=== PATIENT | female | born 1965 | race African-American/Black ===

== ENCOUNTER → 2016-08-30 | Emergency (ER) | payer OTHER ==
[~2016-08-30] VITALS: Ht 165.1 cm; Wt 190.5 kg
[~2016-08-30] MED LIST: ASPIRIN81 MG ORAL; BENADRYL25 MG ORAL; COREG3.125 MG ORAL; CYCLOBENZAPRINE10 MG ORAL; DOXYCYCLINE MO100 MG ORAL; FUROSEMIDE40 MG ORAL; IBUPROFEN600 MG ORAL; Ketorolac 60mg Inj IM ONE; METRONIDAZOLE500 MG ORAL; NITROSTAT0.4 M1 SL; NORCO 5-325 TA1 EACH ORAL; NORVASC10 MG ORAL; Norco 5mg/325mg tab ORAL ONE; PERCOCET 5-3251 EACH ORAL; PREDNISONE20 M1 PO; PROZAC40 MG ORAL; ULTRAM50 MG ORAL
[2016-08-30 02:27] VITALS: BP 163/105
--- NOTE | 2016-08-30 02:37 | Emergency Room Report ---
History of Present Illness General Chief Complaint: Pain Source: Patient Present Illness HPI This is a 51-year-old female who is morbidly obese. She is history hypertension and chronic knee pain. She presents with chief complaint of bilateral knee pain. She is out of her Percocet for last 2 days. She is to see her doctor in 2 days for refills. Patient denies any trauma. Complaining of bilateral knee pain is throbbing in nature. 10 out of 10. She is scheduled to see a pain specialist in a month. Denies any other complaint. Allergies: Coded Allergies: TRAMADOL (Verified Allergy, Severe, Anaphylaxis, 02/20/15) CARROT (Verified Allergy, Mild, 02/20/15) PENICILLINS (Verified Allergy, Unknown, 04/26/16) TRIMETHOBENZAMIDE (Verified Allergy, Unknown, 04/26/16) Patient History Past Medical History: see triage record, old chart reviewed, HTN Past Surgical History: other Pertinent Family History: none Social History: Denies: smoking Last Menstrual Period: 4 DAYS AGO Now: No Immunizations: other Reviewed Nursing Documentation: PMH: Agreed, PSxH: Agreed Nursing Documentation-PMH Hx Cardiac Problems: Yes - CHF Hx Hypertension: Yes Hx Pacemaker: No Hx Asthma: Yes Hx COPD: No Hx Diabetes: No Hx Cancer: No Hx Gastrointestinal Problems: No Hx Dialysis: No Hx Cerebrovascular Accident: No Hx Seizures: No Review of Systems Eye: Denies: blurred vision, eye pain ENT: Denies: ear pain, nose congestion, throat swelling Respiratory: Denies: cough, shortness of breath Cardiovascular: Denies: chest pain, palpitations Gastrointestinal: Denies: abdominal pain, diarrhea, nausea, vomiting Musculoskeletal: Reports: joint pain, Denies: back pain Skin: Denies: rash Neurological: Denies: headache, numbness Endocrine: Denies: increased thirst, increased urine Hematologic/Lymphatic: Denies: easy bruising All Other Systems: negative except mentioned in HPI Physical Exam Vital Signs Date Time Temp Pulse Resp B/P Pulse Ox O2 Delivery O2 Flow Rate FiO2 08/30/16 02:18 98.1 91 20 163/105 98 Room Air vitals with hypertension Sp02 EP Interpretation: reviewed, normal General Appearance: well appearing, no apparent distress, alert, obese Head: normocephalic, atraumatic Eyes: bilateral eye EOMI, bilateral eye PERRL ENT: hearing grossly normal, normal pharynx Neck: full range of motion, supple, no meningismus Respiratory: chest non-tender, lungs clear, normal breath sounds Cardiovascular #1: regular rate, rhythm, no murmur Gastrointestinal: normal bowel sounds, non tender, no mass, no organomegaly, no bruit, non-distended Musculoskeletal: back normal, other - Bilateral knee tenderness. No edema. Full range of motion. No redness. Neurologic: alert, oriented x3 Psychiatric: mood/affect normal Skin: warm/dry Medical Decision Making Diagnostic Impression: Primary Impression: Hypertension Qualified Codes: I10 - Essential (primary) hypertension Additional Impressions: Osteoarthritis of knees, bilateral Qualified Codes: M17.0 - Bilateral primary osteoarthritis of knee Morbid obesity with BMI of 60.0-69.9, adult ER Course Patient presents with bilateral knee pain secondary to her obesity. No evidence of septic joint. We'll discharge home. Last Vital Signs Date Time Temp Pulse Resp B/P Pulse Ox O2 Delivery O2 Flow Rate FiO2 08/30/16 02:27 98.1 91 20 163/105 99 Room Air Status: improved Disposition: HOME, SELF-CARE Scripts Oxycodone/Acetaminophen 5-325* (PERCOCET 5-325 MG TABLET*) 1 Each Tablet 1 TAB ORAL BID Y for For Pain, #10 TAB Prov: THEODORE JIN M.D. 08/30/16 Additional Instructions: Followup with your doctor as scheduled for refill your medication. Return if symptom worsen. THEODORE JIN M.D. Aug 30, 2016 02:37
[2016-08-30 03:09] VITALS: BP 163/105
== END | disposition home or self-care (01) ==
LOC: EMR 02:30
DX: M17.0 Bilateral primary osteoarthritis of knee (principal); I10 Essential (primary) hypertension; E66.01 Morbid (severe) obesity due to excess calories; Z68.44 Body mass index [BMI] 60.0-69.9, adult; J45.909 Unspecified asthma, uncomplicated; I50.9 Heart failure, unspecified; Z88.6 Allergy status to analgesic agent; Z88.0 Allergy status to penicillin; Z88.8 Allergy status to other drugs, medicaments and biological substances; Z91.018 Allergy to other foods
CPT/HCPCS: 96372; 99283

== ENCOUNTER 2016-12-05 16:56 | Inpatient (IN) | payer MEDICAID, OTHER ==
[~2016-12-05] VITALS: Ht 165.1 cm; Wt 144.2 kg
[2016-12-05] VITALS: BP 125/78
[~2016-12-05 16:56] MED LIST changes: -Ketorolac 60mg Inj IM ONE; -Norco 5mg/325mg tab ORAL ONE
--- NOTE | 2016-12-05 17:23 | Emergency Room Report ---
History of Present Illness General Chief Complaint: Multiple Trauma/Fall Source: Patient Present Illness HPI This is a 51 or female brought in by self after a reported fall from standing. The patient had fall approximately 2 hours prior to arrival. The patient reported vomiting she reported having had prior history of cardiac disease. Patient noted taking diuretics. Allergies: Coded Allergies: TRAMADOL (Verified Allergy, Severe, Anaphylaxis, 02/20/15) CARROT (Verified Allergy, Mild, 02/20/15) PENICILLINS (Verified Allergy, Unknown, 04/26/16) TRIMETHOBENZAMIDE (Verified Allergy, Unknown, 04/26/16) Patient History Last Menstrual Period: 11/17/16 Now: No : 3 Para: 1 Reviewed Nursing Documentation: PMH: Agreed, PSxH: Agreed Nursing Documentation-PMH Past Medical History: No History, Except For Hx Cardiac Problems: Yes - CHF Hx Hypertension: Yes Hx Pacemaker: No Hx Asthma: Yes Hx COPD: No Hx Diabetes: No Hx Cancer: No Hx Gastrointestinal Problems: No Hx Dialysis: No Hx Cerebrovascular Accident: No Hx Seizures: No Physical Exam Vital Signs Date Time Temp Pulse Resp B/P Pulse Ox O2 Delivery O2 Flow Rate FiO2 12/05/16 17:13 97.9 96 19 151/99 99 Room Air Medical Decision Making Diagnostic Impression: Primary Impression: Asthma exacerbation Additional Impressions: Obesity Shoulder contusion Abnormal drug screen ER Course Patient presented for shortness of breath.Differential included but was not limited to anemia, pneumonia, pneumothorax, myocardial infarction, pericardial effusion, congestive heart failure, acidosis. Because of complexity of patient' s case laboratory testing and imaging studies were ordered.A chest x-ray one view interpreted by me showed normal cardiac size without evident infiltrate. There is no pneumothorax noted . x-ray imaging of the left shoulder 3 view interpreted by me showed degenerative changes without evident fracture. The patient was given IV pain medications as well as breathing treatments and Solu- Medrol. The patient's urine drug screen was noted be positive for multiple substances. Dr. Hauser was contacted for inpatient management due to complexity of medical condition. Labs Test 12/05/16 17:40 12/05/16 18:10 White Blood Count 5.7 K/UL (4.8-10.8) Red Blood Count 3.53 M/UL (4.20-5.40) Hemoglobin 9.7 G/DL (12.0-16.0) Hematocrit 31.5 % (37.0-47.0) Mean Corpuscular Volume 89 FL (80-99) Mean Corpuscular Hemoglobin 27.5 PG (27.0-31.0) Mean Corpuscular Hemoglobin Concent 30.9 G/DL (32.0-36.0) Red Cell Distribution Width 17.0 % (11.6-14.8) Platelet Count 260 K/UL (150-450) Mean Platelet Volume 5.8 FL (6.5-10.1) Neutrophils (%) (Auto) 54.0 % (45.0-75.0) Lymphocytes (%) (Auto) 29.8 % (20.0-45.0) Monocytes (%) (Auto) 10.7 % (1.0-10.0) Eosinophils (%) (Auto) 3.6 % (0.0-3.0) Basophils (%) (Auto) 2.0 % (0.0-2.0) Chest X-Ray Diagnostic Results EP Interpretation: Yes Findings: no consolidation, no effusion, no pneumothorax, no acute cardiopulmonary disease Number of Views: 1 Last Vital Signs Date Time Temp Pulse Resp B/P Pulse Ox O2 Delivery O2 Flow Rate FiO2 12/05/16 17:13 97.9 96 19 151/99 99 Room Air Status: unchanged Disposition: XFER [facility], [facility] Condition: Serious Jatinder Worthington December 05, 2016 17:23
[2016-12-05] MEDS ORDERED: Ketorolac 30mg Inj IV ONE (17:45)
[2016-12-05] MEDS ORDERED: DuoNeb 0.5-3(2.5)mg/3ml neb HHN ONE (17:45)
[2016-12-05 18:26] LABS: EOSINOPHILS % (AUTO) 3.6 % (0.0-3.0); LYMPHOCYTES % (AUTO) 29.8 % (20.0-45.0); MEAN CORPUSCULAR HEMOGLOBIN 27.5 PG (27.0-31.0); MEAN CORPUSCULAR HGB CONC 30.9 G/DL (32.0-36.0); MEAN CORPUSCULAR VOLUME 89 FL (80-99); MEAN PLATELET VOLUME 5.8 FL (6.5-10.1); MONOCYTES % (AUTO) 10.7 % (1.0-10.0); PLATELET COUNT 260 K/UL (150-450); RED BLOOD COUNT 3.53 M/UL (4.20-5.40); WHITE BLOOD COUNT 5.7 K/UL (4.8-10.8)
[2016-12-05 18:30] VITALS: BP 131/82
[2016-12-05] MEDS ORDERED: Solu-MEDROL 125mg Inj IVP ONE (18:30)
[2016-12-05 18:44] LABS: PROTHROMBIN TIME 9.9 SEC (9.30-11.50)
[2016-12-05] MEDS ORDERED: TRIAMCINOLONE A15 GM TP (19:00)
[2016-12-05 19:02] LABS: TROPONIN I < 0.30 ng/mL (<=0.30)
[2016-12-05 19:05] LABS: ALANINE AMINOTRANSFERASE 12 U/L (3-33); ALBUMIN/GLOBULIN RATIO 1.1 (1.0-2.7); ANION GAP 11 (5-15); ASPARTATE AMINO TRANSFERASE 13 U/L (5-40); CALCIUM 8.9 mg/dL (8.6-10.2); CARBON DIOXIDE 28 mEQ/L (20-30); CHLORIDE 99 mEQ/L (98-107); GLOMERULAR FILTRATION RATE > 60 mL/min (>60); HEMOLYSIS 0; POTASSIUM 3.7 mEQ/L (3.4-4.9); SODIUM 138 mEQ/L (135-145); TOTAL PROTEIN 6.8 g/dL (6.6-8.7)
[2016-12-05] MEDS ORDERED: Oxycodone/Acetaminophen 5-325 ORAL PRN (20:30)
[2016-12-05] MEDS ORDERED: Nitroglycerin Subl 0.4mg tab (Bottle Of 25) SL PRN (20:30)
[2016-12-05] MEDS ORDERED: DuoNeb 0.5-3(2.5)mg/3ml neb HHN PRN (20:30)
[2016-12-05] MEDS ORDERED: Promethazine/Codeine 5ml UD ORAL PRN (20:30)
[2016-12-05 21:00] VITALS: BP 143/86
[2016-12-05 21:56] VITALS: BP 116/66
[2016-12-05] MEDS: Theophylline ER 100mg ORAL SCH (22:12)
[2016-12-05] MEDS: Heparin 5000 units/ml inj SUBQ SCH (22:13)
[2016-12-05] MEDS: LORazepam Inj 2mg/ml 1ml IV PRN (22:20)
[2016-12-05] MEDS: Morphine Sulfate 2mg/ml Inj IVP PRN (22:21)
--- NOTE | 2016-12-05 22:43 | History and Physical ---
History of Present Illness General Date patient seen: December 05, 2016 Reason for Hospitalization: Multiple Trauma/Fall Present Illness HPI 51 or female brought in by self after a reported fall from standing. The patient had fall approximately 2 hours prior to arrival. The patient reported vomiting she reported having had prior history of cardiac disease. Patient noted taking diuretics. Allergies: Coded Allergies: CARROT (Verified Allergy, Mild, 02/20/15) PENICILLINS (Verified Allergy, Unknown, 04/26/16) TRAMADOL (Verified Allergy, Unknown, Hives, 12/05/16) TRIMETHOBENZAMIDE (Verified Allergy, Unknown, 04/26/16) Medication History Scheduled Amlodipine Besylate (Norvasc), 20 MG ORAL DAILY, (Reported) Fluoxetine Hcl* (Prozac*), 40 MG ORAL DAILY, (Reported) Furosemide* (Lasix*), 40 MG ORAL DAILY, (Reported) Scheduled PRN Oxycodone/Acetaminophen 5-325* (Percocet 5-325 Mg Tablet*), 1 TAB ORAL BID PRN for For Pain Triamcinolone Acetonide (Triamcinolone Acetonide), 15 GM TP for inflammation, ( Reported) Patient History Healthcare decision maker Resuscitation status Advanced Directive on File Past Medical/Surgical History Past Medical/Surgical History: (1) Morbid obesity with BMI of 50.0-59.9, adult (2) Hypertension Review of Systems All Other Systems: negative except mentioned in HPI Physical Exam General Appearance: WD/WN, no apparent distress Lines, tubes and drains: peripheral HEENT: normocephalic, atraumatic Neck: non-tender, normal alignment Respiratory/Chest: chest wall non-tender, lungs clear Breasts: no masses Cardiovascular/Chest: normal peripheral pulses, normal rate Abdomen: normal bowel sounds, non tender Genitourinary/Rectal: normal genital exam Extremities: normal range of motion Skin Exam: normal pigmentation Last 24 Hour Vital Signs Date Time Temp Pulse Resp B/P Pulse Ox O2 Delivery O2 Flow Rate FiO2 12/05/16 21:56 97.9 88 20 116/66 99 Room Air 12/05/16 18:30 79 20 131/82 100 Room Air 12/05/16 17:13 97.9 96 19 151/99 99 Room Air Laboratory Tests Test 12/05/16 17:40 12/05/16 18:10 Urine Opiates Screen Negative (NEGATIVE) Urine Barbiturates Screen Negative (NEGATIVE) Phencyclidine (PCP) Screen Positive (NEGATIVE) H Urine Amphetamines Screen Positive (NEGATIVE) H Urine Benzodiazepines Screen Negative (NEGATIVE) Urine Cocaine Screen Positive (NEGATIVE) H Urine Marijuana (THC) Screen Negative (NEGATIVE) White Blood Count 5.7 K/UL (4.8-10.8) Red Blood Count 3.53 M/UL (4.20-5.40) L Hemoglobin 9.7 G/DL (12.0-16.0) L Hematocrit 31.5 % (37.0-47.0) L Mean Corpuscular Volume 89 FL (80-99) Mean Corpuscular Hemoglobin 27.5 PG (27.0-31.0) Mean Corpuscular Hemoglobin Concent 30.9 G/DL (32.0-36.0) L Red Cell Distribution Width 17.0 % (11.6-14.8) H Platelet Count 260 K/UL (150-450) Mean Platelet Volume 5.8 FL (6.5-10.1) L Neutrophils (%) (Auto) 54.0 % (45.0-75.0) Lymphocytes (%) (Auto) 29.8 % (20.0-45.0) Monocytes (%) (Auto) 10.7 % (1.0-10.0) H Eosinophils (%) (Auto) 3.6 % (0.0-3.0) H Basophils (%) (Auto) 2.0 % (0.0-2.0) Prothrombin Time 9.9 SEC (9.30-11.50) Prothromb Time International Ratio 1.0 (0.9-1.1) Activated Partial Thromboplast Time 23 SEC (23-33) Sodium Level 138 mEQ/L (135-145) Potassium Level 3.7 mEQ/L (3.4-4.9) Chloride Level 99 mEQ/L (98-107) Carbon Dioxide Level 28 mEQ/L (20-30) Anion Gap 11 (5-15) Blood Urea Nitrogen 16 mg/dL (7-23) Creatinine 1.0 mg/dL (0.5-0.9) H Estimat Glomerular Filtration Rate > 60 mL/min (>60) Glucose Level 114 mg/dL (74-106) H Calcium Level 8.9 mg/dL (8.6-10.2) Total Bilirubin 0.3 mg/dL (0.0-1.2) Aspartate Amino Transf (AST/SGOT) 13 U/L (5-40) Alanine Aminotransferase (ALT/SGPT) 12 U/L (3-33) Alkaline Phosphatase 78 U/L (35-104) Troponin I < 0.30 ng/mL (<=0.30) Pro-B-Type Natriuretic Peptide 109 pg/mL (0-125) Total Protein 6.8 g/dL (6.6-8.7) Albumin 3.7 g/dL (3.5-5.2) Globulin 3.1 g/dL Albumin/Globulin Ratio 1.1 (1.0-2.7) Height (Feet): 5 Height (Inches): 5.00 Weight (Pounds): 350 Medications Current Medications Medications (Trade) Dose Ordered Sig/Dave Route PRN Reason Start Time Stop Time Status Last Admin Dose Admin Albuterol/ Ipratropium (DuoNeb 0.5-3(2.5)mg/3ml) 3 ml Q4H PRN HHN dyspnea 12/05/16 20:30 12/10/16 20:29 Amlodipine Besylate (Norvasc) 20 mg DAILY ORAL 12/06/16 09:00 01/05/17 08:59 UNV Dextrose STAT PRN IV Hypoglycemia 12/05/16 20:30 01/04/17 20:29 Fluoxetine HCl (PROzac) 40 mg DAILY ORAL 12/06/16 09:00 01/05/17 08:59 Furosemide (Lasix) 40 mg DAILY ORAL 12/06/16 09:00 01/05/17 08:59 Heparin Sodium (Porcine) (Heparin 5000 units/ml) 5,000 units EVERY 12 HOURS SUBQ 12/05/16 22:00 01/04/17 21:59 12/05/16 22:13 Ketorolac Tromethamine (Toradol 30mg) 30 mg Q8H PRN IV moderate pain 4-6 12/05/16 20:30 12/10/16 20:29 Levofloxacin (Levaquin) 100 ml @ 100 mls/hr Q24H IVPB 12/05/16 23:00 12/12/16 22:59 Lorazepam (Ativan 2mg/ml 1ml) 0.5 mg Q4H PRN IV For Anxiety 12/05/16 20:30 12/12/16 20:29 12/05/16 22:20 Methylprednisolone Sodium Succinate (Solu-MEDROL) 60 mg EVERY 6 HOURS IV 12/06/16 00:00 01/05/17 00:00 Morphine Sulfate (Morphine Sulfate) 2 mg Q4H PRN IVP severe pain 7-10 12/05/16 20:30 12/12/16 20:29 12/05/16 22:21 Nitroglycerin (Ntg) 0.4 mg Q5M X 3 DOSES PRN SL Prn Chest Pain 12/05/16 20:30 01/04/17 20:29 Ondansetron HCl (Zofran) 4 mg Q6H PRN IVP Nausea & Vomiting 12/05/16 20:30 01/04/17 20:29 Oxycodone/ Acetaminophen (Percocet 5-325) 1 tab BIDPRN PRN ORAL MODERATE PAIN 12/05/16 20:30 12/12/16 20:29 Promethazine HCl/ Codeine (Phenergan with Codeine) 5 ml Q6H PRN ORAL cough 12/05/16 20:30 01/04/17 20:29 Temazepam (Restoril) 15 mg HSPRN PRN ORAL Insomnia 12/05/16 20:30 12/12/16 20:29 Theophylline (Ronaldo-Dur) 100 mg EVERY 12 HOURS ORAL 12/05/16 22:00 01/04/17 21:59 12/05/16 22:12 Assessment/Plan Problem List: (1) Asthma exacerbation ICD Codes: J45.901 - Unspecified asthma with (acute) exacerbation SNOMED: 442062869 (2) Shoulder contusion ICD Codes: S40.019A - Contusion of unspecified shoulder, initial encounter SNOMED: 62599492 (3) Obesity ICD Codes: E66.9 - Obesity, unspecified SNOMED: 790200684 (4) Morbid obesity with BMI of 50.0-59.9, adult ICD Codes: E66.01 - Morbid (severe) obesity due to excess calories; Z68.43 - Body mass index (BMI) 50-59.9 , adult SNOMED: 562512790 (5) Hypertension ICD Codes: I10 - Essential (primary) hypertension SNOMED: 89334385 Assessment/Plan respiratory treatment IV steroidw check sputum diuretics check electrolytes. KIRIT HEWITT December 05, 2016 22:43
[2016-12-06] VITALS (9 sets, daily range): BP systolic 125–164; BP diastolic 70–96
[2016-12-06] MEDS: Solu-MEDROL 125mg Inj IV SCH ×5 (00:24→23:42)
[2016-12-06] MEDS: Ketorolac 30mg Inj IV PRN ×2 (00:26→09:55)
[2016-12-06] MEDS: Morphine Sulfate 2mg/ml Inj IVP PRN ×3 (02:21→10:40)
[2016-12-06] MEDS ORDERED: Furosemide 40mg tab ORAL SCH (09:00)
[2016-12-06] MEDS: Heparin 5000 units/ml inj SUBQ SCH ×2 (09:00→21:27)
[2016-12-06] MEDS: Theophylline ER 100mg ORAL SCH ×2 (09:55→21:26)
[2016-12-06] MEDS ORDERED: Lidocaine 1% Plain 30 ml INJ PRN (10:30)
[2016-12-06] MEDS ORDERED: Heparin 2000 units/Ns 1000ml INJ PRN (10:30)
[2016-12-06] MEDS ORDERED: Sodium Bicarbonate 4% 2.4meq/5ml vial INJ PRN (10:30)
[2016-12-06] MEDS: LORazepam Inj 2mg/ml 1ml IV PRN ×2 (13:23→21:26)
--- NOTE | 2016-12-06 13:32 | Diagnostic Imaging Report ---
Indication: SOB Technique: One view of the chest Comparison: 04/26/2016 Findings: Inspiration is suboptimal. Lungs and pleural spaces are clear. The heart size is borderline enlarged. Aorta is tortuous and ectatic Impression: No acute process This agrees with the preliminary interpretation provided by the emergency room physician
--- NOTE | 2016-12-06 13:32 | Diagnostic Imaging Report ---
Indication: PAIN Technique: 3 views of the left shoulder Comparison: none Findings: There are fairly extensive degenerative changes of the left shoulder, with narrowing of joint space, subchondral sclerosis and subchondral cysts, and fairly extensive proliferative change. No acute fractures. No dislocations. There are mild degenerative changes of the acromioclavicular joint Impression:Degenerative changes. No acute bony trauma
--- NOTE | 2016-12-06 14:56 | Pulmonology Progress Note ---
Assessment/Plan Problems: (1) Asthma exacerbation (2) Shoulder contusion (3) Obesity (4) Morbid obesity with BMI of 50.0-59.9, adult (5) Hypertension Assessment/Plan improving increase dose of lasix echo cardio to see Subjective ROS Limited/Unobtainable: No Interval Events: still c/o shortness of breath Allergies: Coded Allergies: CARROT (Verified Allergy, Mild, 02/20/15) PENICILLINS (Verified Allergy, Unknown, 04/26/16) TRAMADOL (Verified Allergy, Unknown, Hives, 12/05/16) TRIMETHOBENZAMIDE (Verified Allergy, Unknown, 04/26/16) Objective Last 24 Hour Vital Signs Date Time Temp Pulse Resp B/P Pulse Ox O2 Delivery O2 Flow Rate FiO2 12/06/16 12:55 98.2 105 15 164/76 97 Room Air 12/06/16 09:56 85 150/77 12/06/16 08:45 95.0 85 21 150/77 98 Room Air 12/06/16 08:32 97.0 85 20 150/77 98 Room Air 12/06/16 04:00 97.7 99 20 146/70 97 Room Air 12/06/16 00:00 97.9 96 20 125/78 99 Room Air 12/05/16 21:56 97.9 88 20 116/66 99 Room Air 12/05/16 21:25 97.9 98 14 143/86 100 Room Air 79 98 12/05/16 21:00 97.9 98 14 143/86 100 Room Air 98 12/05/16 18:30 79 20 131/82 100 Room Air 12/05/16 17:13 97.9 96 19 151/99 99 Room Air Intake and Output 12/05/16 12/06/16 19:00 07:00 Intake Total 100 ml Output Total 450 ml Balance -350 ml Intake IV Total 100 ml Output Urine Total 450 ml General Appearance: WD/WN, no acute distress HEENT: normocephalic Respiratory/Chest: chest wall non-tender, lungs clear Breasts: no masses Cardiovascular: normal peripheral pulses, normal rate Abdomen: soft, non tender, non distended Extremities: no cyanosis, no clubbing Skin: no rash Laboratory Tests 12/05/16 17:40: Urine Opiates Screen Negative, Urine Barbiturates Screen Negative, Phencyclidine (PCP) Screen PositiveH, Urine Amphetamines Screen PositiveH, Urine Benzodiazepines Screen Negative, Urine Cocaine Screen PositiveH, Urine Marijuana (THC) Screen Negative 12/05/16 18:10: White Blood Count 5.7, Red Blood Count 3.53L, Hemoglobin 9.7L, Hematocrit 31.5L , Mean Corpuscular Volume 89, Mean Corpuscular Hemoglobin 27.5, Mean Corpuscular Hemoglobin Concent 30.9L, Red Cell Distribution Width 17.0H, Platelet Count 260, Mean Platelet Volume 5.8L, Neutrophils (%) (Auto) 54.0, Lymphocytes (%) (Auto) 29.8, Monocytes (%) (Auto) 10.7H, Eosinophils (%) (Auto) 3.6H, Basophils (%) (Auto) 2.0, Prothrombin Time 9.9, Prothromb Time International Ratio 1.0, Activated Partial Thromboplast Time 23, Sodium Level 138, Potassium Level 3.7, Chloride Level 99, Carbon Dioxide Level 28, Anion Gap 11, Blood Urea Nitrogen 16, Creatinine 1.0H, Estimat Glomerular Filtration Rate > 60, Glucose Level 114H, Calcium Level 8.9, Total Bilirubin 0.3, Aspartate Amino Transf (AST/SGOT) 13, Alanine Aminotransferase (ALT/SGPT) 12, Alkaline Phosphatase 78, Troponin I < 0.30, Pro-B-Type Natriuretic Peptide 109, Total Protein 6.8, Albumin 3.7, Globulin 3.1, Albumin/Globulin Ratio 1.1 Current Medications Medications (Trade) Dose Ordered Sig/Dave Route PRN Reason Start Time Stop Time Status Last Admin Dose Admin Albuterol/ Ipratropium (DuoNeb 0.5-3(2.5)mg/3ml) 3 ml Q4H PRN HHN dyspnea 12/05/16 20:30 12/10/16 20:29 Amlodipine Besylate (Norvasc) 10 mg DAILY ORAL 12/06/16 10:00 01/05/17 09:59 12/06/16 09:56 Chlorhexidine Gluconate (Suly-Hex 2%) 1 applic DAILY TOPIC 12/07/16 09:00 01/06/17 08:59 Dextrose STAT PRN IV Hypoglycemia 12/05/16 20:30 01/04/17 20:29 Fluoxetine HCl (PROzac) 40 mg DAILY ORAL 12/06/16 09:00 01/05/17 08:59 12/06/16 09:55 Furosemide (Lasix) 40 mg DAILY IV 12/06/16 12:00 01/05/17 11:59 Heparin Sodium (Porcine) (Heparin 5000 units/ml) 5,000 units EVERY 12 HOURS SUBQ 12/05/16 22:00 01/04/17 21:59 12/05/16 22:13 Heparin Sodium/ Sodium Chloride (Heparin 2000 units/Ns 1000ml premix) 2,000 unit ONCE PRN INJ PICC PLACEMENT 12/06/16 10:30 12/07/16 23:59 Ketorolac Tromethamine (Toradol 30mg) 30 mg Q8H PRN IV moderate pain 4-6 12/05/16 20:30 12/10/16 20:29 12/06/16 00:26 Levofloxacin (Levaquin) 100 ml @ 100 mls/hr Q24H IVPB 12/05/16 23:00 12/12/16 22:59 12/05/16 23:07 Lidocaine HCl (Xylocaine 1% 30ml) 30 ml ONCE PRN INJ PICC PLACEMENT 12/06/16 10:30 12/07/16 23:59 Lorazepam (Ativan 2mg/ml 1ml) 0.5 mg Q4H PRN IV For Anxiety 12/05/16 20:30 12/12/16 20:29 12/06/16 13:23 Methylprednisolone Sodium Succinate (Solu-MEDROL) 60 mg EVERY 6 HOURS IV 12/06/16 00:00 01/05/17 00:00 12/06/16 06:23 Morphine Sulfate (Morphine Sulfate) 3 mg Q4H PRN IVP Severe Pain (Pain Scale 7-10) 12/06/16 15:00 12/13/16 14:59 Nitroglycerin (Ntg) 0.4 mg Q5M X 3 DOSES PRN SL Prn Chest Pain 12/05/16 20:30 01/04/17 20:29 Ondansetron HCl (Zofran) 4 mg Q6H PRN IVP Nausea & Vomiting 12/05/16 20:30 01/04/17 20:29 Oxycodone/ Acetaminophen (Percocet 5-325) 1 tab BIDPRN PRN ORAL MODERATE PAIN 5/22/17 20:30 12/12/16 20:29 Promethazine HCl/ Codeine (Phenergan with Codeine) 5 ml Q6H PRN ORAL cough 12/05/16 20:30 01/04/17 20:29 Sodium Bicarbonate (Sodium Bicarbonate 4%) 1 ml ONCE PRN INJ PICC PLACEMENT 12/06/16 10:30 12/07/16 23:59 Temazepam (Restoril) 15 mg HSPRN PRN ORAL Insomnia 12/05/16 20:30 12/12/16 20:29 Theophylline (Ronaldo-Dur) 100 mg EVERY 12 HOURS ORAL 12/05/16 22:00 01/04/17 21:59 12/06/16 09:55 KIRIT HEWITT December 06, 2016 14:56
--- NOTE | 2016-12-06 15:17 | Diagnostic Imaging Report ---
Indications: Needs long-term IV access Technique: Procedure performed at bedside in the angiography suite; patient unable to be moved on the angiography table due to body habitus. Procedural timeout performed. Ultrasound confirms patent compressible the distal vein. Total sterile technique, including sterile probe cover and sterile gel, sterile gloves, hand hygiene, hat, mask,, sterile gown, large sterile drape, and preparation with 2% chlorhexidine utilized. Local anesthesia with 1% lidocaine. Under real-time ultrasound guidance, puncture right basilic vein using 21-gauge needle, passage 0.018 guidewire, exchange for 5 Australian peel-away sheath. 5 Australian Bard dual-lumen power PICC cut to 44 cm. It was inserted through the peel-away sheath. Peel-away sheath and guidewire removed. Catheter fixed to the skin. Both catheter ports aspirated and flushed. Patient tolerated procedure well, without immediate complication. Followup chest x-ray obtained, documents catheter tip position at the cavoatrial junction Impression: Successful bedside placement of right arm PICC under sonographic guidance, as described above.
[2016-12-06] MEDS: Morphine Sulfate 4mg/ml Inj IVP PRN ×3 (15:22→23:51)
[2016-12-06] MEDS ORDERED: 1/2 NS 1000ml IV ONE (18:00)
[2016-12-06] MEDS ORDERED: NS 275ml ONE (18:00)
[2016-12-06] MEDS ORDERED: Tubing IV Secondary IV ONE (18:00)
[2016-12-07] MEDS: Ketorolac 30mg Inj IV PRN (01:52)
[2016-12-07] MEDS: Morphine Sulfate 4mg/ml Inj IVP PRN ×4 (03:54→16:24)
[2016-12-07 04:00] VITALS: BP 134/94
[2016-12-07] MEDS: Solu-MEDROL 125mg Inj IV SCH ×3 (05:40→17:37)
[2016-12-07 07:07] LABS: MEAN CORPUSCULAR HGB CONC 30.1 G/DL (32.0-36.0); MEAN CORPUSCULAR VOLUME 87 FL (80-99); MEAN PLATELET VOLUME 6.1 FL (6.5-10.1); PLATELET COUNT 291 K/UL (150-450); RED BLOOD COUNT 3.49 M/UL (4.20-5.40); WHITE BLOOD COUNT 12.6 K/UL (4.8-10.8)
[2016-12-07 07:28] LABS: ALANINE AMINOTRANSFERASE 10 U/L (3-33); ALBUMIN/GLOBULIN RATIO 1.2 (1.0-2.7); ANION GAP 11 (5-15); ASPARTATE AMINO TRANSFERASE 10 U/L (5-40); CALCIUM 9.1 mg/dL (8.6-10.2); CARBON DIOXIDE 28 mEQ/L (20-30); CHLORIDE 100 mEQ/L (98-107); CREATININE 0.8 mg/dL (0.5-0.9); GLOMERULAR FILTRATION RATE > 60 mL/min (>60); LACTATE DEHYDROGENASE 174 U/L (135-230); POTASSIUM 3.9 mEQ/L (3.4-4.9); SODIUM 139 mEQ/L (135-145); TOTAL PROTEIN 6.6 g/dL (6.6-8.7)
[2016-12-07 07:49] LABS: HEMOLYSIS 1; IRON 22 ug/dL (37-145); TOTAL IRON BINDING CAPACITY 367 ug/dL (250-400)
[2016-12-07 08:02] VITALS: BP 151/102
[2016-12-07 08:17] LABS: BAND NEUTROPHILS % (MANUAL) 0 % (0-8); BASOPHILS % (MANUAL) 0 % (0-2); EOSINOPHILS % (MANUAL) 0 % (0-3); HYPOCHROMASIA 2+; LYMPHOCYTES % (MANUAL) 4 % (20-45); NEUTROPHILS % (MANUAL) 95 % (45-75); PLATELET ESTIMATE ADEQUATE; TOTAL CELLS COUNTED 100
[2016-12-07 08:18] LABS: ANISOCYTOSIS 1+; PLATELET MORPHOLOGY NORMAL
[2016-12-07 08:30] LABS: ERYTHROCYTE SEDIMENTATION RATE 41 MM/HR (0-20)
[2016-12-07] MEDS ORDERED: Dyna-Hex 2% Top Sol 8oz TOPIC SCH (09:00)
[2016-12-07] MEDS: LORazepam Inj 2mg/ml 1ml IV PRN ×2 (09:24→17:37)
[2016-12-07] MEDS: Theophylline ER 100mg ORAL SCH (09:25)
[2016-12-07] MEDS: Heparin 5000 units/ml inj SUBQ SCH (09:26)
[2016-12-07 09:54] LABS: PATH BLOOD SMEAR/OMC SENT TO PATHOLOGIST
[2016-12-07 09:55] LABS: RETICULOCYTE COUNT 2.2 % (0.0-2.0)
[2016-12-07] MEDS ORDERED: DiphenhydrAMINE 50mg/ml Inj IVP PRN (10:35)
--- NOTE | 2016-12-07 11:38 | Diagnostic Imaging Report ---
Indication: Dyspnea Comparison: 12/05/16 A single view chest radiograph was obtained. Findings: No definite infiltrate or pulmonary vascular congestion identified. PICC line is present in good position. The heart is enlarged. The bones are unremarkable. Impression: No acute disease
[2016-12-07 11:54] VITALS: BP 141/94
--- NOTE | 2016-12-07 15:21 | Pulmonology Progress Note ---
Assessment/Plan Problems: (1) Asthma exacerbation (2) Shoulder contusion (3) Obesity (4) Morbid obesity with BMI of 50.0-59.9, adult (5) Hypertension Assessment/Plan improving increase dose of lasix echo cardio to see ok to dc Subjective ROS Limited/Unobtainable: No Constitutional: Reports: no symptoms HEENT: Repors: no symptoms Allergies: Coded Allergies: CARROT (Verified Allergy, Mild, 02/20/15) PENICILLINS (Verified Allergy, Unknown, 04/26/16) TRAMADOL (Verified Allergy, Unknown, Hives, 12/05/16) TRIMETHOBENZAMIDE (Verified Allergy, Unknown, 04/26/16) Objective Last 24 Hour Vital Signs Date Time Temp Pulse Resp B/P Pulse Ox O2 Delivery O2 Flow Rate FiO2 12/07/16 11:54 97.7 83 18 141/94 95 Room Air 12/07/16 09:25 84 151/102 12/07/16 08:02 97.9 84 18 151/102 96 Room Air 12/07/16 04:00 97.5 91 20 134/94 99 Room Air 12/06/16 23:57 97.3 106 20 140/96 97 Room Air 12/06/16 21:19 104 20 129/83 98 Room Air 12/06/16 19:53 98.1 103 20 131/87 98 Room Air 12/06/16 16:05 98.2 98 15 137/86 100 Room Air Intake and Output 12/06/16 12/07/16 19:00 07:00 Intake Total 1200 ml Output Total 800 ml 1200 ml Balance 400 ml -1200 ml Intake Oral 1200 ml Output Urine Total 800 ml 1200 ml # Bowel Movements 1 General Appearance: WD/WN, no acute distress HEENT: normocephalic, atraumatic Respiratory/Chest: chest wall non-tender, lungs clear Cardiovascular: normal peripheral pulses Abdomen: normal bowel sounds Extremities: no cyanosis Skin: no rash Microbiology Date/Time Source Procedure Growth Status 12/06/16 06:30 Sputum Gram Stain - Final Resulted 12/06/16 06:30 Sputum Sputum Culture Pending Resulted Laboratory Tests 12/07/16 05:00: White Blood Count 12.6#H, Red Blood Count 3.49L, Hemoglobin 9.1L, Hematocrit 30.2L, Mean Corpuscular Volume 87, Mean Corpuscular Hemoglobin 26.0L, Mean Corpuscular Hemoglobin Concent 30.1L, Red Cell Distribution Width 17.0H, Platelet Count 291, Mean Platelet Volume 6.1L, Neutrophils (%) (Auto) , Lymphocytes (%) (Auto) , Monocytes (%) (Auto) , Eosinophils (%) (Auto) , Basophils (%) (Auto) , Differential Total Cells Counted 100, Neutrophils % ( Manual) 95H, Lymphocytes % (Manual) 4L, Monocytes % (Manual) 1, Eosinophils % ( Manual) 0, Basophils % (Manual) 0, Band Neutrophils 0, Platelet Estimate Adequate, Platelet Morphology Normal, Hypochromasia 2+, Anisocytosis 1+, Erythrocyte Sedimentation Rate 41H, Reticulocyte Count 2.2H, Prothrombin Time 10.0, Prothromb Time International Ratio 1.0, Activated Partial Thromboplast Time 19L, Sodium Level 139, Potassium Level 3.9, Chloride Level 100, Carbon Dioxide Level 28, Anion Gap 11, Blood Urea Nitrogen 15, Creatinine 0.8, Estimat Glomerular Filtration Rate > 60, Glucose Level 162H, Calcium Level 9.1, Iron Level 22L, Total Iron Binding Capacity 367, Percent Iron Saturation 6L, Unsaturated Iron Binding 345, Total Bilirubin 0.2, Aspartate Amino Transf (AST/ SGOT) 10, Alanine Aminotransferase (ALT/SGPT) 10, Alkaline Phosphatase 76, Lactate Dehydrogenase 174, Pro-B-Type Natriuretic Peptide 159H, Total Protein 6.6, Albumin 3.6, Globulin 3.0, Albumin/Globulin Ratio 1.2, Carcinoembryonic Antigen 0.9, Vitamin B12 Level 557, Folate [Pending] Current Medications Medications (Trade) Dose Ordered Sig/Dave Route PRN Reason Start Time Stop Time Status Last Admin Dose Admin Albuterol/ Ipratropium (DuoNeb 0.5-3(2.5)mg/3ml) 3 ml Q4H PRN HHN dyspnea 12/05/16 20:30 12/10/16 20:29 Amlodipine Besylate (Norvasc) 10 mg DAILY ORAL 12/06/16 10:00 01/05/17 09:59 12/07/16 09:25 Chlorhexidine Gluconate (Suly-Hex 2%) 1 applic DAILY TOPIC 12/07/16 09:00 01/06/17 08:59 12/07/16 09:25 Clonidine HCl (Catapres) 0.1 mg Q4H PRN ORAL For High Blood Pressure 12/06/16 15:00 01/05/17 14:59 Dextrose STAT PRN IV Hypoglycemia 12/05/16 20:30 01/04/17 20:29 Diphenhydramine HCl (Benadryl) 25 mg Q6H PRN IVP Itching 12/07/16 10:35 01/06/17 10:34 12/07/16 10:47 Fluoxetine HCl (PROzac) 60 mg DAILY ORAL 12/08/16 09:00 01/07/17 08:59 Furosemide (Lasix) 40 mg EVERY 12 HOURS IV 12/06/16 21:00 01/05/17 20:59 12/07/16 09:25 Heparin Sodium (Porcine) (Heparin 5000 units/ml) 5,000 units EVERY 12 HOURS SUBQ 12/05/16 22:00 01/04/17 21:59 12/07/16 09:26 Heparin Sodium/ Sodium Chloride (Heparin 2000 units/Ns 1000ml premix) 2,000 unit ONCE PRN INJ PICC PLACEMENT 12/06/16 10:30 12/07/16 23:59 Ketorolac Tromethamine (Toradol 30mg) 30 mg Q8H PRN IV moderate pain 4-6 12/05/16 20:30 12/10/16 20:29 12/07/16 01:52 Levofloxacin (Levaquin) 100 ml @ 100 mls/hr Q24H IVPB 12/05/16 23:00 12/12/16 22:59 12/06/16 23:30 Lidocaine HCl (Xylocaine 1% 30ml) 30 ml ONCE PRN INJ PICC PLACEMENT 12/06/16 10:30 12/07/16 23:59 Lorazepam (Ativan 2mg/ml 1ml) 0.5 mg Q4H PRN IV For Anxiety 12/05/16 20:30 12/12/16 20:29 12/07/16 09:24 Methylprednisolone Sodium Succinate (Solu-MEDROL) 60 mg EVERY 6 HOURS IV 12/06/16 00:00 01/05/17 00:00 12/07/16 12:02 Morphine Sulfate (Morphine Sulfate) 3 mg Q4H PRN IVP Severe Pain (Pain Scale 7-10) 12/06/16 15:00 12/13/16 14:59 12/07/16 12:02 Nitroglycerin (Ntg) 0.4 mg Q5M X 3 DOSES PRN SL Prn Chest Pain 12/05/16 20:30 01/04/17 20:29 Ondansetron HCl (Zofran) 4 mg Q6H PRN IVP Nausea & Vomiting 12/05/16 20:30 01/04/17 20:29 Oxycodone/ Acetaminophen (Percocet 5-325) 1 tab BIDPRN PRN ORAL MODERATE PAIN 12/05/16 20:30 12/12/16 20:29 Promethazine HCl/ Codeine (Phenergan with Codeine) 5 ml Q6H PRN ORAL cough 12/05/16 20:30 01/04/17 20:29 Sodium Bicarbonate (Sodium Bicarbonate 4%) 1 ml ONCE PRN INJ PICC PLACEMENT 12/06/16 10:30 12/07/16 23:59 Temazepam (Restoril) 15 mg HSPRN PRN ORAL Insomnia 12/05/16 20:30 12/12/16 20:29 Theophylline (Ronaldo-Dur) 100 mg EVERY 12 HOURS ORAL 12/05/16 22:00 01/04/17 21:59 12/07/16 09:25 KIRIT HEWITT December 07, 2016 15:21
[2016-12-07 15:56] VITALS: BP 164/88
[2016-12-07 16:24] VITALS: BP 164/88
--- NOTE | 2016-12-07 18:01 | Consultation ---
DATE OF CONSULTATION: 12/07/2016 CONSULTING PHYSICIAN: Erica Cox M.D. HISTORY OF PRESENT ILLNESS: The patient is a 51-year-old female with a history of PTSD and severe anxiety who has been admitted to the hospital for multiple trauma and falls. Psychiatry was consulted as the patient expressed severe anxiety and wanting more Ativan. During the evaluation, the patient endorsed target symptoms of insomnia, mild nightmares, depressed mood, anxiety, and is somewhat vigilant throughout the evaluation. She asked the Ativan to be increased. The patient was explained in regards to Ativan and PTSD. I educated her about the benzodiazepines are contraindicated in PTSD; however, the patient disagreed and still would like to be continued on Ativan. She did not endorse any rosy or psychosis. No suicidal or homicidal ideations. PAST PSYCHIATRIC HISTORY: Diagnosed with PTSD, has been treated with risperidone as well as fluoxetine. No suicide attempts in the past. PAST MEDICAL HISTORY: Significant for obesity, acute coronary syndrome, asthma, osteoarthritis, and bilateral lower extremity edema. ALLERGIES: Carrots, penicillin, tramadol, and trimethobenzamide. SUBSTANCE ABUSE HISTORY: No history of illicit drug use or alcohol. However, the patient appears to have medication seeking behaviors for pain medication as well as Ativan. MENTAL STATUS EXAMINATION: Alert and oriented x4. Cooperative. Mood is anxious. Affect is constricted, congruent with mood. Thought process is circumstantial. Thought content, no suicidal or homicidal ideations. No delusions. No AVH. Insight and judgment fair. ASSESSMENT: AXIS I: Post traumatic stress disorder. AXIS II: Deferred. AXIS III: 1. Hypertension. 2. Obesity. 3. Asthma. 4. Fall and multiple traumas including shoulder contusion. PLAN: 1. We will increase the fluoxetine to 60 mg p.o. daily. 2. We will continue the Ativan, however, I recommend to change IV to p.o. 3. Neurontin would also help for anxiety and agitation. Erica Cox M.D. DR: SHANEL JOB#: [id number] CC:
== END 2016-12-07 19:15 | disposition home or self-care (01) | DRG 141 ==
LOC: EMR 18:04 → 4E 19:50 → EDBEDREQ 20:45
PROC: 02HV33Z Insertion of Infusion Device into Superior Vena Cava, Percutaneous Approach (ICD-10-PCS; principal; 2016-12-06)
PROC: B548ZZA Ultrasonography of Superior Vena Cava, Guidance (ICD-10-PCS; 2016-12-06)
DX: J45.901 Unspecified asthma with (acute) exacerbation (principal); Z68.43 Body mass index [BMI] 50.0-59.9, adult; I10 Essential (primary) hypertension; E66.9 Obesity, unspecified; E66.01 Morbid (severe) obesity due to excess calories; S40.012A Contusion of left shoulder, initial encounter; F43.10 Post-traumatic stress disorder, unspecified; F41.9 Anxiety disorder, unspecified; Z76.5 Malingerer [conscious simulation]; W01.0XXA Fall on same level from slipping, tripping and stumbling without subsequent striking against object, initial encounter; Z91.81 History of falling; Y92.019 Unspecified place in single-family (private) house as the place of occurrence of the external cause; Y99.8 Other external cause status
CPT/HCPCS: 36415; 36569; 71010; 76937; 80053; 80300; 82378; 82607; 82746; 83540; 83550; 83615; 83880; 84484; 85007; 85025; 85044; 85060; 85610; 85651; 85730; 87070; 87205; 93306

== ENCOUNTER 2016-12-26 16:11 | Emergency (ER) | payer MEDICAID ==
[~2016-12-26] VITALS: Ht 162.6 cm; Wt 158.8 kg
[~2016-12-26 16:11] MED LIST changes: +TRIAMCINOLONE A15 GM TP
[2016-12-26 16:17] VITALS: BP 149/85
[2016-12-26 16:39] VITALS: BP 149/85
== END 2016-12-26 16:40 | disposition left against medical advice (07) ==
LOC: EMR 16:35
DX: R22.33 Localized swelling, mass and lump, upper limb, bilateral (principal); Z53.21 Procedure and treatment not carried out due to patient leaving prior to being seen by health care provider
CPT/HCPCS: 99281

== ENCOUNTER 2017-01-24 01:20 | Emergency (ER) | payer MEDICAID ==
[~2017-01-24] VITALS: Ht 165.1 cm; Wt 149.7 kg
[2017-01-24] MEDS ORDERED: METRONIDAZOLE500 MG ORAL (02:05)
[2017-01-24] MEDS ORDERED: Lidocaine 1% MPF 10mg/ml 5ml ONE (02:13)
[2017-01-24] MEDS ORDERED: Azithromycin 250mg tab ORAL ONE (02:15)
--- NOTE | 2017-01-24 02:15 | Emergency Room Report ---
History of Present Illness General Chief Complaint: General Complaint Source: Patient Present Illness HPI [id number] [employer] patient with 3 days foul-smelling whitish/green discharge from vagina. Was told her partner is cheating on her. He told her he tested positive for gonorrhea and trichomoas She has not been tested herself She denies previous STD infection, HIV. Denies abd pain, nausea/vomiting, dysuria, polyuria, flank pain, fever/chills. Allergies: Coded Allergies: CARROT (Verified Allergy, Mild, 02/20/15) PENICILLINS (Verified Allergy, Unknown, 04/26/16) TRAMADOL (Verified Allergy, Unknown, Hives, 12/05/16) TRIMETHOBENZAMIDE (Verified Allergy, Unknown, 04/26/16) Patient History Past Surgical History: none Pertinent Family History: none Social History: Denies: alcohol use, drug use, smoking Last Menstrual Period: december 26, 2016 Now: No Immunizations: UTD Reviewed Nursing Documentation: PMH: Agreed, PSxH: Agreed Nursing Documentation-PMH Past Medical History: No History, Except For Hx Cardiac Problems: No Hx Hypertension: Yes Hx Pacemaker: No Hx Asthma: Yes Hx COPD: No Hx Diabetes: No Hx Cancer: No Hx Gastrointestinal Problems: No Hx Dialysis: No Hx Cerebrovascular Accident: No Hx Seizures: No Review of Systems All Other Systems: negative except mentioned in HPI Physical Exam Vital Signs Date Time Temp Pulse Resp B/P Pulse Ox O2 Delivery O2 Flow Rate FiO2 01/24/17 01:53 97.7 82 20 150/102 98 Room Air Sp02 EP Interpretation: reviewed, normal General Appearance: normal inspection, well appearing, no apparent distress, alert, GCS 15, non-toxic Head: normocephalic, atraumatic Eyes: bilateral eye EOMI, bilateral eye PERRL ENT: normal ENT inspection, hearing grossly normal, normal voice Neck: normal inspection, full range of motion, supple, no bony tend Respiratory: normal inspection, lungs clear, normal breath sounds, no respiratory distress, no retraction, no wheezing Cardiovascular #1: regular rate, rhythm, no edema Gastrointestinal: normal inspection, normal bowel sounds, non tender, soft, no guarding, no hernia Genitourinary: no CVA tenderness Musculoskeletal: normal inspection, back normal, normal range of motion, Bradford' s Sign negative Neurologic: normal inspection, alert, oriented x3, responsive, manager process III-XII nml as tested, motor strength/tone normal, speech normal Psychiatric: normal inspection, judgement/insight normal, mood/affect normal Skin: normal inspection, normal color, no rash Medical Decision Making Diagnostic Impression: Primary Impression: STD exposure ER Course Treated empirically in ED for G&C Rx for Flagyl given to cover Trich Advised to go to STD clinic for testing DC home Last Vital Signs Date Time Temp Pulse Resp B/P Pulse Ox O2 Delivery O2 Flow Rate FiO2 01/24/17 01:53 97.7 82 20 150/102 98 Room Air Status: improved Disposition: HOME, SELF-CARE Condition: Improved Scripts Metronidazole* (FLAGYL*) 500 Mg Tablet 500 MG ORAL THREE TIMES A DAY for 7 Days, #21 TAB Prov: REAL VALVERDE M.D. 01/24/17 Patient Instructions: Vaginitis, [id number] Additional Instructions: - DO NOT drink alcohol while taking this medication REAL VALVERDE M.D. Jan 24, 2017 02:15
[2017-01-24 02:32] VITALS: BP 144/98
== END 2017-01-24 02:30 | disposition home or self-care (01) ==
LOC: EMR 02:00
DX: A64 Unspecified sexually transmitted disease (principal); I10 Essential (primary) hypertension; J45.909 Unspecified asthma, uncomplicated; Z91.018 Allergy to other foods; Z88.0 Allergy status to penicillin; Z88.6 Allergy status to analgesic agent; Z88.8 Allergy status to other drugs, medicaments and biological substances
CPT/HCPCS: 96372; 99283; J0696; Q0144

== ENCOUNTER 2017-02-03 20:10 | Emergency (ER) | payer MEDICAID ==
[~2017-02-03] VITALS: Ht 165.1 cm; Wt 154.2 kg
--- NOTE | 2017-02-03 20:51 | Emergency Room Report ---
History of Present Illness General Chief Complaint: Chest Pain Source: Patient Present Illness HPI This 51-year-old female presented after increased reported the leg swelling as well as a right leg pain. She presenting some low back pain as well as for a fall. As reports falling down some stairs. Patient states that she had recently hospitalized for rheumatoid arthritis and congestive heart failure. Patient states that she is currently taking Lasix 40 mg twice a day, she states is also taking medications for pain which include Percocet. She has multiple allergies to medications. She states that she's had increased difficulty with her medical problems. Allergies: Coded Allergies: CARROT (Verified Allergy, Mild, 02/20/15) IBUPROFEN (Verified Allergy, Unknown, 02/03/17) PENICILLINS (Verified Allergy, Unknown, 04/26/16) TRAMADOL (Verified Allergy, Unknown, Hives, 12/05/16) TRIMETHOBENZAMIDE (Verified Allergy, Unknown, 04/26/16) Patient History Past Medical History: see triage record Last Menstrual Period: ukn Now: No Reviewed Nursing Documentation: PMH: Agreed, PSxH: Agreed Nursing Documentation-PMH Past Medical History: No History, Except For Hx Cardiac Problems: No Hx Hypertension: Yes Hx Pacemaker: No Hx Asthma: Yes Hx COPD: No Hx Diabetes: No Hx Cancer: No Hx Gastrointestinal Problems: No Hx Dialysis: No Hx Cerebrovascular Accident: No Hx Seizures: No Review of Systems All Other Systems: negative except mentioned in HPI Physical Exam Vital Signs Date Time Temp Pulse Resp B/P Pulse Ox O2 Delivery O2 Flow Rate FiO2 02/03/17 20:36 98.2 90 16 149/95 100 Room Air Sp02 EP Interpretation: reviewed, normal General Appearance: normal inspection, well appearing, no apparent distress, alert, GCS 15, obese, Chronically Ill Head: atraumatic ENT: normal ENT inspection, hearing grossly normal, normal voice Neck: normal inspection, full range of motion, supple, no bony tend Respiratory: normal inspection, lungs clear, normal breath sounds, no respiratory distress, no retraction, no wheezing Cardiovascular #1: regular rate, rhythm, edema Gastrointestinal: non tender, soft, no guarding, no hernia Genitourinary: no CVA tenderness Musculoskeletal: normal inspection, back normal, normal range of motion Neurologic: normal inspection, alert, oriented x3, responsive, rumper III-XII nml as tested, speech normal Psychiatric: normal inspection, judgement/insight normal, mood/affect normal Skin: normal inspection, normal color, no rash Medical Decision Making Diagnostic Impression: Primary Impression: Morbid obesity with BMI of 50.0-59.9, adult Additional Impression: Bilateral leg edema ER Course Patient presented for extremity pain after fall. Differential diagnosis included wasn't limited to fracture, dislocation, arthritis among others.Because of complexity of patient's case laboratory testing and imaging studies were ordered. The patient was noted to have history chronic pain. She is given oral pain medications.The patient was given IM Toradol. CT the lumbar spine read by radiologist showed degenerative changes without evident fracture. X-ray of the right knee 3 views interpreted by me showed degenerative changes without fracture. The patient was noted to have prior history of substance abuse. The patient was noted to have adequate doses of her pain medications on CURES. Patient is advised followup with [facility] for further medication Patient is advised to return if any worsening condition or if any changes in status that are concerning. Labs Test 02/03/17 20:39 02/03/17 22:06 Urine Color Yellow Urine Appearance Turbid Urine pH 6 (4.5-8.0) Urine Specific [place] 1.025 (1.005-1.035) Urine Protein 4+ (NEGATIVE) Urine Glucose (UA) Negative (NEGATIVE) Urine Ketones Negative (NEGATIVE) Urine Occult Blood Negative (NEGATIVE) Urine Nitrite Negative (NEGATIVE) Urine Bilirubin Negative (NEGATIVE) Urine Urobilinogen Normal MG/DL (0.0-1.0) Urine Leukocyte Esterase Negative (NEGATIVE) Urine RBC 0-2 /HPF (0 - 2) Urine WBC 0-2 /HPF (0 - 2) Urine Squamous Epithelial Cells Occasional /LPF Urine Amorphous Sediment Many /LPF (NONE) Urine Bacteria Many /HPF (NONE) White Blood Count 7.0 K/UL (4.8-10.8) Red Blood Count 3.71 M/UL (4.20-5.40) Hemoglobin 11.3 G/DL (12.0-16.0) Hematocrit 35.0 % (37.0-47.0) Mean Corpuscular Volume 94 FL (80-99) Mean Corpuscular Hemoglobin 30.4 PG (27.0-31.0) Mean Corpuscular Hemoglobin Concent 32.3 G/DL (32.0-36.0) Red Cell Distribution Width 17.9 % (11.6-14.8) Platelet Count 266 K/UL (150-450) Mean Platelet Volume 6.4 FL (6.5-10.1) Neutrophils (%) (Auto) 58.8 % (45.0-75.0) Lymphocytes (%) (Auto) 26.9 % (20.0-45.0) Monocytes (%) (Auto) 11.4 % (1.0-10.0) Eosinophils (%) (Auto) 1.2 % (0.0-3.0) Basophils (%) (Auto) 1.6 % (0.0-2.0) Sodium Level 139 mEQ/L (135-145) Potassium Level 4.6 mEQ/L (3.4-4.9) Chloride Level 103 mEQ/L (98-107) Carbon Dioxide Level 27 mEQ/L (20-30) Anion Gap 9 (5-15) Blood Urea Nitrogen 17 mg/dL (7-23) Creatinine 1.1 mg/dL (0.5-0.9) Estimat Glomerular Filtration Rate > 60 mL/min (>60) Glucose Level 105 mg/dL (74-106) Calcium Level 9.0 mg/dL (8.6-10.2) Troponin I < 0.30 ng/mL (<=0.30) Last Vital Signs Date Time Temp Pulse Resp B/P Pulse Ox O2 Delivery O2 Flow Rate FiO2 02/03/17 20:36 98.2 90 16 149/95 100 Room Air Status: improved Disposition: HOME, SELF-CARE Condition: Stable Scripts Cephalexin* (KEFLEX*) 500 Mg Capsule 500 MG ORAL Q6H, #28 CAP 0 Refills Prov: Jatinder Worthington 02/03/17 Jatinder Worthington Feb 03, 2017 20:51
[2017-02-03] MEDS ORDERED: Norco 10mg/325mg tab ORAL ONE (21:00)
[2017-02-03] MEDS ORDERED: Furosemide 40mg tab ORAL ONE (21:00)
[2017-02-03] MEDS ORDERED: Ascorbic Acid 500mg tab ORAL ONE (21:00)
[2017-02-03] MEDS ORDERED: Ketorolac 60mg Inj IM ONE (21:30)
[2017-02-03 22:28] LABS: APPEARANCE,URINE TURBID; KETONES,URINE NEGATIVE (NEGATIVE); LEUKOCYTE ESTERASE ,URINE NEGATIVE (NEGATIVE); NITRITE,URINE NEGATIVE (NEGATIVE); PH,URINE 6 (4.5-8.0); PROTEIN,URINE 4+ (NEGATIVE); UROBILINOGEN,URINE NORMAL MG/DL (0.0-1.0)
[2017-02-03 22:32] LABS: TROPONIN I < 0.30 ng/mL (<=0.30)
[2017-02-03 22:33] LABS: BASOPHILS % (AUTO) 1.6 % (0.0-2.0); EOSINOPHILS % (AUTO) 1.2 % (0.0-3.0); LYMPHOCYTES % (AUTO) 26.9 % (20.0-45.0); MEAN CORPUSCULAR HEMOGLOBIN 30.4 PG (27.0-31.0); MEAN CORPUSCULAR HGB CONC 32.3 G/DL (32.0-36.0); MEAN CORPUSCULAR VOLUME 94 FL (80-99); MEAN PLATELET VOLUME 6.4 FL (6.5-10.1); MONOCYTES % (AUTO) 11.4 % (1.0-10.0); NEUTROPHILS % (AUTO) 58.8 % (45.0-75.0); PLATELET COUNT 266 K/UL (150-450); RED BLOOD COUNT 3.71 M/UL (4.20-5.40); RED CELL DISTRIBUTION WIDTH 17.9 % (11.6-14.8)
[2017-02-03 22:34] LABS: ANION GAP 9 (5-15); CARBON DIOXIDE 27 mEQ/L (20-30); CHLORIDE 103 mEQ/L (98-107); CREATININE 1.1 mg/dL (0.5-0.9); GLOMERULAR FILTRATION RATE > 60 mL/min (>60); HEMOLYSIS 179; POTASSIUM 4.6 mEQ/L (3.4-4.9); SODIUM 139 mEQ/L (135-145)
[2017-02-03 22:44] LABS: RBC,URINE 0-2 /HPF (0 - 2)
[2017-02-03 22:45] LABS: AMORPHOUS SEDIMENT,UR MANY /LPF; BACTERIA,URINE MANY /HPF; SQUAMOUS EPITHELIAL CELL,UR OCCASIONAL /LPF (NONE/OCC); WBC,URINE 0-2 /HPF (0 - 2)
[2017-02-03] MEDS ORDERED: KEFLEX500 MG ORAL (22:48)
[2017-02-03 23:29] VITALS: BP 124/78
[2017-02-03 23:30] VITALS: BP 149/95
--- NOTE | 2017-02-04 09:12 | Diagnostic Imaging Report ---
Indication: PAIN Technique: XRAY KNEE THREE VIEWS RIGHT Comparison: None. Findings: Examination demonstrates marked narrowing of the knee joint. There is extensive spur formation. Subchondral cyst formation is present in the femur medially. There is a large calcified density in the region of the suprapatellar pouch. No acute fracture. No bone destruction. Impression: Severe osteoarthrosis. Calcified density in the region of the suprapatellar pouch. This likely represents a loose body or synovial osteochondroma.
--- NOTE | 2017-02-06 09:15 | Diagnostic Imaging Report ---
Indication: PAIN Technique: CT scan of the lumbar spine performed without intravenous contrast material. Axial, coronal comment sagittal images were generated. Dose: Total Dose Length Product - DLP [address] Dose Index - CTDIvol(s) 54.53 mGy. Findings: The study is degraded by patient body habitus. L5-S1: There is narrowing of the disc with vacuum phenomenon. Minimal anterolisthesis is noted. Moderate to severe degenerative changes noted in the posterior facets. There is bilateral foraminal narrowing with loss of perineural fat around the L5 roots. Spinal canal is normal in width. L4-L5: There is narrowing of the disc with vacuum phenomenon. Mild annular bulge is present. There is moderate to severe facet degenerative change bilaterally with calcification in the right ligamentum flavum. The spinal canal is normal in width overall. There is mild narrowing of the foramina but no definite loss of perineural fat. L3-L4: The disc is normal. The neural foramina are unremarkable. There is mild facet degenerative change.. The spinal canal is normal in width. The nerve roots are symmetric. L2-L3: The disc is normal. The neural foramina are unremarkable. The facets are normal. The spinal canal is normal in width. The nerve roots are symmetric. L1-L2: The disc is normal. The neural foramina are unremarkable. There is some degenerative facet disease on the left.. The spinal canal is normal in width. The nerve roots are symmetric. Impression: Osteoarthrosis with degenerative changes in the facets as well as degenerative disc disease. Minimal anterolisthesis L5 on S1. Mild annular bulge at L4-5. Foraminal stenosis at L5-S1 with loss of perineural fat around the L5 roots. MRI may be obtained for more sensitive evaluation if clinically warranted. The above report is concordant with preliminary reading by [employer] . The CT scanner at [facility] is accredited by the [employer] and the scans are performed using protocols designed to limit radiation exposure to as low as reasonably achievable to attain images of sufficient resolution adequate for diagnostic evaluation.
== END 2017-02-03 23:31 | disposition home or self-care (01) ==
LOC: EMR 21:13
DX: R60.0 Localized edema (principal); J45.909 Unspecified asthma, uncomplicated; Z68.43 Body mass index [BMI] 50.0-59.9, adult; E66.01 Morbid (severe) obesity due to excess calories; I10 Essential (primary) hypertension; M17.11 Unilateral primary osteoarthritis, right knee
CPT/HCPCS: 36415; 72131; 80048; 81003; 84484; 85025; 87086; 93005; 96372; 99283

== ENCOUNTER 2017-05-17 22:16 | Emergency (ER) | payer MEDICAID ==
[~2017-05-17] VITALS: Ht 165.1 cm; Wt 190.5 kg
[~2017-05-17 22:16] MED LIST changes: +KEFLEX500 MG ORAL
[2017-05-17] MEDS ORDERED: Norco 5mg/325mg tab ORAL ONE (22:45)
[2017-05-17] MEDS ORDERED: Aspirin Baby 81mg ORAL ONE (22:45)
--- NOTE | 2017-05-17 22:58 | Emergency Room Report ---
History of Present Illness General Chief Complaint: Multiple Trauma/Fall Source: Patient Present Illness HPI Is a 51-year-old female with a history of chronic pain and drug abuse. She said that she was in sober living for 5 months is now in transitional care. She presents with chief complaint of right knee pain and shoulder pain. She said she thinks her knee is broken. She fell earlier today. Denies any syncope. This is the same type of symptoms she presents in the past. Said that she is out of her [place]. Pain is 10 out of 10. She has degenerative joint disease her knee and require knee replacement but loose weight first. She also complaining of chest pain his been ongoing since this morning. Pain is constant. No radiation. No exertional component. Pain is again 10 out of 10. She said that she has a history of CHF. Allergies: Coded Allergies: CARROT (Verified Allergy, Mild, 05/17/17) IBUPROFEN (Verified Allergy, Unknown, 05/17/17) PENICILLINS (Verified Allergy, Unknown, 05/17/17) TRAMADOL (Verified Allergy, Unknown, Hives, 05/17/17) TRIMETHOBENZAMIDE (Verified Allergy, Unknown, 05/17/17) Patient History Past Medical History: see triage record, old chart reviewed Past Surgical History: other Pertinent Family History: none Social History: Reports: drug use - History of Last Menstrual Period: unk Now: No Immunizations: other Reviewed Nursing Documentation: PMH: Agreed, PSxH: Agreed Nursing Documentation-PMH Past Medical History: No History, Except For Hx Cardiac Problems: No Hx Hypertension: Yes Hx Pacemaker: No Hx Asthma: Yes Hx COPD: No Hx Diabetes: No Hx Cancer: No Hx Gastrointestinal Problems: No Hx Dialysis: No Hx Cerebrovascular Accident: No Hx Seizures: No Review of Systems Eye: Denies: eye pain, blurred vision ENT: Denies: ear pain, nose congestion, throat swelling Respiratory: Denies: cough, shortness of breath Cardiovascular: Reports: chest pain, Denies: palpitations Gastrointestinal: Denies: abdominal pain, diarrhea, nausea, vomiting Musculoskeletal: Reports: joint pain, Denies: back pain Skin: Denies: rash Neurological: Denies: headache, numbness Endocrine: Denies: increased thirst, increased urine Hematologic/Lymphatic: Denies: easy bruising All Other Systems: negative except mentioned in HPI Physical Exam Vital Signs Date Time Temp Pulse Resp B/P (MAP) Pulse Ox O2 Delivery O2 Flow Rate FiO2 05/17/17 22:32 97.2 92 16 133/85 99 Room Air vitals normal Sp02 EP Interpretation: reviewed, normal General Appearance: well appearing, no apparent distress, alert, obese Head: normocephalic, atraumatic Eyes: bilateral eye PERRL, bilateral eye EOMI ENT: hearing grossly normal, normal pharynx Neck: full range of motion, supple, no meningismus Respiratory: chest non-tender, lungs clear, normal breath sounds Cardiovascular #1: regular rate, rhythm, no murmur Gastrointestinal: normal bowel sounds, non tender, no mass, no organomegaly, no bruit, non-distended Musculoskeletal: back normal, normal range of motion, other - Left shoulder pain and right knee pain. No deformity. Psychiatric: mood/affect normal Skin: warm/dry Medical Decision Making Diagnostic Impression: Primary Impression: Chest pain Qualified Codes: R07.9 - Chest pain, unspecified Additional Impressions: Osteoarthritis of knees, bilateral Qualified Codes: M17.0 - Bilateral primary osteoarthritis of knee Morbid obesity with BMI of 60.0-69.9, adult Chronic pain in left shoulder Opioid dependence Qualified Codes: F11.20 - Opioid dependence, uncomplicated UTI (urinary tract infection) Qualified Codes: N30.00 - Acute cystitis without hematuria ER Course Presents with exacerbation of chronic pain. No evidence of ACS, PE, dissection to name a few. EKG is unremarkable. Troponin negative after more than 12 hours the pain. She is sleeping comfortably. We'll discharge home. She is seeing a pain management already. I am uncomfortable prescribing her more narcotics because of this. She is anxious for overdosing. Lab Results Impression labs are normal EKG Diagnostic Results Rate: normal Rhythm: NSR ST Segments: no acute changes ASA given to the pt in ED: Yes Rhythm Strip Diag. Results Rhythm Strip Time: 22:58 EP Interpretation: yes Rate: 80 Rhythm: NSR, no PVC's, no ectopy Last Vital Signs Date Time Temp Pulse Resp B/P (MAP) Pulse Ox O2 Delivery O2 Flow Rate FiO2 05/17/17 22:32 97.2 92 16 133/85 99 Room Air Status: improved Disposition: HOME, SELF-CARE Condition: Stable Scripts Nitrofurantoin Monohyd/M-Cryst (Nitrofurantoin Cass-Mcr 100 mg) 100 Mg Capsule 100 MG ORAL Q12H, #14 CAP Prov: THEODORE JIN M.D. 05/17/17 Referrals: [facility] (PCP) Additional Instructions: Followup your Dr. in 7 days. See your pain this was for refill your pain medication. Return if symptom worsen. THEODORE JIN M.D. May 17, 2017 22:58
[2017-05-17 23:08] LABS: BASOPHILS % (AUTO) 0.8 % (0.0-2.0); EOSINOPHILS % (AUTO) 4.3 % (0.0-3.0); MEAN CORPUSCULAR HGB CONC 31.6 G/DL (32.0-36.0); MEAN CORPUSCULAR VOLUME 95 FL (80-99); MEAN PLATELET VOLUME 6.3 FL (6.5-10.1); MONOCYTES % (AUTO) 7.6 % (1.0-10.0); NEUTROPHILS % (AUTO) 73.4 % (45.0-75.0); PLATELET COUNT 272 K/UL (150-450); RED BLOOD COUNT 4.03 M/UL (4.20-5.40); RED CELL DISTRIBUTION WIDTH 14.4 % (11.6-14.8); WHITE BLOOD COUNT 7.7 K/UL (4.8-10.8)
[2017-05-17 23:23] LABS: APPEARANCE,URINE SLIGHTLY CLOUDY; KETONES,URINE 1+ (NEGATIVE); LEUKOCYTE ESTERASE ,URINE 2+ (NEGATIVE); NITRITE,URINE NEGATIVE (NEGATIVE); PH,URINE 5 (4.5-8.0); PROTEIN,URINE 1+ (NEGATIVE); UROBILINOGEN,URINE 1 MG/DL (0.0-1.0)
[2017-05-17 23:26] LABS: ALANINE AMINOTRANSFERASE 32 U/L (12-78); ALBUMIN/GLOBULIN RATIO 0.8 (1.0-2.7); ANION GAP 9 mmol/L (5-15); ASPARTATE AMINO TRANSFERASE 30 U/L (15-37); CALCIUM 9.2 MG/DL (8.5-10.1); CARBON DIOXIDE 26 MMOL/L (21-32); CHLORIDE 106 MMOL/L (98-107); CKMB < 0.5 NG/ML (0.0-3.6); CREATININE 0.9 MG/DL (0.55-1.30); GLOMERULAR FILTRATION RATE > 60 mL/min (>60); POTASSIUM 3.9 MMOL/L (3.5-5.1); SODIUM 141 MMOL/L (136-145); TOTAL PROTEIN 7.7 G/DL (6.4-8.2)
[2017-05-17 23:31] LABS: BACTERIA,URINE FEW /HPF; ICTOTEST NEGATIVE; MUCUS,URINE FEW /LPF (NONE/OCC); SQUAMOUS EPITHELIAL CELL,UR OCCASIONAL /LPF (NONE/OCC)
[2017-05-17] MEDS ORDERED: MACROBID100 MG ORAL (23:42)
--- NOTE | 2017-05-17 23:47 | Emergency Room Report ---
Physical Exam Vital Signs Date Time Temp Pulse Resp B/P (MAP) Pulse Ox O2 Delivery O2 Flow Rate FiO2 05/17/17 22:32 97.2 92 16 133/85 99 Room Air Medical Decision Making Diagnostic Impression: Primary Impression: Chest pain Qualified Codes: R07.9 - Chest pain, unspecified Additional Impressions: Opioid dependence Qualified Codes: F11.20 - Opioid dependence, uncomplicated Morbid obesity with BMI of 60.0-69.9, adult Osteoarthritis of knees, bilateral Qualified Codes: M17.0 - Bilateral primary osteoarthritis of knee Chronic pain in left shoulder UTI (urinary tract infection) Qualified Codes: N30.00 - Acute cystitis without hematuria Rhythm Strip Diag. Results Rhythm Strip Time: 23:45 EP Interpretation: yes Rate: 80 Rhythm: NSR, no PVC's, no ectopy Chest X-Ray Diagnostic Results Chest X-Ray Diagnostic Results : Chest X-Ray Ordered: Yes # of Views/Limited/Complete: 1 View Indication: Chest Pain EP Interpretation: Yes Interpretation: no consolidation, no effusion, no pneumothorax, no acute cardiopulmonary disease Impression: No acute disease Electronically Signed by: Electronically signed by Gary Dorado MD Other X-Ray Diagnostic Results Other X-Ray Diagnostic Results #1: X-Ray ordered: Left shoulder xrays # of Views/Limited Vs Complete: 3 View Indication: Pain EP Interpretation: Yes Interpretation: no dislocation, no soft tissue swelling, no fractures, other - chronic degenerative changes. Impression: No acute disease Electronically Signed by: Electronically signed by Gary Dorado MD Other X-Ray Diagnostic Results #2: X-Ray ordered: right knee xrays # of Views/Limited Vs Complete: 4 View Indication: Pain EP Interpretation: Yes Interpretation: no dislocation, no soft tissue swelling, no fractures, other - degenerative changes Impression: No acute disease Electronically Signed by: Electronically signed by Gary Dorado MD Last Vital Signs Date Time Temp Pulse Resp B/P (MAP) Pulse Ox O2 Delivery O2 Flow Rate FiO2 05/17/17 22:32 97.2 92 16 133/85 99 Room Air Disposition: HOME, SELF-CARE Condition: Stable Scripts Nitrofurantoin Monohyd/M-Cryst (Nitrofurantoin Tre[place]len-Mcr 100 mg) 100 Mg Capsule 100 MG ORAL Q12H, #14 CAP Prov: GARY DORADO M.D. 05/17/17 Referrals: [facility] (PCP) Patient Instructions: Chronic Pain Additional Instructions: Followup your Dr. in 7 days. See your pain this was for refill your pain medication. Return if symptom worsen. GARY DORADO M.D. May 17, 2017 23:47
[2017-05-18 00:10] VITALS: BP 133/85
--- NOTE | 2017-05-18 11:55 | Diagnostic Imaging Report ---
Indication: TRAUMA, pain Technique: One view of the chest Comparison: 12/07/2016 Findings: Lungs and pleural spaces are clear. Heart size is normal. Bones are intact. No significant change Impression: No acute process
--- NOTE | 2017-05-18 11:56 | Diagnostic Imaging Report ---
Indication: TRAUMA, pain Technique: 2 views of the left shoulder Comparison: 12/05/2016 Findings: There is considerable degenerative change of the left shoulder are again noted, with subchondral cyst formation, narrowing of the joint space, and osteophyte formation. No acute fractures. No dislocations. Impression:Degenerative changes, as described No acute bony trauma
--- NOTE | 2017-05-18 11:58 | Diagnostic Imaging Report ---
Indication: TRAUMA Technique: 3 views of the right knee Comparison: None Findings:There is severe narrowing of the medial joint compartment, with near complete obliteration of the joint space. There are large medial osteophytes. Ill-defined calcific density is seen in the suprapatellar region. There is also severe degenerative change of the patellofemoral joint compartment. No acute fractures. No dislocations. Impression:Degenerative changes, as described No acute bony trauma
--- NOTE | 2017-05-19 13:29 | Cardiology Report ---
APPROVED REPORT EKG Measurement Heart [id number] [place] [id number] Sinus rhythm with 1st degree AV block Possible Left atrial enlargement Borderline ECG
== END 2017-05-18 00:11 | disposition home or self-care (01) ==
LOC: EMR 22:35
DX: R07.9 Chest pain, unspecified (principal); M17.0 Bilateral primary osteoarthritis of knee; G89.29 Other chronic pain; M25.512 Pain in left shoulder; E66.01 Morbid (severe) obesity due to excess calories; Z68.44 Body mass index [BMI] 60.0-69.9, adult; F11.20 Opioid dependence, uncomplicated; N39.0 Urinary tract infection, site not specified; J45.909 Unspecified asthma, uncomplicated; I10 Essential (primary) hypertension
CPT/HCPCS: 36415; 71010; 80053; 80307; 81003; 81025; 82550; 82553; 83880; 84484; 85025; 93005; 99284

== ENCOUNTER 2017-07-17 12:39 | Emergency (ER) | payer MEDICAID ==
[~2017-07-17] VITALS: Ht 170.2 cm; Wt 113.4 kg
[~2017-07-17 12:39] MED LIST changes: +MACROBID100 MG ORAL
[2017-07-17] MEDS ORDERED: Morphine Sulfate 4mg/ml Inj IVP ONE (13:15)
[2017-07-17 13:21] LABS: APPEARANCE,URINE CLEAR; BILIRUBIN, URINE NEGATIVE (NEGATIVE); COLOR,URINE PALE YELLOW; GLUCOSE, URINE (UA) NEGATIVE (NEGATIVE); KETONES,URINE NEGATIVE (NEGATIVE); LEUKOCYTE ESTERASE ,URINE NEGATIVE (NEGATIVE); NITRITE,URINE NEGATIVE (NEGATIVE); PH,URINE 7 (4.5-8.0); PROTEIN,URINE NEGATIVE (NEGATIVE); UROBILINOGEN,URINE NORMAL MG/DL (0.0-1.0)
--- NOTE | 2017-07-17 13:53 | Emergency Room Report ---
History of Present Illness General Chief Complaint: Upper Respiratory Illness Source: Patient (Linda Messina M.D.) Present Illness HPI 52-year-old female, history of morbid obesity, CHF on Lasix, presenting with shortness of breath and bilateral leg swelling for 3 days. Patient states that she takes 40 mg of Lasix usually however the last couple days she has been taking ED without any relief. Complains of shortness of breath at rest and on exertion. Worse with lying flat. No chest pain fever chills cough. No abdominal pain. Also states that she has inhalers at home but has never been diagnosed with any type of COPD in the past (Linda Messina M.D.) Allergies: Coded Allergies: CARROT (Verified Allergy, Mild, 05/17/17) IBUPROFEN (Verified Allergy, Unknown, 05/17/17) PENICILLINS (Verified Allergy, Unknown, 05/17/17) TRAMADOL (Verified Allergy, Unknown, Hives, 05/17/17) TRIMETHOBENZAMIDE (Verified Allergy, Unknown, 05/17/17) Patient History Past Medical History: see triage record Past Surgical History: none Pertinent Family History: none Reviewed Nursing Documentation: PMH: Agreed, PSxH: Agreed (Linda Messina M.D. ) Nursing Documentation-PMH Hx Cardiac Problems: No Hx Hypertension: Yes Hx Pacemaker: No Hx Asthma: Yes Hx COPD: No Hx Diabetes: No Hx Cancer: No Hx Gastrointestinal Problems: No Hx Dialysis: No Hx Cerebrovascular Accident: No Hx Seizures: No (Linda Messina M.D.) Review of Systems All Other Systems: negative except mentioned in HPI (Linda Messina M.D.) Physical Exam Vital Signs Date Time Temp Pulse Resp B/P (MAP) Pulse Ox O2 Delivery O2 Flow Rate FiO2 07/17/17 12:48 98.1 121 26 139/81 98 Room Air Sp02 EP Interpretation: reviewed, normal General Appearance: alert, GCS 15, non-toxic, moderate distress Head: normocephalic, atraumatic Eyes: bilateral eye normal inspection, bilateral eye PERRL, bilateral eye EOMI ENT: normal ENT inspection, normal pharynx, normal voice, moist mucus membranes Neck: normal inspection, full range of motion, supple Respiratory: other - wheezing b/l Cardiovascular #1: normal inspection, regular rate, rhythm, normal capillary refill, edema Cardiovascular #2: 2+ radial (R), 2+ radial (L) Gastrointestinal: normal inspection, non tender, soft, non-distended, no guarding Musculoskeletal: other - 2+ pitting edema b/l Neurologic: normal inspection, alert, oriented x3, responsive, motor strength/ tone normal, sensory intact, normal gait, speech normal Psychiatric: normal inspection, judgement/insight normal, memory normal Skin: normal inspection, normal color, no rash, warm/dry, well hydrated, normal turgor (Linda Messina M.D.) Procedures Critical Care Time Critical Care Time 40 minutes of CC time 52-year-old female, shortness of breath, history of CHF VS: Tachycardic, tachypneic Airway patent. Not hypoxic. PLAN: IV access, labs, lactate, troponin, diuresis, nebulizer treatment Anticipate admission to Tele vs. [facility] CC time also includes review of labs, review of EMR, discussion with family and paperwork from SNF, d/w hospitalist CC could include dosing of pressors, additional Abx CC time does not include procedures (Linda Messina M.D.) Medical Decision Making Diagnostic Impression: Primary Impression: CHF exacerbation Additional Impression: Wheezing ER Course 52-year-old female with pmhx of HTN CHF, also as possible COPD p/w SOB for 3 days. DDX: CHF exacerbation, ACS, pneumonia, asthma/copd Plan: IV access, speech teacher, O2 nasal cannula obtain basic labs including blood gas, troponin, BNP Nitro, lasix, Will consider BIPAP for persistent or worsening respiratory status Anticipate admission ER course: Lasix was given. Patient also wheezing, nebs given Patient has remained on the monitor. Patient's condition remains serious. Signed out to Dr Valverde -52 yo F with chf exacerbation -pending labs -pending signout to Dr Pompa for transfer to outside hospital EKG Diagnostic Results EP Interpretation: Yes Rate: normal Rhythm: NSR ST Segments: No acute changes ASA given to patient: no Rhythm Strip EP Interpretation: Yes Rate: 100 Rhythm: NSR, no PVCs, no ectopy Chest X-ray CXR: Ordered: Yes 1 view Indication: SOB EP interpretation: Yes Interpretation: Cardiomegaly, pulmonary vascular congestion, cannot fully evaluate left lower lung base Impression: Cardiomegaly pulmonary vascular congestion Electronically signed by Linda Messina MD (Linda Messina M.D.) ER Course Received signout from Dr Messina Labs reviewed: no metabolic abnormalities. BNP WNL. Trop 0. ECG is non-ischemic CXR: No pulm congestion or PNA Endorsed to Dr Pompa for transfer at 347pm (REAL VALVERDE M.D.) EKG Diagnostic Results Rate: normal Rhythm: NSR ST Segments: no acute changes ASA given to the pt in ED: No (REAL VALVERDE M.D.) Rhythm Strip Diag. Results EP Interpretation: yes Rate: 67 Rhythm: NSR, no PVC's, no ectopy (REAL VALVERDE M.D.) Last Vital Signs Date Time Temp Pulse Resp B/P (MAP) Pulse Ox O2 Delivery O2 Flow Rate FiO2 07/17/17 12:48 98.1 121 26 139/81 98 Room Air (Linda Messina M.D.) Status: improved (REAL VALVERDE M.D.) Disposition: XFER SHT-TRM HOSP Condition: Serious Referrals: [facility] (PCP) Linda Messina M.D. Jul 17, 2017 13:53 REAL VALVERDE M.D. Jul 17, 2017 15:47
[2017-07-17 15:06] LABS: EOSINOPHILS % (AUTO) 4.3 % (0.0-3.0); HEMATOCRIT 33.7 % (37.0-47.0); HEMOGLOBIN 10.2 G/DL (12.0-16.0); LYMPHOCYTES % (AUTO) 28.4 % (20.0-45.0); MEAN CORPUSCULAR VOLUME 94 FL (80-99); MONOCYTES % (AUTO) 10.8 % (1.0-10.0); NEUTROPHILS % (AUTO) 55.4 % (45.0-75.0); PLATELET COUNT 225 K/UL (150-450); RED CELL DISTRIBUTION WIDTH 15.2 % (11.6-14.8); WHITE BLOOD COUNT 4.9 K/UL (4.8-10.8)
[2017-07-17 15:23] LABS: ANION GAP 5 mmol/L (5-15); BLOOD UREA NITROGEN 9 mg/dL (7-18); CALCIUM 7.7 MG/DL (8.5-10.1); CARBON DIOXIDE 30 MMOL/L (21-32); CHLORIDE 106 MMOL/L (98-107); CREATININE 0.7 MG/DL (0.55-1.30); POTASSIUM 4.1 MMOL/L (3.5-5.1); SODIUM 141 MMOL/L (136-145)
[2017-07-17 15:35] VITALS: BP 147/100
[2017-07-17 15:39] LABS: ALANINE AMINOTRANSFERASE 20 U/L (12-78); ALBUMIN 3.1 G/DL (3.4-5.0); ALBUMIN/GLOBULIN RATIO 0.8 (1.0-2.7); ALKALINE PHOSPHATASE 94 U/L (46-116); ASPARTATE AMINO TRANSFERASE 21 U/L (15-37); BILIRUBIN,TOTAL 0.2 MG/DL (0.2-1.0); CKMB < 0.5 NG/ML (0.0-3.6); CREATINE KINASE 127 U/L (26-308)
[2017-07-17 16:50] VITALS: BP 156/101
[2017-07-17 16:56] VITALS: BP 156/101
--- NOTE | 2017-07-18 08:40 | Diagnostic Imaging Report ---
Indication: Dyspnea Technique: XRAY Chest 1v Comparison: 05/17/2017 Findings: Heart is enlarged. Heart size and mediastinal contours are stable compared to the prior exam. There is pulmonary vascular congestion. There is no definite focal airspace consolidation. No large pleural effusion. No definite pneumothorax. No acute osseous abnormality seen. Impression: Cardiomegaly and pulmonary vascular congestion. No focal consolidation. This corresponds with the preliminary interpretation by the treating ER physician, as documented in the electronic medical record.
--- NOTE | 2017-07-18 17:07 | Cardiology Report ---
APPROVED REPORT EKG Measurement Heart [id number] Sinus tachycardia Possible Left atrial enlargement Borderline ECG
== END 2017-07-17 17:29 | disposition short-term general hospital (02) ==
LOC: EMR 13:41
DX: I11.0 Hypertensive heart disease with heart failure (principal); I50.9 Heart failure, unspecified; J45.909 Unspecified asthma, uncomplicated; R00.0 Tachycardia, unspecified
CPT/HCPCS: 36415; 71045; 80053; 81003; 82550; 82553; 83880; 84484; 85025; 93005; 96374; 96375; 99291; J1940; J2270

== ENCOUNTER 2017-07-30 17:40 | Emergency (ER) | payer MEDICAID ==
[~2017-07-30] VITALS: Ht 165.1 cm; Wt 167.8 kg
[2017-07-30 18:38] VITALS: BP 145/92
--- NOTE | 2017-07-30 18:54 | Emergency Room Report ---
History of Present Illness General Chief Complaint: General Complaint Source: Patient, Medical Record Present Illness HPI 52-year-old female, history of rheumatoid arthritis, CHF, chronic pain seen pain management, asthma, presenting with bilateral leg swelling for the last week. Patient states that she takes 40 mg Lasix daily, today she took 80 however her legs are so swollen. Also states that she has been vomiting for the last 3 days, about 3-4 times. Also with a few episodes of diarrhea today. Complains of epigastric pain. Complains of slight shortness of breath however speaking complete sentences Allergies: Coded Allergies: CARROT (Verified Allergy, Mild, 05/17/17) IBUPROFEN (Verified Allergy, Unknown, 05/17/17) PENICILLINS (Verified Allergy, Unknown, 05/17/17) TRAMADOL (Verified Allergy, Unknown, Hives, 05/17/17) TRIMETHOBENZAMIDE (Verified Allergy, Unknown, 05/17/17) Patient History Past Medical History: see triage record Past Surgical History: none Pertinent Family History: none Last Menstrual Period: 06/25/18 Reviewed Nursing Documentation: PMH: Agreed, PSxH: Agreed Nursing Documentation-PMH Past Medical History: No History, Except For Hx Cardiac Problems: Yes - CHF Hx Hypertension: Yes Hx Pacemaker: No Hx Asthma: Yes Hx COPD: No Hx Diabetes: No Hx Cancer: No Hx Gastrointestinal Problems: No Hx Dialysis: No History Of Psychiatric Problem: Yes - Prozac Hx Cerebrovascular Accident: No Hx Seizures: No Review of Systems All Other Systems: negative except mentioned in HPI Physical Exam Vital Signs Date Time Temp Pulse Resp B/P (MAP) Pulse Ox O2 Delivery O2 Flow Rate FiO2 07/30/17 17:49 98.8 98 18 164/115 100 Room Air Sp02 EP Interpretation: reviewed, normal General Appearance: alert, GCS 15, non-toxic, mild distress, other - obese female, apepars to be in pain, however speakng in complete sentences. Head: normocephalic, atraumatic Eyes: bilateral eye normal inspection, bilateral eye PERRL, bilateral eye EOMI ENT: normal ENT inspection, normal pharynx, normal voice, moist mucus membranes Neck: normal inspection, full range of motion, supple Respiratory: no retraction, speaking full sentences, wheezing, chest symmetrical Cardiovascular #1: normal inspection, regular rate, rhythm, normal capillary refill, edema Cardiovascular #2: 2+ radial (R), 2+ radial (L) Gastrointestinal: normal inspection, non tender, soft, non-distended, no guarding Musculoskeletal: back normal, normal range of motion, non-tender, tender - 2+ pitting edema Neurologic: alert, oriented x3, responsive, motor strength/tone normal, sensory intact, normal gait, speech normal Psychiatric: normal inspection, judgement/insight normal, memory normal Skin: normal inspection, normal color, no rash, warm/dry, well hydrated, normal turgor Medical Decision Making Diagnostic Impression: Primary Impression: Nausea and vomiting Additional Impressions: Asthma Chronic pain Edema ER Course 52-year-old female, presenting with nausea vomiting, lower extremity edema DDX: Lower ext edema bilateral, secondary to CHF Shortness of breath likely secondary to CHF versus asthma versus pneumonia versus URI Nausea and vomiting possible gastroenteritis. At this time abdomen soft nontender [place] and except for the epigastric region. We'll not perform CT at this time Plan: Obtain labs, ua, ucx, CXR, EKG Zofran, Lasix ER course: Patient has remained stable during ED stay. given nebs for mild wheezing 1 dose of prednisone also toradol/morphine no further vomiting labs normal Patient also received Lasix for lower extremity edema. Chest x-ray is negative for severe pulmonary vascular congestion. She has remained on monitor, not hypoxic not tachypneic, speaking complete sentences. Stating that she wants more pain medication, upon cures report, patient has ample medication and not comfortable giving her more. She is not in acute distress. Disposition: DC home with prednisone, zofran FU with PMD in 1week Strict return precautions discussed with patient such as fever, chills, worsening/severe pain, chest pain, SOB, nausea, vomiting, which may indicate severe illness. Patient verbalizes understanding and agrees with plan. Please note that this Emergency Department Report was dictated using [email or web address] technology software, occasionally this can lead to erroneous entry secondary to interpretation by the dictation equipment EKG Diagnostic Results EP Interpretation: Yes Rate: normal Rhythm: NSR ST Segments: No acute changes ASA given to patient: No Rhythm Strip EP Interpretation: Yes Rate: 90 Rhythm: NSR, no PVCs, no ectopy Chest X-ray CXR: Ordered: Yes 1 view Indication: Chest pain EP interpretation: Yes Interpretation: Cardiomegaly, mild pulmonary vascular congestion Impression: No acute disease Electronically signed by Linda Messina MD Laboratory Tests Test 07/30/17 18:40 07/30/17 18:50 Urine Color Yellow Urine Appearance Clear Urine pH 6 (4.5-8.0) Urine Specific Rufe 1.015 (1.005-1.035) Urine Protein Negative (NEGATIVE) Urine Glucose (UA) Negative (NEGATIVE) Urine Ketones Negative (NEGATIVE) Urine Occult Blood Negative (NEGATIVE) Urine Nitrite Negative (NEGATIVE) Urine Bilirubin Negative (NEGATIVE) Urine Urobilinogen 1 MG/DL (0.0-1.0) H Urine Leukocyte Esterase 1+ (NEGATIVE) H Urine RBC 0-2 /HPF (0 - 2) Urine WBC 2-4 /HPF (0 - 2) Urine Squamous Epithelial Cells Few /LPF (NONE/OCC) Urine Bacteria Few /HPF (NONE) White Blood Count 4.2 K/UL (4.8-10.8) L Red Blood Count 3.76 M/UL (4.20-5.40) L Hemoglobin 10.3 G/DL (12.0-16.0) L Hematocrit 35.0 % (37.0-47.0) L Mean Corpuscular Volume 93 FL (80-99) Mean Corpuscular Hemoglobin 27.5 PG (27.0-31.0) Mean Corpuscular Hemoglobin Concent 29.5 G/DL (32.0-36.0) L Red Cell Distribution Width 14.7 % (11.6-14.8) Platelet Count 283 K/UL (150-450) Mean Platelet Volume 5.6 FL (6.5-10.1) L Neutrophils (%) (Auto) 67.0 % (45.0-75.0) Lymphocytes (%) (Auto) 19.5 % (20.0-45.0) L Monocytes (%) (Auto) 9.9 % (1.0-10.0) Eosinophils (%) (Auto) 2.1 % (0.0-3.0) Basophils (%) (Auto) 1.5 % (0.0-2.0) Sodium Level 142 MMOL/L (136-145) Potassium Level 3.4 MMOL/L (3.5-5.1) L Chloride Level 106 MMOL/L (98-107) Carbon Dioxide Level 27 MMOL/L (21-32) Anion Gap 9 mmol/L (5-15) Blood Urea Nitrogen 10 mg/dL (7-18) Creatinine 0.8 MG/DL (0.55-1.30) Estimate Glomerular Filtration Rate > 60 mL/min (>60) Glucose Level 89 MG/DL (74-106) Calcium Level 9.1 MG/DL (8.5-10.1) Total Bilirubin 0.3 MG/DL (0.2-1.0) Aspartate Amino Transferase (AST) 23 U/L (15-37) Alanine Aminotransferase (ALT) 29 U/L (12-78) Alkaline Phosphatase 98 U/L (46-116) Troponin I 0.000 ng/mL (0.000-0.056) Pro-B-Type Natriuretic Peptide 188 pg/mL (0-125) H Total Protein 7.5 G/DL (6.4-8.2) Albumin 3.5 G/DL (3.4-5.0) Globulin 4.0 g/dL Albumin/Globulin Ratio 0.9 (1.0-2.7) L Last Vital Signs Date Time Temp Pulse Resp B/P (MAP) Pulse Ox O2 Delivery O2 Flow Rate FiO2 07/30/17 18:38 110 20 145/92 99 Room Air 07/30/17 17:49 98.8 Disposition: HOME, SELF-CARE Condition: Improved Scripts Prednisone* (PREDNISONE*) 20 Mg Tablet 40 MG ORAL DAILY for 5 Days, #10 TAB 0 Refills Prov: Linda Messina M.D. 07/30/17 Ondansetron Odt* (ZOFRAN ODT*) 4 Mg Tab.rapdis 4 MG ORAL Q6H Y for Nausea & Vomiting, #15 TAB 0 Refills Prov: Linda Messina M.D. 07/30/17 Linda Messina M.D. Jul 30, 2017 18:54
[2017-07-30 19:00] LABS: APPEARANCE,URINE CLEAR; BILIRUBIN, URINE NEGATIVE (NEGATIVE); GLUCOSE, URINE (UA) NEGATIVE (NEGATIVE); KETONES,URINE NEGATIVE (NEGATIVE); LEUKOCYTE ESTERASE ,URINE 1+ (NEGATIVE); NITRITE,URINE NEGATIVE (NEGATIVE); PH,URINE 6 (4.5-8.0); PROTEIN,URINE NEGATIVE (NEGATIVE); UROBILINOGEN,URINE 1 MG/DL (0.0-1.0)
[2017-07-30 19:04] LABS: COLOR,URINE YELLOW
[2017-07-30 19:07] LABS: BASOPHILS % (AUTO) 1.5 % (0.0-2.0); EOSINOPHILS % (AUTO) 2.1 % (0.0-3.0); HEMOGLOBIN 10.3 G/DL (12.0-16.0); LYMPHOCYTES % (AUTO) 19.5 % (20.0-45.0); MEAN CORPUSCULAR VOLUME 93 FL (80-99); MONOCYTES % (AUTO) 9.9 % (1.0-10.0); PLATELET COUNT 283 K/UL (150-450); RED BLOOD COUNT 3.76 M/UL (4.20-5.40); RED CELL DISTRIBUTION WIDTH 14.7 % (11.6-14.8); WHITE BLOOD COUNT 4.2 K/UL (4.8-10.8)
[2017-07-30 19:25] LABS: ANION GAP 9 mmol/L (5-15); BLOOD UREA NITROGEN 10 mg/dL (7-18); CALCIUM 9.1 MG/DL (8.5-10.1); CARBON DIOXIDE 27 MMOL/L (21-32); CHLORIDE 106 MMOL/L (98-107); CREATININE 0.8 MG/DL (0.55-1.30); POTASSIUM 3.4 MMOL/L (3.5-5.1); SODIUM 142 MMOL/L (136-145)
[2017-07-30] MEDS ORDERED: Morphine Sulfate 4mg/ml Inj IVP ONE (19:30)
[2017-07-30 19:35] LABS: ALANINE AMINOTRANSFERASE 29 U/L (12-78); ALBUMIN 3.5 G/DL (3.4-5.0); ALBUMIN/GLOBULIN RATIO 0.9 (1.0-2.7); ALKALINE PHOSPHATASE 98 U/L (46-116); ASPARTATE AMINO TRANSFERASE 23 U/L (15-37); BILIRUBIN,TOTAL 0.3 MG/DL (0.2-1.0)
[2017-07-30] MEDS ORDERED: Ketorolac 30mg Inj IV ONE ×2 (20:00→20:45)
[2017-07-30] MEDS ORDERED: ZOFRAN ODT4 MG ORAL (20:07)
[2017-07-30] MEDS ORDERED: Albuterol ud Inhalation HHN ONE (20:15)
[2017-07-30] MEDS ORDERED: PREDNISONE20 MG ORAL (20:18)
[2017-07-30 21:05] VITALS: BP 145/92
--- NOTE | 2017-07-31 08:32 | Diagnostic Imaging Report ---
Indication: Shortness of breath Technique: XRAY Chest 1v Comparison: 07/17/2017 Findings: Stable cardiomegaly. There is mild central pulmonary vascular congestion. There is no definite focal airspace consolidation. No large pleural effusion. No definite pneumothorax. No evidence of alveolar edema. No acute osseous abnormality seen. Impression: Cardiomegaly and mild central pulmonary vascular congestion. No focal consolidation. This corresponds with the preliminary interpretation by the treating ER physician, as documented in the electronic medical record.
--- NOTE | 2017-07-31 18:14 | Cardiology Report ---
APPROVED REPORT EKG Measurement Heart [id number] [place] [id number] [id number] Normal sinus rhythm Normal ECG
== END 2017-07-30 21:05 | disposition home or self-care (01) ==
LOC: EMR 19:31
DX: R11.2 Nausea with vomiting, unspecified (principal); J45.909 Unspecified asthma, uncomplicated; G89.29 Other chronic pain; I11.0 Hypertensive heart disease with heart failure; I50.9 Heart failure, unspecified; M06.9 Rheumatoid arthritis, unspecified; Z88.0 Allergy status to penicillin; Z88.6 Allergy status to analgesic agent; Z91.018 Allergy to other foods; Z88.8 Allergy status to other drugs, medicaments and biological substances
CPT/HCPCS: 36415; 71045; 80053; 81003; 83880; 84484; 85025; 93005; 94640; 94664; 96374; 96375; 96376; 99284; J1885; J1940; J2270; J2405; S0028

== ENCOUNTER 2018-04-11 20:11 | Emergency (ER) | payer MEDICAID, OTHER ==
[~2018-04-11] VITALS: Ht 165.1 cm; Wt 154.2 kg
[~2018-04-11 20:11] MED LIST changes: +PREDNISONE20 MG ORAL; +ZOFRAN ODT4 MG ORAL
[2018-04-11] MEDS ORDERED: LISINOPRIL20 MG ORAL (20:21)
[2018-04-11] MEDS ORDERED: FUROSEMIDE40 MG ORAL (20:21)
--- NOTE | 2018-04-11 20:25 | Emergency Room Report ---
History of Present Illness General Chief Complaint: Chest Pain Source: Patient Present Illness HPI 52-year-old female comes to the ER with complaints of 2 days of intermittent midsternal moderate intensity nonradiating, chest tightness, pressure-like sensation, shortness of breath, and feeling that both her legs are swelling despite taking Lasix 40 mg twice a day. Her chest pressure got better with aspirin and nitroglycerin given by EMS just prior to arrival. She denies cough, hemoptysis, syncope, wheezing, fevers, diaphoresis, but does report nausea vomiting and diarrhea. She denies abdominal pain, urinary complaints or any other complaints. Allergies: Coded Allergies: CARROT (Verified Allergy, Mild, 05/17/17) IBUPROFEN (Verified Allergy, Unknown, 05/17/17) PENICILLINS (Verified Allergy, Unknown, 05/17/17) TRAMADOL (Verified Allergy, Unknown, Hives, 05/17/17) TRIMETHOBENZAMIDE (Verified Allergy, Unknown, 05/17/17) Patient History Past Medical History: see triage record Now: No Reviewed Nursing Documentation: PMH: Agreed; PSxH: Agreed Nursing Documentation-PMH Hx Cardiac Problems: Yes - CHF Hx Hypertension: Yes Hx Pacemaker: No Hx Asthma: Yes Hx COPD: No Hx Diabetes: No Hx Cancer: No Hx Gastrointestinal Problems: No Hx Dialysis: No Hx Cerebrovascular Accident: No Hx Seizures: No Review of Systems All Other Systems: negative except mentioned in HPI Physical Exam Vital Signs Date Time Temp Pulse Resp B/P (MAP) Pulse Ox O2 Delivery O2 Flow Rate FiO2 04/11/18 20:10 97.8 90 20 156/98 98 Room Air 97.9 Sp02 EP Interpretation: reviewed, normal General Appearance: no apparent distress, alert, non-toxic Head: normocephalic Eyes: bilateral eye normal inspection, bilateral eye PERRL, bilateral eye EOMI ENT: normal ENT inspection, hearing grossly normal, normal pharynx, no angioedema, normal voice, moist mucus membranes Neck: normal inspection, full range of motion, supple, supple/symm/no masses Respiratory: chest non-tender, lungs clear, normal breath sounds, chest symmetrical, palpation of chest normal Cardiovascular #1: normal peripheral pulses, regular rate, rhythm, edema - 1+ bilateral lower extremity Cardiovascular #2: 2+ radial (R), 2+ radial (L), 2+ dorsalis pedis (R), 2+ dorsalis pedis (L) Gastrointestinal: normal inspection, non tender, soft, no mass, no guarding, no rebound Rectal: deferred Genitourinary: normal inspection, no CVA tenderness Musculoskeletal: back normal, gait/station normal, normal range of motion, non- tender, no calf tenderness, Bradford's Sign negative Neurologic: alert, responsive, cytotechnologist III-XII nml as tested, motor strength/tone normal, sensory intact, speech normal Psychiatric: judgement/insight normal, memory normal, mood/affect normal Skin: normal color, no rash, warm/dry, normal turgor Lymphatic: no adenopathy Medical Decision Making Diagnostic Impression: Primary Impression: Chest pain ER Course Patient received aspirin prior to arrival, chest pressure got better with nitroglycerin sublingual, therefore was given nitroglycerin ointment to chest wall, as well as IV Lasix 80 mg, which is her total daily oral dose. She does not appear to be in obvious distress. Will admit for chest pain, rule out [place], do not suspect PE or dissection or other life-threatening pathology. Her x-rays normal, EKG also unremarkable, clinically, she is not having active chest pain any longer, will likely be admitted, but was a difficult IV stick for the nurses so is still pending labs, will sign out to oncoming physician for final disposition. EKG Diagnostic Results EKG Time: 20:13 EP Interpretation: no st-t segment changes, no TWI's Rate: normal Rhythm: NSR ST Segments: no acute changes ASA given to the pt in ED: Yes Rhythm Strip Diag. Results Rhythm Strip Time: 20:25 EP Interpretation: yes Rate: 81 Rhythm: NSR, no PVC's, no ectopy Chest X-Ray Diagnostic Results Chest X-Ray Diagnostic Results : Chest X-Ray Ordered: Yes # of Views/Limited/Complete: 1 View Indication: Chest Pain EP Interpretation: Yes Interpretation: no consolidation, no effusion, no pneumothorax, no acute cardiopulmonary disease Impression: No acute disease Electronically Signed by: Kim Wells MD Last Vital Signs Date Time Temp Pulse Resp B/P (MAP) Pulse Ox O2 Delivery O2 Flow Rate FiO2 04/11/18 20:10 97.8 90 20 156/98 98 Room Air 97.9 Disposition: ADMITTED INPATIENT Condition: Stable KIM WELLS M.D Apr 11, 2018 20:25
[2018-04-11] MEDS ORDERED: Nitroglycerin 2% oint pkt TOPIC ONE (20:30)
[2018-04-11 22:06] LABS: BASOPHILS % (AUTO) 1.4 % (0.0-2.0); EOSINOPHILS % (AUTO) 2.7 % (0.0-3.0); HEMATOCRIT 37.9 % (37.0-47.0); HEMOGLOBIN 12.8 G/DL (12.0-16.0); LYMPHOCYTES % (AUTO) 36.1 % (20.0-45.0); MEAN CORPUSCULAR VOLUME 99 FL (80-99); MONOCYTES % (AUTO) 11.4 % (1.0-10.0); NEUTROPHILS % (AUTO) 48.5 % (45.0-75.0); PLATELET COUNT 232 K/UL (150-450); RED BLOOD COUNT 3.83 M/UL (4.20-5.40); RED CELL DISTRIBUTION WIDTH 11.5 % (11.6-14.8); WHITE BLOOD COUNT 6.2 K/UL (4.8-10.8)
[2018-04-11 22:10] VITALS: BP 127/72
[2018-04-11 22:15] LABS: ANION GAP 5 mmol/L (5-15); BLOOD UREA NITROGEN 14 mg/dL (7-18); CALCIUM 9.1 MG/DL (8.5-10.1); CARBON DIOXIDE 29 MMOL/L (21-32); CHLORIDE 104 MMOL/L (98-107); POTASSIUM 3.7 MMOL/L (3.5-5.1); SODIUM 138 MMOL/L (136-145)
[2018-04-11 22:26] LABS: ALANINE AMINOTRANSFERASE 21 U/L (12-78); ALBUMIN 3.4 G/DL (3.4-5.0); ALBUMIN/GLOBULIN RATIO 0.8 (1.0-2.7); ALKALINE PHOSPHATASE 95 U/L (46-116); ASPARTATE AMINO TRANSFERASE 17 U/L (15-37); BILIRUBIN,TOTAL 0.2 MG/DL (0.2-1.0)
[2018-04-11] MEDS ORDERED: Morphine Sulfate 2mg/ml Inj IVP ONE (22:30)
[2018-04-11] MEDS ORDERED: DiphenhydrAMINE 50mg/ml Inj IVP ONE (22:45)
--- NOTE | 2018-04-11 23:26 | Emergency Room Report ---
History of Present Illness General Chief Complaint: Chest Pain Source: Patient Present Illness Allergies: Coded Allergies: CARROT (Verified Allergy, Mild, 05/17/17) IBUPROFEN (Verified Allergy, Unknown, 05/17/17) PENICILLINS (Verified Allergy, Unknown, 05/17/17) TRAMADOL (Verified Allergy, Unknown, Hives, 05/17/17) TRIMETHOBENZAMIDE (Verified Allergy, Unknown, 05/17/17) Patient History Now: No Nursing Documentation-PMH Hx Cardiac Problems: Yes - CHF Hx Hypertension: Yes Hx Pacemaker: No Hx Asthma: Yes Hx COPD: No Hx Diabetes: No Hx Cancer: No Hx Gastrointestinal Problems: No Hx Dialysis: No Hx Cerebrovascular Accident: No Hx Seizures: No Physical Exam Vital Signs Date Time Temp Pulse Resp B/P (MAP) Pulse Ox O2 Delivery O2 Flow Rate FiO2 04/11/18 20:10 97.8 90 20 156/98 98 Room Air 97.9 Medical Decision Making Diagnostic Impression: Primary Impression: ACS (acute coronary syndrome) ER Course Please refer to the initial note for the history exam and presentation Given the patient's history and complaints concern is made regarding ACS and other cardiac pathology Patient's EKG does not show any ST elevation blood work is reviewed And troponin was negative Patient is stable for transfer secondary to insurance purposes And is transferred for inpatient care Labs Test 04/11/18 21:50 White Blood Count 6.2 K/UL (4.8-10.8) Red Blood Count 3.83 M/UL (4.20-5.40) Hemoglobin 12.8 G/DL (12.0-16.0) Hematocrit 37.9 % (37.0-47.0) Mean Corpuscular Volume 99 FL (80-99) Mean Corpuscular Hemoglobin 33.4 PG (27.0-31.0) Mean Corpuscular Hemoglobin Concent 33.8 G/DL (32.0-36.0) Red Cell Distribution Width 11.5 % (11.6-14.8) Platelet Count 232 K/UL (150-450) Mean Platelet Volume 6.7 FL (6.5-10.1) Neutrophils (%) (Auto) 48.5 % (45.0-75.0) Lymphocytes (%) (Auto) 36.1 % (20.0-45.0) Monocytes (%) (Auto) 11.4 % (1.0-10.0) Eosinophils (%) (Auto) 2.7 % (0.0-3.0) Basophils (%) (Auto) 1.4 % (0.0-2.0) Sodium Level 138 MMOL/L (136-145) Potassium Level 3.7 MMOL/L (3.5-5.1) Chloride Level 104 MMOL/L (98-107) Carbon Dioxide Level 29 MMOL/L (21-32) Anion Gap 5 mmol/L (5-15) Blood Urea Nitrogen 14 mg/dL (7-18) Creatinine 1.0 MG/DL (0.55-1.30) Estimat Glomerular Filtration Rate > 60 mL/min (>60) Glucose Level 107 MG/DL (74-106) Calcium Level 9.1 MG/DL (8.5-10.1) Total Bilirubin 0.2 MG/DL (0.2-1.0) Aspartate Amino Transf (AST/SGOT) 17 U/L (15-37) Alanine Aminotransferase (ALT/SGPT) 21 U/L (12-78) Alkaline Phosphatase 95 U/L (46-116) Troponin I 0.000 ng/mL (0.000-0.056) Pro-B-Type Natriuretic Peptide 65 pg/mL (0-125) Total Protein 7.7 G/DL (6.4-8.2) Albumin 3.4 G/DL (3.4-5.0) Globulin 4.3 g/dL Albumin/Globulin Ratio 0.8 (1.0-2.7) Rhythm Strip Diag. Results EP Interpretation: yes Rate: 77 Rhythm: NSR, no PVC's, no ectopy Chest X-Ray Diagnostic Results Chest X-Ray Diagnostic Results : Chest X-Ray Ordered: Yes # of Views/Limited/Complete: 1 View Indication: Chest Pain EP Interpretation: Yes Interpretation: no consolidation, no effusion, no pneumothorax Impression: No acute disease Electronically Signed by: Rafael Collins DO Last Vital Signs Date Time Temp Pulse Resp B/P (MAP) Pulse Ox O2 Delivery O2 Flow Rate FiO2 04/11/18 22:13 75 20 Room Air 04/11/18 22:10 98.1 127/72 100 98.1 Status: improved Disposition: [facility] Condition: Improved Referrals: [facility],REFERR[facility] (PCP) Rafael Collins DO Apr 11, 2018 23:26
[2018-04-12 00:11] VITALS: BP 130/84
[2018-04-12] MEDS ORDERED: Morphine Sulfate 4mg/ml Inj (IV USE ONLY) IVP ONE (00:30)
[2018-04-12 01:57] VITALS: BP 130/84
--- NOTE | 2018-04-12 10:40 | Diagnostic Imaging Report ---
Indication: Chest pain Comparison: 07/30/2017 A single view chest radiograph was obtained. Findings: Cardiomediastinal appearance is within normal limits for age. The lungs are clear. Pulmonary vascularity is appropriate. The diaphragmatic contour is smooth and costophrenic angles are sharp. No pleural effusions are identified. The bones are unremarkable. Impression: No acute findings
== END 2018-04-12 01:59 | disposition short-term general hospital (02) ==
LOC: EDBD 20:11 → EMR 20:35
DX: I24.9 Acute ischemic heart disease, unspecified (principal); I11.0 Hypertensive heart disease with heart failure; I50.9 Heart failure, unspecified; J45.909 Unspecified asthma, uncomplicated; Z88.6 Allergy status to analgesic agent; Z88.0 Allergy status to penicillin; Z91.09 Other allergy status, other than to drugs and biological substances
CPT/HCPCS: 36415; 71045; 80053; 83880; 84484; 85025; 93005; 96374; 96375; 96376; 99285; J1200; J1940; J2270; J2405

== ENCOUNTER 2018-06-04 17:32 | Emergency (ER) | payer OTHER ==
[~2018-06-04] VITALS: Ht 165.1 cm; Wt 154.2 kg
[~2018-06-04 17:32] MED LIST changes: +LISINOPRIL20 MG ORAL
[2018-06-04] MEDS ORDERED: LORAZEPAM0.5 MG ORAL (17:43)
[2018-06-04] MEDS ORDERED: PRILOSEC OTC20 MG ORAL (17:43)
[2018-06-04 17:50] VITALS: BP 147/89
[2018-06-04] MEDS ORDERED: DiphenhydrAMINE 50mg/ml Inj IVP ONE (18:15)
[2018-06-04 19:30] LABS: ANION GAP 6 mmol/L (5-15); BLOOD UREA NITROGEN 13 mg/dL (7-18); CALCIUM 9.3 MG/DL (8.5-10.1); CARBON DIOXIDE 31 MMOL/L (21-32); CHLORIDE 103 MMOL/L (98-107); POTASSIUM 3.8 MMOL/L (3.5-5.1); SODIUM 140 MMOL/L (136-145)
[2018-06-04 19:43] LABS: ALANINE AMINOTRANSFERASE 24 U/L (12-78); ALBUMIN 3.2 G/DL (3.4-5.0); ALBUMIN/GLOBULIN RATIO 0.6 (1.0-2.7); ALKALINE PHOSPHATASE 114 U/L (46-116); ASPARTATE AMINO TRANSFERASE 28 U/L (15-37); BILIRUBIN,TOTAL 0.3 MG/DL (0.2-1.0); CKMB < 0.5 NG/ML (0.0-3.6); CREATINE KINASE 143 U/L (26-308)
[2018-06-04 19:56] LABS: BASOPHILS % (AUTO) 1.2 % (0.0-2.0); EOSINOPHILS % (AUTO) 2.2 % (0.0-3.0); HEMATOCRIT 35.8 % (37.0-47.0); LYMPHOCYTES % (AUTO) 26.4 % (20.0-45.0); MEAN CORPUSCULAR VOLUME 95 FL (80-99); MONOCYTES % (AUTO) 13.3 % (1.0-10.0); NEUTROPHILS % (AUTO) 56.8 % (45.0-75.0); PLATELET COUNT 325 K/UL (150-450); RED BLOOD COUNT 3.77 M/UL (4.20-5.40); RED CELL DISTRIBUTION WIDTH 11.6 % (11.6-14.8); WHITE BLOOD COUNT 6.3 K/UL (4.8-10.8)
[2018-06-04] MEDS ORDERED: LORazepam Inj 2mg/ml 1ml IV ONE (20:00)
--- NOTE | 2018-06-04 21:22 | Emergency Room Report ---
History of Present Illness General Chief Complaint: General Complaint Source: Patient, Medical Record Present Illness HPI 52-year-old female presents ED for evaluation. Coming from boarding care facility. Complaining of weakness and shortness of breath and leg swelling. History of CHF. States that her legs are very swollen at this time. States her Lasix is not helping. Denies chest pain. Denies fevers or chills. States it is difficult to ambulate. No other aggravating relieving factors. Denies any other associated symptoms Allergies: Coded Allergies: CARROT (Verified Allergy, Mild, 05/17/17) IBUPROFEN (Verified Allergy, Unknown, 05/17/17) PENICILLINS (Verified Allergy, Unknown, 05/17/17) TRAMADOL (Verified Allergy, Unknown, Hives, 05/17/17) TRIMETHOBENZAMIDE (Verified Allergy, Unknown, 05/17/17) Patient History Past Medical History: DM, HTN, CHF, asthma Past Surgical History: none Pertinent Family History: none Social History: Denies: smoking, alcohol use, drug use Last Menstrual Period: 05/27/18 Now: No Immunizations: UTD Reviewed Nursing Documentation: PMH: Agreed; PSxH: Agreed Nursing Documentation-PMH Past Medical History: No History, Except For Hx Cardiac Problems: Yes - CHF Hx Hypertension: Yes Hx Pacemaker: No Hx Asthma: Yes Hx COPD: No Hx Diabetes: Yes Hx Cancer: No Hx Gastrointestinal Problems: No Hx Dialysis: No Hx Cerebrovascular Accident: No Hx Seizures: No Review of Systems All Other Systems: negative except mentioned in HPI Physical Exam Vital Signs Date Time Temp Pulse Resp B/P (MAP) Pulse Ox O2 Delivery O2 Flow Rate FiO2 06/04/18 17:31 97.9 78 16 147/89 97 Room Air Sp02 EP Interpretation: reviewed, normal General Appearance: no apparent distress, alert, GCS 15, non-toxic, obese Head: normocephalic, atraumatic Eyes: bilateral eye normal inspection, bilateral eye PERRL ENT: hearing grossly normal, normal pharynx, no angioedema, normal voice Neck: full range of motion, supple/symm/no masses Respiratory: chest non-tender, lungs clear, normal breath sounds, speaking full sentences Cardiovascular #1: regular rate, rhythm, no edema Cardiovascular #2: 2+ carotid (R), 2+ carotid (L), 2+ radial (R), 2+ radial (L) , 2+ dorsalis pedis (R), 2+ dorsalis pedis (L) Gastrointestinal: normal bowel sounds, non tender, soft, non-distended, no guarding, no rebound Rectal: deferred Genitourinary: normal inspection, no CVA tenderness Musculoskeletal: back normal, gait/station normal, normal range of motion, swelling - 2+ pitting edema b/l LEs Neurologic: alert, oriented x3, responsive, motor strength/tone normal, sensory intact, speech normal Psychiatric: judgement/insight normal, memory normal, mood/affect normal, no suicidal/homicidal ideation Reflexes: 3+ bicep (R), 3+ bicep (L), 3+ tricep (R), 3+ tricep (L), 3+ knee (R) , 3+ knee (L) Skin: normal color, no rash, warm/dry, well hydrated Lymphatic: no adenopathy Medical Decision Making Diagnostic Impression: Primary Impression: CHF exacerbation Qualified Codes: I50.9 - Heart failure, unspecified ER Course Hospital Course 52-year-old female presents ED complaining of shortness of breath, leg swelling Differential diagnoses include: ID/unstable angina, contusion, muscle strain, PTX, rib fracture Clinical course Patient placed on 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 After initial history and physical I ordered labs, EKG, chest x-ray labs reviewed- no leukocytosis, hemoglobin/hematocrit stable, electrolytes ok, trop negative, BNP elevated EKG -NSR, no acute ischemic changes interpreted by me Chest x-ray- cardiomegaly, pulmonary congestion Lasix given. because of insurance patient will be transferred I. I feel this is a highly complex case requiring extensive working including EKG/Rhythm strip, Xray/CT/US, Blood/urine lab work, repeat exams while in ED, and administration of strong opiates/narcotics for pain control, admission to hospital or close patient follow up. Diagnosis - CHF exacerbation transferred in serious condition Labs Test 06/04/18 19:00 White Blood Count 6.3 K/UL (4.8-10.8) Red Blood Count 3.77 M/UL (4.20-5.40) Hemoglobin 12.0 G/DL (12.0-16.0) Hematocrit 35.8 % (37.0-47.0) Mean Corpuscular Volume 95 FL (80-99) Mean Corpuscular Hemoglobin 31.8 PG (27.0-31.0) Mean Corpuscular Hemoglobin Concent 33.5 G/DL (32.0-36.0) Red Cell Distribution Width 11.6 % (11.6-14.8) Platelet Count 325 K/UL (150-450) Mean Platelet Volume 6.1 FL (6.5-10.1) Neutrophils (%) (Auto) 56.8 % (45.0-75.0) Lymphocytes (%) (Auto) 26.4 % (20.0-45.0) Monocytes (%) (Auto) 13.3 % (1.0-10.0) Eosinophils (%) (Auto) 2.2 % (0.0-3.0) Basophils (%) (Auto) 1.2 % (0.0-2.0) Sodium Level 140 MMOL/L (136-145) Potassium Level 3.8 MMOL/L (3.5-5.1) Chloride Level 103 MMOL/L (98-107) Carbon Dioxide Level 31 MMOL/L (21-32) Anion Gap 6 mmol/L (5-15) Blood Urea Nitrogen 13 mg/dL (7-18) Creatinine 1.0 MG/DL (0.55-1.30) Estimat Glomerular Filtration Rate > 60 mL/min (>60) Glucose Level 102 MG/DL (74-106) Calcium Level 9.3 MG/DL (8.5-10.1) Total Bilirubin 0.3 MG/DL (0.2-1.0) Aspartate Amino Transf (AST/SGOT) 28 U/L (15-37) Alanine Aminotransferase (ALT/SGPT) 24 U/L (12-78) Alkaline Phosphatase 114 U/L (46-116) Total Creatine Kinase 143 U/L (26-308) Creatine Kinase MB < 0.5 NG/ML (0.0-3.6) Creatine Kinase MB Relative Index 0.3 Troponin I 0.000 ng/mL (0.000-0.056) Pro-B-Type Natriuretic Peptide 14 pg/mL (0-125) Total Protein 8.2 G/DL (6.4-8.2) Albumin 3.2 G/DL (3.4-5.0) Globulin 5.0 g/dL Albumin/Globulin Ratio 0.6 (1.0-2.7) EKG Diagnostic Results Rate: normal Rhythm: NSR ST Segments: no acute changes ASA given to the pt in ED: No Rhythm Strip Diag. Results EP Interpretation: yes Rhythm: NSR, no PVC's, no ectopy Chest X-Ray Diagnostic Results Chest X-Ray Diagnostic Results : Chest X-Ray Ordered: Yes # of Views/Limited/Complete: 1 View Indication: Shortness of Breath EP Interpretation: Yes Interpretation: no consolidation, no effusion, no pneumothorax, other - cardiomegaly. pulmoanry congestion Impression: Other - chf Electronically Signed by: Electronically signed by Matthew Mishra MD Last Vital Signs Date Time Temp Pulse Resp B/P (MAP) Pulse Ox O2 Delivery O2 Flow Rate FiO2 06/04/18 17:51 106 16 Room Air 06/04/18 17:50 97.9 147/89 97 Status: improved Disposition: [facility] Condition: Serious Referrals: [facility],REFERRING (PCP) Matthew Mishra MD Jun 04, 2018 21:22
[2018-06-04 22:53] VITALS: BP 128/60
[2018-06-04 23:45] VITALS: BP 110/60
--- NOTE | 2018-06-05 11:08 | Diagnostic Imaging Report ---
Indication: Shortness of breath Technique: XRAY Chest 1v Comparison: 04/11/2018 Findings: Stable cardiomegaly. Mediastinal contours are sharp. Minimal central pulmonary vascular congestion without evidence of alveolar edema. No focal airspace consolidation. No silhouetting the heart border or diaphragms. Costophrenic sulci are sharp. No evidence of pneumothorax. No acute osseous abnormality. Degenerative changes noted in the bilateral shoulders. Impression: Cardiomegaly and very mild central pulmonary vascular congestion. No evidence of alveolar edema or focal airspace consolidation.
--- NOTE | 2018-06-05 17:12 | Cardiology Report ---
APPROVED REPORT EKG Measurement Heart [id number] Normal sinus rhythm Normal ECG
== END 2018-06-04 23:45 | disposition short-term general hospital (02) ==
LOC: EDBD 17:32 → EMR 18:15 → EDBEDREQ 20:01 → EMR 23:45
DX: I50.9 Heart failure, unspecified (principal); R06.02 Shortness of breath; I11.0 Hypertensive heart disease with heart failure; E11.9 Type 2 diabetes mellitus without complications; Z88.0 Allergy status to penicillin; Z88.6 Allergy status to analgesic agent; Z88.8 Allergy status to other drugs, medicaments and biological substances; Z91.018 Allergy to other foods; E66.9 Obesity, unspecified; Z68.43 Body mass index [BMI] 50.0-59.9, adult; I51.7 Cardiomegaly
CPT/HCPCS: 36415; 71045; 80053; 82550; 82553; 83880; 84484; 85025; 93005; 96374; 96375; 99283; J1200; J1940

== ENCOUNTER 2018-06-26 21:41 | Emergency (ER) | payer OTHER ==
[~2018-06-26] VITALS: Ht 165.1 cm; Wt 154.2 kg
[~2018-06-26 21:41] MED LIST changes: +LORAZEPAM0.5 MG ORAL; +PRILOSEC OTC20 MG ORAL
[2018-06-26] MEDS ORDERED: Morphine Sulfate 4mg/ml Inj (IV/IM USE ONLY) IVP ONE (21:45)
[2018-06-26 21:50] VITALS: BP 145/95
--- NOTE | 2018-06-26 21:52 | Emergency Room Report ---
History of Present Illness General Chief Complaint: Vomiting Source: Patient, EMS Present Illness HPI Patient is a 53-year-old female brought in by EMS after increased vomiting and abdominal pain. Patient reports having prior history of rheumatoid arthritis. She reports having increased generalized pain. The patient had similar symptoms in the past. Patient had prior history of morbid obesity. Patient reports having multiple medication allergies. Patient denies taking any disease modifying agents. Allergies: Coded Allergies: CARROT (Verified Allergy, Mild, 05/17/17) IBUPROFEN (Verified Allergy, Unknown, 05/17/17) PENICILLINS (Verified Allergy, Unknown, 05/17/17) TRAMADOL (Verified Allergy, Unknown, Hives, 05/17/17) TRIMETHOBENZAMIDE (Verified Allergy, Unknown, 05/17/17) Patient History Past Medical History: see triage record Reviewed Nursing Documentation: PMH: Agreed; PSxH: Agreed Nursing Documentation-PMH Hx Cardiac Problems: Yes - CHF Hx Hypertension: Yes - Arthritis Hx Pacemaker: No Hx Asthma: Yes Hx COPD: No Hx Diabetes: Yes Hx Cancer: No Hx Gastrointestinal Problems: No Hx Dialysis: No Hx Cerebrovascular Accident: No Hx Seizures: No Review of Systems All Other Systems: negative except mentioned in HPI Physical Exam Vital Signs Date Time Temp Pulse Resp B/P (MAP) Pulse Ox O2 Delivery O2 Flow Rate FiO2 06/26/18 21:34 98.4 90 18 146/98 95 Room Air Sp02 EP Interpretation: reviewed, normal General Appearance: normal inspection, well appearing, no apparent distress, alert, GCS 15, obese Head: atraumatic ENT: normal ENT inspection, hearing grossly normal, normal voice Neck: normal inspection, full range of motion, supple, no bony tend Respiratory: normal inspection, lungs clear, normal breath sounds, no respiratory distress, no retraction, no wheezing Cardiovascular #1: regular rate, rhythm, no edema Gastrointestinal: soft, no guarding, no hernia, no rebound, tenderness - midl diffuse, overweight Genitourinary: no CVA tenderness Musculoskeletal: normal inspection, back normal, normal range of motion Neurologic: normal inspection, alert, oriented x3, responsive, 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 Differential diagnoses included ischemic bowel, appendicitis, perforated viscus, abdominal aortic aneurysm, inferior myocardial infarction, viral gastroenteritis Because of complexity of patient's case laboratory testing and imaging studies were ordered. Laboratory testing was notable for elevated lipase consistent with pancreatitis. The patient was given IV fluids as well as IV pain medications. The patient was noted to have improvement and vomiting after IV Zofran.The patient was discussed with Dr. Rony Ramos for transfer to [facility]. Patient's stable for transfer. Labs Test 06/26/18 22:10 06/26/18 22:30 Urine Color Yellow Urine Appearance Clear Urine pH 6.5 (4.5-8.0) Urine Specific [place] 1.015 (1.005-1.035) Urine Protein 1+ (NEGATIVE) Urine Glucose (UA) Negative (NEGATIVE) Urine Ketones Negative (NEGATIVE) Urine Blood Negative (NEGATIVE) Urine Nitrite Negative (NEGATIVE) Urine Bilirubin Negative (NEGATIVE) Urine Urobilinogen 1 MG/DL (0.0-1.0) Urine Leukocyte Esterase 1+ (NEGATIVE) Urine RBC 0-2 /HPF (0 - 2) Urine WBC 2-4 /HPF (0 - 2) Urine Squamous Epithelial Cells Few /LPF (NONE/OCC) Urine Bacteria Few /HPF (NONE) White Blood Count 6.4 K/UL (4.8-10.8) Red Blood Count 3.84 M/UL (4.20-5.40) Hemoglobin 11.5 G/DL (12.0-16.0) Hematocrit 35.6 % (37.0-47.0) Mean Corpuscular Volume 93 FL (80-99) Mean Corpuscular Hemoglobin 30.0 PG (27.0-31.0) Mean Corpuscular Hemoglobin Concent 32.5 G/DL (32.0-36.0) Red Cell Distribution Width 12.9 % (11.6-14.8) Platelet Count 263 K/UL (150-450) Mean Platelet Volume 6.4 FL (6.5-10.1) Neutrophils (%) (Auto) 54.1 % (45.0-75.0) Lymphocytes (%) (Auto) 31.0 % (20.0-45.0) Monocytes (%) (Auto) 11.4 % (1.0-10.0) Eosinophils (%) (Auto) 2.2 % (0.0-3.0) Basophils (%) (Auto) 1.3 % (0.0-2.0) Sodium Level 143 MMOL/L (136-145) Potassium Level 3.7 MMOL/L (3.5-5.1) Chloride Level 107 MMOL/L (98-107) Carbon Dioxide Level 30 MMOL/L (21-32) Anion Gap 6 mmol/L (5-15) Blood Urea Nitrogen 12 mg/dL (7-18) Creatinine 1.0 MG/DL (0.55-1.30) Estimat Glomerular Filtration Rate > 60 mL/min (>60) Glucose Level 111 MG/DL (74-106) Calcium Level 8.9 MG/DL (8.5-10.1) Total Bilirubin 0.1 MG/DL (0.2-1.0) Aspartate Amino Transf (AST/SGOT) 20 U/L (15-37) Alanine Aminotransferase (ALT/SGPT) 24 U/L (12-78) Alkaline Phosphatase 102 U/L (46-116) Troponin I 0.000 ng/mL (0.000-0.056) Total Protein 8.3 G/DL (6.4-8.2) Albumin 3.3 G/DL (3.4-5.0) Globulin 5.0 g/dL Albumin/Globulin Ratio 0.7 (1.0-2.7) Lipase 675 U/L (73-393) Last Vital Signs Date Time Temp Pulse Resp B/P (MAP) Pulse Ox O2 Delivery O2 Flow Rate FiO2 06/26/18 21:34 98.4 90 18 146/98 95 Room Air Status: improved Disposition: [facility]FER [facility] Condition: Stable Jatinder Worthington MD Jun 26, 2018 21:52
[2018-06-26] MEDS ORDERED: Sodium Chloride 500ML 500 ML IV ONE ×2 (22:00→23:30)
[2018-06-26 22:22] LABS: APPEARANCE,URINE CLEAR; BILIRUBIN, URINE NEGATIVE (NEGATIVE); GLUCOSE, URINE (UA) NEGATIVE (NEGATIVE); KETONES,URINE NEGATIVE (NEGATIVE); LEUKOCYTE ESTERASE ,URINE 1+ (NEGATIVE); NITRITE,URINE NEGATIVE (NEGATIVE); PH,URINE 6.5 (4.5-8.0); PROTEIN,URINE 1+ (NEGATIVE); UROBILINOGEN,URINE 1 MG/DL (0.0-1.0)
[2018-06-26 22:27] LABS: COLOR,URINE YELLOW
[2018-06-26 22:52] LABS: BASOPHILS % (AUTO) 1.3 % (0.0-2.0); EOSINOPHILS % (AUTO) 2.2 % (0.0-3.0); HEMATOCRIT 35.6 % (37.0-47.0); HEMOGLOBIN 11.5 G/DL (12.0-16.0); MEAN CORPUSCULAR VOLUME 93 FL (80-99); MONOCYTES % (AUTO) 11.4 % (1.0-10.0); NEUTROPHILS % (AUTO) 54.1 % (45.0-75.0); PLATELET COUNT 263 K/UL (150-450); RED BLOOD COUNT 3.84 M/UL (4.20-5.40); RED CELL DISTRIBUTION WIDTH 12.9 % (11.6-14.8); WHITE BLOOD COUNT 6.4 K/UL (4.8-10.8)
[2018-06-26 23:09] LABS: ANION GAP 6 mmol/L (5-15); BLOOD UREA NITROGEN 12 mg/dL (7-18); CALCIUM 8.9 MG/DL (8.5-10.1); CARBON DIOXIDE 30 MMOL/L (21-32); CHLORIDE 107 MMOL/L (98-107); POTASSIUM 3.7 MMOL/L (3.5-5.1); SODIUM 143 MMOL/L (136-145)
[2018-06-26 23:13] LABS: ALANINE AMINOTRANSFERASE 24 U/L (12-78); ALBUMIN 3.3 G/DL (3.4-5.0); ALBUMIN/GLOBULIN RATIO 0.7 (1.0-2.7); ALKALINE PHOSPHATASE 102 U/L (46-116); ASPARTATE AMINO TRANSFERASE 20 U/L (15-37); BILIRUBIN,TOTAL 0.1 MG/DL (0.2-1.0)
[2018-06-26] MEDS ORDERED: BENADRYL25 MG ORAL (23:57)
[2018-06-26] MEDS ORDERED: FLUCONAZOLE100 MG ORAL (23:57)
[2018-06-27] MEDS ORDERED: Morphine Sulfate 4mg/ml Inj (IV/IM USE ONLY) IVP ONE (00:30)
[2018-06-27 02:30] VITALS: BP 137/87
--- NOTE | 2018-06-27 12:55 | Diagnostic Imaging Report ---
Indication: Chest pain Technique: One view of the chest Comparison: 06/04/2018 Findings: Lungs and pleural spaces are clear. Heart size is borderline enlarged. No significant interim change Impression: No acute process In borderline cardiomegaly
== END 2018-06-27 02:45 | disposition short-term general hospital (02) ==
LOC: EDBD 21:41 → EMR 21:54
DX: K85.90 Acute pancreatitis without necrosis or infection, unspecified (principal); E66.01 Morbid (severe) obesity due to excess calories; Z68.43 Body mass index [BMI] 50.0-59.9, adult; G89.29 Other chronic pain; I11.0 Hypertensive heart disease with heart failure; I50.9 Heart failure, unspecified; J45.909 Unspecified asthma, uncomplicated; E11.9 Type 2 diabetes mellitus without complications; Z88.0 Allergy status to penicillin; Z88.6 Allergy status to analgesic agent; Z88.8 Allergy status to other drugs, medicaments and biological substances
CPT/HCPCS: 36415; 71045; 80053; 81003; 83690; 84484; 85025; 86850; 86900; 86901; 96374; 96375; 96376; 99284; J2270; J2405; J7040

== ENCOUNTER 2018-08-14 13:26 | Emergency (ER) | payer OTHER ==
[~2018-08-14] VITALS: Ht 165.1 cm; Wt 163.3 kg
[~2018-08-14 13:26] MED LIST changes: +FLUCONAZOLE100 MG ORAL
--- NOTE | 2018-08-14 13:26 | NUR ---
ED Nurse Note: pt brought in by [facility] c/o pain in neck, nose, ear and RUQ and vomiting started today, pt states she is scheduled for biopsy on aug 30, noted white skin lesions on tongue. Pt states family hx liver CA, Oral CA. Pt AA&ox4, gcs=15, skin warm and dry, resp even and unlabored, -n/v/d, pt states she ambulates w/ walker at home.
[2018-08-14] MEDS ORDERED: D5 1/2NS w/KCl 20mEq 1,000 ML IV SCH (13:45)
[2018-08-14] MEDS ORDERED: Morphine Sulfate 4mg/ml Inj (IV/IM USE ONLY) IVP ONE ×2 (13:45→15:45)
--- NOTE | 2018-08-14 13:48 | Emergency Room Report ---
History of Present Illness General Chief Complaint: Pain Source: Patient Present Illness HPI Patient is a 53-year-old female who presented after increased headache cough and increased throat pain. Patient had prior history of lesion to her tongue which she reports having prior history of possible tongue cancer. Patient states that she had previous nasopharyngeal scope. She reports having worsening headache as well as cough and congestion. She had prior history of asthma. She reports being compliant with her medications.Patient was noted to have prior history of pancreatitis. She had prior gastric surgery. Allergies: Coded Allergies: CARROT (Verified Allergy, Mild, 05/17/17) IBUPROFEN (Verified Allergy, Unknown, 05/17/17) PENICILLINS (Verified Allergy, Unknown, 05/17/17) TRAMADOL (Verified Allergy, Unknown, Hives, 05/17/17) TRIMETHOBENZAMIDE (Verified Allergy, Unknown, 05/17/17) Patient History Past Medical History: see triage record Reviewed Nursing Documentation: PMH: Agreed; PSxH: Agreed Nursing Documentation-PMH Past Medical History: No History, Except For Hx Cardiac Problems: Yes - CHF Hx Hypertension: Yes Hx Pacemaker: No Hx Asthma: Yes Hx COPD: No Hx Diabetes: Yes Hx Cancer: No Hx Gastrointestinal Problems: No Hx Dialysis: No Hx Cerebrovascular Accident: No Hx Seizures: No Review of Systems All Other Systems: negative except mentioned in HPI Physical Exam Vital Signs Date Time Temp Pulse Resp B/P (MAP) Pulse Ox O2 Delivery O2 Flow Rate FiO2 08/14/18 13:22 98.4 100 18 166/110 98 Room Air Sp02 EP Interpretation: reviewed, normal General Appearance: normal inspection, well appearing, no apparent distress, alert, GCS 15, obese Head: atraumatic ENT: normal ENT inspection, hearing grossly normal, normal voice Neck: normal inspection, full range of motion, supple, no bony tend Respiratory: normal inspection, no respiratory distress, no retraction, wheezing Cardiovascular #1: regular rate, rhythm, no edema Gastrointestinal: normal inspection, normal bowel sounds, non tender, soft, no guarding, no hernia Genitourinary: no CVA tenderness Musculoskeletal: normal inspection, back normal, normal range of motion Neurologic: normal inspection, alert, oriented x3, responsive, finger grip machine operator III-XII nml as tested, speech normal Psychiatric: normal inspection, judgement/insight normal, mood/affect normal Skin: normal inspection, normal color, no rash Medical Decision Making Diagnostic Impression: Primary Impression: Pancreatitis Additional Impression: Flu-like symptoms ER Course Patient presented for abdominal pain. Differential diagnoses included ischemic bowel, appendicitis, perforated viscus, abdominal aortic aneurysm, inferior myocardial infarction, viral gastroenteritis. Because of complexity of patient' s case laboratory testing and imaging studies were ordered. Amatory studies are notable for a normal white blood count. Patient was noted to have a nonproductive cough. Patient was given breathing treatment. She is given medications for pain as well as IV fluids. Patient is noted to have similar symptoms in the past. Patient had diagnosis of pancreatitis approximately 1 month ago. Patient appears to be stable for transfer.She was given morphine for pain. Patient's white blood count appears to be normal. She is also patient shows no evidence of toxicity at this time. She was given breathing treatment Patient was discussed with Dr. Curt Khanna who agreed to accept the patient as a transfer. Labs Test 08/14/18 14:06 08/14/18 14:30 Urine Color Yellow Urine Appearance Clear Urine pH 6.5 (4.5-8.0) Urine Specific [place] 1.010 (1.005-1.035) Urine Protein Negative (NEGATIVE) Urine Glucose (UA) Negative (NEGATIVE) Urine Ketones Negative (NEGATIVE) Urine Blood Negative (NEGATIVE) Urine Nitrite Negative (NEGATIVE) Urine Bilirubin Negative (NEGATIVE) Urine Urobilinogen 1 MG/DL (0.0-1.0) Urine Leukocyte Esterase 1+ (NEGATIVE) Urine RBC 0-2 /HPF (0 - 2) Urine WBC 2-4 /HPF (0 - 2) Urine Squamous Epithelial Cells Moderate /LPF (NONE/OCC) Urine Bacteria Few /HPF (NONE) Urine Opiates Screen Negative (NEGATIVE) Urine Barbiturates Screen Negative (NEGATIVE) Phencyclidine (PCP) Screen Negative (NEGATIVE) Urine Amphetamines Screen Negative (NEGATIVE) Urine Benzodiazepines Screen Negative (NEGATIVE) Urine Cocaine Screen Negative (NEGATIVE) Urine Marijuana (THC) Screen Negative (NEGATIVE) White Blood Count 6.7 K/UL (4.8-10.8) Red Blood Count 3.91 M/UL (4.20-5.40) Hemoglobin 11.6 G/DL (12.0-16.0) Hematocrit 36.3 % (37.0-47.0) Mean Corpuscular Volume 93 FL (80-99) Mean Corpuscular Hemoglobin 29.7 PG (27.0-31.0) Mean Corpuscular Hemoglobin Concent 32.1 G/DL (32.0-36.0) Red Cell Distribution Width 14.1 % (11.6-14.8) Platelet Count 276 K/UL (150-450) Mean Platelet Volume 6.3 FL (6.5-10.1) Neutrophils (%) (Auto) 59.9 % (45.0-75.0) Lymphocytes (%) (Auto) 26.4 % (20.0-45.0) Monocytes (%) (Auto) 11.2 % (1.0-10.0) Eosinophils (%) (Auto) 1.7 % (0.0-3.0) Basophils (%) (Auto) 0.9 % (0.0-2.0) Sodium Level 140 MMOL/L (136-145) Potassium Level 4.0 MMOL/L (3.5-5.1) Chloride Level 106 MMOL/L (98-107) Carbon Dioxide Level 27 MMOL/L (21-32) Anion Gap 7 mmol/L (5-15) Blood Urea Nitrogen 15 mg/dL (7-18) Creatinine 0.8 MG/DL (0.55-1.30) Estimat Glomerular Filtration Rate > 60 mL/min (>60) Glucose Level 108 MG/DL (74-106) Calcium Level 9.1 MG/DL (8.5-10.1) Total Bilirubin 0.3 MG/DL (0.2-1.0) Aspartate Amino Transf (AST/SGOT) 12 U/L (15-37) Alanine Aminotransferase (ALT/SGPT) 14 U/L (12-78) Alkaline Phosphatase 98 U/L (46-116) Troponin I 0.009 ng/mL (0.000-0.056) Total Protein 7.4 G/DL (6.4-8.2) Albumin 3.3 G/DL (3.4-5.0) Globulin 4.1 g/dL Albumin/Globulin Ratio 0.8 (1.0-2.7) Lipase 634 U/L (73-393) EKG Diagnostic Results Rate: normal Rhythm: NSR ST Segments: no acute changes Last Vital Signs Date Time Temp Pulse Resp B/P (MAP) Pulse Ox O2 Delivery O2 Flow Rate FiO2 08/14/18 13:22 98.4 100 18 166/110 98 Room Air Status: improved Disposition: XFER SHT-TRM HOSP Condition: Stable Jatinder Worthington MD Aug 14, 2018 13:48
[2018-08-14] MEDS ORDERED: Albuterol/Ipratropium 3ml neb HHN ONE (14:00)
[2018-08-14 14:01] VITALS: BP 160/106
--- NOTE | 2018-08-14 14:09 | NUR ---
ED Nurse Note: Called lab to notify that pt is a hardstick and blood needs to be drawn. Awaiting for arrival.
--- NOTE | 2018-08-14 14:10 | NUR ---
ED Nurse Note: Called RT to notify order. Awaiting arrival.
[2018-08-14 14:30] LABS: APPEARANCE,URINE CLEAR; BILIRUBIN, URINE NEGATIVE (NEGATIVE); GLUCOSE, URINE (UA) NEGATIVE (NEGATIVE); KETONES,URINE NEGATIVE (NEGATIVE); LEUKOCYTE ESTERASE ,URINE 1+ (NEGATIVE); NITRITE,URINE NEGATIVE (NEGATIVE); PH,URINE 6.5 (4.5-8.0); PROTEIN,URINE NEGATIVE (NEGATIVE); UROBILINOGEN,URINE 1 MG/DL (0.0-1.0)
[2018-08-14] MEDS ORDERED: DiphenhydrAMINE 50mg/ml Inj IVP ONE (14:30)
[2018-08-14 14:33] LABS: COLOR,URINE YELLOW
[2018-08-14 14:48] LABS: BASOPHILS % (AUTO) 0.9 % (0.0-2.0); EOSINOPHILS % (AUTO) 1.7 % (0.0-3.0); HEMATOCRIT 36.3 % (37.0-47.0); HEMOGLOBIN 11.6 G/DL (12.0-16.0); LYMPHOCYTES % (AUTO) 26.4 % (20.0-45.0); MEAN CORPUSCULAR VOLUME 93 FL (80-99); MONOCYTES % (AUTO) 11.2 % (1.0-10.0); NEUTROPHILS % (AUTO) 59.9 % (45.0-75.0); PLATELET COUNT 276 K/UL (150-450); RED BLOOD COUNT 3.91 M/UL (4.20-5.40); RED CELL DISTRIBUTION WIDTH 14.1 % (11.6-14.8); WHITE BLOOD COUNT 6.7 K/UL (4.8-10.8)
[2018-08-14 15:00] LABS: ANION GAP 7 mmol/L (5-15); BLOOD UREA NITROGEN 15 mg/dL (7-18); CALCIUM 9.1 MG/DL (8.5-10.1); CARBON DIOXIDE 27 MMOL/L (21-32); CHLORIDE 106 MMOL/L (98-107); CREATININE 0.8 MG/DL (0.55-1.30); SODIUM 140 MMOL/L (136-145)
[2018-08-14 15:04] LABS: ALANINE AMINOTRANSFERASE 14 U/L (12-78); ALBUMIN 3.3 G/DL (3.4-5.0); ALBUMIN/GLOBULIN RATIO 0.8 (1.0-2.7); ALKALINE PHOSPHATASE 98 U/L (46-116); ASPARTATE AMINO TRANSFERASE 12 U/L (15-37); BILIRUBIN,TOTAL 0.3 MG/DL (0.2-1.0)
--- NOTE | 2018-08-14 17:17 | NUR ---
ED Nurse Note: Gave telephone report to Jihan Weiss from [facility].
--- NOTE | 2018-08-14 17:20 | NUR ---
ED Nurse Note: Gave report to EMS. ERMD said okay to transfer her without fluids.
[2018-08-14 18:23] VITALS: BP 139/96
--- NOTE | 2018-08-14 18:24 | NUR ---
ED Nurse Note: Pt trasnferred to [facility] with no acute distress noted. Left ER w/ all belongings.
--- NOTE | 2018-08-15 17:35 | Cardiology Report ---
APPROVED REPORT EKG Measurement Heart [id number] Normal sinus rhythm Normal ECG
== END 2018-08-14 17:43 | disposition short-term general hospital (02) ==
LOC: EDBD 13:26 → EMR 13:46
DX: K85.90 Acute pancreatitis without necrosis or infection, unspecified (principal); J11.1 Influenza due to unidentified influenza virus with other respiratory manifestations; I11.0 Hypertensive heart disease with heart failure; I50.9 Heart failure, unspecified; E11.9 Type 2 diabetes mellitus without complications; J45.909 Unspecified asthma, uncomplicated
CPT/HCPCS: 36415; 80053; 80307; 81003; 83690; 84484; 85025; 86710; 93005; 94640; 94664; 96365; 96366; 96375; 96376; 99285; J1200; J2270; J2405; S0028; J7620

== ENCOUNTER 2018-09-25 00:36 | Emergency (ER) | payer OTHER ==
[~2018-09-25] VITALS: Ht 165.1 cm; Wt 163.3 kg
[2018-09-25 01:00] VITALS: BP 122/81
--- NOTE | 2018-09-25 01:00 | NUR ---
ED Nurse Note: pt wheeled in c/o mid and left upper abdominal pain and vomiting x 2 days. AO4. NAD. VSS. morbid obesity noted.
--- NOTE | 2018-09-25 01:11 | Emergency Room Report ---
History of Present Illness General Chief Complaint: Abdominal Pain Source: Patient Present Illness HPI Patient present with complaints of diffuse abdominal discomfort vomiting Reports that she needs to be in the hospital Patient has had repeat diagnoses of pancreatitis Also has history of asthma Denies any chest pain denies any diarrhea Patient also reports that she has a lead case manager through her insurance also reports that she seen pain management Allergies: Coded Allergies: CARROT (Verified Allergy, Mild, 05/17/17) IBUPROFEN (Verified Allergy, Unknown, 05/17/17) PENICILLINS (Verified Allergy, Unknown, 05/17/17) TRAMADOL (Verified Allergy, Unknown, Hives, 05/17/17) TRIMETHOBENZAMIDE (Verified Allergy, Unknown, 05/17/17) Patient History Past Medical History: see triage record Pertinent Family History: none Last Menstrual Period: aug Now: No Reviewed Nursing Documentation: PMH: Agreed; PSxH: Agreed Nursing Documentation-PMH Hx Cardiac Problems: Yes - CHF Hx Hypertension: Yes Hx Pacemaker: No Hx Asthma: Yes Hx COPD: No Hx Diabetes: Yes Hx Cancer: No Hx Gastrointestinal Problems: Yes - pancreatitis Hx Dialysis: No Hx Cerebrovascular Accident: No Hx Seizures: No Review of Systems All Other Systems: negative except mentioned in HPI Physical Exam Vital Signs Date Time Temp Pulse Resp B/P (MAP) Pulse Ox O2 Delivery O2 Flow Rate FiO2 09/25/18 00:54 98.1 96 16 122/81 96 Room Air Sp02 EP Interpretation: reviewed, normal General Appearance: mild distress - Actively nauseated Head: normocephalic, atraumatic Eyes: bilateral eye PERRL, bilateral eye EOMI ENT: normal pharynx Neck: supple, thyroid normal Respiratory: lungs clear, no respiratory distress, no retraction Cardiovascular #1: regular rate, rhythm Gastrointestinal: non tender - On palpation however, subjectively points diffusely to the abdominal region for discomfort, soft Genitourinary: no CVA tenderness Musculoskeletal: other - Patient has significant dependent edema bilaterally, moves all extremities equally otherwise Neurologic: alert, oriented x3 Psychiatric: mood/affect normal Skin: no rash Lymphatic: no adenopathy Medical Decision Making Diagnostic Impression: Primary Impression: Abdominal pain ER Course With the history exam and presentation, multiple differentials considered, including but not limited to appendicitis, gastritis, cholecystitis, diverticulitis Patient's examinations otherwise soft and benign Blood work is at appropriate levels Patient's lipase level is significantly improved from previous times Patient however still complains of increased nausea Reports that she needs to be in the hospital Patient has had multiple hospitalizations At this time patient also requesting Toradol It was noted that she does have an allergy to ibuprofen and tramadol listed patient provided with further Tylenol and concern about the patient's requirement for strong pain medication Also has pain management following closely Given the patient's request for inpatient care Request for admission was made Secondary to insurance purposes patient is transferred for continuity of care Labs Test 09/25/18 01:45 White Blood Count 6.7 K/UL (4.8-10.8) Red Blood Count 4.21 M/UL (4.20-5.40) Hemoglobin 12.7 G/DL (12.0-16.0) Hematocrit 39.6 % (37.0-47.0) Mean Corpuscular Volume 94 FL (80-99) Mean Corpuscular Hemoglobin 30.1 PG (27.0-31.0) Mean Corpuscular Hemoglobin Concent 32.0 G/DL (32.0-36.0) Red Cell Distribution Width 14.3 % (11.6-14.8) Platelet Count 296 K/UL (150-450) Mean Platelet Volume 6.4 FL (6.5-10.1) Neutrophils (%) (Auto) 54.7 % (45.0-75.0) Lymphocytes (%) (Auto) 31.3 % (20.0-45.0) Monocytes (%) (Auto) 9.5 % (1.0-10.0) Eosinophils (%) (Auto) 3.1 % (0.0-3.0) Basophils (%) (Auto) 1.4 % (0.0-2.0) Sodium Level 142 MMOL/L (136-145) Potassium Level 3.9 MMOL/L (3.5-5.1) Chloride Level 105 MMOL/L (98-107) Carbon Dioxide Level 28 MMOL/L (21-32) Anion Gap 9 mmol/L (5-15) Blood Urea Nitrogen 18 mg/dL (7-18) Creatinine 1.0 MG/DL (0.55-1.30) Estimat Glomerular Filtration Rate > 60 mL/min (>60) Glucose Level 112 MG/DL (74-106) Calcium Level 9.4 MG/DL (8.5-10.1) Total Bilirubin 0.2 MG/DL (0.2-1.0) Aspartate Amino Transf (AST/SGOT) 22 U/L (15-37) Alanine Aminotransferase (ALT/SGPT) 20 U/L (12-78) Alkaline Phosphatase 114 U/L (46-116) Total Protein 8.2 G/DL (6.4-8.2) Albumin 3.7 G/DL (3.4-5.0) Globulin 4.5 g/dL Albumin/Globulin Ratio 0.8 (1.0-2.7) Lipase 289 U/L (73-393) Chest X-Ray Diagnostic Results Chest X-Ray Diagnostic Results : Chest X-Ray Ordered: Yes # of Views/Limited/Complete: 1 View Indication: Chest Pain EP Interpretation: Yes Interpretation: no consolidation, no effusion, no pneumothorax Impression: No acute disease Electronically Signed by: Rafael Collins DO Last Vital Signs Date Time Temp Pulse Resp B/P (MAP) Pulse Ox O2 Delivery O2 Flow Rate FiO2 09/25/18 00:54 98.1 96 16 122/81 96 Room Air Status: improved Disposition: XFER SHT-TRM HOSP Condition: Stable Rafael Collins DO Sep 25, 2018 01:11
[2018-09-25] MEDS ORDERED: Albuterol ud Inhalation HHN ONE (01:15)
[2018-09-25] MEDS ORDERED: Ipratropium 0.02% Inh Soln 2.5ml UD HHN ONE (01:15)
[2018-09-25 02:03] LABS: BASOPHILS % (AUTO) 1.4 % (0.0-2.0); EOSINOPHILS % (AUTO) 3.1 % (0.0-3.0); HEMATOCRIT 39.6 % (37.0-47.0); HEMOGLOBIN 12.7 G/DL (12.0-16.0); LYMPHOCYTES % (AUTO) 31.3 % (20.0-45.0); MEAN CORPUSCULAR VOLUME 94 FL (80-99); MONOCYTES % (AUTO) 9.5 % (1.0-10.0); NEUTROPHILS % (AUTO) 54.7 % (45.0-75.0); PLATELET COUNT 296 K/UL (150-450); RED BLOOD COUNT 4.21 M/UL (4.20-5.40); RED CELL DISTRIBUTION WIDTH 14.3 % (11.6-14.8); WHITE BLOOD COUNT 6.7 K/UL (4.8-10.8)
[2018-09-25 02:16] LABS: ANION GAP 9 mmol/L (5-15); BLOOD UREA NITROGEN 18 mg/dL (7-18); CALCIUM 9.4 MG/DL (8.5-10.1); CARBON DIOXIDE 28 MMOL/L (21-32); CHLORIDE 105 MMOL/L (98-107); POTASSIUM 3.9 MMOL/L (3.5-5.1); SODIUM 142 MMOL/L (136-145)
[2018-09-25 02:20] LABS: ALANINE AMINOTRANSFERASE 20 U/L (12-78); ALBUMIN 3.7 G/DL (3.4-5.0); ALBUMIN/GLOBULIN RATIO 0.8 (1.0-2.7); ALKALINE PHOSPHATASE 114 U/L (46-116); ASPARTATE AMINO TRANSFERASE 22 U/L (15-37); BILIRUBIN,TOTAL 0.2 MG/DL (0.2-1.0)
[2018-09-25 03:40] VITALS: BP 125/81
[2018-09-25 04:00] VITALS: BP 125/78
--- NOTE | 2018-09-25 04:00 | NUR ---
ED Nurse Note: pt is tranfered to [facility] via [facility] ambulance via gurney. report given to mahendra mary chaidez. pt left with stable vitals signs and with all her belongings.
--- NOTE | 2018-09-25 10:41 | Diagnostic Imaging Report ---
Indication: Shortness of breath Technique: One view of the chest Comparison: 06/26/2018 Findings: The heart is borderline enlarged. The lungs and pleural spaces are clear. There are degenerative changes of both shoulders. Findings are unchanged Impression: Borderline cardiomegaly. No acute process
== END 2018-09-25 04:00 | disposition short-term general hospital (02) ==
LOC: EMR 00:54 → EDBEDREQ 01:12 → EMR 04:00
DX: R10.9 Unspecified abdominal pain (principal); I11.0 Hypertensive heart disease with heart failure; I50.9 Heart failure, unspecified; J45.909 Unspecified asthma, uncomplicated; Z88.0 Allergy status to penicillin; Z88.6 Allergy status to analgesic agent; Z88.5 Allergy status to narcotic agent
CPT/HCPCS: 36415; 71045; 80053; 83690; 85025; 94640; 94664; 96361; 96374; 99284; J2405

== ENCOUNTER 2019-01-04 13:47 | Emergency (ER) | payer OTHER ==
[~2019-01-04] VITALS: Ht 165.1 cm; Wt 172.4 kg
--- NOTE | 2019-01-04 14:20 | NUR ---
ED Nurse Note: Patient came to ED c/o chronic back and neck pain. patient reports she has pain management doctor and has been taking Percocet around the clock as ordered. patient reports she got here by taxi cab, patient is going back home on taxi cab.
[2019-01-04] MEDS ORDERED: Morphine Sulfate 2mg/ml Inj(IV/IM USE ONLY) IM ONE (15:15)
[2019-01-04 15:34] VITALS: BP 154/72
--- NOTE | 2019-01-04 15:34 | Emergency Room Report ---
History of Present Illness General Chief Complaint: Back Pain-No Injury Source: Medical Record Present Illness Allergies: Coded Allergies: CARROT (Verified Allergy, Mild, 05/17/17) IBUPROFEN (Verified Allergy, Unknown, 05/17/17) PENICILLINS (Verified Allergy, Unknown, 05/17/17) TRAMADOL (Verified Allergy, Unknown, Hives, 05/17/17) TRIMETHOBENZAMIDE (Verified Allergy, Unknown, 05/17/17) Patient History Past Medical History: see triage record Past Surgical History: none Pertinent Family History: none Reviewed Nursing Documentation: PMH: Agreed; PSxH: Agreed Nursing Documentation-PMH Hx Cardiac Problems: Yes - CHF Hx Hypertension: Yes Hx Pacemaker: No Hx Asthma: Yes Hx COPD: No Hx Diabetes: Yes Hx Cancer: No Hx Gastrointestinal Problems: Yes - pancreatitis Hx Dialysis: No Hx Cerebrovascular Accident: No Hx Seizures: No Review of Systems All Other Systems: negative except mentioned in HPI Physical Exam Vital Signs Date Time Temp Pulse Resp B/P (MAP) Pulse Ox O2 Delivery O2 Flow Rate FiO2 01/04/19 14:15 98.1 102 18 161/82 (108) 96 Room Air Medical Decision Making PA Attestation Dr. Worthington is my supervising Physician whom patient management has been discussed with. Diagnostic Impression: Primary Impression: Exacerbation of chronic back pain Last Vital Signs Date Time Temp Pulse Resp B/P (MAP) Pulse Ox O2 Delivery O2 Flow Rate FiO2 01/04/19 14:15 98.1 102 18 161/82 (108) 96 Room Air Disposition: HOME, SELF-CARE Condition: Stable Patient Instructions: Chronic Pain Additional Instructions: Take any previously prescribed medications as directed. Follow up with your Primary Care Provider or CHRONIC PAIN MANAGEMENT Return sooner to ED if you have a change in your symptoms - Please note that this Emergency Department Report was dictated using [employer] container straightener technology software, occasionally this can lead to erroneous entry secondary to interpretation by the dictation equipment. Rula Sifuentes Jan 04, 2019 15:34
--- NOTE | 2019-01-04 15:35 | NUR ---
ED Nurse Note: morphine 4mg/2ml IM was given on the left upper arm, morphine 2mg/1ml IM was given on the right upper arm
[2019-01-04 15:51] VITALS: BP 154/72
--- NOTE | 2019-01-04 15:51 | NUR ---
ER DISCHARGE NOTE: Patient is cleared to be discharged per ERMD Dr. Worthington and FREDERIC LOUISE, pt is aox4, on room air, with stable vital signs. pt was given dc and prescription instructions, pt was able to verbalize understanding, pt id band removed without complications. pt left ED with wheelchair assistance due to pain. pt took all belongings.
== END 2019-01-04 15:50 | disposition home or self-care (01) ==
LOC: EMR 15:15
DX: G89.29 Other chronic pain (principal); M54.9 Dorsalgia, unspecified; E11.9 Type 2 diabetes mellitus without complications; J45.909 Unspecified asthma, uncomplicated; I10 Essential (primary) hypertension; I50.9 Heart failure, unspecified; Z88.6 Allergy status to analgesic agent; Z88.0 Allergy status to penicillin; Z88.5 Allergy status to narcotic agent; Z88.8 Allergy status to other drugs, medicaments and biological substances; Z91.018 Allergy to other foods
CPT/HCPCS: 96372; 99283; J2270

== ENCOUNTER 2019-01-23 20:42 | Emergency (ER) | payer OTHER ==
[~2019-01-23] VITALS: Ht 165.1 cm; Wt 167.8 kg
[2019-01-23] MEDS ORDERED: Ipratropium 0.02% Inh Soln 2.5ml UD HHN ONE (21:00)
--- NOTE | 2019-01-23 21:05 | NUR ---
ED Nurse Note: pt came into ED via wheelchair, c/c asthma attack and n/v/d since this morning, pt states she used inhaler for asthma but didn't work, denies eating anything unusual. noted pt wheezing on LS, productive occasional cough, pt AA&ox4, gcs=15, skin warm and dry, resp even and unlabored on RA, +n/v, will cont monitor. VSS. NSR on vehicle monitor technician.
[2019-01-23] MEDS: Albuterol ud Inhalation HHN SCH ×3 (21:07→21:27)
--- NOTE | 2019-01-23 21:12 | Emergency Room Report ---
History of Present Illness General Chief Complaint: Asthma Source: Patient Present Illness HPI Patient presents with initially complaint of asthma exacerbation Reports that she was released from [facility] hospital to early she is having increased nausea vomiting she also has had diarrhea she feels that she still has swelling in her legs Her asthma has exacerbated over the past 1 to 2 days Denies any cough denies any phlegm production she does feel short of breath Allergies: Coded Allergies: CARROT (Verified Allergy, Mild, 05/17/17) IBUPROFEN (Verified Allergy, Unknown, 05/17/17) PENICILLINS (Verified Allergy, Unknown, 05/17/17) TRAMADOL (Verified Allergy, Unknown, Hives, 05/17/17) TRIMETHOBENZAMIDE (Verified Allergy, Unknown, 05/17/17) Patient History Past Medical History: see triage record Last Menstrual Period: na Reviewed Nursing Documentation: PMH: Agreed; PSxH: Agreed Nursing Documentation-PMH Hx Cardiac Problems: Yes - CHF Hx Hypertension: Yes Hx Pacemaker: No Hx Asthma: Yes Hx COPD: No Hx Diabetes: Yes Hx Cancer: No Hx Gastrointestinal Problems: Yes - pancreatitis Hx Dialysis: No Hx Cerebrovascular Accident: No Hx Seizures: No Review of Systems All Other Systems: negative except mentioned in HPI Physical Exam Vital Signs Date Time Temp Pulse Resp B/P (MAP) Pulse Ox O2 Delivery O2 Flow Rate FiO2 01/23/19 21:07 89 18 98 Room Air 21 Sp02 EP Interpretation: reviewed, normal General Appearance: other - Actively nauseated Head: normocephalic, atraumatic Eyes: bilateral eye PERRL, bilateral eye EOMI ENT: hearing grossly normal, normal pharynx, TMs + canals normal, uvula midline Neck: full range of motion, supple, no meningismus, no bony tend Respiratory: no respiratory distress, no retraction, no accessory muscle use, wheezing - Bilaterally Cardiovascular #1: normal peripheral pulses, regular rate, rhythm, no gallop, no JVD, no murmur Gastrointestinal: normal bowel sounds, non tender, soft, no mass, no organomegaly, non-distended, no guarding, no hernia, no pulsatile mass, no rebound Genitourinary: no CVA tenderness Musculoskeletal: normal inspection - Equal chemical dependency nurse bilaterally, dependent edema lower extremities equally Neurologic: oriented x3, responsive, fine hairer III-XII nml as tested, motor strength/ tone normal, sensory intact Psychiatric: mood/affect normal Skin: no rash Lymphatic: normal inspection, no adenopathy Medical Decision Making Diagnostic Impression: Primary Impression: Asthma attack Additional Impression: Nausea and vomiting ER Course Patient is a fairly complex patient with multiple differential to consideration including but not limited to cardiac cardiopulmonary and vascular emergencies Patient feels significantly improved with breathing treatments receiving antiemetics however still remains uncomfortable and nauseated patient requesting to be hospitalized and does not feel well Secondary to insurance purposes patient was transferred for further care Labs Test 01/23/19 23:10 White Blood Count 8.8 K/UL (4.8-10.8) Red Blood Count 3.96 M/UL (4.20-5.40) Hemoglobin 11.3 G/DL (12.0-16.0) Hematocrit 36.8 % (37.0-47.0) Mean Corpuscular Volume 93 FL (80-99) Mean Corpuscular Hemoglobin 28.6 PG (27.0-31.0) Mean Corpuscular Hemoglobin Concent 30.8 G/DL (32.0-36.0) Red Cell Distribution Width 15.4 % (11.6-14.8) Platelet Count 291 K/UL (150-450) Mean Platelet Volume 5.9 FL (6.5-10.1) Neutrophils (%) (Auto) 62.9 % (45.0-75.0) Lymphocytes (%) (Auto) 28.5 % (20.0-45.0) Monocytes (%) (Auto) 6.1 % (1.0-10.0) Eosinophils (%) (Auto) 0.9 % (0.0-3.0) Basophils (%) (Auto) 1.7 % (0.0-2.0) Sodium Level 142 MMOL/L (136-145) Potassium Level 4.1 MMOL/L (3.5-5.1) Chloride Level 105 MMOL/L (98-107) Carbon Dioxide Level 29 MMOL/L (21-32) Anion Gap 8 mmol/L (5-15) Blood Urea Nitrogen 21 mg/dL (7-18) Creatinine 1.2 MG/DL (0.55-1.30) Estimat Glomerular Filtration Rate 57.3 mL/min (>60) Glucose Level 108 MG/DL (74-106) Calcium Level 8.8 MG/DL (8.5-10.1) Total Bilirubin 0.1 MG/DL (0.2-1.0) Aspartate Amino Transf (AST/SGOT) 22 U/L (15-37) Alanine Aminotransferase (ALT/SGPT) 19 U/L (12-78) Alkaline Phosphatase 100 U/L (46-116) Total Creatine Kinase 107 U/L (26-308) Creatine Kinase MB < 0.5 NG/ML (0.0-3.6) Creatine Kinase MB Relative Index 0.4 Troponin I 0.000 ng/mL (0.000-0.056) Pro-B-Type Natriuretic Peptide 272 pg/mL (0-125) Total Protein 7.2 G/DL (6.4-8.2) Albumin 3.5 G/DL (3.4-5.0) Globulin 3.7 g/dL Albumin/Globulin Ratio 0.9 (1.0-2.7) Lipase 235 U/L (73-393) Rhythm Strip Diag. Results EP Interpretation: yes Rate: 77 Rhythm: NSR, no PVC's, no ectopy Chest X-Ray Diagnostic Results Chest X-Ray Diagnostic Results : Chest X-Ray Ordered: Yes # of Views/Limited/Complete: 1 View Indication: Chest Pain EP Interpretation: Yes Interpretation: no consolidation, no effusion, no pneumothorax Impression: No acute disease Electronically Signed by: Rafael Collins DO Last Vital Signs Date Time Temp Pulse Resp B/P (MAP) Pulse Ox O2 Delivery O2 Flow Rate FiO2 01/23/19 21:07 90 19 96 Room Air 21 Status: improved Disposition: XFER SHT-TRM HOSP Condition: Improved Rafael Collins DO Jan 23, 2019 21:12
--- NOTE | 2019-01-23 22:19 | NUR ---
ED Nurse Note: unable to draw lab or establish iv access, pt refused to be drawn using venipuncture, pt states she is hard stick ERMD notified, call lab for blood draw.
[2019-01-23 22:22] VITALS: BP 156/86
[2019-01-23] MEDS ORDERED: PERCOCET 10-321 EACH ORAL (22:44)
--- NOTE | 2019-01-23 23:20 | NUR ---
ED Nurse Note: lab specimen obtained and sent to lab, BAILEYD notified regarding pt's pain.
[2019-01-23 23:22] VITALS: BP 145/61
[2019-01-23 23:24] LABS: BASOPHILS % (AUTO) 1.7 % (0.0-2.0); EOSINOPHILS % (AUTO) 0.9 % (0.0-3.0); HEMATOCRIT 36.8 % (37.0-47.0); HEMOGLOBIN 11.3 G/DL (12.0-16.0); LYMPHOCYTES % (AUTO) 28.5 % (20.0-45.0); MEAN CORPUSCULAR VOLUME 93 FL (80-99); MONOCYTES % (AUTO) 6.1 % (1.0-10.0); NEUTROPHILS % (AUTO) 62.9 % (45.0-75.0); PLATELET COUNT 291 K/UL (150-450); RED BLOOD COUNT 3.96 M/UL (4.20-5.40); RED CELL DISTRIBUTION WIDTH 15.4 % (11.6-14.8); WHITE BLOOD COUNT 8.8 K/UL (4.8-10.8)
[2019-01-23] MEDS ORDERED: Morphine Sulfate 2mg/ml Inj(IV/IM USE ONLY) IM ONE (23:30)
[2019-01-23 23:36] LABS: ANION GAP 8 mmol/L (5-15); BLOOD UREA NITROGEN 21 mg/dL (7-18); CALCIUM 8.8 MG/DL (8.5-10.1); CARBON DIOXIDE 29 MMOL/L (21-32); CHLORIDE 105 MMOL/L (98-107); CREATININE 1.2 MG/DL (0.55-1.30); POTASSIUM 4.1 MMOL/L (3.5-5.1); SODIUM 142 MMOL/L (136-145)
[2019-01-23 23:48] LABS: ALANINE AMINOTRANSFERASE 19 U/L (12-78); ALBUMIN 3.5 G/DL (3.4-5.0); ALBUMIN/GLOBULIN RATIO 0.9 (1.0-2.7); ALKALINE PHOSPHATASE 100 U/L (46-116); ASPARTATE AMINO TRANSFERASE 22 U/L (15-37); BILIRUBIN,TOTAL 0.1 MG/DL (0.2-1.0); CKMB < 0.5 NG/ML (0.0-3.6); CREATINE KINASE 107 U/L (26-308)
--- NOTE | 2019-01-24 01:10 | NUR ---
ED Nurse Note: pt reports pain on abd area, ERMD notified.
[2019-01-24] MEDS ORDERED: Morphine Sulfate 2mg/ml Inj(IV/IM USE ONLY) IVP ONE (01:15)
--- NOTE | 2019-01-24 01:18 | NUR ---
ED Nurse Note: spoke with Sung but receiving RN unable to take report, RN states he will call back for report. pending xfr.
[2019-01-24 01:31] VITALS: BP 135/81
--- NOTE | 2019-01-24 01:46 | NUR ---
ED Nurse Note: AMBULANCE AT THE BEDSIDE FOR TRANSPORT, PT VSS, RESP EVEN AND UNLABORED ON RA, NOTED DECREASE IN WHEEZING, PT REPORTS FEELING BETTER, NSR ON PONY TRIMMER, IV INTACT AND PATENT, REPORT GIVEN TO ALS AMBULANCE STAFF AND ENDORSED CARE. PT BELONGINGS ENDORSED TO AMBULANCE PERSONNEL.
[2019-01-24 02:01] VITALS: BP 132/80
--- NOTE | 2019-01-24 02:01 | NUR ---
ED Nurse Note: REPORT GIVEN TO ALTA ORDONEZ FROM [facility].
--- NOTE | 2019-01-24 02:01 | NUR ---
ED Nurse Note: SUMMARY OF CARE PROVIDED, ALL BELONGINGS SENT W/ PT.
--- NOTE | 2019-01-24 13:27 | Diagnostic Imaging Report ---
Indication: Chest pain Comparison: 09/25/2018 A single view chest radiograph was obtained. Findings: Cardiomegaly is present. Mild pulmonary vascular congestion may be present. Correlate clinically. This is questionable. IMPRESSION: Questionable mild pulmonary vascular congestion. Correlate clinically
--- NOTE | 2019-01-25 16:02 | Cardiology Report ---
APPROVED REPORT EKG Measurement Heart [id number] ND [id number] [id number] Normal sinus rhythm Possible Left atrial enlargement Borderline ECG
== END 2019-01-24 02:01 | disposition short-term general hospital (02) ==
LOC: EMR 21:40
DX: J45.901 Unspecified asthma with (acute) exacerbation (principal); R11.2 Nausea with vomiting, unspecified; I11.0 Hypertensive heart disease with heart failure; I50.9 Heart failure, unspecified; E11.9 Type 2 diabetes mellitus without complications; Z88.0 Allergy status to penicillin; Z88.6 Allergy status to analgesic agent; Z88.5 Allergy status to narcotic agent
CPT/HCPCS: 36415; 71045; 80053; 82550; 82553; 83690; 83880; 84484; 85025; 93005; 94640; 94664; 96372; 96374; 96375; 99285; J1940; J2270

== ENCOUNTER 2019-05-14 17:04 | Emergency (ER) | payer OTHER ==
[~2019-05-14] VITALS: Ht 165.1 cm; Wt 176.4 kg
[~2019-05-14 17:04] MED LIST changes: +PERCOCET 10-321 EACH ORAL
--- NOTE | 2019-05-14 17:40 | Emergency Room Report ---
History of Present Illness General Chief Complaint: Dyspnea/Respdistress Source: Patient, Medical Record Present Illness HPI With 2 problems. She is been having chronic pain in her neck and her lower back. She is in the process of getting ready for weight reduction surgery. She also has knee pain with [id number] disease. She takes Percocet at home. She is been vomiting today. Is undergoing pain management. Problem is she was driving around and started having shortness of breath. She was sneezing and wheezing. She has intermittent chest pain when she is coughing also. She denies any fevers or chills. No color to the phlegm at this time. Urine is dark and she has some possible dysuria. Allergies: Coded Allergies: CARROT (Verified Allergy, Mild, 05/17/17) IBUPROFEN (Verified Allergy, Unknown, 05/17/17) PENICILLINS (Verified Allergy, Unknown, 05/17/17) TRAMADOL (Verified Allergy, Unknown, Hives, 05/17/17) TRIMETHOBENZAMIDE (Verified Allergy, Unknown, 05/17/17) Patient History Past Medical History: see triage record Social History Narrative at home Last Menstrual Period: 04/21/2019 Reviewed Nursing Documentation: PMH: Agreed; PSxH: Agreed Nursing Documentation-PMH Past Medical History: No History, Except For Hx Cardiac Problems: Yes - CHF Hx Hypertension: Yes Hx Pacemaker: No Hx Asthma: Yes Hx COPD: No Hx Diabetes: Yes Hx Cancer: No Hx Gastrointestinal Problems: Yes - pancreatitis Hx Dialysis: No Hx Cerebrovascular Accident: No Hx Seizures: No Physical Exam Vital Signs Date Time Temp Pulse Resp B/P (MAP) Pulse Ox O2 Delivery O2 Flow Rate FiO2 05/14/19 17:05 97.0 110 18 133/97 (109) 99 Room Air Medical Decision Making Diagnostic Impression: Primary Impression: Bronchospasm Additional Impression: Chronic pain ER Course Patient presents with wheezing coughing and vomiting with some increased back pain and neck pain. Differential includes acute myocardial infarction, exacerbation of asthma, pulmonary embolus, viral syndrome, bronchitis amongst others. Patient will be evaluated with EKG, chest x-ray and labs. The patient will be treated with Solu-Medrol and breathing treatments. In addition a dose of Percocet will be given at the moment. She is also treated with Zofran. Laboratory Tests Test 05/14/19 18:10 05/14/19 18:30 White Blood Count 5.4 K/UL (4.8-10.8) Red Blood Count 4.21 M/UL (4.20-5.40) Hemoglobin 12.1 G/DL (12.0-16.0) Hematocrit 37.5 % (37.0-47.0) Mean Corpuscular Volume 89 FL (80-99) Mean Corpuscular Hemoglobin 28.8 PG (27.0-31.0) Mean Corpuscular Hemoglobin Concent 32.3 G/DL (32.0-36.0) Red Cell Distribution Width 13.7 % (11.6-14.8) Platelet Count 289 K/UL (150-450) Mean Platelet Volume 6.1 FL (6.5-10.1) L Neutrophils (%) (Auto) 57.5 % (45.0-75.0) Lymphocytes (%) (Auto) 28.6 % (20.0-45.0) Monocytes (%) (Auto) 10.9 % (1.0-10.0) H Eosinophils (%) (Auto) 1.5 % (0.0-3.0) Basophils (%) (Auto) 1.4 % (0.0-2.0) Prothrombin Time 9.7 SEC (9.30-11.50) Prothrombin Time INR 0.9 (0.9-1.1) PTT 24 SEC (23-33) Sodium Level 143 MMOL/L (136-145) Potassium Level 3.8 MMOL/L (3.5-5.1) Chloride Level 106 MMOL/L (98-107) Carbon Dioxide Level 28 MMOL/L (21-32) Anion Gap 9 mmol/L (5-15) Blood Urea Nitrogen 16 mg/dL (7-18) Creatinine 0.9 MG/DL (0.55-1.30) Estimate Glomerular Filtration Rate > 60 mL/min (>60) Glucose Level 100 MG/DL (74-106) Calcium Level 9.2 MG/DL (8.5-10.1) Total Bilirubin 0.2 MG/DL (0.2-1.0) Aspartate Amino Transferase (AST) 20 U/L (15-37) Alanine Aminotransferase (ALT) 25 U/L (12-78) Alkaline Phosphatase 105 U/L (46-116) Total Creatine Kinase 111 U/L (26-308) Troponin I 0.000 ng/mL (0.000-0.056) Pro-B-Type Natriuretic Peptide 106 pg/mL (0-125) Total Protein 7.5 G/DL (6.4-8.2) Albumin 3.5 G/DL (3.4-5.0) Globulin 4.0 g/dL Albumin/Globulin Ratio 0.9 (1.0-2.7) L Lipase 235 U/L (73-393) Urine Color Karis Urine Appearance Clear Urine pH 6 (4.5-8.0) Urine Specific [place] 1.015 (1.005-1.035) Urine Protein 1+ (NEGATIVE) H Urine Glucose (UA) Negative (NEGATIVE) Urine Ketones 1+ (NEGATIVE) H Urine Blood Negative (NEGATIVE) Urine Nitrite Negative (NEGATIVE) Urine Bilirubin Negative (NEGATIVE) Urine Ictotest Negative (NEGATIVE) Urine Urobilinogen 1 MG/DL (0.0-1.0) H Urine Leukocyte Esterase Negative (NEGATIVE) Urine RBC 0 /HPF (0 - 2) Urine WBC 0 /HPF (0 - 2) Urine Squamous Epithelial Cells Occasional /LPF Urine Bacteria None /HPF (NONE) Urine Opiates Screen Negative (NEGATIVE) Urine Barbiturates Screen Negative (NEGATIVE) Phencyclidine (PCP) Screen Negative (NEGATIVE) Urine Amphetamines Screen Negative (NEGATIVE) Urine Benzodiazepines Screen Negative (NEGATIVE) Urine Cocaine Screen Negative (NEGATIVE) Urine Marijuana (THC) Screen Negative (NEGATIVE) EKG Diagnostic Results Rate: normal Rhythm: NSR ST Segments: no acute changes Rhythm Strip Diag. Results EP Interpretation: yes Rhythm: NSR, no PVC's, no ectopy Chest X-Ray Diagnostic Results Chest X-Ray Diagnostic Results : Chest X-Ray Ordered: Yes # of Views/Limited/Complete: 1 View Indication: Shortness of Breath EP Interpretation: Yes Interpretation: no consolidation, no effusion, no pneumothorax Impression: No acute disease Electronically Signed by: Electronically signed by Tree Casillas MD Status: improved Disposition: HOME, SELF-CARE Condition: Improved Scripts Prednisone* (PREDNISONE*) 20 Mg Tablet 40 MG ORAL DAILY, #10 TAB Prov: Tree Casillas MD 05/14/19 Albuterol Sulfate* (ALBUTEROL SULFATE MDI*) 8.5 Gm Hfa.aer.ad 2 PUFF INH Q6H, #1 EA 0 Refills Prov: Tree Casillas MD 05/14/19 Tree Casillas MD May 14, 2019 17:40
[2019-05-14] MEDS ORDERED: Solu-MEDROL 125mg Inj IVP ONE (17:45)
[2019-05-14] MEDS ORDERED: Ipratropium 0.02% Inh Soln 2.5ml UD HHN ONE (17:45)
[2019-05-14] MEDS ORDERED: Albuterol ud Inhalation HHN ONE (17:45)
--- NOTE | 2019-05-14 18:08 | NUR ---
ED Nurse Note: pt care assummed. pt with hhn given by resp therapist. a/ox4. pt with coarse wheezes throughout. occ. nonproductive cough noted iv started by rn gael rooney pt tolerates well.
[2019-05-14 18:26] VITALS: BP 118/80
[2019-05-14 18:32] LABS: INR 0.9 (0.9-1.1)
[2019-05-14 18:33] LABS: BASOPHILS % (AUTO) 1.4 % (0.0-2.0); EOSINOPHILS % (AUTO) 1.5 % (0.0-3.0); HEMATOCRIT 37.5 % (37.0-47.0); HEMOGLOBIN 12.1 G/DL (12.0-16.0); LYMPHOCYTES % (AUTO) 28.6 % (20.0-45.0); MEAN CORPUSCULAR VOLUME 89 FL (80-99); MONOCYTES % (AUTO) 10.9 % (1.0-10.0); NEUTROPHILS % (AUTO) 57.5 % (45.0-75.0); PLATELET COUNT 289 K/UL (150-450); RED BLOOD COUNT 4.21 M/UL (4.20-5.40); RED CELL DISTRIBUTION WIDTH 13.7 % (11.6-14.8); WHITE BLOOD COUNT 5.4 K/UL (4.8-10.8)
[2019-05-14 18:34] LABS: ANION GAP 9 mmol/L (5-15); BLOOD UREA NITROGEN 16 mg/dL (7-18); CALCIUM 9.2 MG/DL (8.5-10.1); CARBON DIOXIDE 28 MMOL/L (21-32); CHLORIDE 106 MMOL/L (98-107); CREATININE 0.9 MG/DL (0.55-1.30); POTASSIUM 3.8 MMOL/L (3.5-5.1); SODIUM 143 MMOL/L (136-145)
[2019-05-14 18:44] LABS: ALANINE AMINOTRANSFERASE 25 U/L (12-78); ALBUMIN 3.5 G/DL (3.4-5.0); ALBUMIN/GLOBULIN RATIO 0.9 (1.0-2.7); ALKALINE PHOSPHATASE 105 U/L (46-116); ASPARTATE AMINO TRANSFERASE 20 U/L (15-37); BILIRUBIN,TOTAL 0.2 MG/DL (0.2-1.0); CREATINE KINASE 111 U/L (26-308)
[2019-05-14 18:54] LABS: APPEARANCE,URINE CLEAR; BILIRUBIN, URINE NEGATIVE (NEGATIVE); COLOR,URINE AMBER; GLUCOSE, URINE (UA) NEGATIVE (NEGATIVE); KETONES,URINE 1+ (NEGATIVE); LEUKOCYTE ESTERASE ,URINE NEGATIVE (NEGATIVE); NITRITE,URINE NEGATIVE (NEGATIVE); PH,URINE 6 (4.5-8.0); PROTEIN,URINE 1+ (NEGATIVE); UROBILINOGEN,URINE 1 MG/DL (0.0-1.0)
--- NOTE | 2019-05-14 19:03 | NUR ---
ED Nurse Note: pt requests 50mg po benadryl for leg itching that she frequently has at home. md mosley
[2019-05-14] MEDS ORDERED: ALBUTEROL SULF8.5 GM INH (20:20)
[2019-05-14] MEDS ORDERED: PREDNISONE20 MG ORAL (20:20)
[2019-05-14 20:35] VITALS: BP 118/80
--- NOTE | 2019-05-14 20:35 | NUR ---
ER DISCHARGE NOTE: Patient is cleared to be discharged per ERMD, pt is aox4, on room air, with stable vital signs. pt was given dc and prescription instructions, pt was able to verbalize understanding, pt id band and iv site removed without complications. pt is able to ambulate with steady gait. pt took all belongings.
--- NOTE | 2019-05-15 13:14 | Diagnostic Imaging Report ---
Indication: Dyspnea Comparison: 01/23/2019 A single view chest radiograph was obtained. Findings: Cardiomediastinal appearance is within normal limits for age. The lungs are clear. Pulmonary vascularity is appropriate. The diaphragmatic contour is smooth and costophrenic angles are sharp. No pleural effusions are identified. The bones are unremarkable. Impression: No acute findings
== END 2019-05-14 20:35 | disposition home or self-care (01) ==
LOC: EMR 17:35
DX: J98.01 Acute bronchospasm (principal); G89.29 Other chronic pain; M54.2 Cervicalgia; I11.0 Hypertensive heart disease with heart failure; I50.9 Heart failure, unspecified; Z91.018 Allergy to other foods; Z88.6 Allergy status to analgesic agent; Z88.0 Allergy status to penicillin; Z88.8 Allergy status to other drugs, medicaments and biological substances; E11.9 Type 2 diabetes mellitus without complications
CPT/HCPCS: 36415; 71045; 80053; 80307; 81003; 82550; 83690; 83880; 84484; 85025; 85610; 85730; 93005; 94640; 94664; 96374; 96375; J2405; J2930; Z7502; 99284

== ENCOUNTER 2019-07-06 16:47 | Emergency (ER) | payer OTHER ==
[~2019-07-06] VITALS: Ht 165.1 cm; Wt 172.4 kg
[~2019-07-06 16:47] MED LIST changes: +ALBUTEROL SULF8.5 GM INH
[2019-07-06 17:00] VITALS: BP 130/90
[2019-07-06] MEDS ORDERED: Albuterol/Ipratropium 3ml neb HHN ONE (17:00)
--- NOTE | 2019-07-06 17:00 | NUR ---
ED Nurse Note: Patient came into the ER via ambulance RA 61 with a c/o chest pain and difficulty breathing. Pt is aaox4, and on room air. Patient placed on cardiac monitors and placed in a gown. EKG is bedside.
--- NOTE | 2019-07-06 17:03 | Emergency Room Report ---
History of Present Illness General Chief Complaint: Dyspnea/Respdistress Source: EMS Present Illness HPI Patient is a 54-year-old female presents after increased cough and congestion. Patient reports having hospitalization for the past few days. Cough. She had recently been hospitalized at [facility]. She had been discharged yesterday. She states a had been giving her diuretics to remove fluid off of her legs. She reports having continued difficulty with breathing. Prior history of asthma. She is currently taking oral steroids. Allergies: Coded Allergies: CARROT (Verified Allergy, Mild, 05/17/17) IBUPROFEN (Verified Allergy, Unknown, 05/17/17) PENICILLINS (Verified Allergy, Unknown, 05/17/17) TRAMADOL (Verified Allergy, Unknown, Hives, 05/17/17) TRIMETHOBENZAMIDE (Verified Allergy, Unknown, 05/17/17) Patient History Past Medical History: see triage record Reviewed Nursing Documentation: PMH: Agreed; PSxH: Agreed Nursing Documentation-PMH Hx Cardiac Problems: Yes - CHF Hx Hypertension: Yes Hx Pacemaker: No Hx Asthma: Yes Hx COPD: No Hx Diabetes: Yes Hx Cancer: No Hx Gastrointestinal Problems: Yes - pancreatitis Hx Dialysis: No Hx Cerebrovascular Accident: No Hx Seizures: No Review of Systems All Other Systems: negative except mentioned in HPI Physical Exam Vital Signs Date Time Temp Pulse Resp B/P (MAP) Pulse Ox O2 Delivery O2 Flow Rate FiO2 07/06/19 16:48 98.2 100 24 130/90 (103) 97 Room Air Sp02 EP Interpretation: reviewed, normal General Appearance: normal inspection, alert, obese, Chronically Ill Head: atraumatic ENT: normal ENT inspection, hearing grossly normal, normal voice Neck: normal inspection, full range of motion, supple, no bony tend Respiratory: normal inspection, no respiratory distress, no retraction, wheezing Cardiovascular #1: normal peripheral pulses, regular rate, rhythm, no edema Gastrointestinal: normal inspection, normal bowel sounds, non tender, soft, no guarding, no hernia Genitourinary: no CVA tenderness Musculoskeletal: normal inspection, back normal, normal range of motion Neurologic: alert, motor strength/tone normal, form builder III-XII nml as tested, oriented x3, responsive, speech normal, normal inspection Psychiatric: normal inspection, judgement/insight normal, mood/affect normal Skin: no rash Medical Decision Making Diagnostic Impression: Primary Impression: Bronchospasm Additional Impression: Morbid obesity with BMI of 60.0-69.9, adult ER Course Patient present for shortness of breath. Differential diagnosis includes not limited to pneumonia, bronchitis, COPD exacerbation, among others. Because of complexity of patient's case laboratory tests were ordered. Patient was noted to have prior history of asthma. She had recently been on oral steroids. She was noted to have continued difficulty breathing throughout ER course. Patient was given breathing treatments. Patient was endorsed to Dr. Mishra and likely will be transferred to [facility] facility. Labs Test 07/06/19 21:10 White Blood Count 9.7 K/UL (4.8-10.8) Red Blood Count 3.87 M/UL (4.20-5.40) Hemoglobin 11.1 G/DL (12.0-16.0) Hematocrit 34.2 % (37.0-47.0) Mean Corpuscular Volume 88 FL (80-99) Mean Corpuscular Hemoglobin 28.8 PG (27.0-31.0) Mean Corpuscular Hemoglobin Concent 32.6 G/DL (32.0-36.0) Red Cell Distribution Width 14.9 % (11.6-14.8) Platelet Count 277 K/UL (150-450) Mean Platelet Volume 5.4 FL (6.5-10.1) Neutrophils (%) (Auto) 64.5 % (45.0-75.0) Lymphocytes (%) (Auto) 26.7 % (20.0-45.0) Monocytes (%) (Auto) 8.0 % (1.0-10.0) Eosinophils (%) (Auto) 0.1 % (0.0-3.0) Basophils (%) (Auto) 0.8 % (0.0-2.0) Sodium Level 143 MMOL/L (136-145) Potassium Level 4.0 MMOL/L (3.5-5.1) Chloride Level 105 MMOL/L (98-107) Carbon Dioxide Level 29 MMOL/L (21-32) Anion Gap 9 mmol/L (5-15) Blood Urea Nitrogen 20 mg/dL (7-18) Creatinine 0.9 MG/DL (0.55-1.30) Estimat Glomerular Filtration Rate > 60 mL/min (>60) Glucose Level 95 MG/DL (74-106) Calcium Level 9.0 MG/DL (8.5-10.1) Total Bilirubin 0.3 MG/DL (0.2-1.0) Aspartate Amino Transf (AST/SGOT) 65 U/L (15-37) Alanine Aminotransferase (ALT/SGPT) 64 U/L (12-78) Alkaline Phosphatase 84 U/L (46-116) Total Protein 7.5 G/DL (6.4-8.2) Albumin 3.3 G/DL (3.4-5.0) Globulin 4.2 g/dL Albumin/Globulin Ratio 0.8 (1.0-2.7) Last Vital Signs Date Time Temp Pulse Resp B/P (MAP) Pulse Ox O2 Delivery O2 Flow Rate FiO2 07/06/19 16:48 98.2 100 24 130/90 (103) 97 Room Air Status: improved Jatinder Worthington MD Jul 06, 2019 17:03
[2019-07-06 18:08] VITALS: BP 122/70
[2019-07-06] MEDS ORDERED: Nitroglycerin Subl 0.4mg tab SL PRN (18:15)
--- NOTE | 2019-07-06 19:18 | NUR ---
HAND-OFF: Report given to ALTA Feliz.
--- NOTE | 2019-07-06 19:21 | NUR ---
ED Nurse Note: Received report from ALTA Morrow.
[2019-07-06 19:31] VITALS: BP 125/76
--- NOTE | 2019-07-06 20:01 | NUR ---
ED Nurse Note: ERMD at bedside.
[2019-07-06] MEDS ORDERED: Ascorbic Acid 500mg tab ORAL ONE (20:15)
[2019-07-06 21:41] LABS: BASOPHILS % (AUTO) 0.8 % (0.0-2.0); EOSINOPHILS % (AUTO) 0.1 % (0.0-3.0); HEMATOCRIT 34.2 % (37.0-47.0); HEMOGLOBIN 11.1 G/DL (12.0-16.0); LYMPHOCYTES % (AUTO) 26.7 % (20.0-45.0); MEAN CORPUSCULAR VOLUME 88 FL (80-99); NEUTROPHILS % (AUTO) 64.5 % (45.0-75.0); PLATELET COUNT 277 K/UL (150-450); RED BLOOD COUNT 3.87 M/UL (4.20-5.40); RED CELL DISTRIBUTION WIDTH 14.9 % (11.6-14.8); WHITE BLOOD COUNT 9.7 K/UL (4.8-10.8)
[2019-07-06 22:20] LABS: ALANINE AMINOTRANSFERASE 64 U/L (12-78); ALBUMIN 3.3 G/DL (3.4-5.0); ALBUMIN/GLOBULIN RATIO 0.8 (1.0-2.7); ALKALINE PHOSPHATASE 84 U/L (46-116); ANION GAP 9 mmol/L (5-15); ASPARTATE AMINO TRANSFERASE 65 U/L (15-37); BILIRUBIN,TOTAL 0.3 MG/DL (0.2-1.0); BLOOD UREA NITROGEN 20 mg/dL (7-18); CARBON DIOXIDE 29 MMOL/L (21-32); CHLORIDE 105 MMOL/L (98-107); CREATININE 0.9 MG/DL (0.55-1.30); SODIUM 143 MMOL/L (136-145)
[2019-07-06] MEDS ORDERED: Acetaminophen 500mg (ES) tab ORAL ONE (22:30)
--- NOTE | 2019-07-06 22:36 | NUR ---
ED Nurse Note: Provided patient with warm blanket, saltine crackers, and apple juice. Educated on use of lidocaine patch and to remove after 12 hours, patient verbalized understanding.
--- NOTE | 2019-07-07 00:13 | NUR ---
ED Nurse Note: Patient ambulating with cane to bathroom, no acute distress noted.
--- NOTE | 2019-07-07 00:18 | NUR ---
ED Nurse Note: Patient ambulating with cane back to bed and was placed back on bus driver/monitor, no acute distress noted.
[2019-07-07] MEDS ORDERED: Morphine Sulfate 4mg/ml Inj (IV USE ONLY) IVP ONE (00:30)
--- NOTE | 2019-07-07 01:30 | NUR ---
ED Nurse Note: Called ALTA Bacon at [facility] for report and was told they will call back in 5 mins.
--- NOTE | 2019-07-07 01:37 | NUR ---
ED Nurse Note: Attempted x 1 to call back [facility] to give report, no answer.
[2019-07-07 01:40] VITALS: BP 135/88
--- NOTE | 2019-07-07 01:40 | NUR ---
ER DISCHARGE NOTE: Patient cleared for transfer per ERMD. Patient aao x 4 and ambulatory with cane upon transfer. Report given to ambulance personnel and ALTA Bacon at [facility]. Patient stable upon transfer.
== END 2019-07-07 01:40 | disposition short-term general hospital (02) ==
LOC: EDBD 16:47 → EMR 20:15
DX: J98.01 Acute bronchospasm (principal); E66.01 Morbid (severe) obesity due to excess calories; Z68.44 Body mass index [BMI] 60.0-69.9, adult; R05 Cough; Z88.6 Allergy status to analgesic agent; Z88.0 Allergy status to penicillin; I11.0 Hypertensive heart disease with heart failure; I50.9 Heart failure, unspecified; E11.9 Type 2 diabetes mellitus without complications
CPT/HCPCS: 36415; 80053; 85025; 86710; 94640; 94664; 96374; J2270; J7512; Z7502; 99284; J7620

== ENCOUNTER 2019-09-10 04:25 | Emergency (ER) | payer OTHER ==
[~2019-09-10] VITALS: Ht 165.1 cm; Wt 176.9 kg
[2019-09-10 05:00] VITALS: BP 136/89
--- NOTE | 2019-09-10 05:01 | NUR ---
ER Nurse Note: Pt arrived c/o gneralized body pain for the past 2 days after she ran out of her pain meds. Per pt, pt changed her pain management MD and ran out of her percocet 10mg and dilaudid 4mg. Pt states 10/10 pain. ERMD at pt side, will continue to montior.
[2019-09-10] MEDS ORDERED: PERCOCET 5-3251 EACH ORAL (05:12)
[2019-09-10] MEDS ORDERED: Morphine Sulfate 2mg/ml Inj(IV/IM USE ONLY) IM ONE ×2 (05:15)
[2019-09-10 05:40] VITALS: BP 132/84
--- NOTE | 2019-09-10 05:40 | NUR ---
ED Nurse Note: All orders completed per ER MD orders. Pt cleared by health care Provider for discharge. DC instructions/prescription was given and explained to pt and verbalized understanding of teachings. Instructed pt to follow up with primary care physcian within one week. All medical deviecs such as ID band removed. Pt is AAO x4, ambulatory and left with all personal belongings.
--- NOTE | 2019-09-10 21:37 | Emergency Room Report ---
History of Present Illness General Chief Complaint: Pain Source: Patient Present Illness HPI 54-year-old female presents after increased generalized body pain. Patient reports having run out of her narcotic pain medications. She had prior history of chronic low back pain as well as disc disease. She states that she had recently had her primary care physician switched. She states she is out of her Dilaudid. She is currently in pain management. Reports having unchanged locations of pain from baseline. Had previous history of lumbar disc disease as well as morbid obesity. She states that she had previously been advised to have surgery for weight loss as well as for back. She she denies any current fever. She denies any shortness of breath. Prior history of asthma. Allergies: Coded Allergies: CARROT (Verified Allergy, Mild, 05/17/17) IBUPROFEN (Verified Allergy, Unknown, 05/17/17) PENICILLINS (Verified Allergy, Unknown, 05/17/17) TRAMADOL (Verified Allergy, Unknown, Hives, 05/17/17) TRIMETHOBENZAMIDE (Verified Allergy, Unknown, 05/17/17) Patient History Past Medical History: see triage record Last Menstrual Period: 09/05/19 Now: No Reviewed Nursing Documentation: PMH: Agreed; PSxH: Agreed Nursing Documentation-PMH Past Medical History: No History, Except For Hx Cardiac Problems: Yes - CHF Hx Hypertension: Yes Hx Pacemaker: No Hx Asthma: Yes Hx COPD: No Hx Diabetes: Yes Hx Cancer: No Hx Gastrointestinal Problems: Yes - pancreatitis Hx Dialysis: No Hx Cerebrovascular Accident: No Hx Seizures: No Review of Systems All Other Systems: negative except mentioned in HPI Physical Exam Vital Signs Date Time Temp Pulse Resp B/P (MAP) Pulse Ox O2 Delivery O2 Flow Rate FiO2 09/10/19 04:36 98.8 90 20 136/89 (105) 95 Room Air Sp02 EP Interpretation: reviewed, normal General Appearance: normal inspection, alert, GCS 15, non-toxic, obese Head: atraumatic ENT: normal ENT inspection, hearing grossly normal, normal voice Neck: normal inspection, full range of motion, supple, no bony tend Respiratory: normal inspection, lungs clear, normal breath sounds, no respiratory distress, no retraction, no wheezing Cardiovascular #1: regular rate, rhythm, no edema Gastrointestinal: normal inspection, normal bowel sounds, non tender, soft, no guarding, no hernia Genitourinary: no CVA tenderness Musculoskeletal: normal inspection, back normal, normal range of motion Neurologic: alert, bunk house worker III-XII nml as tested, oriented x3, sensory intact, responsive, speech normal, normal inspection Psychiatric: normal inspection, judgement/insight normal, mood/affect normal Medical Decision Making Diagnostic Impression: Primary Impression: Chronic pain ER Course Patient presented for chronic pain. Differential diagnosis include was not limited to medication withdrawal, arthritis, chronic pain exacerbation among others. Patient has a benign exam and does not appear to require any imaging or laboratory testing at this time. Patient was given pain medications emergency department. She was given short-term prescription for pain medications. She advised to follow-up with her primary care physician or pain management doctor in the next 1 to 2 days. She is advised not to return to the emergency department for narcotic pain medications. Last Vital Signs Date Time Temp Pulse Resp B/P (MAP) Pulse Ox O2 Delivery O2 Flow Rate FiO2 09/10/19 05:00 98.8 78 20 136/89 95 Room Air Status: improved Disposition: HOME, SELF-CARE Condition: Stable Scripts Oxycodone/Acetaminophen 5-325* (PERCOCET 5-325 MG TABLET*) 1 Each Tablet 1 TAB ORAL Q4H PRN for For Pain, #10 TAB 0 Refills Prov: Jatinder Worthington MD 09/10/19 Patient Instructions: Chronic Pain Additional Instructions: Follow up with your doctor for pain medications. See your back specialist. Jatinder Worthington MD Sep 10, 2019 21:37
== END 2019-09-10 05:40 | disposition home or self-care (01) ==
LOC: EMR 04:54
DX: G89.29 Other chronic pain (principal); E11.9 Type 2 diabetes mellitus without complications; I11.0 Hypertensive heart disease with heart failure; I10 Essential (primary) hypertension; J45.909 Unspecified asthma, uncomplicated; Z88.6 Allergy status to analgesic agent; Z88.0 Allergy status to penicillin; Z88.5 Allergy status to narcotic agent; Z88.8 Allergy status to other drugs, medicaments and biological substances; Z91.018 Allergy to other foods; Z86.73 Personal history of transient ischemic attack (TIA), and cerebral infarction without residual deficits
CPT/HCPCS: 96372; J2270; Z7502; 99283

== ENCOUNTER 2019-09-23 08:55 | Emergency (ER) | payer OTHER ==
[~2019-09-23] VITALS: Ht 165.1 cm; Wt 172.4 kg
[2019-09-23 09:07] VITALS: BP 144/89
--- NOTE | 2019-09-23 09:08 | NUR ---
ED Nurse Note: pt ambulated to ed with walker c/o right eye pain after scratching her eye yesterday because there was yellow crust Addendum: 09/23/19 at 0911 by PDELEON ED Nurse Note: pt ambulated to ed with walker c/o LEFT eye pain after scratching her eye yesterday because there was yellow crust
[2019-09-23] MEDS ORDERED: Fluorescein Strips ONE (09:10)
[2019-09-23] MEDS ORDERED: Tetracaine 0.5% Opth 4ml Soln ONE (09:10)
[2019-09-23] MEDS ORDERED: Tetracaine 0.5% Opth 4ml Soln LEFT EYE ONE (09:15)
[2019-09-23] MEDS ORDERED: Fluorescein Strips LEFT EYE ONE (09:15)
[2019-09-23] MEDS ORDERED: Erythromycin Opth Ointment 1gm ONE (09:26)
--- NOTE | 2019-09-23 09:29 | Emergency Room Report ---
History of Present Illness General Chief Complaint: Eye Problems Source: Patient Present Illness HPI 54-year-old female presented for left eye pain. She apparently was using artificial eyelashes and developed some inflammation in the left eye with some discharge she remove the lashes and she was rubbing her eye last night when she scratched it with her fingernail. She complains of pain in the left eye 8 out of 10 worse with palpation. No blurry vision. No fevers. No other complaints at this time. Allergies: Coded Allergies: CARROT (Verified Allergy, Mild, 05/17/17) IBUPROFEN (Verified Allergy, Unknown, 05/17/17) PENICILLINS (Verified Allergy, Unknown, 05/17/17) TRAMADOL (Verified Allergy, Unknown, Hives, 05/17/17) TRIMETHOBENZAMIDE (Verified Allergy, Unknown, 05/17/17) Patient History Past Medical History: see triage record Reviewed Nursing Documentation: PMH: Agreed; PSxH: Agreed Nursing Documentation-PMH Hx Cardiac Problems: Yes - CHF Hx Hypertension: Yes Hx Pacemaker: No Hx Asthma: Yes Hx COPD: No Hx Diabetes: Yes Hx Cancer: No Hx Gastrointestinal Problems: Yes - pancreatitis Hx Dialysis: No Hx Cerebrovascular Accident: No Hx Seizures: No Physical Exam Vital Signs Date Time Temp Pulse Resp B/P (MAP) Pulse Ox O2 Delivery O2 Flow Rate FiO2 09/23/19 08:59 98.1 93 19 144/89 (107) 100 Room Air Sp02 EP Interpretation: reviewed, normal General Appearance: well appearing, no apparent distress Head: normocephalic, atraumatic Eyes: left eye fluoroscene uptake - Small amount of uptake noted around 6:00, not in the visual field, left eye Scleral Injection; bilateral eye PERRL, bilateral eye EOMI ENT: hearing grossly normal, moist mucus membranes Neck: full range of motion, supple Respiratory: lungs clear, normal breath sounds, no rhonchi, no respiratory distress, no retraction, no wheezing Cardiovascular #1: normal peripheral pulses, regular rate, rhythm, no murmur Gastrointestinal: non tender, soft, non-distended, no guarding Neurologic: alert, oriented x3, no focal defects Skin: normal color, warm/dry Medical Decision Making Diagnostic Impression: Primary Impression: Corneal abrasion, left ER Course Differential diagnosis included not limited to conjunctivitis, corneal abrasion , doubt corneal ulcer or acute angle-closure glaucoma. On my exam she had a small corneal abrasion noted over the eye. Antibiotic ointment given. Will discharge with antibiotic ointment and instructions to avoid rubbing eyes. Follow-up PMD. Return precautions given. Patient stable for discharge Last Vital Signs Date Time Temp Pulse Resp B/P (MAP) Pulse Ox O2 Delivery O2 Flow Rate FiO2 09/23/19 09:07 98.1 79 19 144/89 100 Room Air Status: improved Disposition: HOME, SELF-CARE Condition: Stable Referrals: [facility],REFERRING (PCP) Patient Instructions: Corneal Abrasion, [id number] Additional Instructions: Patient is instructed to follow-up with her primary care doctor, primary care clinic or [facility] in 1 to 2 days. Patient instructed to return for any worsening symptoms or concerns. Please note that the documentation in this note was used with [employer] dictation technology. Pleae be advised that this may lead to erroneous text due to misinterpretation by the dictation software Last Caldwell M.D. Sep 23, 2019 09:29
[2019-09-23] MEDS ORDERED: Ketorolac 30mg Inj ONE (09:34)
[2019-09-23 09:44] VITALS: BP 135/77
[2019-09-23] MEDS ORDERED: Ketorolac 30mg Inj IM ONE (09:45)
--- NOTE | 2019-09-23 09:46 | NUR ---
ER DISCHARGE NOTE: Patient is cleared to be discharged per ERMD, pt is aox4, on room air, with stable vital signs. pt was given dc and prescription instructions, pt was able to verbalize understanding, pt id band removed. pt is able to ambulate with steady gait. pt took all belongings.
[2019-09-23] MEDS ORDERED: Erythromycin Opth Ointment 1gm LEFT EYE SCH (21:00)
== END 2019-09-23 09:44 | disposition home or self-care (01) ==
LOC: EMR 09:19
DX: S05.02XA Injury of conjunctiva and corneal abrasion without foreign body, left eye, initial encounter (principal); X58.XXXA Exposure to other specified factors, initial encounter; Y92.9 Unspecified place or not applicable; Z88.6 Allergy status to analgesic agent; Z88.0 Allergy status to penicillin; I11.0 Hypertensive heart disease with heart failure; I50.9 Heart failure, unspecified; E11.9 Type 2 diabetes mellitus without complications
CPT/HCPCS: J1885; Z7502; 99283

== ENCOUNTER 2019-09-25 20:39 | Inpatient (IN) | payer OTHER ==
[~2019-09-25] VITALS: Ht 165.1 cm; Wt 127.0 kg
[2019-09-25 20:50] VITALS: BP 133/89
--- NOTE | 2019-09-25 20:59 | Emergency Room Report ---
History of Present Illness General Chief Complaint: Dyspnea/Respdistress Source: Patient, EMS Present Illness HPI Disclaimer: Please note that this report is being documented using DRAGON technology. This can lead to erroneous entry secondary to incorrect interpretation by the dictating instrument. HPI: 54-year-old female with history of asthma, CHF, obesity presents for evaluation of cough, chest pain and vomiting. States she was diagnosed with bronchitis proxy 1 week ago taking amoxicillin. She reports a persistent cough that is nonproductive. Denies fevers, chills. This afternoon she had developed some burning in the middle of her chest consistent with prior episodes of heartburn. She said she tried to drink some warm water but it got worse. She then had several episodes of nonbloody nonbilious emesis. Denies any recent diarrhea. Denies dysuria hematuria. Denies recent travel. No known sick contacts. EMS noted some wheezing and was given a breathing treatment prior to arrival. Wheezing was reportedly resolved. EKG showed sinus tachycardia from EMS. Patient is very anxious and concerned that she is having a heart attack. States she had 2 family members of heart attacks recently. States she had a stress test not too long ago which was unremarkable. Never had angiogram. Continues to complain of burning in the chest. PMH: Obesity, CHF, asthma PSH: Cholecystectomy Allergies: Multiple food allergies, penicillin, tramadol Social Hx: Denies drug or alcohol abuse Allergies: Coded Allergies: CARROT (Verified Allergy, Mild, 09/25/19) IBUPROFEN (Verified Allergy, Unknown, 05/17/17) PENICILLINS (Verified Allergy, Unknown, 05/17/17) TRAMADOL (Verified Allergy, Unknown, Hives, 05/17/17) TRIMETHOBENZAMIDE (Verified Allergy, Unknown, 05/17/17) Patient History Now: No Nursing Documentation-PMH Hx Cardiac Problems: Yes - CHF Hx Hypertension: Yes Hx Pacemaker: No Hx Asthma: Yes Hx COPD: No Hx Diabetes: Yes Hx Cancer: No Hx Gastrointestinal Problems: Yes - pancreatitis Hx Dialysis: No Hx Cerebrovascular Accident: No Hx Seizures: No Review of Systems All Other Systems: negative except mentioned in HPI Physical Exam Vital Signs Date Time Temp Pulse Resp B/P (MAP) Pulse Ox O2 Delivery O2 Flow Rate FiO2 09/25/19 20:42 98.4 95 23 152/99 (116) 99 General: Awake and alert, no acute distress HEENT: NC/AT. EOMI. Neck: Supple, trachea midline Chest Wall: No tenderness, no deformity Cardiovascular: RRR. S1 and S2 normal. No murmur appreciated Resp: Normal work of breathing. No cough, wheezing or crackles appreciated Abdomen: Abdomen is soft, nondistended. Morbidly obese. Nontender Skin: Intact. No abrasions, laceration or rash over the exposed skin MSK: Normal tone and bulk. Moving all extremities. No obvious deformity. Neuro: Awake and alert. Mentating appropriately. Very anxious appearing. Tearful. Medical Decision Making Diagnostic Impression: Primary Impression: Chest pain Additional Impression: Nausea and vomiting ER Course There is a 54-year-old female presenting for evaluation of chest pain, shortness of breath, persistent cough of one-week duration and vomiting. Differential includes was not limited to viral syndrome, influenza, ACS, angina , bronchitis, GERD, asthma, CHF exacerbation, COPD, gastritis, gastroenteritis. We will start a broad metabolic infectious work-up. Abdomen is benign at this point does not require emergent imaging of the abdomen. Wheezing is resolved. Will monitor closely. Laboratory Tests Test 09/25/19 21:25 White Blood Count 6.0 K/UL (4.8-10.8) Red Blood Count 4.05 M/UL (4.20-5.40) L Hemoglobin 11.0 G/DL (12.0-16.0) L Hematocrit 36.4 % (37.0-47.0) L Mean Corpuscular Volume 90 FL (80-99) Mean Corpuscular Hemoglobin 27.2 PG (27.0-31.0) Mean Corpuscular Hemoglobin Concent 30.3 G/DL (32.0-36.0) L Red Cell Distribution Width 17.2 % (11.6-14.8) H Platelet Count 303 K/UL (150-450) Mean Platelet Volume 6.9 FL (6.5-10.1) Neutrophils (%) (Auto) 45.0 % (45.0-75.0) Lymphocytes (%) (Auto) 38.6 % (20.0-45.0) Monocytes (%) (Auto) 12.8 % (1.0-10.0) H Eosinophils (%) (Auto) 1.7 % (0.0-3.0) Basophils (%) (Auto) 1.8 % (0.0-2.0) Prothrombin Time 10.0 SEC (9.30-11.50) Prothrombin Time INR 0.9 (0.9-1.1) Activated Partial Thromboplast Time 25 SEC (23-33) D-Dimer 0.65 mg/L FEU (0.00-0.49) H Sodium Level 143 MMOL/L (136-145) Potassium Level 3.5 MMOL/L (3.5-5.1) Chloride Level 105 MMOL/L (98-107) Carbon Dioxide Level 27 MMOL/L (21-32) Anion Gap 11 mmol/L (5-15) Blood Urea Nitrogen 17 mg/dL (7-18) Creatinine 1.1 MG/DL (0.55-1.30) Estimate Glomerular Filtration Rate > 60 mL/min (>60) Glucose Level 104 MG/DL (74-106) Calcium Level 9.5 MG/DL (8.5-10.1) Total Bilirubin 0.2 MG/DL (0.2-1.0) Aspartate Amino Transferase (AST) 21 U/L (15-37) Alanine Aminotransferase (ALT) 25 U/L (12-78) Alkaline Phosphatase 113 U/L (46-116) Troponin I 0.015 ng/mL (0.000-0.056) Pro-B-Type Natriuretic Peptide Pending Total Protein 7.6 G/DL (6.4-8.2) Albumin 3.6 G/DL (3.4-5.0) Globulin 4.0 g/dL Albumin/Globulin Ratio 0.9 (1.0-2.7) L Lipase 233 U/L (73-393) Microbiology Date/Time Source Procedure Growth Status 09/25/19 21:25 Nasal Nares - Final Complete 3 21:25 Nasal Nares - Final Complete EKG Diagnostic Results EKG Time: 20:58 Rate: normal Rhythm: NSR ST Segments: no acute changes Other Impression Sinus rhythm, normal axis, normal intervals, inferior Q waves in lead III. ASA given to the pt in ED: Yes Rhythm Strip Diag. Results Rhythm Strip Time: 20:58 EP Interpretation: yes Rate: 80s Rhythm: no PVC's, no ectopy Chest X-Ray Diagnostic Results Chest X-Ray Diagnostic Results : Chest X-Ray Ordered: Yes # of Views/Limited/Complete: 1 View Indication: Chest Pain Interpretation: no consolidation, no effusion, no pneumothorax Impression: No acute disease Electronically Signed by: Electronically signed by Dr. Kota Aldridge CT/MRI/US Diagnostic Results CT/MRI/US Diagnostic Results : Impression Preliminary Findings Only See Final Report For Complete Findings CTA CHEST With Contrast: Small hiatal hernia. Status post cholecystectomy. Surgical clips seen near the proximal descending colon. Left greater than right coronary calcifications. Negative for pulmonary embolism or right ventricular strain. Moderate bilateral shoulder degenerative change. Radiologist: Wood Johnson MD Study ready at 22:43 and initial results transmitted at 23:15 Reevaluation Time: 23:17 Last Vital Signs Date Time Temp Pulse Resp B/P (MAP) Pulse Ox O2 Delivery O2 Flow Rate FiO2 09/25/19 20:42 98.4 95 23 152/99 (116) 99 Reevaluation Impression Labs have largely returned within normal limits. Troponin within normal limits. EKG is nonischemic. Patient complaining of intermittent chest pain. She is emotional and I believe that anxiety is a large component of this however , she has significant risk factors for CAD. Patient be admitted for further evaluation of chest pain. Disposition: PLACE IN OBSERVATION Condition: Serious Kota Aldridge MD Sep 25, 2019 20:59
[2019-09-25] MEDS ORDERED: Aspirin Baby 81mg ORAL ONE (21:00)
[2019-09-25 21:49] LABS: BASOPHILS % (AUTO) 1.8 % (0.0-2.0); EOSINOPHILS % (AUTO) 1.7 % (0.0-3.0); HEMATOCRIT 36.4 % (37.0-47.0); LYMPHOCYTES % (AUTO) 38.6 % (20.0-45.0); MEAN CORPUSCULAR VOLUME 90 FL (80-99); MONOCYTES % (AUTO) 12.8 % (1.0-10.0); PLATELET COUNT 303 K/UL (150-450); RED BLOOD COUNT 4.05 M/UL (4.20-5.40); RED CELL DISTRIBUTION WIDTH 17.2 % (11.6-14.8)
[2019-09-25 21:57] LABS: INR 0.9 (0.9-1.1)
[2019-09-25] MEDS ORDERED: LORazepam Inj 2mg/ml 1ml IV ONE ×2 (22:00→23:45)
[2019-09-25 22:05] LABS: ALANINE AMINOTRANSFERASE 25 U/L (12-78); ALBUMIN 3.6 G/DL (3.4-5.0); ALBUMIN/GLOBULIN RATIO 0.9 (1.0-2.7); ALKALINE PHOSPHATASE 113 U/L (46-116); ANION GAP 11 mmol/L (5-15); ASPARTATE AMINO TRANSFERASE 21 U/L (15-37); BILIRUBIN,TOTAL 0.2 MG/DL (0.2-1.0); BLOOD UREA NITROGEN 17 mg/dL (7-18); CALCIUM 9.5 MG/DL (8.5-10.1); CARBON DIOXIDE 27 MMOL/L (21-32); CHLORIDE 105 MMOL/L (98-107); CREATININE 1.1 MG/DL (0.55-1.30); POTASSIUM 3.5 MMOL/L (3.5-5.1); SODIUM 143 MMOL/L (136-145)
[2019-09-25] MEDS ORDERED: Omnipaque 350 100ml vial INJ PRN (22:30)
--- NOTE | 2019-09-25 22:40 | Diagnostic Imaging Report ---
Indication: Chest pain Technique: One view of the chest Comparison: 05/14/2019 Findings: Body habitus limits evaluation. The heart is enlarged. The aorta is ectatic. The lungs and pleural spaces are clear. There is no significant interim change Impression: Cardiomegaly No acute process
[2019-09-25] MEDS ORDERED: Morphine Sulfate 4mg/ml Inj (IV USE ONLY) IVP ONE (23:00)
[2019-09-25 23:05] VITALS: BP 141/84
[2019-09-25] MEDS ORDERED: DiphenhydrAMINE 25mg Tab ORAL ONE (23:15)
--- NOTE | 2019-09-25 23:16 | Diagnostic Imaging Report ---
ndication: Cough, chest pain, and vomiting Technique: IV administration nonionic contrast. Spiral acquisitions obtained from the lung bases to the lung apices. Multiplanar and 3-D reconstructions were generated. Total dose length product 612 mGycm. CTDIvol(s) one, 52, 16 mGy. Dose reduction achieved using automated exposure control Comparison: none Findings: No intraluminal filling defects or other findings to suggest acute pulmonary embolus are evident. Normal caliber pulmonary arteries. No evidence of right ventricular dilatation. No evidence of thoracic aortic aneurysm or dissection. There is a calcified granuloma in the left lower lobe. No acute infiltrates, effusions, congestion, masses, or nodules. No mediastinal or hilar mass or adenopathy. There are coronary artery calcifications. No axillary or chest wall mass or adenopathy. There is a small sliding-type hiatal hernia. The upper abdominal anatomy is remarkable for the presence of cholecystectomy clips. Surgical clips are also seen adjacent to the descending colon Impression: Negative for acute pulmonary embolus or other acute thoracic pathology. Small hiatal hernia Coronary calcifications Surgically absent gallbladder and left pericolonic surgical clip This agrees with the preliminary interpretation provided overnight by [facility] teleradiology service. The CT scanner at [facility] is accredited by the [employer] and the scans are performed using protocols designed to limit radiation exposure to as low as reasonably achievable to attain images of sufficient resolution adequate for diagnostic evaluation.
[2019-09-26] MEDS ORDERED: Morphine Sulfate 2mg/ml Inj(IV/IM USE ONLY) IVP PRN
[2019-09-26] MEDS ORDERED: BENADRYL25 MG ORAL (00:05)
[2019-09-26] MEDS ORDERED: ATIVAN1 MG ORAL (00:05)
[2019-09-26 00:30] VITALS: BP 137/92
[2019-09-26] MEDS: LORazepam 1mg tab ORAL PRN ×2 (02:40→12:23)
[2019-09-26] MEDS: DiphenhydrAMINE 25mg Tab ORAL PRN ×2 (02:40→12:23)
[2019-09-26 04:00] VITALS: BP 145/84
[2019-09-26] MEDS: Morphine Sulfate 2mg/ml Inj(IV/IM USE ONLY) IVP PRN ×4 (07:56→22:13)
[2019-09-26 08:00] VITALS: BP 118/85
[2019-09-26] MEDS ORDERED: HYDROmorphone 2mg tab ORAL PRN (10:00)
[2019-09-26] MEDS ORDERED: Nitroglycerin Subl 0.4mg tab SL PRN (10:00)
[2019-09-26] MEDS: Enoxaparin 40mg Inj SUBQ SCH (11:56)
[2019-09-26 12:00] VITALS: BP 127/76
[2019-09-26] MEDS: LORazepam Inj 2mg/ml 1ml IV PRN ×2 (15:06→22:46)
[2019-09-26 16:00] VITALS: BP 142/79
--- NOTE | 2019-09-26 16:45 | Consultation ---
DATE OF CONSULTATION: 09/26/2019 PULMONARY CONSULTATION CONSULTING PHYSICIAN: Georges Marcos M.D. HISTORY OF PRESENT ILLNESS: This is a 54-year-old female with history of asthma, CHF, and obesity. She came to the hospital for cough and chest congestion. The patient reports a productive cough. She denies any fevers and chills. At this point, she states she is feeling better. PAST MEDICAL HISTORY: Obesity, CHF, and asthma. ALLERGIES: Carrots, ibuprofen, penicillin, and tramadol. REVIEW OF SYSTEMS: Denies any headaches, hematemesis, melena, or hematochezia. PHYSICAL EXAMINATION: GENERAL: Revealed an obese female. HEENT: Unremarkable. LUNGS: Clear breath sounds bilaterally with normal heart sounds. ABDOMEN: Soft. EXTREMITIES: There is no edema. LABORATORY AND DIAGNOSTIC DATA: I have reviewed her lab results and noted that her white count is normal and hemoglobin 11. Labs are otherwise unremarkable. Her microbiology is negative for influenza. Imaging studies show no evidence of pulmonary embolism and lung parenchyma is normal. IMPRESSION: 1. Acute coronary syndrome. 2. Acute bronchitis. 3. Congestive heart failure. DISCUSSION: Admit to the hospital. We will continue home medications. Hold off on antibiotics or steroids. We will follow as rim buster. Georges Marcos M.D. DR: BRYNN JOB#: [id number] CC:
[2019-09-26] MEDS: Benazepril 10mg tab ORAL SCH (17:19)
--- NOTE | 2019-09-26 19:30 | History and Physical Report ---
DATE OF ADMISSION: 09/26/2019 DATE AND TIME SEEN: On 09/26/2019 at 1 p.m. CONSULTANTS: 1. Georges Ling M.D. 2. Doni Coleman M.D. 3. Erica Cox M.D. CHIEF COMPLAINT: Chest pain, shortness of breath, and anxiety. BRIEF HISTORY: This is a 54-year-old female, who lives at home and presents with two-day increased slight shortness of breath and nausea. No vomiting. No loss of consciousness. Some chest pain, substernal, intermittent, pressure like, radiating to the left arm, and slight shortness of breath. The patient came to the [place], diagnosed with the above, and admitted to telemetry for further care. Currently, calm in bed, slight general pain. PAST MEDICAL HISTORY: Morbidly obese, hypertension, anxiety, asthma, esophageal varices, and arthritis. PAST SURGICAL HISTORY: Gallbladder, appendectomy, breast surgery, and ovarian surgery. ALLERGIES: Ibuprofen, penicillin, tramadol. MEDICATIONS: Include aspirin, carvedilol, benazepril, furosemide, nitroglycerin, hydromorphone, morphine sulfate, and Zofran. SOCIAL HISTORY: No smoking. No alcohol. No intravenous drug abuse. FAMILY HISTORY: Noncontributory. PHYSICAL EXAMINATION: GENERAL: Slightly anxious in bed, oriented x3, in no acute distress. VITAL SIGNS: Temperature is 97 degrees, pulse 75, respirations 19, and blood pressure 127/76. CARDIOVASCULAR: No murmur. LUNGS: Poor air exchange. ABDOMEN: Bowel sounds distant. EXTREMITIES: No cyanosis, clubbing, or edema. NEUROLOGIC: The patient moves all extremities, slightly weak. LABORATORY DATA: Labs at this time show hemoglobin 11 and hematocrit 36, otherwise CBC is normal. BMP is normal. Troponin 0.015. INR is 0.9. ASSESSMENT: Chest pain, shortness of breath, anemia, nausea, vomiting, morbidly obese, hypertension, anxiety, asthma, esophageal varices, and arthritis. PLAN: PT and dietary evaluation. CBC and BMP in the morning. Resume home medications. Pain control. Troponin q.8 h. x3. EKG in the morning. I will continue to follow the patient. Hesham Ramsay D.O. DR: Juany JOB#: [id number] CC:
[2019-09-26 20:00] VITALS: BP 127/78
[2019-09-26] MEDS ORDERED: Carvedilol 12.5mg tab ORAL SCH (21:00)
[2019-09-27] VITALS: BP 137/84
[2019-09-27] MEDS: Morphine Sulfate 2mg/ml Inj(IV/IM USE ONLY) IVP PRN ×3 (02:14→11:11)
[2019-09-27 04:00] VITALS: BP 116/74
--- NOTE | 2019-09-27 05:00 | Consultation ---
DATE OF CONSULTATION: 09/26/2019 CONSULTING PHYSICIAN: Erica Cox M.D. HISTORY OF PRESENT ILLNESS: The patient is a 54-year-old female with a history of multiple medical issues including hypertension, morbid obesity, anxiety, asthma, and arthritis, who has been admitted to the hospital due to shortness of breath. The patient is having anxiety, has med-seeking behavior, asking for Ativan IV, Dilaudid, and Benadryl. PAST PSYCHIATRIC HISTORY: Depression and anxiety. PAST MEDICAL HISTORY: Hypertension and asthma. ALLERGIES: Penicillin, ibuprofen, and tramadol. 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 MENTAL STATUS EXAMINATION: The patient is alert and oriented times self, place, and situation. Mood is anxious. Affect is flat. Thought process is concrete. Thought content, no suicidal or homicidal ideation. Cognition is impaired. Insight and judgment are impaired. ASSESSMENT: Stable. PLAN: 1. We will continue current meds. 2. Provide the patient with reality orientation and supportive therapy. Erica Cox M.D. DR: TAZ JOB#: [id number] CC:
[2019-09-27] MEDS: LORazepam Inj 2mg/ml 1ml IV PRN ×2 (05:42→16:27)
[2019-09-27 07:31] LABS: BASOPHILS % (AUTO) 1.8 % (0.0-2.0); EOSINOPHILS % (AUTO) 2.4 % (0.0-3.0); HEMATOCRIT 32.6 % (37.0-47.0); HEMOGLOBIN 10.2 G/DL (12.0-16.0); LYMPHOCYTES % (AUTO) 39.3 % (20.0-45.0); MEAN CORPUSCULAR VOLUME 89 FL (80-99); MONOCYTES % (AUTO) 16.4 % (1.0-10.0); NEUTROPHILS % (AUTO) 40.1 % (45.0-75.0); PLATELET COUNT 245 K/UL (150-450); RED BLOOD COUNT 3.68 M/UL (4.20-5.40); RED CELL DISTRIBUTION WIDTH 15.3 % (11.6-14.8); WHITE BLOOD COUNT 4.7 K/UL (4.8-10.8)
[2019-09-27 08:00] VITALS: BP 113/71
[2019-09-27 08:12] LABS: ANION GAP 8 mmol/L (5-15); BLOOD UREA NITROGEN 18 mg/dL (7-18); CALCIUM 8.7 MG/DL (8.5-10.1); CARBON DIOXIDE 28 MMOL/L (21-32); CHLORIDE 107 MMOL/L (98-107); POTASSIUM 4.3 MMOL/L (3.5-5.1); SODIUM 143 MMOL/L (136-145)
--- NOTE | 2019-09-27 08:47 | General Progress Note ---
Assessment/Plan Problem List: (1) ACS (acute coronary syndrome) ICD Codes: I20.0 - Unstable angina SNOMED: 253250886 (2) Chest pain ICD Codes: R07.9 - Chest pain, unspecified SNOMED: 51116552 (3) Chronic pain ICD Codes: G89.29 - Other chronic pain SNOMED: 85965406 (4) Morbid obesity with BMI of 60.0-69.9, adult ICD Codes: E66.01 - Morbid (severe) obesity due to excess calories; Z68.44 - Body mass index (BMI) 60.0-69.9, adult SNOMED: 255545912, 105895180 (5) Hypertension ICD Codes: I10 - Essential (primary) hypertension SNOMED: 80983967 Status: stable, progressing Assessment/Plan: pt eit pain control cbc bmp am dc if cardio clear Subjective Constitutional: Reports: weakness Allergies: Coded Allergies: CARROT (Verified Allergy, Mild, 09/25/19) IBUPROFEN (Verified Allergy, Unknown, 05/17/17) PENICILLINS (Verified Allergy, Unknown, 05/17/17) TRAMADOL (Verified Allergy, Unknown, Hives, 05/17/17) TRIMETHOBENZAMIDE (Verified Allergy, Unknown, 05/17/17) All Systems: reviewed and negative except above Subjective sleepy calm Objective Last 24 Hour Vital Signs Date Time Temp Pulse Resp B/P (MAP) Pulse Ox O2 Delivery O2 Flow Rate FiO2 09/27/19 08:00 98.1 87 19 113/71 (85) 98 09/27/19 04:00 91 09/27/19 04:00 98.6 82 19 116/74 (88) 97 09/27/19 00:00 94 09/27/19 00:00 97.8 86 20 137/84 (101) 96 09/26/19 21:00 Room Air 09/26/19 20:00 92 09/26/19 20:00 98.1 88 20 127/78 (94) 96 09/26/19 17:19 142/79 09/26/19 16:00 97.6 89 19 142/79 (100) 96 09/26/19 15:45 87 09/26/19 12:00 97.8 75 19 127/76 (93) 98 09/26/19 11:55 84 3/12/20 09:00 Room Air Intake and Output 09/26/19 09/27/19 19:00 07:00 Intake Total 140 ml 300 ml Output Total 1400 ml Balance -1260 ml 300 ml Intake Oral 140 ml 300 ml Output Urine Total 1400 ml # Voids 3 2 # Bowel Movements 1 Laboratory Tests 09/26/19 10:50: Troponin I 0.000 09/27/19 06:08: Troponin I 0.000, White Blood Count 4.7L, Red Blood Count 3.68L, Hemoglobin 10.2L, Hematocrit 32.6L, Mean Corpuscular Volume 89, Mean Corpuscular Hemoglobin 27.6, Mean Corpuscular Hemoglobin Concent 31.1L, Red Cell Distribution Width 15.3H, Platelet Count 245, Mean Platelet Volume 6.5, Neutrophils (%) (Auto) 40.1L, Lymphocytes (%) (Auto) 39.3, Monocytes (%) (Auto) 16.4H, Eosinophils (%) (Auto) 2.4, Basophils (%) (Auto) 1.8, Sodium Level 143, Potassium Level 4.3, Chloride Level 107, Carbon Dioxide Level 28, Anion Gap 8, Blood Urea Nitrogen 18, Creatinine 1.0, Estimat Glomerular Filtration Rate > 60 , Glucose Level 98, Calcium Level 8.7 Height (Feet): 5 Height (Inches): 5.00 Weight (Pounds): 280 General Appearance: lethargic EENT: normal ENT inspection Neck: normal alignment Cardiovascular: normal peripheral pulses, normal rate, regular rhythm Respiratory/Chest: chest wall non-tender, lungs clear, normal breath sounds Abdomen: normal bowel sounds, non tender, soft Extremities: normal inspection Edema: no edema noted Arm (L), no edema noted Arm (R), no edema noted Leg (L), no edema noted Leg (R), no edema noted Pedal (L), no edema noted Pedal (R), no edema noted Generalized Neurologic: motor weakness Skin: normal pigmentation, warm/dry Hesham Ramsay DO Sep 27, 2019 08:47
[2019-09-27] MEDS ORDERED: Aspirin Baby 81mg ORAL SCH (09:00)
[2019-09-27] MEDS: Benazepril 10mg tab ORAL SCH ×2 (09:15→18:27)
--- NOTE | 2019-09-27 09:26 | Pulmonology Progress Note ---
Assessment/Plan Assessment/Plan IMPRESSION: 1. Acute coronary syndrome. 2. Acute bronchitis. 3. Congestive heart failure. DISCUSSION: Continue home medications. Hold off on antibiotics or steroids. I will follow as new car sales manager. DC planning Georges Marcos M.D. Subjective Interval Events: Feeling better Constitutional: Reports: no symptoms HEENT: Repors: no symptoms Respiratory: Reports: no symptoms Cardiovascular: Reports: no symptoms Gastrointestinal/Abdominal: Reports: no symptoms Allergies: Coded Allergies: CARROT (Verified Allergy, Mild, 09/25/19) IBUPROFEN (Verified Allergy, Unknown, 05/17/17) PENICILLINS (Verified Allergy, Unknown, 05/17/17) TRAMADOL (Verified Allergy, Unknown, Hives, 05/17/17) TRIMETHOBENZAMIDE (Verified Allergy, Unknown, 05/17/17) Objective Last 24 Hour Vital Signs Date Time Temp Pulse Resp B/P (MAP) Pulse Ox O2 Delivery O2 Flow Rate FiO2 09/27/19 09:15 113/71 09/27/19 08:00 98.1 87 19 113/71 (85) 98 09/27/19 04:00 91 09/27/19 04:00 98.6 82 19 116/74 (88) 97 09/27/19 00:00 94 09/27/19 00:00 97.8 86 20 137/84 (101) 96 09/26/19 21:00 Room Air 09/26/19 20:00 92 09/26/19 20:00 98.1 88 20 127/78 (94) 96 09/26/19 17:19 142/79 09/26/19 16:00 97.6 89 19 142/79 (100) 96 09/26/19 15:45 87 09/26/19 12:00 97.8 75 19 127/76 (93) 98 09/26/19 11:55 84 Intake and Output 09/26/19 09/27/19 19:00 07:00 Intake Total 140 ml 300 ml Output Total 1400 ml Balance -1260 ml 300 ml Intake Oral 140 ml 300 ml Output Urine Total 1400 ml # Voids 3 2 # Bowel Movements 1 General Appearance: no acute distress HEENT: normocephalic Respiratory/Chest: chest wall non-tender Cardiovascular: normal peripheral pulses Abdomen: normal bowel sounds Microbiology Date/Time Source Procedure Growth Status 09/25/19 21:25 Nasal Nares - Final Complete 09/25/19 21:25 Nasal Nares - Final Complete Laboratory Tests 09/26/19 10:50: Troponin I 0.000 09/27/19 06:08: Troponin I 0.000, White Blood Count 4.7L, Red Blood Count 3.68L, Hemoglobin 10.2L, Hematocrit 32.6L, Mean Corpuscular Volume 89, Mean Corpuscular Hemoglobin 27.6, Mean Corpuscular Hemoglobin Concent 31.1L, Red Cell Distribution Width 15.3H, Platelet Count 245, Mean Platelet Volume 6.5, Neutrophils (%) (Auto) 40.1L, Lymphocytes (%) (Auto) 39.3, Monocytes (%) (Auto) 16.4H, Eosinophils (%) (Auto) 2.4, Basophils (%) (Auto) 1.8, Sodium Level 143, Potassium Level 4.3, Chloride Level 107, Carbon Dioxide Level 28, Anion Gap 8, Blood Urea Nitrogen 18, Creatinine 1.0, Estimat Glomerular Filtration Rate > 60 , Glucose Level 98, Calcium Level 8.7 Current Medications Medications (Trade) Dose Ordered Sig/Dave Route PRN Reason Start Time Stop Time Status Last Admin Dose Admin Aspirin (ASA) 81 mg DAILY ORAL 09/27/19 09:00 11/11/19 08:59 09/27/19 09:08 Benazepril HCl (Lotensin) 20 mg BID ORAL 09/26/19 18:00 10/26/19 17:59 09/27/19 09:15 Dextrose (Dextrose 50%) 25 ml Q30M PRN IV Hypoglycemia 09/26/19 10:00 10/26/19 09:59 Dextrose (Dextrose 50%) 50 ml Q30M PRN IV Hypoglycemia 09/26/19 10:00 10/26/19 09:59 Diphenhydramine HCl (Benadryl) 50 mg Q6H PRN ORAL Itching 09/26/19 14:09 10/26/19 14:08 Enoxaparin Sodium (Lovenox) 40 mg Q24H SUBQ 09/26/19 11:00 10/26/19 10:59 09/26/19 11:56 Iohexol (Omnipaque 350 100ml) 100 ml NOW PRN INJ Radiology Procedure 09/25/19 22:30 09/27/19 22:18 Lorazepam (Ativan 2mg/ml 1ml) 1 mg Q6H PRN IV For Anxiety 09/26/19 14:15 10/03/19 14:14 09/27/19 05:42 Morphine Sulfate (Morphine Sulfate) 2 mg Q4HR PRN IVP For Pain 09/26/19 02:30 10/03/19 02:29 09/27/19 06:14 Nitroglycerin (Ntg) 0.4 mg Q5M PRN SL Prn Chest Pain 09/26/19 10:00 10/26/19 09:59 Ondansetron HCl (Zofran ODT) 4 mg Q6H PRN ORAL Nausea & Vomiting 09/26/19 10:00 10/26/19 09:59 Georges Marcos MD Sep 27, 2019 09:26
[2019-09-27] MEDS ORDERED: ASPIR 8181 MG ORAL (10:54)
[2019-09-27] MEDS ORDERED: BENAZEPRIL HCL20 MG ORAL (10:55)
[2019-09-27] MEDS ORDERED: ZOFRAN4 M3 ORAL (10:57)
[2019-09-27] MEDS ORDERED: NITRO0.4 SL (10:57)
[2019-09-27] MEDS: Enoxaparin 40mg Inj SUBQ SCH (11:00)
[2019-09-27 11:43] VITALS: BP 104/80
--- NOTE | 2019-09-27 13:17 | Consultation ---
History of Present Illness General Date patient seen: Sep 27, 2019 Chief Complaint: Present Illness Allergies: Coded Allergies: CARROT (Verified Allergy, Mild, 09/25/19) IBUPROFEN (Verified Allergy, Unknown, 05/17/17) PENICILLINS (Verified Allergy, Unknown, 05/17/17) TRAMADOL (Verified Allergy, Unknown, Hives, 05/17/17) TRIMETHOBENZAMIDE (Verified Allergy, Unknown, 05/17/17) Medication History Scheduled Albuterol Sulfate* (Albuterol Sulfate Mdi*), 2 PUFF INH Q6H Aspirin* (Aspir 81*), 81 MG ORAL DAILY, (Reported) Benazepril Hcl* (Benazepril Hcl*), 20 MG ORAL EVERY 12 HOURS, (Reported) Fluoxetine Hcl* (Prozac*), 40 MG ORAL DAILY, (Reported) Lisinopril (Lisinopril*), 20 MG ORAL DAILY, (Reported) Lorazepam* (Ativan*), 1.5 MG ORAL BEDTIME, (Reported) Scheduled PRN Diphenhydramine Hcl* (Benadryl*), 75 MG ORAL Q6H PRN for Itching, (Reported) Nitroglycerin 0.4MG table* (Nitroglycerin*), 0.4 MG SL .Q5MIN X 3 DOSES PRN for CHEST PAIN, (Reported) Ondansetron* (Zofran*), 4 MG ORAL Q6H PRN for Nausea & Vomiting, (Reported) Discontinued Medications Amlodipine Besylate (Norvasc), 10 MG ORAL DAILY, (Reported) Discontinued Reason: MD discontinued med Cephalexin* (Keflex*), 500 MG ORAL Q6H Discontinued Reason: MD discontinued med Diphenhydramine Hcl* (Benadryl*), 25 MG ORAL Q6H PRN for Itching, (Reported) Discontinued Reason: Medication dose changed Fluconazole (Fluconazole), 200 MG ORAL DAILY, (Reported) Discontinued Reason: MD discontinued med Furosemide* (Lasix*), 40 MG ORAL DAILY, (Reported) Discontinued Reason: MD discontinued med Furosemide* (Lasix*), 40 MG ORAL TWICE A DAY, (Reported) Discontinued Reason: MD discontinued med Lorazepam* (Lorazepam*), 0.5 MG ORAL THREE TIMES A DAY, (Reported) Discontinued Reason: Medication dose changed Nitrofurantoin Monohyd/M-Cryst (Nitrofurantoin Rusk-Mcr 100 mg), 100 MG ORAL Q12H Discontinued Reason: MD discontinued med Omeprazole Magnesium (Prilosec Otc), 40 MG ORAL DAILY, (Reported) Discontinued Reason: MD discontinued med Ondansetron Odt* (Zofran Odt*), 4 MG ORAL Q6H PRN for Nausea & Vomiting Discontinued Reason: MD discontinued med Oxycodone Hcl/Acetaminophen 10-325 Mg Tablet (Percocet 10-325 Mg Tablet*), 1 TAB ORAL Q4H PRN for For Pain, (Reported) Discontinued Reason: MD discontinued med Oxycodone/Acetaminophen 5-325* (Percocet 5-325 Mg Tablet*), 1 TAB ORAL Q4H PRN for For Pain Discontinued Reason: MD discontinued med Prednisone* (Prednisone*), 40 MG ORAL DAILY Discontinued Reason: MD discontinued med Prednisone* (Prednisone*), 40 MG ORAL DAILY Discontinued Reason: MD discontinued med Triamcinolone Acetonide (Triamcinolone Acetonide 0.1% Cream), 15 GM TP for inflammation, (Reported) Discontinued Reason: MD discontinued med Patient History Healthcare decision maker Resuscitation status Full Code Advanced Directive on File Physical Exam Last 24 Hour Vital Signs Date Time Temp Pulse Resp B/P (MAP) Pulse Ox O2 Delivery O2 Flow Rate FiO2 09/27/19 11:43 98.6 80 19 104/80 (88) 96 09/27/19 11:32 70 09/27/19 09:15 113/71 09/27/19 09:00 Room Air 09/27/19 08:43 97 09/27/19 08:00 98.1 87 19 113/71 (85) 98 09/27/19 04:00 91 09/27/19 04:00 98.6 82 19 116/74 (88) 97 09/27/19 00:00 94 09/27/19 00:00 97.8 86 20 137/84 (101) 96 09/26/19 21:00 Room Air 09/26/19 20:00 92 09/26/19 20:00 98.1 88 20 127/78 (94) 96 09/26/19 17:19 142/79 09/26/19 16:00 97.6 89 19 142/79 (100) 96 09/26/19 15:45 87 Intake and Output 09/26/19 09/27/19 19:00 07:00 Intake Total 140 ml 300 ml Output Total 1400 ml Balance -1260 ml 300 ml Intake Oral 140 ml 300 ml Output Urine Total 1400 ml # Voids 3 2 # Bowel Movements 1 Laboratory Tests Test 09/27/19 06:08 White Blood Count 4.7 K/UL (4.8-10.8) L Red Blood Count 3.68 M/UL (4.20-5.40) L Hemoglobin 10.2 G/DL (12.0-16.0) L Hematocrit 32.6 % (37.0-47.0) L Mean Corpuscular Volume 89 FL (80-99) Mean Corpuscular Hemoglobin 27.6 PG (27.0-31.0) Mean Corpuscular Hemoglobin Concent 31.1 G/DL (32.0-36.0) L Red Cell Distribution Width 15.3 % (11.6-14.8) H Platelet Count 245 K/UL (150-450) Mean Platelet Volume 6.5 FL (6.5-10.1) Neutrophils (%) (Auto) 40.1 % (45.0-75.0) L Lymphocytes (%) (Auto) 39.3 % (20.0-45.0) Monocytes (%) (Auto) 16.4 % (1.0-10.0) H Eosinophils (%) (Auto) 2.4 % (0.0-3.0) Basophils (%) (Auto) 1.8 % (0.0-2.0) Sodium Level 143 MMOL/L (136-145) Potassium Level 4.3 MMOL/L (3.5-5.1) Chloride Level 107 MMOL/L (98-107) Carbon Dioxide Level 28 MMOL/L (21-32) Anion Gap 8 mmol/L (5-15) Blood Urea Nitrogen 18 mg/dL (7-18) Creatinine 1.0 MG/DL (0.55-1.30) Estimat Glomerular Filtration Rate > 60 mL/min (>60) Glucose Level 98 MG/DL (74-106) Calcium Level 8.7 MG/DL (8.5-10.1) Troponin I 0.000 ng/mL (0.000-0.056) Height (Feet): 5 Height (Inches): 5.00 Weight (Pounds): 280 Medications Current Medications Medications (Trade) Dose Ordered Sig/Dave Route PRN Reason Start Time Stop Time Status Last Admin Dose Admin Aspirin (ASA) 81 mg DAILY ORAL 09/27/19 09:00 11/11/19 08:59 09/27/19 09:08 Benazepril HCl (Lotensin) 20 mg BID ORAL 09/26/19 18:00 10/26/19 17:59 09/27/19 09:15 Dextrose (Dextrose 50%) 25 ml Q30M PRN IV Hypoglycemia 09/26/19 10:00 10/26/19 09:59 Dextrose (Dextrose 50%) 50 ml Q30M PRN IV Hypoglycemia 09/26/19 10:00 10/26/19 09:59 Diphenhydramine HCl (Benadryl) 50 mg Q6H PRN ORAL Itching 09/26/19 14:09 10/26/19 14:08 Enoxaparin Sodium (Lovenox) 40 mg Q24H SUBQ 09/26/19 11:00 10/26/19 10:59 09/26/19 11:56 Iohexol (Omnipaque 350 100ml) 100 ml NOW PRN INJ Radiology Procedure 09/25/19 22:30 09/27/19 22:18 Lorazepam (Ativan 2mg/ml 1ml) 1 mg Q6H PRN IV For Anxiety 09/26/19 14:15 10/03/19 14:14 09/27/19 05:42 Morphine Sulfate (Morphine Sulfate) 2 mg Q4HR PRN IVP For Pain 09/26/19 02:30 10/03/19 02:29 09/27/19 11:11 Nitroglycerin (Ntg) 0.4 mg Q5M PRN SL Prn Chest Pain 09/26/19 10:00 10/26/19 09:59 Ondansetron HCl (Zofran ODT) 4 mg Q6H PRN ORAL Nausea & Vomiting 09/26/19 10:00 10/26/19 09:59 Assessment/Plan Assessment/Plan: (1) Lumbar DDD (2) Lumbar Spondylosis (3) Lumbar Radiculopathy (4) B/L Knee pain and OA seen dictated Sarwat Gibbs Sep 27, 2019 13:17
[2019-09-27] MEDS: HYDROmorphone 1mg/ml Carpuject IVP PRN ×2 (14:28→18:28)
[2019-09-27 16:00] VITALS: BP 115/60
--- NOTE | 2019-09-27 17:00 | Consultation ---
DATE OF CONSULTATION: 09/27/2019 PAIN MANAGEMENT CONSULTATION CONSULTING PHYSICIAN: Kayli Brumfield M.D. REFERRING PHYSICIAN: Hesham Ramsay D.O. PHYSICIAN FOUNDRY MELT SUPERVISOR: Chi Barry CHIEF COMPLAINT: Back pain and knee pain. HISTORY OF PRESENT ILLNESS: This is a 54-year-old female, who is being seen on the telemetry floor of [facility] for comprehensive pain management consultation. The patient is a known patient from previous hospital admissions, now residing in a nursing facility under the care of Dr. Ramsay with continued pain of lower back pain and bilateral knee pain. She was started on morphine 2 mg IV every 4 hours with minimal pain relief. Due to this, we were consulted, so the patient would have adequate pain control while here in the hospital. REVIEW OF SYSTEMS: Denies rash, fever, chills, sweating, dizziness, drowsiness, blurred vision, sore throat, or change in her weight. No nausea, vomiting, diarrhea, or blood in stool or urine. She is complaining of low back pain and bilateral knee pain. PHYSICAL EXAMINATION: GENERAL: Alert, awake, and oriented. VITAL SIGNS: Blood pressure 104/80, heart rate is 80, oxygen saturation 96%, respiratory rate 19, temperature temperature 98.6 degrees Fahrenheit. LUNGS: Decreased breath sounds bilaterally. HEART: S1 and S2 regular. ABDOMEN: Obese. EXTREMITIES: No cyanosis. No clubbing. NEUROLOGICAL: Weakness noted in bilateral lower extremities. ASSESSMENT AND PLAN: This is a 54-year-old female with lumbar degenerative disease, lumbar spondylosis, lumbar radiculopathy, bilateral knee pain, and bilateral knee osteoarthritis. The patient discontinued off the morphine, started on Dilaudid 1 mg IV every 4 hours as needed for severe pain, Percocet 10/325 one every 6 hours as needed for moderate pain. A prescription for Percocet 10/325 every 6 to 8 hours until this was written for the patient in anticipation for discharge. The patient was discussed with Dr. Brumfield and Dr. Brumfield concurred. We will follow up with the patient. Thank you very much for the courtesy of this consultation. Kayli Brumfield M.D. FREDERIC Barry DR: AYAZ JOB#: [id number] CC:
--- NOTE | 2019-09-27 18:01 | Cardiac Electrophysiology PN ---
Subjective Subjective [id number] Objective Last 24 Hour Vital Signs Date Time Temp Pulse Resp B/P (MAP) Pulse Ox O2 Delivery O2 Flow Rate FiO2 09/27/19 17:36 94 09/27/19 16:00 98.4 93 20 115/60 (78) 100 09/27/19 11:43 98.6 80 19 104/80 (88) 96 09/27/19 11:32 70 09/27/19 09:15 113/71 09/27/19 09:00 Room Air 09/27/19 08:43 97 09/27/19 08:00 98.1 87 19 113/71 (85) 98 09/27/19 04:00 91 09/27/19 04:00 98.6 82 19 116/74 (88) 97 09/27/19 00:00 94 09/27/19 00:00 97.8 86 20 137/84 (101) 96 09/26/19 21:00 Room Air 09/26/19 20:00 92 09/26/19 20:00 98.1 88 20 127/78 (94) 96 Intake and Output 09/26/19 09/27/19 19:00 07:00 Intake Total 140 ml 300 ml Output Total 1400 ml Balance -1260 ml 300 ml Intake Oral 140 ml 300 ml Output Urine Total 1400 ml # Voids 3 2 # Bowel Movements 1 Laboratory Tests Test 09/27/19 06:08 White Blood Count 4.7 K/UL (4.8-10.8) L Red Blood Count 3.68 M/UL (4.20-5.40) L Hemoglobin 10.2 G/DL (12.0-16.0) L Hematocrit 32.6 % (37.0-47.0) L Mean Corpuscular Volume 89 FL (80-99) Mean Corpuscular Hemoglobin 27.6 PG (27.0-31.0) Mean Corpuscular Hemoglobin Concent 31.1 G/DL (32.0-36.0) L Red Cell Distribution Width 15.3 % (11.6-14.8) H Platelet Count 245 K/UL (150-450) Mean Platelet Volume 6.5 FL (6.5-10.1) Neutrophils (%) (Auto) 40.1 % (45.0-75.0) L Lymphocytes (%) (Auto) 39.3 % (20.0-45.0) Monocytes (%) (Auto) 16.4 % (1.0-10.0) H Eosinophils (%) (Auto) 2.4 % (0.0-3.0) Basophils (%) (Auto) 1.8 % (0.0-2.0) Sodium Level 143 MMOL/L (136-145) Potassium Level 4.3 MMOL/L (3.5-5.1) Chloride Level 107 MMOL/L (98-107) Carbon Dioxide Level 28 MMOL/L (21-32) Anion Gap 8 mmol/L (5-15) Blood Urea Nitrogen 18 mg/dL (7-18) Creatinine 1.0 MG/DL (0.55-1.30) Estimat Glomerular Filtration Rate > 60 mL/min (>60) Glucose Level 98 MG/DL (74-106) Calcium Level 8.7 MG/DL (8.5-10.1) Troponin I 0.000 ng/mL (0.000-0.056) Microbiology Date/Time Source Procedure Growth Status 09/25/19 21:25 Nasal Nares - Final Complete 09/25/19 21:25 Nasal Nares - Final Complete Doni Coleman MD Sep 27, 2019 18:01
[2019-09-27 18:27] VITALS: BP 115/60
--- NOTE | 2019-09-27 18:45 | Consultation ---
DATE OF CONSULTATION: 09/27/2019 CARDIOLOGY CONSULTATION CONSULTING PHYSICIAN: Doni Coleman M.D. REFERRING PHYSICIAN: Hesham Ramsay D.O. REASON FOR CONSULTATION: Chest pain. HISTORY OF PRESENT ILLNESS: The patient is a 54-year-old lady with history of morbid obesity and asthma and CHF who presented to the emergency room complaining of cough and vomiting and chest pain. The patient was diagnosed with bronchitis about a week ago and was treated with amoxicillin. The patient has had persistent cough that is nonproductive, but denies any fever or chills. The patient presented to the emergency room with chest pressure concerned with prior episodes of . The patient states that she has had several episodes of nonbilious and nonbloody emesis as well. Her EKG shows sinus rhythm with no acute ST-T wave abnormality and she will be ruled out for myocardial infarction. The patient stated that she had a stress test at [facility] not too longer that was negative. The patient never needed cardiac catheterization. Denies prior myocardial infarction or coronary stent placement. REVIEW OF SYSTEMS: Negative other than what is mentioned in history of present illness. PAST MEDICAL HISTORY: As mentioned above. FAMILY HISTORY: Noncontributory. PAST SURGICAL HISTORY: Cholecystectomy. ALLERGIES: She is allergic to penicillin and tramadol. PHYSICAL EXAMINATION: VITAL SIGNS: Show blood pressure of 115/60, pulse 93, respirations 18, temperature 98.4. HEAD AND NECK: Showed no JVD. LUNGS: Clear. CARDIOVASCULAR: Regular S1 and S2 with no gallop or murmur. ABDOMEN: Soft. EXTREMITIES: No pitting edema. LABORATORY AND DIAGNOSTIC DATA: Her EKG shows sinus rhythm with no acute ST-T wave abnormality. White count 4.2, hemoglobin 10.2, hematocrit 33, and platelet count 245. Sodium 143, potassium 4.2, BUN of 18, creatinine of 1, and glucose of 98. Her troponin negative x3 and BNP is only 12. ASSESSMENT AND PLAN: 1. Chest pain, unlikely to be cardiac. The patient already ruled out for myocardial infarction. The EKG is nonischemic. Her stress in the past has been negative. The patient can have another stress test as an outpatient if she gets chest pains again. 2. Questionable congestive heart failure. Her BNP is only 12 making congestive heart failure highly likely. We will get an echocardiogram. 3. Hypertension, on Lotensin 20 mg b.i.d. 4. Abdominal pain and nausea and vomiting. 5. Morbid obesity. 6. Depression and anxiety. Followed by Dr. Cox. Thank you very much for allowing me to participate in the care of this patient. Please do not hesitate to contact me for any questions regarding my evaluation. Doni Coleman M.D. DR: JUAN JOB#: [id number] CC:
--- NOTE | 2019-09-28 01:43 | Psych Consult Progress Note ---
Psychiatry Progress Note Psychiatry Progress Note Neurological/Psychiatric: Reports: anxiety, depressed, emotional problems Allergies: Coded Allergies: CARROT (Verified Allergy, Mild, 09/25/19) IBUPROFEN (Verified Allergy, Unknown, 05/17/17) PENICILLINS (Verified Allergy, Unknown, 05/17/17) TRAMADOL (Verified Allergy, Unknown, Hives, 05/17/17) TRIMETHOBENZAMIDE (Verified Allergy, Unknown, 05/17/17) Objective Data Height (Feet): 5 Height (Inches): 5.00 Weight (Pounds): 280 General Appearance: no apparent distress, alert Appearance: well groomed Behavior Mannerisms: good eye contact Additional Comments: alert and oriented times self, place, and situation. Mood is anxious. Affect is flat. Thought process is concrete. Thought content, no suicidal or homicidal ideation. Cognition is impaired. Insight and judgment are impaired. ASSESSMENT: Stable. PLAN: 1. We will continue current meds. 2. Provide the patient with reality orientation and supportive therapy. Assessment/Plan Status: stable, progressing Erica Cox MD Sep 28, 2019 01:43
--- NOTE | 2019-09-29 11:22 | Discharge Summary ---
Discharge Summary Discharge Summary _ DATE OF ADMISSION: 09/26/2019 DATE OF DISCHARGE: 09/27/2019 CONSULTANTS: Dr. Erica Marcos BRIEF HOSPITAL COURSE: Patient is a 55-year-old female, who lives at home presented with today increased slight shortness of breath and nausea. There was no vomiting. No loss of consciousness. She had chest pain, substernal, intermittent, pressure- like, radiating to the left arm and slight shortness of breath. She has medical history of hypertension, anxiety, asthma, morbid obesity, esophageal varices and arthritis. EMS noted wheezing and patient was given a breathing treatment prior to arrival. EMS report showed EKG sinus tachycardia. Patient was anxious and concerned about having a heart attack. She had a stress test not too long ago which was unremarkable. She never had an angiogram. Upon evaluation at the ED, blood pressure was 152/99, heart rate 95, RR 23. She was afebrile. Blood work did not show any leukocytosis. Hemoglobin and hematocrit were stable. Electrolytes were normal. D-dimer was elevated to 0.65. Troponin was negative. EKG was in sinus rhythm, normal axis, normal intervals, inferior Q waves in lead III. She was given aspirin. Chest x-ray did not show any evidence of acute disease. CT of the chest was negative for PE or right ventricular strain. Surgical clips near the proximal descending colon, status post cholecystectomy, small hiatal hernia. Reevaluation showed patient complaining of intermittent chest pain. Anxiety is large component, however has significant risk factors for CAD. Patient was then admitted. She was admitted to telemetry. She was given Lovenox for DVT prophylaxis. She was given antiplatelet therapy. She was placed on HUSSAIN inhibitor and beta- simran. She was given p.o. Lasix twice daily. Per medical billing manager recommendation, hold off on antibiotics and Solu-Medrol. Influenza screening was negative. Psychiatric evaluation was done. Patient has anxiety and med seeking behavior asking for IV Ativan, Dilaudid and Benadryl. 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 Pain management consultation was done. Patient was started on morphine 2 mg IV every 4 hours with minimal pain relief. Patient has lumbar degenerative disease , lumbar spondylosis, lumbar radiculopathy, bilateral knee pain and bilateral knee osteoarthritis. Morphine was discontinued and patient was given Dilaudid as needed severe pain, Percocet for moderate pain. Cardiac evaluation was done. Patient stated she had a stress test at [facility] [place] not too long ago that was negative. Cardiac enzymes were monitored. Troponin was negative x3. Chest pain, unlikely to be cardiac. Patient was ruled out for GA. EKG was nonischemic. Recommended another stress test that can be done as outpatient. Chest pain occurs. She has questionable CHF. Her BNP is only 12 making CHF unlikely. Full treatment was not carried out as patient left against medical advise. FINAL DIAGNOSES: Anxiety Acute bronchitis Questionable congestive heart failure Hypertension Morbid obesity Abdominal pain with nausea and vomiting Lumbar degenerative disease Lumbar spondylosis Lumbar radiculopathy Bilateral knee pain, bilateral knee osteoarthritis DISPOSITION: Patient left against medical advise. I have been assigned to complete a discharge summary on this account, I was not involved with the patient's management.--MELVA Velez Jacqueline Robles NP Sep 29, 2019 11:22
== END 2019-09-27 20:03 | disposition left against medical advice (07) | DRG 145 ==
LOC: EDBD 20:39 → EDUNIT# 20:39 → EMR 20:59 → 2E 23:41 → EDBEDREQ 23:53 → 2E 09-26 00:22 → OBSVTOIN 09-26 09:52
DX: J20.9 Acute bronchitis, unspecified (principal); I24.9 Acute ischemic heart disease, unspecified; E66.01 Morbid (severe) obesity due to excess calories; Z68.42 Body mass index [BMI] 45.0-49.9, adult; Z88.6 Allergy status to analgesic agent; Z88.0 Allergy status to penicillin; F41.9 Anxiety disorder, unspecified; I11.0 Hypertensive heart disease with heart failure; Z76.5 Malingerer [conscious simulation]; F32.9 Major depressive disorder, single episode, unspecified; M17.0 Bilateral primary osteoarthritis of knee; F19.11 Other psychoactive substance abuse, in remission; M51.06 Intervertebral disc disorders with myelopathy, lumbar region; M51.16 Intervertebral disc disorders with radiculopathy, lumbar region; M47.896 Other spondylosis, lumbar region; R10.9 Unspecified abdominal pain; R11.2 Nausea with vomiting, unspecified
CPT/HCPCS: 36415; 71045; 71275; 80048; 80053; 83690; 83880; 84484; 85025; 85379; 85610; 85730; 86710; 93005; 96374; 96375; 96376; 99285

== ENCOUNTER 2019-09-28 16:07 | Emergency (ER) | payer OTHER ==
[~2019-09-28] VITALS: Ht 165.1 cm; Wt 172.4 kg
[~2019-09-28 16:07] MED LIST changes: +ASPIR 8181 MG ORAL; +ATIVAN1 MG ORAL; +BENAZEPRIL HCL20 MG ORAL; +NITRO0.4 SL; +ZOFRAN4 M3 ORAL
[2019-09-28] MEDS ORDERED: Nitroglycerin 2% oint pkt TOPIC ONE (16:30)
[2019-09-28] MEDS ORDERED: Albuterol ud Inhalation HHN ONE (16:30)
[2019-09-28] MEDS ORDERED: Morphine Sulfate 2mg/ml Inj(IV/IM USE ONLY) IVP ONE (16:30)
[2019-09-28] MEDS ORDERED: Ipratropium 0.02% Inh Soln 2.5ml UD HHN ONE (16:30)
--- NOTE | 2019-09-28 16:30 | Emergency Room Report ---
History of Present Illness General Chief Complaint: Chest Pain Source: Patient, Medical Record Present Illness HPI Patient returns to the hospital. She signed out AGAINST MEDICAL ADVICE yesterday. They were talking about possibly doing a catheterization. Since she is left she has had intractable vomiting and also diarrhea. The diarrhea is been yellow color soft watery at times without blood or mucus. She is feeling weak. She rates the chest pain 10/10 at this time. She also says that she is having edema in her lower extremities. The patient also is a smoker. She does use an albuterol inhaler. At this time also she is complaining about wheezing and having dyspnea on exertion. This is the last cardiology note from yesterday: 1. Chest pain, unlikely to be cardiac. The patient already ruled out for myocardial infarction. The EKG is nonischemic. Her stress in the past has been negative. The patient can have another stress test as an outpatient if she gets chest pains again. 2. Questionable congestive heart failure. Her BNP is only 12 making congestive heart failure highly likely. We will get an echocardiogram. 3. Hypertension, on Lotensin 20 mg b.i.d. 4. Abdominal pain and nausea and vomiting. 5. Morbid obesity. 6. Depression and anxiety. Followed by Dr. Cox. COVID-19 risk:Travel to affect: No Allergies: Coded Allergies: CARROT (Verified Allergy, Mild, 09/25/19) IBUPROFEN (Verified Allergy, Unknown, 05/17/17) PENICILLINS (Verified Allergy, Unknown, 05/17/17) TRAMADOL (Verified Allergy, Unknown, Hives, 05/17/17) TRIMETHOBENZAMIDE (Verified Allergy, Unknown, 05/17/17) Patient History Past Medical History: see triage record Social History: Reports: smoking Social History Narrative at home Now: No Reviewed Nursing Documentation: PMH: Agreed; PSxH: Agreed Nursing Documentation-PMH Past Medical History: No History, Except For Hx Cardiac Problems: Yes - CHF Hx Hypertension: Yes Hx Pacemaker: No Hx Asthma: Yes Hx COPD: No Hx Diabetes: Yes Hx Cancer: No Hx Gastrointestinal Problems: Yes - pancreatitis Hx Dialysis: No Hx Cerebrovascular Accident: No Hx Seizures: No Review of Systems All Other Systems: negative except mentioned in HPI Physical Exam Vital Signs Date Time Temp Pulse Resp B/P (MAP) Pulse Ox O2 Delivery O2 Flow Rate FiO2 09/28/19 16:19 98.4 101 30 129/72 (91) 98 Room Air Sp02 EP Interpretation: reviewed, normal General Appearance: well appearing, GCS 15, mild distress - Due to pain Head: normocephalic Eyes: bilateral eye normal inspection, bilateral eye PERRL, bilateral eye EOMI ENT: moist mucus membranes Neck: full range of motion, supple Respiratory: chest non-tender, no respiratory distress, wheezing, expiration Cardiovascular #1: regular rate, rhythm Cardiovascular #2: 2+ radial (R) Gastrointestinal: normal inspection, non tender, no mass, non-distended, decreased bowel sounds Genitourinary: no CVA tenderness Musculoskeletal: back normal, normal range of motion, gait/station normal Neurologic: alert, oriented x3, grossly normal Psychiatric: anxious Skin: no rash, warm/dry Medical Decision Making Diagnostic Impression: Primary Impression: Intractable vomiting with nausea Additional Impressions: COPD exacerbation Atypical chest pain Morbid obesity with BMI of 60.0-69.9, adult ER Course Patient presents with intractable vomiting, chest pain and diarrhea. Differential includes gastritis, gastroenteritis, C. difficile colitis amongst others. As she is recently had a rule out we need to recheck her heart at this time. Patient evaluated with EKG, chest x-ray and labs patient treated with aspirin, morphine and nitro paste. Zofran will be administered. Patient also has wheezing and dyspnea on exertion. This appears to be COPD exacerbation and the patient will receive Solu-Medrol and breathing treatments. EKG without injury. CXR no infiltrate. Normal WBC. CMP normal. Troponin negative. Still retching. Reglan, pepcid and benadryl ordered. 175 Breathing somewhat better. Still occasional retching and complaints of pain. Discussed with Dr. Pompa who accepts the patient. 175 Of note: patient's son experienced rapid respiratory failure and was intubated. COVID-[address] Pompa notified. Laboratory Tests Test 09/28/19 16:40 09/28/19 18:20 White Blood Count 5.7 K/UL (4.8-10.8) Red Blood Count 4.27 M/UL (4.20-5.40) Hemoglobin 11.6 G/DL (12.0-16.0) L Hematocrit 38.2 % (37.0-47.0) Mean Corpuscular Volume 89 FL (80-99) Mean Corpuscular Hemoglobin 27.3 PG (27.0-31.0) Mean Corpuscular Hemoglobin Concent 30.5 G/DL (32.0-36.0) L Red Cell Distribution Width 17.2 % (11.6-14.8) H Platelet Count 274 K/UL (150-450) Mean Platelet Volume 7.3 FL (6.5-10.1) Neutrophils (%) (Auto) 59.6 % (45.0-75.0) Lymphocytes (%) (Auto) 27.6 % (20.0-45.0) Monocytes (%) (Auto) 9.3 % (1.0-10.0) Eosinophils (%) (Auto) 1.8 % (0.0-3.0) Basophils (%) (Auto) 1.7 % (0.0-2.0) Prothrombin Time 9.7 SEC (9.30-11.50) Prothrombin Time INR 0.9 (0.9-1.1) Activated Partial Thromboplast Time 25 SEC (23-33) Sodium Level 133 MMOL/L (136-145) L Potassium Level 4.6 MMOL/L (3.5-5.1) Chloride Level 103 MMOL/L (98-107) Carbon Dioxide Level 24 MMOL/L (21-32) Anion Gap 6 mmol/L (5-15) Blood Urea Nitrogen 16 mg/dL (7-18) Creatinine 0.9 MG/DL (0.55-1.30) Estimate Glomerular Filtration Rate > 60 mL/min (>60) Glucose Level 105 MG/DL (74-106) Calcium Level 9.2 MG/DL (8.5-10.1) Total Bilirubin 0.3 MG/DL (0.2-1.0) Aspartate Amino Transferase (AST) 35 U/L (15-37) Alanine Aminotransferase (ALT) 26 U/L (12-78) Alkaline Phosphatase 114 U/L (46-116) Total Creatine Kinase 155 U/L (26-308) Troponin I 0.000 ng/mL (0.000-0.056) Pro-B-Type Natriuretic Peptide 29 pg/mL (0-125) Total Protein 8.0 G/DL (6.4-8.2) Albumin 3.7 G/DL (3.4-5.0) Globulin 4.3 g/dL Albumin/Globulin Ratio 0.9 (1.0-2.7) L Urine Color Yellow Urine Appearance Clear Urine pH 7 (4.5-8.0) Urine Specific Caruthers 1.010 (1.005-1.035) Urine Protein Negative (NEGATIVE) Urine Glucose (UA) Negative (NEGATIVE) Urine Ketones 1+ (NEGATIVE) H Urine Blood Negative (NEGATIVE) Urine Nitrite Negative (NEGATIVE) Urine Bilirubin Negative (NEGATIVE) Urine Urobilinogen 1 MG/DL (0.0-1.0) H Urine Leukocyte Esterase 1+ (NEGATIVE) H Urine RBC 0-2 /HPF (0 - 2) Urine WBC 0-2 /HPF (0 - 2) Urine Squamous Epithelial Cells Few /LPF (NONE/OCC) Urine Bacteria None /HPF (NONE) Urine Opiates Screen Positive (NEGATIVE) H Urine Barbiturates Screen Negative (NEGATIVE) Phencyclidine (PCP) Screen Negative (NEGATIVE) Urine Amphetamines Screen Negative (NEGATIVE) Urine Benzodiazepines Screen Negative (NEGATIVE) Urine Cocaine Screen Negative (NEGATIVE) Urine Marijuana (THC) Screen Negative (NEGATIVE) EKG Diagnostic Results Rate: normal Rhythm: NSR ST Segments: no acute changes Rhythm Strip Diag. Results EP Interpretation: yes Rhythm: NSR, no PVC's, no ectopy Chest X-Ray Diagnostic Results Chest X-Ray Diagnostic Results : Chest X-Ray Ordered: Yes # of Views/Limited/Complete: 1 View Indication: Chest Pain EP Interpretation: Yes Interpretation: no consolidation, no effusion, no pneumothorax Impression: No acute disease Electronically Signed by: Electronically signed by Tree Casillas MD Last Vital Signs Date Time Temp Pulse Resp B/P (MAP) Pulse Ox O2 Delivery O2 Flow Rate FiO2 09/28/19 20:33 98.2 83 17 131/83 98 Room Air 21 Status: improved Disposition: XFER SHT-TRM HOSP Condition: Serious Tree Casillas MD Sep 28, 2019 16:30
[2019-09-28 16:40] VITALS: BP 129/72
[2019-09-28 17:09] LABS: BASOPHILS % (AUTO) 1.7 % (0.0-2.0); EOSINOPHILS % (AUTO) 1.8 % (0.0-3.0); HEMATOCRIT 38.2 % (37.0-47.0); HEMOGLOBIN 11.6 G/DL (12.0-16.0); LYMPHOCYTES % (AUTO) 27.6 % (20.0-45.0); MEAN CORPUSCULAR VOLUME 89 FL (80-99); MONOCYTES % (AUTO) 9.3 % (1.0-10.0); NEUTROPHILS % (AUTO) 59.6 % (45.0-75.0); PLATELET COUNT 274 K/UL (150-450); RED BLOOD COUNT 4.27 M/UL (4.20-5.40); RED CELL DISTRIBUTION WIDTH 17.2 % (11.6-14.8); WHITE BLOOD COUNT 5.7 K/UL (4.8-10.8)
[2019-09-28 17:18] LABS: INR 0.9 (0.9-1.1)
[2019-09-28 17:22] LABS: ANION GAP 6 mmol/L (5-15); BLOOD UREA NITROGEN 16 mg/dL (7-18); CALCIUM 9.2 MG/DL (8.5-10.1); CARBON DIOXIDE 24 MMOL/L (21-32); CHLORIDE 103 MMOL/L (98-107); CREATININE 0.9 MG/DL (0.55-1.30); POTASSIUM 4.6 MMOL/L (3.5-5.1); SODIUM 133 MMOL/L (136-145)
[2019-09-28 17:27] LABS: ALANINE AMINOTRANSFERASE 26 U/L (12-78); ALBUMIN 3.7 G/DL (3.4-5.0); ALBUMIN/GLOBULIN RATIO 0.9 (1.0-2.7); ALKALINE PHOSPHATASE 114 U/L (46-116); ASPARTATE AMINO TRANSFERASE 35 U/L (15-37); BILIRUBIN,TOTAL 0.3 MG/DL (0.2-1.0); CREATINE KINASE 155 U/L (26-308)
--- NOTE | 2019-09-28 17:36 | Diagnostic Imaging Report ---
EXAM: XR Chest, 1 View CLINICAL HISTORY: CP TECHNIQUE: Frontal view of the chest. COMPARISON: None FINDINGS: Lungs: There is mild pulmonary vascular congestion. Pleural space: No pleural effusion. No pneumothorax. Heart: The heart is mildly enlarged. Mediastinum: The mediastinum is mildly widened. Bones/joints: No acute bony abnormality. IMPRESSION: Cardiomegaly and mild pulmonary vascular congestion.
[2019-09-28] MEDS ORDERED: Metoclopramide 10mg/2ml Inj IVP ONE (18:00)
[2019-09-28] MEDS ORDERED: DiphenhydrAMINE 50mg/ml Inj IVP ONE (18:00)
[2019-09-28 18:21] VITALS: BP 126/76
[2019-09-28 18:43] LABS: APPEARANCE,URINE CLEAR; BILIRUBIN, URINE NEGATIVE (NEGATIVE); GLUCOSE, URINE (UA) NEGATIVE (NEGATIVE); KETONES,URINE 1+ (NEGATIVE); LEUKOCYTE ESTERASE ,URINE 1+ (NEGATIVE); NITRITE,URINE NEGATIVE (NEGATIVE); PH,URINE 7 (4.5-8.0); PROTEIN,URINE NEGATIVE (NEGATIVE); UROBILINOGEN,URINE 1 MG/DL (0.0-1.0)
[2019-09-28 18:46] LABS: COLOR,URINE YELLOW
[2019-09-28] MEDS ORDERED: Morphine Sulfate 4mg/ml Inj (IV USE ONLY) IVP ONE (19:30)
[2019-09-28 20:31] VITALS: BP 131/83
[2019-09-28 20:33] VITALS: BP 131/83
== END 2019-09-28 20:33 | disposition short-term general hospital (02) ==
LOC: EMR 16:42 → EDBEDREQ 17:13 → EMR 20:33
DX: R11.2 Nausea with vomiting, unspecified (principal); J44.1 Chronic obstructive pulmonary disease with (acute) exacerbation; R07.9 Chest pain, unspecified; E66.01 Morbid (severe) obesity due to excess calories; Z68.44 Body mass index [BMI] 60.0-69.9, adult; I11.0 Hypertensive heart disease with heart failure; I50.9 Heart failure, unspecified; E11.9 Type 2 diabetes mellitus without complications; Z88.6 Allergy status to analgesic agent; Z88.0 Allergy status to penicillin; F17.200 Nicotine dependence, unspecified, uncomplicated; F32.9 Major depressive disorder, single episode, unspecified; F41.9 Anxiety disorder, unspecified
CPT/HCPCS: 36415; 71045; 80053; 80307; 81003; 82550; 83880; 84484; 85025; 85610; 85730; 93005; 96374; 96375; 96376; Z7502; 99285

== ENCOUNTER 2019-12-18 18:56 | Inpatient (IN) | payer OTHER ==
[~2019-12-18] VITALS: Ht 167.6 cm; Wt 172.4 kg
[2019-12-18 19:30] VITALS: BP 114/76
[2019-12-18] MEDS ORDERED: Morphine Sulfate 4mg/ml Inj (IV USE ONLY) IVP ONE (19:30)
--- NOTE | 2019-12-18 19:30 | NUR ---
ED Nurse Note: Recieved pt from home, here with c/o chest pain with generalized rheumatoid arthritis x 3 days, pt has chronic back pain and waiting for surgery, states percocet not working, rates pain at 10/10, pt is very irritable and anxious, pt assisted to gowning and cardiac monitoring, IV line placed and labs drawn, will resume care as ordered and closely monitor.
[2019-12-18 19:57] LABS: APPEARANCE,URINE CLEAR; BILIRUBIN, URINE NEGATIVE (NEGATIVE); COLOR,URINE PALE YELLOW; GLUCOSE, URINE (UA) NEGATIVE (NEGATIVE); KETONES,URINE NEGATIVE (NEGATIVE); LEUKOCYTE ESTERASE ,URINE NEGATIVE (NEGATIVE); NITRITE,URINE NEGATIVE (NEGATIVE); PH,URINE 6 (4.5-8.0); PROTEIN,URINE NEGATIVE (NEGATIVE); UROBILINOGEN,URINE NORMAL MG/DL (0.0-1.0)
[2019-12-18] MEDS ORDERED: HYDROmorphone 1mg/ml Carpuject IVP ONE (20:00)
[2019-12-18] MEDS ORDERED: DiphenhydrAMINE 50mg/ml Inj IVP ONE (20:00)
[2019-12-18 20:02] LABS: EOSINOPHILS % (AUTO) 2.8 % (0.0-3.0); HEMATOCRIT 38.5 % (37.0-47.0); MEAN CORPUSCULAR VOLUME 94 FL (80-99); MONOCYTES % (AUTO) 9.4 % (1.0-10.0); NEUTROPHILS % (AUTO) 52.9 % (45.0-75.0); PLATELET COUNT 285 K/UL (150-450); RED BLOOD COUNT 4.08 M/UL (4.20-5.40); RED CELL DISTRIBUTION WIDTH 16.8 % (11.6-14.8); WHITE BLOOD COUNT 6.7 K/UL (4.8-10.8)
[2019-12-18 20:05] LABS: ANION GAP 10 mmol/L (5-15); BLOOD UREA NITROGEN 10 mg/dL (7-18); CALCIUM 8.7 MG/DL (8.5-10.1); CARBON DIOXIDE 25 MMOL/L (21-32); CHLORIDE 105 MMOL/L (98-107); CREATININE 1.2 MG/DL (0.55-1.30); POTASSIUM 3.9 MMOL/L (3.5-5.1); SODIUM 140 MMOL/L (136-145)
--- NOTE | 2019-12-18 20:15 | NUR ---
ED Nurse Note: Pt medicated for pain, in bed on phone conversing and playing games, pt eyes are red and low, appears sedated but constantly asking for more pain meds stating they do not wark at all, IV site patent, v/s stable, pt is very irritable and anxious, demanding to staff and speaking in angry tone wanting 2mg of dilaudid med at one time, is lucius, will continue to montior and prepare for admit for pain control.
[2019-12-18 20:17] LABS: ALANINE AMINOTRANSFERASE 24 U/L (12-78); ALBUMIN 3.5 G/DL (3.4-5.0); ALBUMIN/GLOBULIN RATIO 0.9 (1.0-2.7); ALKALINE PHOSPHATASE 102 U/L (46-116); ASPARTATE AMINO TRANSFERASE 21 U/L (15-37); BILIRUBIN,TOTAL 0.2 MG/DL (0.2-1.0)
[2019-12-18] MEDS ORDERED: Pantoprazole Inj IVP ONE (21:00)
[2019-12-18] MEDS ORDERED: LORazepam Inj 2mg/ml 1ml IV ONE (21:00)
--- NOTE | 2019-12-18 21:15 | NUR ---
ED Nurse Note: Pt had episode of emesis, large amount of food contents, rice and meat, pt moaning and groaning in bed, asking for more dilaudid and demanding to speak with MD, MD informed and meds ordered, pt wants to speak with MD because dilaudid was not ordered, MD at bedside, pt agreed to take ativan, pt appears very anxious, pt refused fluids stating "im too fat i dont need water", attempted to explain reason and due to vomiting, pt continues to refuse, md aware, medicted with ativan, will monitor for effectiveness and prepare for admission.
[2019-12-18 21:30] VITALS: BP 128/78
[2019-12-18] MEDS ORDERED: Aspirin Baby 81mg ORAL ONE (22:00)
--- NOTE | 2019-12-18 22:01 | Emergency Room Report ---
History of Present Illness General Chief Complaint: Dyspnea/Respdistress Source: Patient Present Illness HPI 54-year-old female presents complaining of chest pain, nausea and vomiting, back pain x1 day. Pain is dull, 9 out of 10, nonradiating. Denies shortness of breath. States she has history of hypertension and CHF. History of rheumatoid arthritis. Chronic back pain and is scheduled to have back surgery. States that her home medications are not helping. No other aggravating relieving factors. Denies any other associated symptoms Allergies: Coded Allergies: CARROT (Verified Allergy, Mild, 09/25/19) IBUPROFEN (Verified Allergy, Unknown, 05/17/17) PENICILLINS (Verified Allergy, Unknown, 05/17/17) TRAMADOL (Verified Allergy, Unknown, Hives, 05/17/17) TRIMETHOBENZAMIDE (Verified Allergy, Unknown, 05/17/17) COVID-19 Screening Contact w/high risk pt: No Recent Travel to affected area: No Experienced COVID-19 symptoms?: No COVID-19 Testing performed NAPHTHALENE OPERATOR HELPER: No Patient History Pertinent Family History: none Social History: Denies: smoking, alcohol use, drug use Now: No Immunizations: UTD Reviewed Nursing Documentation: PMH: Agreed; PSxH: Agreed Nursing Documentation-PMH Hx Cardiac Problems: Yes - CHF Hx Hypertension: Yes Hx Pacemaker: No Hx Asthma: Yes Hx COPD: No Hx Diabetes: Yes Hx Cancer: No Hx Gastrointestinal Problems: Yes - pancreatitis Hx Dialysis: No Hx Cerebrovascular Accident: No Hx Seizures: No Review of Systems All Other Systems: negative except mentioned in HPI Physical Exam Vital Signs Date Time Temp Pulse Resp B/P (MAP) Pulse Ox O2 Delivery O2 Flow Rate FiO2 12/18/19 19:06 98.4 91 22 113/72 (86) 98 Room Air Sp02 EP Interpretation: reviewed, normal General Appearance: no apparent distress, alert, GCS 15, non-toxic, obese Head: normocephalic, atraumatic Eyes: bilateral eye normal inspection, bilateral eye PERRL ENT: hearing grossly normal, normal pharynx, no angioedema, normal voice Neck: full range of motion, supple/symm/no masses Respiratory: chest non-tender, lungs clear, normal breath sounds, speaking full sentences Cardiovascular #1: regular rate, rhythm, no edema Cardiovascular #2: 2+ carotid (R), 2+ carotid (L), 2+ radial (R), 2+ radial (L) , 2+ dorsalis pedis (R), 2+ dorsalis pedis (L) Gastrointestinal: normal bowel sounds, non tender, soft, non-distended, no guarding, no rebound Rectal: deferred Genitourinary: normal inspection, no CVA tenderness Musculoskeletal: back normal, normal range of motion, gait/station normal, non- tender Neurologic: alert, motor strength/tone normal, oriented x3, sensory intact, responsive, speech normal Psychiatric: judgement/insight normal, memory normal, mood/affect normal, no suicidal/homicidal ideation Reflexes: 3+ bicep (R), 3+ bicep (L), 3+ tricep (R), 3+ tricep (L), 3+ knee (R) , 3+ knee (L) Skin: other - see nursing skin notes Lymphatic: no adenopathy Medical Decision Making Diagnostic Impression: Primary Impression: ACS (acute coronary syndrome) Additional Impressions: Morbid obesity with BMI of 50.0-59.9, adult Chronic pain Qualified Codes: G89.29 - Other chronic pain Osteoarthritis of knees, bilateral Qualified Codes: M17.0 - Bilateral primary osteoarthritis of knee Nausea and vomiting Qualified Codes: R11.2 - Nausea with vomiting, unspecified ER Course Hospital Course 54-year-old female presents with chest pain, back pain. History of rheumatoid arthritis Differential diagnoses include: CT/unstable angina, contusion, muscle strain, PTX, rib fracture Clinical course Patient placed on stretcher. on patient monitor. After initial history and physical I ordered labs, EKG, chest x-ray, morphine labs reviewed- no leukocytosis, hb/hct stable, electrolytes ok, trop negative EKG - NSR, no acute ischeic changes interpreted by me Chest x-ray- no acute process Required multiple rounds of pain medication without significant relief. Given patient's comorbidities of morbid obesity and risk factors patient would benefit from admission. given aspirin Case discussed with Dr. Ramsay and he agreed to accept the patient to his service for further care and support I. I feel this is a highly complex case requiring extensive working including EKG/Rhythm strip, Xray/CT/US, Blood/urine lab work, repeat exams while in ED, and administration of strong opiates/narcotics for pain control, admission to hospital or close patient follow up. Diagnosis - ACS, morbid obesity, chronic pain, osteoarthritis of knees, nausea and vomiting admitted to telemetry in serious condition Labs Test 12/18/19 19:15 12/18/19 19:30 White Blood Count 6.7 K/UL (4.8-10.8) Red Blood Count 4.08 M/UL (4.20-5.40) Hemoglobin 11.0 G/DL (12.0-16.0) Hematocrit 38.5 % (37.0-47.0) Mean Corpuscular Volume 94 FL (80-99) Mean Corpuscular Hemoglobin 27.0 PG (27.0-31.0) Mean Corpuscular Hemoglobin Concent 28.6 G/DL (32.0-36.0) Red Cell Distribution Width 16.8 % (11.6-14.8) Platelet Count 285 K/UL (150-450) Mean Platelet Volume 6.8 FL (6.5-10.1) Neutrophils (%) (Auto) 52.9 % (45.0-75.0) Lymphocytes (%) (Auto) 33.0 % (20.0-45.0) Monocytes (%) (Auto) 9.4 % (1.0-10.0) Eosinophils (%) (Auto) 2.8 % (0.0-3.0) Basophils (%) (Auto) 2.0 % (0.0-2.0) Sodium Level 140 MMOL/L (136-145) Potassium Level 3.9 MMOL/L (3.5-5.1) Chloride Level 105 MMOL/L (98-107) Carbon Dioxide Level 25 MMOL/L (21-32) Anion Gap 10 mmol/L (5-15) Blood Urea Nitrogen 10 mg/dL (7-18) Creatinine 1.2 MG/DL (0.55-1.30) Estimat Glomerular Filtration Rate 57.2 mL/min (>60) Glucose Level 102 MG/DL (74-106) Calcium Level 8.7 MG/DL (8.5-10.1) Total Bilirubin 0.2 MG/DL (0.2-1.0) Aspartate Amino Transf (AST/SGOT) 21 U/L (15-37) Alanine Aminotransferase (ALT/SGPT) 24 U/L (12-78) Alkaline Phosphatase 102 U/L (46-116) Troponin I 0.000 ng/mL (0.000-0.056) Pro-B-Type Natriuretic Peptide 42 pg/mL (0-125) Total Protein 7.4 G/DL (6.4-8.2) Albumin 3.5 G/DL (3.4-5.0) Globulin 3.9 g/dL Albumin/Globulin Ratio 0.9 (1.0-2.7) Urine Color Pale yellow Urine Appearance Clear Urine pH 6 (4.5-8.0) Urine Specific [place] 1.015 (1.005-1.035) Urine Protein Negative (NEGATIVE) Urine Glucose (UA) Negative (NEGATIVE) Urine Ketones Negative (NEGATIVE) Urine Blood Negative (NEGATIVE) Urine Nitrite Negative (NEGATIVE) Urine Bilirubin Negative (NEGATIVE) Urine Urobilinogen Normal MG/DL (0.0-1.0) Urine Leukocyte Esterase Negative (NEGATIVE) Urine Opiates Screen Negative (NEGATIVE) Urine Barbiturates Screen Negative (NEGATIVE) Phencyclidine (PCP) Screen Negative (NEGATIVE) Urine Amphetamines Screen Negative (NEGATIVE) Urine Benzodiazepines Screen Negative (NEGATIVE) Urine Cocaine Screen Negative (NEGATIVE) Urine Marijuana (THC) Screen Negative (NEGATIVE) EKG Diagnostic Results Rate: normal Rhythm: NSR ST Segments: no acute changes ASA given to the pt in ED: Yes Rhythm Strip Diag. Results EP Interpretation: yes Rhythm: NSR, no PVC's, no ectopy Chest X-Ray Diagnostic Results Chest X-Ray Diagnostic Results : Chest X-Ray Ordered: Yes # of Views/Limited/Complete: 1 View Indication: Chest Pain EP Interpretation: Yes Interpretation: no consolidation, no effusion, no pneumothorax, no acute cardiopulmonary disease Impression: No acute disease Electronically Signed by: Electronically signed by Matthew Mishra MD Last Vital Signs Date Time Temp Pulse Resp B/P (MAP) Pulse Ox O2 Delivery O2 Flow Rate FiO2 12/18/19 21:30 98.4 91 22 128/78 100 Room Air Status: improved Disposition: ADMITTED INPATIENT Condition: Serious Referrals: NON PHYSICIAN (PCP) Matthew Mishra MD Dec 18, 2019 22:01
[2019-12-18] MEDS ORDERED: Hydromorphone 0.5mg/0.5ml inj IVP PRN (22:15)
[2019-12-18] MEDS ORDERED: Hydromorphone 0.5mg/0.5ml inj IVP ONE (22:15)
[2019-12-18] MEDS ORDERED: PERCOCET 10-321 EACH ORAL (22:42)
--- NOTE | 2019-12-18 22:50 | NUR ---
ED Nurse Note: Placed call to floor for admission, report given to ALTA Villagomez, rooms till not clean, will send when bed is available, pt in bed resting quietly, appears to be sleeping, on cardiac monitoring, no sob or labored breathing, pt continues to constantly ask for dilaudid medication for pain.
[2019-12-18 23:25] VITALS: BP 136/81
--- NOTE | 2019-12-19 00:31 | NUR ---
NURSE NOTES: Received patient report from ALTA Torres from ED. Patient transported to room without incident. Patient shows no signs of distress at the time. She states that she has back pain, Dilaudid given at ER 2 hrs ago. Vitals taken. IV checked, patent and flushed. There are no signs of erythema, infiltration, or bleeding. Bed is in the lowest position, call light within reach, and bed alarm on. Will continue to monitor.
--- NOTE | 2019-12-19 00:56 | NUR ---
NURSE NOTES: Called Dr. Hare and left a message. Awaiting for orders.
[2019-12-19 04:00] VITALS: BP 116/62
[2019-12-19] MEDS ORDERED: D5 1/2NS 1,000 ML IV SCH (05:30)
[2019-12-19] MEDS ORDERED: Albuterol 90mcg Inhaler 8gm INH SCH (05:30)
--- NOTE | 2019-12-19 05:43 | NUR ---
NURSE NOTES: Dr. Ramsay ordered to continue home medications, D5 1/2 NS at 60 MLs/Hr, Morphine 2 mg IVPush Q4 hrs PRN, Benadryl 50 mg PO Q6 hr PRN, Zofran 4Mg IV q4 prn, EKG in AM, CBC, BMP, and troponin x3. Orders put in the system and carried out as ordered.
[2019-12-19] MEDS: Morphine Sulfate 2mg/ml Inj(IV/IM USE ONLY) IVP PRN ×3 (06:08→14:13)
[2019-12-19 06:35] LABS: BASOPHILS % (AUTO) 1.5 % (0.0-2.0); EOSINOPHILS % (AUTO) 3.4 % (0.0-3.0); HEMATOCRIT 31.9 % (37.0-47.0); HEMOGLOBIN 10.3 G/DL (12.0-16.0); LYMPHOCYTES % (AUTO) 33.8 % (20.0-45.0); MEAN CORPUSCULAR VOLUME 86 FL (80-99); NEUTROPHILS % (AUTO) 46.3 % (45.0-75.0); PLATELET COUNT 253 K/UL (150-450); RED CELL DISTRIBUTION WIDTH 15.3 % (11.6-14.8); WHITE BLOOD COUNT 5.9 K/UL (4.8-10.8)
[2019-12-19] MEDS ORDERED: Albuterol ud Inhalation HHN SCH ×2 (07:00)
[2019-12-19] MEDS: Albuterol ud Inhalation HHN SCH ×3 (07:00→19:00)
[2019-12-19 07:18] LABS: ANION GAP 8 mmol/L (5-15); BLOOD UREA NITROGEN 13 mg/dL (7-18); CALCIUM 8.6 MG/DL (8.5-10.1); CARBON DIOXIDE 28 MMOL/L (21-32); CHLORIDE 106 MMOL/L (98-107); CREATININE 1.2 MG/DL (0.55-1.30); POTASSIUM 4.2 MMOL/L (3.5-5.1); SODIUM 142 MMOL/L (136-145)
--- NOTE | 2019-12-19 07:43 | NUR ---
HAND-OFF: Report given to ALTA Kapoor. Patient shows no signs of distress or pain at the time. Endorsed that patient refused IV fluids stating that it will make her swell.
--- NOTE | 2019-12-19 07:47 | NUR ---
NURSE NOTES: Dr. Ramsay said to add Dr. Coleman.
[2019-12-19 08:00] VITALS: BP 99/51
--- NOTE | 2019-12-19 08:02 | NUR ---
NURSE NOTES: Received report from ALTA Villagomez. Observed pt sleeping, no s/sx of acute distress, breathing even and unlabored in RA. IV site on L AC patent and asymptomatic. Bed on lowest position, call light within reach. Will continue plan of care.
[2019-12-19] MEDS: Lisinopril 20mg tab ORAL SCH (09:00)
[2019-12-19] MEDS: Aspirin EC 81mg tab ORAL SCH (09:27)
--- NOTE | 2019-12-19 09:35 | NUR ---
*-* NO INSURANCE INFORMATION IN THE BAR TO WHOM TO SEND CLINICALS AND DAILY REVIEWS *-*
--- NOTE | 2019-12-19 09:40 | NUR ---
*-* INSURANCE *-* ALL AVAILABLE CLINICALS HAVE BEEN FAXED TO: [facility] P: [phone] ext [phone] F: [phone] & [facility] P: [phone] F: [phone]
--- NOTE | 2019-12-19 10:03 | Diagnostic Imaging Report ---
Indication: Chest pain Technique: One view of the chest Comparison: 09/28/2019 Findings: Lungs and pleural spaces are clear. Heart size is normal. No significant interim change Impression: No acute process
--- NOTE | 2019-12-19 11:39 | NUR ---
NURSE NOTES: Called pharmacy to clarify the order for albuterol. Order shows nebulizer, but per RT, they do not do nebulized treatment if pt is not tested for Covid-19 to make sure pt is negative. 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 Dose at 0700 was skipped.
--- NOTE | 2019-12-19 11:51 | NUR ---
NURSE NOTES: Per night RN, Dr Ramsay ordered regular diet for the pt. Changed diet from cardiac to regular.
[2019-12-19 12:00] VITALS: BP 103/75
--- NOTE | 2019-12-19 12:45 | NUR ---
CASE MANAGEMENT:REVIEW 54 YR OLD FEMALE PRESENTED TO ER CC: SOB AND CHEST PAIN SI: ACS. INTRACTABLE BACK PAIN RHEUMATOID FLARE 98.4 91 22 113/72 98% ON RA HGB-11.0 TROPONIN(-) IS: IV MORPHINE IV BENADRYL IV DILAUDID IV PROTONIX IV ZOFRAN IV ATIVAN LIDOCAINE PATCH ASA PO CHEST XRAY : TO TELEMETRY PLAN: CARDIAC MONITORING PAIN MGMT
--- NOTE | 2019-12-19 13:39 | NUR ---
NURSE NOTES: Called pharmacy to follow up regarding albuterol. Spoke with Catalino and she stated that they are still waiting for their director to communicate with RT. 2nd dose skipped at 1300.
--- NOTE | 2019-12-19 15:17 | Cardiac Electrophysiology PN ---
Subjective Subjective [id number] Objective Last 24 Hour Vital Signs Date Time Temp Pulse Resp B/P (MAP) Pulse Ox O2 Delivery O2 Flow Rate FiO2 12/19/19 12:00 98.1 73 20 103/75 (84) 98 12/19/19 09:00 99/51 12/19/19 09:00 Room Air 12/19/19 08:00 97.5 85 20 99/51 (67) 96 12/19/19 06:38 97.9 12/19/19 04:00 90 12/19/19 04:00 97.9 78 20 116/62 (80) 97 12/19/19 02:11 87 12/19/19 02:11 Room Air 12/19/19 02:03 98.4 12/18/19 23:50 98.4 87 18 136/81 99 Room Air 12/18/19 23:25 98.4 87 18 136/81 99 Room Air 12/18/19 22:56 98.4 12/18/19 21:30 98.4 91 22 128/78 100 Room Air 12/18/19 20:35 98.4 12/18/19 19:59 98.4 12/18/19 19:30 98.4 89 22 114/76 100 Room Air 12/18/19 19:25 91 22 Room Air 12/18/19 19:06 98.4 91 22 113/72 (86) 98 Room Air Intake and Output 12/18/19 12/19/19 19:00 07:00 Intake Total 450 ml Balance 450 ml Intake Oral 450 ml # Voids 2 Laboratory Tests Test 12/18/19 19:15 12/18/19 19:30 12/19/19 06:10 12/19/19 14:05 White Blood Count 6.7 K/UL (4.8-10.8) 5.9 K/UL (4.8-10.8) Red Blood Count 4.08 M/UL (4.20-5.40) L 3.70 M/UL (4.20-5.40) L Hemoglobin 11.0 G/DL (12.0-16.0) L 10.3 G/DL (12.0-16.0) L Hematocrit 38.5 % (37.0-47.0) 31.9 % (37.0-47.0) L Mean Corpuscular Volume 94 FL (80-99) 86 FL (80-99) # Mean Corpuscular Hemoglobin 27.0 PG (27.0-31.0) 27.9 PG (27.0-31.0) Mean Corpuscular Hemoglobin Concent 28.6 G/DL (32.0-36.0) L 32.4 G/DL (32.0-36.0) Red Cell Distribution Width 16.8 % (11.6-14.8) H 15.3 % (11.6-14.8) H Platelet Count 285 K/UL (150-450) 253 K/UL (150-450) Mean Platelet Volume 6.8 FL (6.5-10.1) 5.7 FL (6.5-10.1) L Neutrophils (%) (Auto) 52.9 % (45.0-75.0) 46.3 % (45.0-75.0) Lymphocytes (%) (Auto) 33.0 % (20.0-45.0) 33.8 % (20.0-45.0) Monocytes (%) (Auto) 9.4 % (1.0-10.0) 15.0 % (1.0-10.0) H Eosinophils (%) (Auto) 2.8 % (0.0-3.0) 3.4 % (0.0-3.0) H Basophils (%) (Auto) 2.0 % (0.0-2.0) 1.5 % (0.0-2.0) Sodium Level 140 MMOL/L (136-145) 142 MMOL/L (136-145) Potassium Level 3.9 MMOL/L (3.5-5.1) 4.2 MMOL/L (3.5-5.1) Chloride Level 105 MMOL/L (98-107) 106 MMOL/L (98-107) Carbon Dioxide Level 25 MMOL/L (21-32) 28 MMOL/L (21-32) Anion Gap 10 mmol/L (5-15) 8 mmol/L (5-15) Blood Urea Nitrogen 10 mg/dL (7-18) 13 mg/dL (7-18) Creatinine 1.2 MG/DL (0.55-1.30) 1.2 MG/DL (0.55-1.30) Estimat Glomerular Filtration Rate 57.2 mL/min (>60) 57.2 mL/min (>60) Glucose Level 102 MG/DL (74-106) 96 MG/DL (74-106) Calcium Level 8.7 MG/DL (8.5-10.1) 8.6 MG/DL (8.5-10.1) Total Bilirubin 0.2 MG/DL (0.2-1.0) Aspartate Amino Transf (AST/SGOT) 21 U/L (15-37) Alanine Aminotransferase (ALT/SGPT) 24 U/L (12-78) Alkaline Phosphatase 102 U/L (46-116) Troponin I 0.000 ng/mL (0.000-0.056) 0.004 ng/mL (0.000-0.056) 0.000 ng/mL (0.000-0.056) Pro-B-Type Natriuretic Peptide 42 pg/mL (0-125) Total Protein 7.4 G/DL (6.4-8.2) Albumin 3.5 G/DL (3.4-5.0) Globulin 3.9 g/dL Albumin/Globulin Ratio 0.9 (1.0-2.7) L Urine Color Pale yellow Urine Appearance Clear Urine pH 6 (4.5-8.0) Urine Specific [place] 1.015 (1.005-1.035) Urine Protein Negative (NEGATIVE) Urine Glucose (UA) Negative (NEGATIVE) Urine Ketones Negative (NEGATIVE) Urine Blood Negative (NEGATIVE) Urine Nitrite Negative (NEGATIVE) Urine Bilirubin Negative (NEGATIVE) Urine Urobilinogen Normal MG/DL (0.0-1.0) Urine Leukocyte Esterase Negative (NEGATIVE) Urine Opiates Screen Negative (NEGATIVE) Urine Barbiturates Screen Negative (NEGATIVE) Phencyclidine (PCP) Screen Negative (NEGATIVE) Urine Amphetamines Screen Negative (NEGATIVE) Urine Benzodiazepines Screen Negative (NEGATIVE) Urine Cocaine Screen Negative (NEGATIVE) Urine Marijuana (THC) Screen Negative (NEGATIVE) Doni Coleman MD Dec 19, 2019 15:17
[2019-12-19 16:00] VITALS: BP 121/78
--- NOTE | 2019-12-19 16:04 | Consultation ---
History of Present Illness General Date patient seen: Dec 19, 2019 Present Illness Allergies: Coded Allergies: CARROT (Verified Allergy, Mild, 09/25/19) IBUPROFEN (Verified Allergy, Unknown, 05/17/17) PENICILLINS (Verified Allergy, Unknown, 05/17/17) TRAMADOL (Verified Allergy, Unknown, Hives, 05/17/17) TRIMETHOBENZAMIDE (Verified Allergy, Unknown, 05/17/17) Medication History Scheduled Albuterol Sulfate* (Albuterol Sulfate Mdi*), 2 PUFF INH Q6H Aspirin* (Aspir 81*), 81 MG ORAL DAILY, (Reported) Benazepril Hcl* (Benazepril Hcl*), 20 MG ORAL EVERY 12 HOURS, (Reported) Fluoxetine Hcl* (Prozac*), 40 MG ORAL DAILY, (Reported) Lisinopril (Lisinopril*), 20 MG ORAL DAILY, (Reported) Lorazepam* (Ativan*), 1.5 MG ORAL BEDTIME, (Reported) Scheduled PRN Diphenhydramine Hcl* (Benadryl*), 75 MG ORAL Q6H PRN for Itching, (Reported) Nitroglycerin 0.4MG table* (Nitroglycerin*), 0.4 MG SL .Q5MIN X 3 DOSES PRN for CHEST PAIN, (Reported) Ondansetron* (Zofran*), 4 MG ORAL Q6H PRN for Nausea & Vomiting, (Reported) Oxycodone Hcl/Acetaminophen 10-325 Mg Tablet (Percocet 10-325 Mg Tablet*), 1 TAB ORAL Q4H PRN for For Pain, (Reported) Patient History Healthcare decision maker Resuscitation status Advanced Directive on File Physical Exam Last 24 Hour Vital Signs Date Time Temp Pulse Resp B/P (MAP) Pulse Ox O2 Delivery O2 Flow Rate FiO2 12/19/19 12:00 98.1 73 20 103/75 (84) 98 12/19/19 09:00 99/51 12/19/19 09:00 Room Air 12/19/19 08:00 97.5 85 20 99/51 (67) 96 12/19/19 06:38 97.9 12/19/19 04:00 90 12/19/19 04:00 97.9 78 20 116/62 (80) 97 12/19/19 02:11 87 12/19/19 02:11 Room Air 12/19/19 02:03 98.4 12/18/19 23:50 98.4 87 18 136/81 99 Room Air 12/18/19 23:25 98.4 87 18 136/81 99 Room Air 12/18/19 22:56 98.4 12/18/19 21:30 98.4 91 22 128/78 100 Room Air 12/18/19 20:35 98.4 12/18/19 19:59 98.4 12/18/19 19:30 98.4 89 22 114/76 100 Room Air 12/18/19 19:25 91 22 Room Air 12/18/19 19:06 98.4 91 22 113/72 (86) 98 Room Air Intake and Output 12/18/19 12/19/19 19:00 07:00 Intake Total 450 ml Balance 450 ml Intake Oral 450 ml # Voids 2 Laboratory Tests Test 12/18/19 19:15 12/18/19 19:30 12/19/19 06:10 12/19/19 14:05 White Blood Count 6.7 K/UL (4.8-10.8) 5.9 K/UL (4.8-10.8) Red Blood Count 4.08 M/UL (4.20-5.40) L 3.70 M/UL (4.20-5.40) L Hemoglobin 11.0 G/DL (12.0-16.0) L 10.3 G/DL (12.0-16.0) L Hematocrit 38.5 % (37.0-47.0) 31.9 % (37.0-47.0) L Mean Corpuscular Volume 94 FL (80-99) 86 FL (80-99) # Mean Corpuscular Hemoglobin 27.0 PG (27.0-31.0) 27.9 PG (27.0-31.0) Mean Corpuscular Hemoglobin Concent 28.6 G/DL (32.0-36.0) L 32.4 G/DL (32.0-36.0) Red Cell Distribution Width 16.8 % (11.6-14.8) H 15.3 % (11.6-14.8) H Platelet Count 285 K/UL (150-450) 253 K/UL (150-450) Mean Platelet Volume 6.8 FL (6.5-10.1) 5.7 FL (6.5-10.1) L Neutrophils (%) (Auto) 52.9 % (45.0-75.0) 46.3 % (45.0-75.0) Lymphocytes (%) (Auto) 33.0 % (20.0-45.0) 33.8 % (20.0-45.0) Monocytes (%) (Auto) 9.4 % (1.0-10.0) 15.0 % (1.0-10.0) H Eosinophils (%) (Auto) 2.8 % (0.0-3.0) 3.4 % (0.0-3.0) H Basophils (%) (Auto) 2.0 % (0.0-2.0) 1.5 % (0.0-2.0) Sodium Level 140 MMOL/L (136-145) 142 MMOL/L (136-145) Potassium Level 3.9 MMOL/L (3.5-5.1) 4.2 MMOL/L (3.5-5.1) Chloride Level 105 MMOL/L (98-107) 106 MMOL/L (98-107) Carbon Dioxide Level 25 MMOL/L (21-32) 28 MMOL/L (21-32) Anion Gap 10 mmol/L (5-15) 8 mmol/L (5-15) Blood Urea Nitrogen 10 mg/dL (7-18) 13 mg/dL (7-18) Creatinine 1.2 MG/DL (0.55-1.30) 1.2 MG/DL (0.55-1.30) Estimat Glomerular Filtration Rate 57.2 mL/min (>60) 57.2 mL/min (>60) Glucose Level 102 MG/DL (74-106) 96 MG/DL (74-106) Calcium Level 8.7 MG/DL (8.5-10.1) 8.6 MG/DL (8.5-10.1) Total Bilirubin 0.2 MG/DL (0.2-1.0) Aspartate Amino Transf (AST/SGOT) 21 U/L (15-37) Alanine Aminotransferase (ALT/SGPT) 24 U/L (12-78) Alkaline Phosphatase 102 U/L (46-116) Troponin I 0.000 ng/mL (0.000-0.056) 0.004 ng/mL (0.000-0.056) 0.000 ng/mL (0.000-0.056) Pro-B-Type Natriuretic Peptide 42 pg/mL (0-125) Total Protein 7.4 G/DL (6.4-8.2) Albumin 3.5 G/DL (3.4-5.0) Globulin 3.9 g/dL Albumin/Globulin Ratio 0.9 (1.0-2.7) L Urine Color Pale yellow Urine Appearance Clear Urine pH 6 (4.5-8.0) Urine Specific [place] 1.015 (1.005-1.035) Urine Protein Negative (NEGATIVE) Urine Glucose (UA) Negative (NEGATIVE) Urine Ketones Negative (NEGATIVE) Urine Blood Negative (NEGATIVE) Urine Nitrite Negative (NEGATIVE) Urine Bilirubin Negative (NEGATIVE) Urine Urobilinogen Normal MG/DL (0.0-1.0) Urine Leukocyte Esterase Negative (NEGATIVE) Urine Opiates Screen Negative (NEGATIVE) Urine Barbiturates Screen Negative (NEGATIVE) Phencyclidine (PCP) Screen Negative (NEGATIVE) Urine Amphetamines Screen Negative (NEGATIVE) Urine Benzodiazepines Screen Negative (NEGATIVE) Urine Cocaine Screen Negative (NEGATIVE) Urine Marijuana (THC) Screen Negative (NEGATIVE) Height (Feet): 5 Height (Inches): 6.00 Weight (Pounds): 380 Medications Current Medications Medications (Trade) Dose Ordered Sig/Dave Route PRN Reason Start Time Stop Time Status Last Admin Dose Admin Albuterol Sulfate (Proventil) 2.5 mg Q6HRT HHN 12/19/19 07:00 12/24/19 06:59 Aspirin (Ecotrin) 81 mg DAILY ORAL 12/19/19 09:00 02/02/20 08:59 12/19/19 09:27 Diphenhydramine HCl (Benadryl) 50 mg Q6H PRN ORAL Itching 12/19/19 05:30 01/18/20 05:29 12/19/19 06:07 Fluoxetine HCl (PROzac) 40 mg DAILY ORAL 12/19/19 09:00 01/18/20 08:59 12/19/19 09:27 Furosemide (Lasix) 40 mg BID IV 12/19/19 18:00 01/18/20 17:59 Lisinopril (PriniviL) 20 mg DAILY ORAL 12/19/19 09:00 01/18/20 08:59 Lorazepam (Ativan) 1.5 mg BEDTIME ORAL 12/19/19 21:00 12/26/19 20:59 Morphine Sulfate (Morphine Sulfate) 2 mg Q4H PRN IVP For Pain 12/19/19 05:30 12/26/19 05:29 12/19/19 14:13 Ondansetron HCl (Zofran) 4 mg Q4H PRN IVP Nausea & Vomiting 12/19/19 05:30 01/18/20 05:29 Assessment/Plan Assessment/Plan: (1) Lumbar DDD (2) Lumbar Spondylosis (3) B/L Knee pain and OA (4) Morbid obesity Seen dictated Sarwat Gibbs Dec 19, 2019 16:04
[2019-12-19] MEDS ORDERED: Naloxone 0.4mg/ml Inj IVP PRN (16:15)
[2019-12-19] MEDS: HYDROmorphone 1mg/ml Carpuject IVP PRN ×2 (17:15→21:28)
[2019-12-19 20:00] VITALS: BP 124/85
--- NOTE | 2019-12-19 20:09 | NUR ---
HAND-OFF: Report given to ALTA Gallo. Pt in stable condition, endorsed plan of care.
--- NOTE | 2019-12-19 20:10 | NUR ---
NURSE NOTES: Received report from ALTA Kapoor. Observed pt sitting up in bed talking on the phone. She complained of pain and was requesting PO med as a breakthrough medication. I informed her that is not how the order is written. She complained that the 1 mg of dilaudid is not working and that she has chronic pain. I informed her of the time she can next receive dilaudid. Pt verbalized understanding but was upset as she wants more pain medication than is being given. Pt appears comfortable and is sitting up in bed. Pt uses urinal, urinal at bedside within reach. Pt does not display s/sx of acute distress, breathing is even and unlabored on RA. IV site on L AC patent and asymptomatic. Bed in lowest position, locked, call light within reach. Will continue plan of care.
--- NOTE | 2019-12-19 20:45 | History and Physical Report ---
DATE OF ADMISSION: 12/18/2019 APPROXIMATE TIME: 12 noon. CONSULTANTS: 1. Doni Coleman MD. 2. Kayli Brumfield MD. CHIEF COMPLAINT: Chest pain. BRIEF HISTORY: This is a 54-year-old female, who lives in a apparently has some substernal chest pain yesterday that was intermittent, sharp, radiating to neck and arm, no loss of consciousness. No shortness of breath. The patient came to [facility], diagnosed as above, admitted to telemetry for further care. Currently, feeling better now, eating, no complaint, slight chest pain. No shortness of breath. No nausea, vomiting, or diarrhea. PAST MEDICAL HISTORY: Includes CHF, back pain, obesity, arthritis. PAST SURGICAL HISTORY: Appendectomy, gallbladder, left ankle fracture. MEDICATIONS: Include lorazepam, aspirin, Prozac, Prinivil, albuterol, morphine, Zofran, hydromorphone, Tylenol, diphenhydramine, pantoprazole, lorazepam. ALLERGIES: Ibuprofen, penicillin, tramadol, trimethobenzamide. SOCIAL HISTORY: No smoking. Occasional alcohol. No intravenous drug abuse. FAMILY HISTORY: Noncontributory. PHYSICAL EXAMINATION: GENERAL: Calm in bed, oriented x3, no acute distress. VITAL SIGNS: Temperature 97 degrees, pulse 85, respirations 20, blood pressure 99/51. CARDIOVASCULAR: No murmur. LUNGS: Distant and clear. ABDOMEN: Bowel sound positive. Nontender. Nondistended. EXTREMITIES: No cyanosis or edema. NEUROLOGIC: The patient moves all extremities, slightly weak. LABORATORY AND DIAGNOSTIC DATA: Labs at this time show hemoglobin and hematocrit 10/31, otherwise CBC is normal. BMP shows they are normal. Troponin 0.004 and 0.000. Urinalysis is negative. Urine tox is negative. ASSESSMENT: 1. Chest pain. 2. Back pain. 3. Anemia. 4. CHF. 5. Arthritis. 6. Bilateral knee pain. PLAN: 1. PT, pain control, dietary followup. 2. CBC and BMP in the morning. 3. Cardiology followup. 4. Discharge planning if cleared. Hesham Ramsay D.O. DR: Ciarra JOB#: [id number] CC:
[2019-12-19] MEDS ORDERED: LORazepam 0.5mg tab ORAL SCH (21:00)
--- NOTE | 2019-12-19 22:17 | NUR ---
NURSE NOTES: Pt refused troponin lab draw after observer electrical prospecting did not get 1st attempt. will repeat troponin in the am with am labs.
[2019-12-20] VITALS: BP 100/68
[2019-12-20] MEDS: Albuterol ud Inhalation HHN SCH ×2 (01:00→07:00)
--- NOTE | 2019-12-20 01:00 | Consultation ---
DATE OF CONSULTATION: 12/19/2019 CARDIOLOGY CONSULTATION CONSULTING PHYSICIAN: Doni Coleman MD. REFERRING PHYSICIAN: Hesham Ramsay DO. REASON FOR CONSULTATION: Management of hypertension and congestive heart failure. HISTORY OF PRESENT ILLNESS: The patient is a 54-year-old lady with history of hypertension, morbid obesity, and congestive heart failure presented to the emergency room complaining of chest pain, nausea, vomiting, and back pain for one day. The pain was 9/10, was nonradiating. The patient also has rheumatoid arthritis and schedule to have back surgeon and asking for pain medication. The patient also noticed severe swelling in her lower extremity even though her underlying weight is around 350 pounds. REVIEW OF SYSTEMS: Review of systems was negative other than what was mentioned in the history of present illness. PAST MEDICAL HISTORY: As mentioned above. FAMILY HISTORY: Noncontributory. MEDICATIONS: Per reconciliation. ALLERGIES: Ibuprofen, penicillin, tramadol. PHYSICAL EXAMINATION: VITAL SIGNS: Blood pressure of 102/75, pulse 73, respirations 18, and temperature 98.1. HEAD AND NECK: No JVD. LUNGS: Clear. CARDIOVASCULAR: Regular S1 and S2 with no gallop. ABDOMEN: Soft. EXTREMITIES: Have 2+ pitting edema and she is morbidly obese. LABORATORY AND DIAGNOSTIC DATA: Her labs show white count of 5.9, hemoglobin 10.2, hematocrit 32, and platelet count is 253. Sodium 142, potassium is 4.2, BUN of 13, creatinine 1.2. Troponin negative x3. Urine toxicology screen is negative. ASSESSMENT/PLAN: 1. Severe lower extremity edema, likely congestive heart failure. Start the patient on Lasix 40 mg IV b.i.d. We will check brain natriuretic peptide and get an echocardiogram for further evaluation. 2. Hypertension. Continue Lasix 40 mg IV b.i.d. and lisinopril 20 mg daily. 3. Morbid obesity. 4. History of degenerative joint disease and spine pain. She stated that she is scheduled to have spine surgery, but has not done yet. 5. Depression on Prozac. Thank you very much for allowing me to participate in the care of this patient. Please do not hesitate to contact me for any questions regarding my evaluation. Sincerely, Doni Coleman M.D. DR: Charleen JOB#: [id number] CC:
[2019-12-20] MEDS: HYDROmorphone 1mg/ml Carpuject IVP PRN ×3 (01:17→10:59)
--- NOTE | 2019-12-20 02:30 | Consultation ---
DATE OF CONSULTATION: 12/19/2019 PAIN MANAGEMENT CONSULTATION CONSULTING PHYSICIAN: Kayli Brumfield MD. REFERRING PHYSICIAN: Hesham Ramsay DO. PHYSICIAN WELT SOLE LAYER: FREDERIC Barry. CHIEF COMPLAINT: Low back pain and bilateral knee pain. HISTORY OF PRESENT ILLNESS: This is a 54-year-old female who is being seen on the telemetry floor of [facility] for comprehensive pain management consultation. Patient is a known patient from previous hospital admissions with chronic back pain and bilateral knee pain. The pain is 10/10, describing the pain as sharp shooting pain, worse with movement and stabbing in her knees. Reports that she recently seen a spinal surgeon and was advised to have a lumbar surgery, which she has continued to think about and is waiting to be scheduled. At this time, she is on morphine 2 mg IV every 4 hours as needed with no pain relief. Due to this, we were consulted so patient would have adequate pain control while here in the hospital. REVIEW OF SYSTEMS: Denies rash, fever, chills, sweating, dizziness, drowsiness, blurred vision, sore throat, change in her weight. No shortness of breath or chest pain. No nausea, vomiting, diarrhea, or blood in the stool or urine. No dysuria. PHYSICAL EXAMINATION: GENERAL: Alert, awake, and oriented. VITAL SIGNS: Blood pressure 123/79, heart rate 75, oxygen saturation 98%, temperature is 98.1 degrees Fahrenheit. LUNGS: Decreased breath sounds bilaterally. CARDIAC: S1 and S2 regular. ABDOMEN: Obese. BACK: Range of motion is decreased in flexion and extension. EXTREMITIES: Upper and lower extremity range of is decreased due to the patient's condition. No cyanosis. No clubbing. Sensory is reduced. Reflexes are not obtainable. No adenopathy. ASSESSMENT AND PLAN: This is a 54-year-old female with lumbar degenerative disease, lumbar spondylosis, morbid obesity, bilateral knee pain, bilateral knee osteoarthritis. Patient discontinued off the morphine. Started on Dilaudid 1 mg IV every 4 hours as needed for severe pain and Percocet 10/325 every 4 hours as needed for moderate pain. Patient was discussed with Dr. Brumfield and Dr. Brumfield concurred. We will follow the patient. Thank you very much for the courtesy of this consultation. Kayli Brumfield M.D. FREDERIC Barry DR: MORENA JOB#: [id number] CC: TARA
[2019-12-20 06:54] LABS: ANION GAP 9 mmol/L (5-15); BLOOD UREA NITROGEN 17 mg/dL (7-18); CARBON DIOXIDE 27 MMOL/L (21-32); CHLORIDE 105 MMOL/L (98-107); CREATININE 1.2 MG/DL (0.55-1.30); POTASSIUM 3.6 MMOL/L (3.5-5.1); SODIUM 141 MMOL/L (136-145)
[2019-12-20 07:10] LABS: HEMATOCRIT 32.5 % (37.0-47.0); HEMOGLOBIN 10.4 G/DL (12.0-16.0); MEAN CORPUSCULAR VOLUME 86 FL (80-99); PLATELET COUNT 255 K/UL (150-450); RED BLOOD COUNT 3.77 M/UL (4.20-5.40); RED CELL DISTRIBUTION WIDTH 15.3 % (11.6-14.8); WHITE BLOOD COUNT 5.1 K/UL (4.8-10.8)
--- NOTE | 2019-12-20 07:17 | NUR ---
HAND-OFF: Report given to Jeane HOLM.
--- NOTE | 2019-12-20 07:57 | General Progress Note ---
Assessment/Plan Problem List: (1) Chest pain ICD Codes: R07.9 - Chest pain, unspecified SNOMED: 40980864 (2) Chronic pain ICD Codes: G89.29 - Other chronic pain SNOMED: 98739319 Qualifiers: Qualified Codes: G89.29 - Other chronic pain (3) CHF exacerbation ICD Codes: I50.9 - Heart failure, unspecified SNOMED: 08184621 (4) Osteoarthritis of knees, bilateral ICD Codes: M17.0 - Bilateral primary osteoarthritis of knee SNOMED: 884972239, [id number] Qualifiers: Qualified Codes: M17.0 - Bilateral primary osteoarthritis of knee Status: stable, progressing Assessment/Plan: cardio f/u bp pain control dc if clear Subjective Constitutional: Reports: weakness Allergies: Coded Allergies: CARROT (Verified Allergy, Mild, 09/25/19) IBUPROFEN (Verified Allergy, Unknown, 05/17/17) PENICILLINS (Verified Allergy, Unknown, 05/17/17) TRAMADOL (Verified Allergy, Unknown, Hives, 05/17/17) TRIMETHOBENZAMIDE (Verified Allergy, Unknown, 05/17/17) All Systems: reviewed and negative except above Subjective sleepy calm Objective Last 24 Hour Vital Signs Date Time Temp Pulse Resp B/P (MAP) Pulse Ox O2 Delivery O2 Flow Rate FiO2 12/20/19 04:00 90 12/20/19 01:47 98.6 12/20/19 00:00 98.2 75 20 100/68 (79) 97 12/20/19 00:00 88 12/19/19 21:00 Room Air 12/19/19 20:00 98.8 78 20 124/85 (98) 96 12/19/19 20:00 80 12/19/19 16:00 98.6 82 20 121/78 (92) 96 12/19/19 15:43 87 12/19/19 12:00 98.1 73 20 103/75 (84) 98 12/19/19 11:32 73 12/19/19 09:00 99/51 12/19/19 09:00 Room Air 12/19/19 08:00 97.5 85 20 99/51 (67) 96 Intake and Output 12/19/19 12/20/19 19:00 07:00 Intake Total 960 ml Balance 960 ml Intake Oral 960 ml # Voids 4 Laboratory Tests 12/19/19 14:05: Troponin I 0.000 12/20/19 05:30: White Blood Count 5.1, Red Blood Count 3.77L, Hemoglobin 10.4L, Hematocrit 32.5L , Mean Corpuscular Volume 86, Mean Corpuscular Hemoglobin 27.6, Mean Corpuscular Hemoglobin Concent 32.0, Red Cell Distribution Width 15.3H, Platelet Count 255, Mean Platelet Volume 5.7L, Neutrophils (%) (Auto) , Lymphocytes (%) (Auto) , Monocytes (%) (Auto) , Eosinophils (%) (Auto) , Basophils (%) (Auto) , Neutrophils % (Manual) [Pending], Lymphocytes % (Manual) [Pending], Platelet Estimate [Pending], Platelet Morphology [Pending], Sodium Level 141, Potassium Level 3.6, Chloride Level 105, Carbon Dioxide Level 27, Anion Gap 9, Blood Urea Nitrogen 17, Creatinine 1.2, Estimat Glomerular Filtration Rate 57.2, Glucose Level 123H, Calcium Level 9.0 Height (Feet): 5 Height (Inches): 6.00 Weight (Pounds): 380 General Appearance: lethargic EENT: normal ENT inspection Neck: normal alignment Cardiovascular: normal peripheral pulses, normal rate, regular rhythm Respiratory/Chest: chest wall non-tender, lungs clear, normal breath sounds Abdomen: normal bowel sounds, non tender, soft Extremities: normal inspection Edema: no edema noted Arm (L), no edema noted Arm (R), no edema noted Leg (L), no edema noted Leg (R), no edema noted Pedal (L), no edema noted Pedal (R), no edema noted Generalized Neurologic: motor weakness Skin: normal pigmentation, warm/dry Hesham Ramsay DO Dec 20, 2019 07:57
[2019-12-20 08:00] VITALS: BP 128/78
[2019-12-20] MEDS: Lisinopril 20mg tab ORAL SCH (08:33)
[2019-12-20] MEDS: Aspirin EC 81mg tab ORAL SCH (08:34)
--- NOTE | 2019-12-20 09:02 | General Progress Note ---
Assessment/Plan Assessment/Plan: (1) Lumbar DDD (2) Lumbar Spondylosis (3) B/L Knee pain and OA (4) Morbid obesity Patient will be continued on Percocet and Dilaudid D/w Dr. Brumfield and he concurred. Subjective Date patient seen: Dec 20, 2019 Time patient seen: 08:30 - am Constitutional: Reports: weakness HEENT: Reports: no symptoms Cardiovascular: Reports: no symptoms Respiratory: Reports: no symptoms Gastrointestinal/Abdominal: Reports: no symptoms Genitourinary: Reports: no symptoms Neurologic/Psychiatric: Reports: weakness Endocrine: Reports: no symptoms Hematologic/Lymphatic: Reports: no symptoms Allergies: Coded Allergies: CARROT (Verified Allergy, Mild, 09/25/19) IBUPROFEN (Verified Allergy, Unknown, 05/17/17) PENICILLINS (Verified Allergy, Unknown, 05/17/17) TRAMADOL (Verified Allergy, Unknown, Hives, 05/17/17) TRIMETHOBENZAMIDE (Verified Allergy, Unknown, 05/17/17) Subjective Patient continues to be in pain which is severe and reduced to a moderate level on the Percocet and Dilaudid. She has no new complaints at this time. Objective Last 24 Hour Vital Signs Date Time Temp Pulse Resp B/P (MAP) Pulse Ox O2 Delivery O2 Flow Rate FiO2 12/20/19 08:33 128/78 12/20/19 08:00 98.1 95 20 128/78 (95) 95 12/20/19 07:26 98.6 12/20/19 04:00 90 12/20/19 00:00 98.2 75 20 100/68 (79) 97 12/20/19 00:00 88 12/19/19 21:00 Room Air 12/19/19 20:00 98.8 78 20 124/85 (98) 96 12/19/19 20:00 80 12/19/19 16:00 98.6 82 20 121/78 (92) 96 12/19/19 15:43 87 12/19/19 12:00 98.1 73 20 103/75 (84) 98 12/19/19 11:32 73 Intake and Output 12/19/19 12/20/19 19:00 07:00 Intake Total 960 ml Balance 960 ml Intake Oral 960 ml # Voids 4 Laboratory Tests 12/19/19 14:05: Troponin I 0.000 12/20/19 05:30: White Blood Count 5.1, Red Blood Count 3.77L, Hemoglobin 10.4L, Hematocrit 32.5L , Mean Corpuscular Volume 86, Mean Corpuscular Hemoglobin 27.6, Mean Corpuscular Hemoglobin Concent 32.0, Red Cell Distribution Width 15.3H, Platelet Count 255, Mean Platelet Volume 5.7L, Neutrophils (%) (Auto) , Lymphocytes (%) (Auto) , Monocytes (%) (Auto) , Eosinophils (%) (Auto) , Basophils (%) (Auto) , Neutrophils % (Manual) [Pending], Lymphocytes % (Manual) [Pending], Platelet Estimate [Pending], Platelet Morphology [Pending], Sodium Level 141, Potassium Level 3.6, Chloride Level 105, Carbon Dioxide Level 27, Anion Gap 9, Blood Urea Nitrogen 17, Creatinine 1.2, Estimat Glomerular Filtration Rate 57.2, Glucose Level 123H, Calcium Level 9.0 Height (Feet): 5 Height (Inches): 6.00 Weight (Pounds): 380 General Appearance: no apparent distress, alert EENT: PERRL/EOMI Neck: non-tender, normal alignment Cardiovascular: normal rate, regular rhythm Respiratory/Chest: decreased breath sounds Abdomen: other - obese Extremities: inflammation Edema: mild edema Neurologic: alert, oriented x 3 Skin: warm/dry Sarwat Gibbs Dec 20, 2019 09:02
--- NOTE | 2019-12-20 10:52 | Cardiac Electrophysiology PN ---
Assessment/Plan Assessment/Plan 1. Severe lower extremity edema. On Lasix 40 mg IV b.i.d. BNP only 42 and echocardiogram showed EF 60%. 2. Hypertension. On Lasix 40 mg IV b.i.d. and lisinopril 20 mg daily. 3. Morbid obesity. 4. History of degenerative joint disease and spine pain. She stated that she is scheduled to have spine surgery, but has not done yet. 5. Depression on Prozac. ALMA ROSA RN Subjective Subjective Diuresing well on Lasix. No CP or SOB. Objective Last 24 Hour Vital Signs Date Time Temp Pulse Resp B/P (MAP) Pulse Ox O2 Delivery O2 Flow Rate FiO2 12/20/19 08:33 128/78 12/20/19 08:00 98.1 95 20 128/78 (95) 95 12/20/19 08:00 85 12/20/19 07:26 98.6 12/20/19 04:00 90 12/20/19 00:00 98.2 75 20 100/68 (79) 97 12/20/19 00:00 88 12/19/19 21:00 Room Air 12/19/19 20:00 98.8 78 20 124/85 (98) 96 12/19/19 20:00 80 12/19/19 16:00 98.6 82 20 121/78 (92) 96 12/19/19 15:43 87 12/19/19 12:00 98.1 73 20 103/75 (84) 98 12/19/19 11:32 73 Intake and Output 12/19/19 12/20/19 18:59 06:59 Intake Total 960 ml Balance 960 ml Intake Oral 960 ml # Voids 4 Laboratory Tests Test 12/19/19 14:05 12/20/19 05:30 Troponin I 0.000 ng/mL (0.000-0.056) White Blood Count 5.1 K/UL (4.8-10.8) Red Blood Count 3.77 M/UL (4.20-5.40) L Hemoglobin 10.4 G/DL (12.0-16.0) L Hematocrit 32.5 % (37.0-47.0) L Mean Corpuscular Volume 86 FL (80-99) Mean Corpuscular Hemoglobin 27.6 PG (27.0-31.0) Mean Corpuscular Hemoglobin Concent 32.0 G/DL (32.0-36.0) Red Cell Distribution Width 15.3 % (11.6-14.8) H Platelet Count 255 K/UL (150-450) Mean Platelet Volume 5.7 FL (6.5-10.1) L Neutrophils (%) (Auto) % (45.0-75.0) Lymphocytes (%) (Auto) % (20.0-45.0) Monocytes (%) (Auto) % (1.0-10.0) Eosinophils (%) (Auto) % (0.0-3.0) Basophils (%) (Auto) % (0.0-2.0) Differential Total Cells Counted 100 Neutrophils % (Manual) 48 % (45-75) Lymphocytes % (Manual) 34 % (20-45) Monocytes % (Manual) 13 % (1-10) H Eosinophils % (Manual) 5 % (0-3) H Basophils % (Manual) 0 % (0-2) Band Neutrophils 0 % (0-8) Platelet Estimate Adequate Platelet Morphology Normal Hypochromasia 1+ Anisocytosis 1+ Sodium Level 141 MMOL/L (136-145) Potassium Level 3.6 MMOL/L (3.5-5.1) Chloride Level 105 MMOL/L (98-107) Carbon Dioxide Level 27 MMOL/L (21-32) Anion Gap 9 mmol/L (5-15) Blood Urea Nitrogen 17 mg/dL (7-18) Creatinine 1.2 MG/DL (0.55-1.30) Estimat Glomerular Filtration Rate 57.2 mL/min (>60) Glucose Level 123 MG/DL (74-106) H Calcium Level 9.0 MG/DL (8.5-10.1) Objective HEAD AND NECK: No JVD. LUNGS: Clear. CARDIOVASCULAR: Regular S1 and S2 with no gallop. ABDOMEN: Soft. EXTREMITIES: 2+ pitting edema and she is morbidly obese. Doni Coleman MD Dec 20, 2019 10:52
--- NOTE | 2019-12-20 11:11 | NUR ---
CASE MANAGEMENT:REVIEW 12/20/19 SI: CHEST PAIN. CHRONIC PAIN. CHF. BILATERAL KNEE OSTEOARTHRITIS 98.1 95 20 128/78 95% ON RA IS: IV LASIX BID IV DILAUDID Q4HRS PRN ASA PO QD PROZAC PO QD LISINOPRIL PO QD DUONEB HHN Q6HRS RTC : TELEMETRY STATUS DCP: FROM HOME PLAN: DISCHARGE HOME TODAY IF CLEARED BY HUMAN RESOURCES RECEPTIONIST
[2019-12-20] MEDS ORDERED: ALBUTEROL2.5 MG/3 M INH (11:45)
[2019-12-20] MEDS ORDERED: ATIVAN1 MG ORAL (11:49)
[2019-12-20 12:00] VITALS: BP 100/68
--- NOTE | 2019-12-20 15:00 | NUR ---
*-* INSURANCE *-* ALL CLINICALS AND REVIEWS HAVE BEEN FAXED TO: ABEL CHANDLER- [facility]#[id number] FAX ALL CLINICALS TO ABEL CHANDLER P:[phone] F:[phone]
--- NOTE | 2019-12-22 14:42 | Discharge Summary ---
Discharge Summary Discharge Summary _ DATE OF ADMISSION: 12/19/2019 DATE OF DISCHARGE: 12/20/2019 DISCHARGED BY: Dr. Hesham Ramsay CONSULTANTS: Dr. Doni Brumfield BRIEF HOSPITAL COURSE: Patient is a 54-year-old female, with history of CHF, back pain, obesity, hypertension and rheumatoid arthritis. He presented to ED complaining of chest pain, nausea and vomiting, back pain x1 day. Pain was described to be dull, 9 out of 10, nonradiating. She denied any shortness of breath. She has history of chronic back pain and is scheduled to have spine surgery. Her home medications were not helping. Upon evaluation at ED, vital signs were stable. Blood work did not show any leukocytosis. Hemoglobin and hematocrit were stable. Electrolytes were normal. Initial troponin was negative. EKG showed normal sinus rhythm with no acute ischemic changes. Chest x-ray did not show any acute process. She was given aspirin. She required multiple rounds of pain medication without significant relief. Given patient's comorbidities and risk factors, patient was then admitted. She was admitted to monitored floor. She was noted to have severe lower extremity edema, likely congestive heart failure. She was started on Lasix by drupal programmer. She was given lisinopril 20 mg for high blood pressure. She was continued on Prozac. She was also seen by painting trades worker for evaluation of low back pain and bilateral knee pain. She was initially given morphine 2 mg IV every 4 hours as needed with no pain relief. She was given Dilaudid as needed severe pain and Percocet prn moderate pain. Patient BNP was only 42. Echocardiogram showed EF of 60%. She had improved pain control. She was eventually cleared for discharge home. 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 DISCHARGE MEDICATIONS: Refer to Discharge Medication List. DISCHARGE INSTRUCTIONS: Follow-up in a week. I have been assigned to complete a discharge summary on this account, I was not involved with the patient's management.--MELVA Velez Jacqueline Robles NP Dec 22, 2019 14:42
--- NOTE | 2019-12-23 10:25 | NUR ---
*-* INSURANCE *-* DISCHARGE SUMMARY HAS BEEN FAXED TO: ABEL CHANDLER- AUTH#[id number] FAX ALL CLINICALS TO [facility]EL CHANDLER P:[phone] F:[phone] Addendum: 12/23/19 at 1027 by OVIDIO SHEETS ALSO FAXED TO: DARIO SNIDER P: [phone] F: [phone]
--- NOTE | 2019-12-27 15:46 | NUR ---
*-* INSURANCE *-* DISCHARGE SUMMARY HAS BEEN re-FAXED TO: [facility]EL CHANDLER- AUTH#[id number] FAX ALL CLINICALS TO ABEL CHANDL[facility] P:[phone] F:[phone] & [facility] P: [phone] F: [phone] Addendum: 12/27/19 at 1551 by OVIDIO SHEETS CM faxed to: [phone]
== END 2019-12-20 16:11 | disposition home or self-care (01) | DRG 194 ==
LOC: EMR 19:25 → 2E 21:24 → EDBEDREQ 21:44 → OBSVTOIN 12-19 15:24
DX: I11.0 Hypertensive heart disease with heart failure (principal); I50.23 Acute on chronic systolic (congestive) heart failure; E66.01 Morbid (severe) obesity due to excess calories; Z68.44 Body mass index [BMI] 60.0-69.9, adult; M47.817 Spondylosis without myelopathy or radiculopathy, lumbosacral region; M17.0 Bilateral primary osteoarthritis of knee; D64.9 Anemia, unspecified; G89.29 Other chronic pain; M51.36 Other intervertebral disc degeneration, lumbar region; M47.896 Other spondylosis, lumbar region; M06.9 Rheumatoid arthritis, unspecified; Z88.6 Allergy status to analgesic agent; Z88.0 Allergy status to penicillin; Z88.8 Allergy status to other drugs, medicaments and biological substances; F32.9 Major depressive disorder, single episode, unspecified
CPT/HCPCS: 36415; 71045; 80048; 80053; 80307; 81003; 83880; 84484; 85007; 85025; 93005; 93306; 96361; 96374; 96375; 96376; 99284; J2405; J7030

== ENCOUNTER 2020-04-08 23:43 | Inpatient (IN) | payer OTHER ==
[~2020-04-08] VITALS: Ht 165.1 cm; Wt 178.0 kg
[~2020-04-08 23:43] MED LIST changes: +ALBUTEROL2.5 MG/3 M INH
[2020-04-08 23:55] VITALS: BP 156/89
[2020-04-09] VITALS (7 sets, daily range): BP systolic 108–156; BP diastolic 60–92
[2020-04-09] MEDS ORDERED: Morphine Sulfate 2mg/ml Inj(IV/IM USE ONLY) IVP ONE ×2 (00:30→02:00)
[2020-04-09] MEDS ORDERED: Nitroglycerin 2% oint pkt TOPIC ONE (00:30)
--- NOTE | 2020-04-09 00:35 | Emergency Room Report ---
History of Present Illness General Chief Complaint: Edema Source: Patient, Medical Record Present Illness HPI 54-year-old -[place] female with history of morbid obesity, COPD, hypertension, ramirez esophagus, chronic pain on oxycodone 10/325mg, and uterine fibroids referred to ER by urgent care for evaluation of bilateral lower extremity edema. Patient states that the last time this happened, she needed to be admitted to the hospital for IV Lasix. She has progressively become more short of breath. She does endorse cough without phlegm or fever. She states that this is her baseline COPD cough. Denies recent travel, sick contact, fever, hemoptysis, chills, nausea, vomiting, diarrhea, dysuria, melena, hematochezia or focal weakness The patient's symptoms were gradual onset, severity was moderate, duration since 5 days. Quality: Edematous Past medical history: Morbid obesity, COPD, hypertension, uterine fibroids, ramirez esophagus Past surgical history: Bilateral ovarian cyst removal, cholecystectomy, appendectomy, left lower extremity orthopedic surgery Smoking: Denies Alcohol use: Denies Drug use: Marijuana Review of systems: CONST: No fevers or chills, No night sweats PULMONARY: No productive cough, ++ shortness of breath CARDIAC: No chest pain, No palpitations GI: No vomiting, No diarrhea , No melena_or_BRBPR : No dysuria, No hematuria, No discharge NEURO: No new_focal_weakness_or_numbness, No confusion, No vision changes 14 point Review of Systems is otherwise negative except per HPI Physical Exam: GENERAL: Awake_alert_ nontoxic, no acute distress Spo2 98% on RA -normal Morbidly obese EYES: Extraocular muscles are intact. Conjunctivae clear. Lids without swelling ENT: External nose and ear normal_in_appearance. Oropharynx clear. Head_atraumatic, Moist_oral_mucosa NECK: No JVD. No meningismus. No thyromegaly. Supple. Trachea midline RESP: Normal respiratory effort. Symmetric rise. Coarse breath sounds bilaterally. No subcostal retractions. Speaks in full and complete sentences. CARDIAC: Regular rate and regular rhytm. Bilateral 2+ pitting edema symmetric to proximal tibia bilaterally. No Homans sign. ABDOMEN: Soft. Nondistended. Nontender_No_rebound_or_guarding. MSK: Normal muscle tone, without rigidity. Extremities without asymmetric deformity or swelling. SKIN: Warm and dry. No visible cyanosis or pallor NEUROLOGIC: Alert, oriented x3. Motor_and_sensation_grossly_intact. No truncal ataxia. Gait_normal Psych: Normal mood and affect, normal judgment and insight - COORDINATION OF CARE Case was discussed with: Patient , Patient's Physician Any labs and imaging that were ordered were interpreted as part of the medical decision making: Medical Decision Making/Plan: Differential includes CHF, morbid obesity, severe deconditioning/dependent edema, pulmonary edema, pneumonia, pleural effusions, pneumothorax, among others. Patient is morbidly obese and grossly hypervolemic on examination. She states that her dry weight is usually around 360 pounds. Today she is positive at 399lb. No JVD. Bilateral 2+ pitting lower extremity edema. No Homans sign. CHF is more likely than DVT. EKG NSR without any obvious signs of ischemia. CXR shows worsening CM and vascular congestion. No evidence of pneumonia, but does have findings consistent with vascular congestion from CHF. Troponin negative. BNP 40, however this is likely falsely low 2/2 patient's severe morbid obesity. I did review previous ECHO from inpatient admission on 12/2019 that showed EF of 60% without LVH. ED intervention included aggressive diuresis, Nitropatch, and morphine 4mg IV. CURES report done 2/2 inability to rule out pain seeking behavior. I Explained to patient that due to her morbid obesity and several comorbid conditions, that we need to treat her leg pain (from swelling) in step be fashion to prevent apnea. She was prescribed oxy 10/325 #45 tabs on 03/31/[address] Ohara Symptoms are not likely to be due to pulmonary embolism, the patient has no significant PE risk factors and has a more likely alternate cause of their symptoms, given their chest xray findings, lung exam and presentation so workup was deferred and not pursued. The patient appears to have leg swelling 2/2 dependent edema vs subclinical CHF. Due to her body habitus and excess water weight of 40lbs she is not a suitable candidate for outpatient treatment so will be admitted for inpatient diuresis and further evaluation and treatment. Pt to be transferred to [facility] she is capitated there by insurance The patient has been informed and updated of their current clinical status. The patient has given verbal consent for the transfer. The risks and benefits were explained and the patient verbalizes their understanding. Allergies: Coded Allergies: CARROT (Verified Allergy, Mild, 09/25/19) IBUPROFEN (Verified Allergy, Unknown, 05/17/17) PENICILLINS (Verified Allergy, Unknown, 05/17/17) TRAMADOL (Verified Allergy, Unknown, Hives, 05/17/17) TRIMETHOBENZAMIDE (Verified Allergy, Unknown, 05/17/17) COVID-19 Screening Contact w/high risk pt: No Recent Travel to affected area: No Experienced COVID-19 symptoms?: No COVID-19 Testing performed LCPC: No Nursing Documentation-PMH Hx Cardiac Problems: Yes - CHF Hx Hypertension: Yes Hx Pacemaker: No Hx Asthma: Yes Hx COPD: No Hx Diabetes: Yes Hx Cancer: No Hx Gastrointestinal Problems: Yes - pancreatitis Hx Dialysis: No Hx Cerebrovascular Accident: No Hx Seizures: No Physical Exam Vital Signs Date Time Temp Pulse Resp B/P (MAP) Pulse Ox O2 Delivery O2 Flow Rate FiO2 04/08/20 23:45 98.1 87 20 156/89 (111) 98 Room Air Sp02 EP Interpretation: reviewed, normal Medical Decision Making Diagnostic Impression: Primary Impression: CHF exacerbation Additional Impressions: Bilateral leg edema Chronic pain Hypertension Osteoarthritis of knees, bilateral Cocaine abuse Morbid obesity with BMI of 60.0-69.9, adult EKG Diagnostic Results FREDERIC Scribzackary Mason 12-lead EKG (interpreted by me) Time: 0038 Indication: Rhythm analysis Tracing visualized and Interpreted by me. Rhythm: Normal sinus rhythm Rate: 80 bpm QTc: 459 Morphology: No_significant_ST_elevations_or_depressions, No STEMI Impression: Normal_sinus_rhythm_without_significant_abnormality Rhythm Strip Diag. Results Rhythm Strip Time: 00:46 EP Interpretation: yes Rate: 81 Rhythm: NSR, no PVC's, no ectopy Chest X-Ray Diagnostic Results Chest X-Ray Diagnostic Results : PA Scribe Text Chest X-Ray: Views: 1 view(s) Indication: SOB Findings: CM. Interstitial edema. Mediastinum normal. No infiltrate. Impression: CM, pleural effusion, Interstitial edema The X-ray(s) were independently viewed and interpreted contemporaneously Electronically signed by , Catherine Alaniz DO Reevaluation Time: 02:18 Last Vital Signs Date Time Temp Pulse Resp B/P (MAP) Pulse Ox O2 Delivery O2 Flow Rate FiO2 04/09/20 00:28 152/92 04/08/20 23:45 98.1 87 20 98 Room Air Status: improved Disposition: ADMITTED INPATIENT - [facility] Admit Decision Time: 01:19 Condition: Stable Referrals: [facility],REFERR[facility] (PCP) Catherine Alaniz D.O. Apr 09, 2020 00:35
[2020-04-09 01:04] LABS: APPEARANCE,URINE CLEAR; BILIRUBIN, URINE NEGATIVE (NEGATIVE); COLOR,URINE PALE YELLOW; GLUCOSE, URINE (UA) NEGATIVE (NEGATIVE); KETONES,URINE NEGATIVE (NEGATIVE); LEUKOCYTE ESTERASE ,URINE NEGATIVE (NEGATIVE); NITRITE,URINE NEGATIVE (NEGATIVE); PH,URINE 5 (4.5-8.0); PROTEIN,URINE NEGATIVE (NEGATIVE); UROBILINOGEN,URINE NORMAL MG/DL (0.0-1.0)
[2020-04-09 01:07] LABS: BASOPHILS % (AUTO) 0.9 % (0.0-2.0); EOSINOPHILS % (AUTO) 2.8 % (0.0-3.0); HEMATOCRIT 33.5 % (37.0-47.0); LYMPHOCYTES % (AUTO) 29.3 % (20.0-45.0); MEAN CORPUSCULAR VOLUME 91 FL (80-99); MONOCYTES % (AUTO) 10.1 % (1.0-10.0); NEUTROPHILS % (AUTO) 56.9 % (45.0-75.0); PLATELET COUNT 269 K/UL (150-450); RED BLOOD COUNT 3.68 M/UL (4.20-5.40); RED CELL DISTRIBUTION WIDTH 16.6 % (11.6-14.8); WHITE BLOOD COUNT 6.4 K/UL (4.8-10.8)
[2020-04-09 01:18] LABS: ANION GAP 9 mmol/L (5-15); BLOOD UREA NITROGEN 16 mg/dL (7-18); CALCIUM 8.6 MG/DL (8.5-10.1); CARBON DIOXIDE 27 MMOL/L (21-32); CHLORIDE 105 MMOL/L (98-107); CREATININE 1.1 MG/DL (0.55-1.30); POTASSIUM 3.5 MMOL/L (3.5-5.1); SODIUM 141 MMOL/L (136-145)
[2020-04-09 01:26] LABS: INR 0.9 (0.9-1.1)
[2020-04-09 01:29] LABS: ALANINE AMINOTRANSFERASE 19 U/L (12-78); ALBUMIN 3.2 G/DL (3.4-5.0); ALBUMIN/GLOBULIN RATIO 0.8 (1.0-2.7); ALKALINE PHOSPHATASE 98 U/L (46-116); ASPARTATE AMINO TRANSFERASE 14 U/L (15-37); BILIRUBIN,TOTAL 0.2 MG/DL (0.2-1.0)
[2020-04-09] MEDS ORDERED: Morphine Sulfate 2mg/ml Inj(IV/IM USE ONLY) IVP PRN ×2 (04:00→11:30)
[2020-04-09] MEDS ORDERED: Albuterol/Ipratropium 3ml neb HHN PRN (05:30)
[2020-04-09] MEDS ORDERED: Milk of Magnesia 30ml Ud ORAL PRN (05:30)
[2020-04-09] MEDS: Aspirin Baby 81mg ORAL SCH (08:59)
[2020-04-09] MEDS: HYDROcodone/Acetamin 5/325 tab ORAL PRN (09:00)
[2020-04-09] MEDS: Heparin 5000 units/ml inj SUBQ SCH ×3 (09:00→20:56)
[2020-04-09] MEDS: Morphine Sulfate 4mg/ml Inj (IV USE ONLY) IVP PRN ×4 (11:32→20:54)
--- NOTE | 2020-04-09 11:32 | History & Physical ---
History and Physical History & Physicial HP dictated # [id number] Chino Douglas MD Apr 09, 2020 11:32
[2020-04-09] MEDS: DiphenhydrAMINE 50mg/ml Inj IVP PRN ×2 (12:10→21:14)
--- NOTE | 2020-04-09 13:45 | Consultation ---
DATE OF CONSULTATION: 04/09/2020 PULMONARY CONSULTATION CONSULTING PHYSICIAN: Georges Marcos MD. HISTORY OF PRESENT ILLNESS: This is a 54-year-old female with a history of morbid obesity. She came to the hospital with shortness of breath as well as bilateral lower extremity edema. She has a history of hypertension, COPD, Madrigal's esophagus, and chronic pain. She also has a history of uterine fibroids. The patient states that she in the past had this issue and received diuretics as well. She reports cough and COPD. She denies any recent travel. Her COVID-19 test is negative. Imaging studies were obtained. An x-ray chest was obtained several months ago, which was negative. The patient states she is feeling better. PAST MEDICAL HISTORY: Obesity, COPD, hypertension, Madrigal's esophagus. PAST SURGICAL HISTORY: Includes cholecystectomy, appendectomy, previous orthopedic surgery. HOME MEDICATIONS: Reviewed and reconciled. SOCIAL HISTORY: She admits to marijuana usage. Denies alcohol or tobacco. REVIEW OF SYSTEMS: Denies any headaches, hematemesis, melena, or hematochezia. PHYSICAL EXAMINATION: GENERAL: Reveals an obese female. VITAL SIGNS: Blood pressure is 120/70, heart rate 94, respirations . She is afebrile. HEENT: Unremarkable. LUNGS: Clear breath sounds bilaterally. ABDOMEN: Soft. EXTREMITIES: There is 1+ edema. LABORATORY DATA: Lab testing shows hemoglobin of 10, otherwise normal CBC and BMP. Troponin is negative. IMPRESSION: 1. COPD, stable. 2. Chronic pain. 3. Lower extremity edema. DISCUSSION: Agree with current admission and care. The patient needs diuretics. Continue home medications. Continue pain medications and breathing treatments. We will follow as inclusion special education teacher. Suggest 2D echo. Georges Marcos M.D. DR: BRYNN JOB#: [id number] CC:
--- NOTE | 2020-04-09 13:53 | Cardiology Report ---
APPROVED REPORT EKG Measurement Heart [id number] <Conclusion> Normal sinus rhythm Normal ECG
--- NOTE | 2020-04-09 14:29 | Cardiology Report ---
APPROVED REPORT EXAM: Two-dimensional and M-mode echocardiogram with Doppler and color Doppler. INDICATION Congestive Heart Failure M-Mode DIMENSIONS IVSd1.4 (0.7-1.1cm)Left Atrium (MM)4.3 (1.6-4.0cm) LVDd5.7 (3.5-5.6cm)Aortic Root3.4 (2.0-3.7cm) PWd1.4 (0.7-1.1cm)Aortic Cusp Exc.2.0 (1.5-2.0cm) IVSs1.7 cmEPSS0.3 (>1.0cm) LVDs4.2 (2.5-4.0cm) PWs1.8 cm <Conclusion> Technically difficult study due to poor acoustical windows & pts body habitus Normal left ventricular chamber size, systolic function and wall motion to extent visualized. Left ventricular ejection fraction estimated to be 60 %. Mild left ventricular hypertrophy. Anterior Echo-free space, may be due to pericardial fat or effusion. Left and right atrial sizes at upper limits of normal. Right ventricular chamber size is within normal limits. Focal aortic valve sclerosis with adequate cusp excursion. Thickened mitral valve leaflets with normal excursion. Mitral annulus and aortic root calcification. Pulmonic valve not well visualized. Normal tricuspid valve structure. IVC at normal size with physiologic collapse. A color flow and spectral Doppler study was performed and revealed: Trace to mild mitral regurgitation. Mitral diastolic velocities suggest reduced left ventricular relaxation c/w mild LV diastolic dysfunction (Grade I ). Trace to mild tricuspid regurgitation. Tricuspid systolic velocities suggests peak right ventricular systolic pressure of 27 mmHg.
--- NOTE | 2020-04-09 15:36 | Diagnostic Imaging Report ---
Procedure: XRAY Chest 1v Reason for study: Reason For Exam: SOB Comparison films: 12/18/2019. FINDINGS: Radiograph is underpenetrated and lordotic. Vascularity is normal. There appears to be left basilar retrocardiac disease with obliteration of the left hemidiaphragm. There is mild cardiomegaly. There may be a left effusion. The bony thorax appear unremarkable. IMPRESSION: Left basilar opacity perhaps airspace disease and effusion.
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
[2020-04-10] VITALS: BP 132/80
[2020-04-10] MEDS: Morphine Sulfate 4mg/ml Inj (IV USE ONLY) IVP PRN ×5 (02:25→20:34)
[2020-04-10 04:00] VITALS: BP 102/64
[2020-04-10] MEDS: DiphenhydrAMINE 50mg/ml Inj IVP PRN ×3 (04:19→17:24)
--- NOTE | 2020-04-10 06:56 | Pulmonology Progress Note ---
Subjective Interval Events: None new Constitutional: Reports: no symptoms HEENT: Repors: no symptoms Respiratory: Reports: dry cough, shortness of breath Cardiovascular: Reports: no symptoms Gastrointestinal/Abdominal: Reports: no symptoms Allergies: Coded Allergies: CARROT (Verified Allergy, Mild, 09/25/19) IBUPROFEN (Verified Allergy, Unknown, 05/17/17) PENICILLINS (Verified Allergy, Unknown, 05/17/17) TRAMADOL (Verified Allergy, Unknown, Hives, 05/17/17) TRIMETHOBENZAMIDE (Verified Allergy, Unknown, 05/17/17) Objective Last 24 Hour Vital Signs Date Time Temp Pulse Resp B/P (MAP) Pulse Ox O2 Delivery O2 Flow Rate FiO2 04/10/20 04:00 97.5 77 20 102/64 (77) 99 04/10/20 04:00 74 04/10/20 00:00 96.4 82 21 132/80 (97) 99 04/10/20 00:00 85 04/09/20 21:00 Room Air 04/09/20 20:00 85 04/09/20 20:00 97.9 82 22 108/62 (77) 100 04/09/20 18:16 97.5 04/09/20 16:00 97.5 78 18 112/60 (77) 97 04/09/20 16:00 78 04/09/20 15:10 97.7 04/09/20 12:02 97.7 04/09/20 12:00 76 04/09/20 12:00 97.7 88 20 118/73 (88) 96 04/09/20 09:30 97.7 04/09/20 09:00 Room Air 04/09/20 08:00 97.7 91 18 127/79 (95) 97 04/09/20 08:00 83 Intake and Output 04/09/20 04/10/20 19:00 07:00 Intake Total 480 ml 300 ml Output Total 1400 ml 500 ml Balance -920 ml -200 ml Intake Oral 480 ml 300 ml Output Urine Total 1400 ml 500 ml General Appearance: no acute distress HEENT: normocephalic Respiratory: chest wall non-tender, decreased breath sounds Cardiovascular: normal peripheral pulses Abdomen: normal bowel sounds Microbiology Date/Time Source Procedure Growth Status 04/09/20 00:28 Nasopharynx SARS-CoV-2 RdRp Gene Assay - Final Complete Current Medications Medications (Trade) Dose Ordered Sig/Dave Route PRN Reason Start Time Stop Time Status Last Admin Dose Admin Acetaminophen (Tylenol) 650 mg Q4H PRN ORAL Mild Pain (Pain Scale 1-3) 04/09/20 05:30 05/09/20 05:29 Acetaminophen/ Hydrocodone Bitart ([place] 5/325) 1 tab Q4H PRN ORAL Moderate Pain (Pain Scale 4-6) 04/09/20 08:15 04/16/20 08:14 04/09/20 09:00 Albuterol/ Ipratropium (Albuterol/ Ipratropium) 3 ml Q6H PRN HHN Shortness of Breath 04/09/20 05:30 04/14/20 05:29 Aspirin (ASA) 81 mg DAILY ORAL 04/09/20 09:00 05/24/20 08:59 04/09/20 08:59 Dextrose (Dextrose 50%) 25 ml Q30M PRN IV Hypoglycemia 04/09/20 05:30 07/08/20 05:29 Dextrose (Dextrose 50%) 50 ml Q30M PRN IV Hypoglycemia 04/09/20 05:30 07/08/20 05:29 Diphenhydramine HCl (Benadryl) 50 mg Q6H PRN IVP Itching 04/09/20 12:15 05/09/20 12:14 04/10/20 04:19 Famotidine (Pepcid) 40 mg DAILY ORAL 04/09/20 09:00 07/08/20 08:59 04/09/20 08:59 Furosemide (Lasix) 40 mg BID IV 04/09/20 09:00 05/09/20 08:59 04/09/20 17:46 Heparin Sodium (Porcine) (Heparin 5000 units/ml) 5,000 units EVERY 12 HOURS SUBQ 04/09/20 09:00 05/24/20 08:59 Magnesium Hydroxide (Mom) 30 ml HSPRN PRN ORAL Constipation 04/09/20 05:30 05/09/20 05:29 Morphine Sulfate (Morphine Sulfate) 2 mg Q3H PRN IVP Moderate Pain (Pain Scale 4-6) 04/09/20 11:30 04/16/20 11:29 Morphine Sulfate (Morphine Sulfate) 4 mg Q3H PRN IVP Severe Pain (Pain Scale 7-10) 04/09/20 11:30 04/16/20 11:29 04/10/20 02:25 Assessment/Plan Assessment/Plan IMPRESSION: 1. COPD, stable. 2. Chronic pain. 3. Lower extremity edema. DISCUSSION: Continue diuretics. Continue home medications. Continue pain medications and breathing treatments. I will follow as ice skating coach. Await 2D echo. Georges Marcos M.D. Georges Marcos MD Apr 10, 2020 06:56
[2020-04-10 08:00] VITALS: BP 123/78
[2020-04-10] MEDS: Heparin 5000 units/ml inj SUBQ SCH ×2 (09:00→20:36)
[2020-04-10] MEDS: Aspirin Baby 81mg ORAL SCH (09:16)
[2020-04-10] MEDS ORDERED: AMLODIPINE BESY10 MG ORAL (10:31)
[2020-04-10] MEDS ORDERED: FUROSEMIDE40 MG ORAL (10:31)
[2020-04-10] MEDS ORDERED: PROTONIX20 MG ORAL (10:31)
[2020-04-10 12:00] VITALS: BP 120/76
--- NOTE | 2020-04-10 14:41 | General Progress Note ---
Subjective Allergies: Coded Allergies: CARROT (Verified Allergy, Mild, 09/25/19) IBUPROFEN (Verified Allergy, Unknown, 05/17/17) PENICILLINS (Verified Allergy, Unknown, 05/17/17) TRAMADOL (Verified Allergy, Unknown, Hives, 05/17/17) TRIMETHOBENZAMIDE (Verified Allergy, Unknown, 05/17/17) Subjective better Objective Last 24 Hour Vital Signs Date Time Temp Pulse Resp B/P (MAP) Pulse Ox O2 Delivery O2 Flow Rate FiO2 04/10/20 12:00 70 04/10/20 12:00 97.7 75 20 120/76 (91) 98 04/10/20 09:00 Room Air 04/10/20 08:00 96.8 79 20 123/78 (93) 98 04/10/20 08:00 79 04/10/20 04:00 97.5 77 20 102/64 (77) 99 04/10/20 04:00 74 04/10/20 00:00 96.4 82 21 132/80 (97) 99 04/10/20 00:00 85 04/09/20 21:00 Room Air 04/09/20 20:00 85 04/09/20 20:00 97.9 82 22 108/62 (77) 100 04/09/20 18:16 97.5 04/09/20 16:00 97.5 78 18 112/60 (77) 97 04/09/20 16:00 78 04/09/20 15:10 97.7 Intake and Output 04/09/20 04/10/20 19:00 07:00 Intake Total 480 ml 300 ml Output Total 1400 ml 500 ml Balance -920 ml -200 ml Intake Oral 480 ml 300 ml Output Urine Total 1400 ml 500 ml Height (Feet): 5 Height (Inches): 5.00 Weight (Pounds): 387 Cardiovascular: normal rate Respiratory/Chest: lungs clear Edema: 3+ Generalized Assessment/Plan Problem List: (1) CHF exacerbation ICD Codes: I50.9 - Heart failure, unspecified SNOMED: 56247038 (2) Bilateral leg edema ICD Codes: R60.0 - Localized edema SNOMED: 017503178 (3) Osteoarthritis of knees, bilateral ICD Codes: M17.0 - Bilateral primary osteoarthritis of knee SNOMED: 168662330, 609991761 (4) Morbid obesity with BMI of 60.0-69.9, adult ICD Codes: E66.01 - Morbid (severe) obesity due to excess calories; Z68.44 - Body mass index (BMI) 60.0-69.9, adult SNOMED: 758657697, 760585683 (5) Hypertension ICD Codes: I10 - Essential (primary) hypertension SNOMED: 74905333 (6) Mild diastolic dysfunction ICD Codes: I51.9 - Heart disease, unspecified SNOMED: 7186434 Assessment/Plan: cont lasix pain meds follow labs Chino Douglas MD Apr 10, 2020 14:41
[2020-04-10 16:00] VITALS: BP 122/77
[2020-04-10 20:00] VITALS: BP 128/87
[2020-04-10] MEDS: HYDROcodone/Acetamin 5/325 tab ORAL PRN (22:44)
[2020-04-11] VITALS: BP 126/93
[2020-04-11] MEDS: DiphenhydrAMINE 50mg/ml Inj IVP PRN ×3 (00:12→20:01)
[2020-04-11] MEDS: Morphine Sulfate 4mg/ml Inj (IV USE ONLY) IVP PRN ×4 (00:13→12:21)
[2020-04-11 04:00] VITALS: BP 135/94
[2020-04-11 08:00] VITALS: BP 116/74
[2020-04-11] MEDS: Heparin 5000 units/ml inj SUBQ SCH ×2 (08:30→20:01)
[2020-04-11] MEDS: Aspirin Baby 81mg ORAL SCH (08:33)
--- NOTE | 2020-04-11 10:23 | Pulmonology Progress Note ---
Subjective Interval Events: None new Constitutional: Reports: no symptoms HEENT: Repors: no symptoms Respiratory: Reports: dry cough, shortness of breath Cardiovascular: Reports: no symptoms Gastrointestinal/Abdominal: Reports: no symptoms Allergies: Coded Allergies: CARROT (Verified Allergy, Mild, 09/25/19) IBUPROFEN (Verified Allergy, Unknown, 05/17/17) PENICILLINS (Verified Allergy, Unknown, 05/17/17) TRAMADOL (Verified Allergy, Unknown, Hives, 05/17/17) TRIMETHOBENZAMIDE (Verified Allergy, Unknown, 05/17/17) Objective Last 24 Hour Vital Signs Date Time Temp Pulse Resp B/P (MAP) Pulse Ox O2 Delivery O2 Flow Rate FiO2 04/11/20 08:00 97.9 70 18 116/74 (88) 100 04/11/20 04:00 97.0 73 18 135/94 (108) 96 04/11/20 04:00 71 04/11/20 00:00 97.9 74 18 126/93 (104) 98 04/11/20 00:00 74 04/10/20 21:00 Room Air 04/10/20 20:00 98.0 79 18 128/87 (101) 99 04/10/20 20:00 82 04/10/20 16:00 97.7 77 20 122/77 (92) 98 04/10/20 16:00 76 04/10/20 12:00 70 04/10/20 12:00 97.7 75 20 120/76 (91) 98 Intake and Output 04/10/20 04/11/20 19:00 07:00 Output Total 1000 ml Balance -1000 ml Output Urine Total 1000 ml # Voids 3 General Appearance: no acute distress HEENT: normocephalic Respiratory: chest wall non-tender, decreased breath sounds Cardiovascular: normal peripheral pulses Abdomen: normal bowel sounds Microbiology Date/Time Source Procedure Growth Status 04/09/20 00:28 Nasopharynx SARS-CoV-2 RdRp Gene Assay - Final Complete Current Medications Medications (Trade) Dose Ordered Sig/Dave Route PRN Reason Start Time Stop Time Status Last Admin Dose Admin Acetaminophen (Tylenol) 650 mg Q4H PRN ORAL Mild Pain (Pain Scale 1-3) 04/09/20 05:30 05/09/20 05:29 Acetaminophen/ Hydrocodone Bitart ([place] 5/325) 1 tab Q4H PRN ORAL Moderate Pain (Pain Scale 4-6) 04/09/20 08:15 04/16/20 08:14 04/10/20 22:44 Albuterol/ Ipratropium (Albuterol/ Ipratropium) 3 ml Q6H PRN HHN Shortness of Breath 04/09/20 05:30 04/14/20 05:29 Aspirin (ASA) 81 mg DAILY ORAL 04/09/20 09:00 05/24/20 08:59 04/11/20 08:33 Dextrose (Dextrose 50%) 25 ml Q30M PRN IV Hypoglycemia 04/09/20 05:30 07/08/20 05:29 Dextrose (Dextrose 50%) 50 ml Q30M PRN IV Hypoglycemia 04/09/20 05:30 07/08/20 05:29 Diphenhydramine HCl (Benadryl) 50 mg Q6H PRN IVP Itching 04/09/20 12:15 05/09/20 12:14 04/11/20 08:33 Famotidine (Pepcid) 40 mg DAILY ORAL 04/09/20 09:00 07/08/20 08:59 04/11/20 08:33 Furosemide (Lasix) 40 mg BID IV 04/09/20 09:00 05/09/20 08:59 04/11/20 08:32 Heparin Sodium (Porcine) (Heparin 5000 units/ml) 5,000 units EVERY 12 HOURS SUBQ 04/09/20 09:00 05/24/20 08:59 Magnesium Hydroxide (Mom) 30 ml HSPRN PRN ORAL Constipation 04/09/20 05:30 05/09/20 05:29 Morphine Sulfate (Morphine Sulfate) 2 mg Q3H PRN IVP Moderate Pain (Pain Scale 4-6) 04/09/20 11:30 04/16/20 11:29 Morphine Sulfate (Morphine Sulfate) 4 mg Q3H PRN IVP Severe Pain (Pain Scale 7-10) 04/09/20 11:30 04/16/20 11:29 04/11/20 08:33 Assessment/Plan Assessment/Plan IMPRESSION: 1. COPD, stable. 2. Chronic pain. 3. Lower extremity edema. DISCUSSION: Continue diuretics. Continue home medications. Continue pain medications and breathing treatments. 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 impression, plan, and exam edited and reviewed in detail care discussed with Miguelito Redmond MD Apr 11, 2020 10:23
[2020-04-11 12:00] VITALS: BP 135/64
--- NOTE | 2020-04-11 15:15 | General Progress Note ---
Subjective Allergies: Coded Allergies: CARROT (Verified Allergy, Mild, 09/25/19) IBUPROFEN (Verified Allergy, Unknown, 05/17/17) PENICILLINS (Verified Allergy, Unknown, 05/17/17) TRAMADOL (Verified Allergy, Unknown, Hives, 05/17/17) TRIMETHOBENZAMIDE (Verified Allergy, Unknown, 05/17/17) Subjective better Objective Last 24 Hour Vital Signs Date Time Temp Pulse Resp B/P (MAP) Pulse Ox O2 Delivery O2 Flow Rate FiO2 04/11/20 12:00 77 04/11/20 12:00 98.1 70 18 135/64 (87) 96 04/11/20 09:00 Room Air 04/11/20 08:00 97.9 70 18 116/74 (88) 100 04/11/20 08:00 80 04/11/20 04:00 97.0 73 18 135/94 (108) 96 04/11/20 04:00 71 04/11/20 00:00 97.9 74 18 126/93 (104) 98 04/11/20 00:00 74 04/10/20 21:00 Room Air 04/10/20 20:00 98.0 79 18 128/87 (101) 99 04/10/20 20:00 82 04/10/20 16:00 97.7 77 20 122/77 (92) 98 04/10/20 16:00 76 Intake and Output 04/10/20 04/11/20 19:00 07:00 Output Total 1000 ml Balance -1000 ml Output Urine Total 1000 ml # Voids 3 Height (Feet): 5 Height (Inches): 5.00 Weight (Pounds): 387 Cardiovascular: normal rate Respiratory/Chest: lungs clear Edema: 2+ Generalized Assessment/Plan Problem List: (1) CHF exacerbation ICD Codes: I50.9 - Heart failure, unspecified SNOMED: 27476110 (2) Bilateral leg edema ICD Codes: R60.0 - Localized edema SNOMED: 754933146 (3) Osteoarthritis of knees, bilateral ICD Codes: M17.0 - Bilateral primary osteoarthritis of knee SNOMED: 082242725, 675470740 (4) Morbid obesity with BMI of 60.0-69.9, adult ICD Codes: E66.01 - Morbid (severe) obesity due to excess calories; Z68.44 - Body mass index (BMI) 60.0-69.9, adult SNOMED: 328310257, 160762719 (5) Hypertension ICD Codes: I10 - Essential (primary) hypertension SNOMED: 85510350 (6) Mild diastolic dysfunction ICD Codes: I51.9 - Heart disease, unspecified SNOMED: 7679393 Assessment/Plan: cont lasix pain meds po follow labs Discussed with RN and gearcase assembler Chino Douglas MD Apr 11, 2020 15:15
[2020-04-11] MEDS ORDERED: HYDROcodone/Acetamin 10/325 tab ORAL PRN (15:30)
[2020-04-11 16:00] VITALS: BP 118/64
[2020-04-11 20:00] VITALS: BP 137/72
[2020-04-12] VITALS: BP 135/70
[2020-04-12] MEDS: DiphenhydrAMINE 50mg/ml Inj IVP PRN ×4 (02:03→22:29)
[2020-04-12 04:00] VITALS: BP 129/71
[2020-04-12 08:00] VITALS: BP 144/86
[2020-04-12 08:16] LABS: ANION GAP 7 mmol/L (5-15); BLOOD UREA NITROGEN 20 mg/dL (7-18); CALCIUM 8.9 MG/DL (8.5-10.1); CARBON DIOXIDE 31 MMOL/L (21-32); CHLORIDE 106 MMOL/L (98-107); POTASSIUM 4.4 MMOL/L (3.5-5.1); SODIUM 144 MMOL/L (136-145)
[2020-04-12] MEDS: Aspirin Baby 81mg ORAL SCH (08:39)
[2020-04-12] MEDS: Furosemide 40mg tab ORAL SCH (08:39)
[2020-04-12] MEDS: Heparin 5000 units/ml inj SUBQ SCH ×2 (08:40→20:22)
--- NOTE | 2020-04-12 10:12 | Pulmonology Progress Note ---
Subjective Constitutional: Reports: no symptoms HEENT: Repors: no symptoms Respiratory: Reports: shortness of breath Cardiovascular: Reports: no symptoms Gastrointestinal/Abdominal: Reports: no symptoms Allergies: Coded Allergies: CARROT (Verified Allergy, Mild, 09/25/19) IBUPROFEN (Verified Allergy, Unknown, 05/17/17) PENICILLINS (Verified Allergy, Unknown, 05/17/17) TRAMADOL (Verified Allergy, Unknown, Hives, 05/17/17) TRIMETHOBENZAMIDE (Verified Allergy, Unknown, 05/17/17) Subjective care noted and reviewed Objective Last 24 Hour Vital Signs Date Time Temp Pulse Resp B/P (MAP) Pulse Ox O2 Delivery O2 Flow Rate FiO2 04/12/20 08:00 97.1 68 18 144/86 (105) 97 04/12/20 06:58 97.9 04/12/20 04:00 97.9 68 18 129/71 (90) 96 04/12/20 02:33 97.9 04/12/20 00:00 97.8 77 20 135/70 (91) 96 04/11/20 21:00 Room Air 04/11/20 20:00 97.9 75 20 137/72 (93) 95 04/11/20 16:00 98.1 70 18 118/64 (82) 93 04/11/20 12:00 77 04/11/20 12:00 98.1 70 18 135/64 (87) 96 Intake and Output 04/11/20 04/12/20 19:00 07:00 Intake Total 1330 ml 600 ml Output Total 1400 ml 700 ml Balance -70 ml -100 ml Intake Oral 1330 ml 600 ml Output Urine Total 1400 ml 700 ml # Voids 3 General Appearance: no acute distress HEENT: normocephalic Respiratory: chest wall non-tender, normal breath sounds, no respiratory distress, decreased breath sounds Cardiovascular: normal peripheral pulses, normal rate, regular rhythm Abdomen: normal bowel sounds, soft, non tender, non distended Extremities: no cyanosis, no clubbing, no edema Laboratory Tests 04/12/20 06:40: Sodium Level 144, Potassium Level 4.4, Chloride Level 106, Carbon Dioxide Level 31, Anion Gap 7, Blood Urea Nitrogen 20H, Creatinine 1.0, Estimat Glomerular Filtration Rate > 60, Glucose Level 91, Calcium Level 8.9 Current Medications Medications (Trade) Dose Ordered Sig/Dave Route PRN Reason Start Time Stop Time Status Last Admin Dose Admin Acetaminophen (Tylenol) 650 mg Q4H PRN ORAL Mild Pain (Pain Scale 1-3) 04/09/20 05:30 05/09/20 05:29 Albuterol/ Ipratropium (Albuterol/ Ipratropium) 3 ml Q6H PRN HHN Shortness of Breath 04/09/20 05:30 04/14/20 05:29 Aspirin (ASA) 81 mg DAILY ORAL 04/09/20 09:00 05/24/20 08:59 04/12/20 08:39 Dextrose (Dextrose 50%) 25 ml Q30M PRN IV Hypoglycemia 04/09/20 05:30 07/08/20 05:29 Dextrose (Dextrose 50%) 50 ml Q30M PRN IV Hypoglycemia 04/09/20 05:30 07/08/20 05:29 Diphenhydramine HCl (Benadryl) 50 mg Q6H PRN IVP Itching 04/09/20 12:15 05/09/20 12:14 04/12/20 08:30 Famotidine (Pepcid) 40 mg DAILY ORAL 04/09/20 09:00 07/08/20 08:59 04/12/20 08:40 Furosemide (Lasix) 40 mg DAILY ORAL 04/12/20 09:00 05/12/20 08:59 04/12/20 08:39 Heparin Sodium (Porcine) (Heparin 5000 units/ml) 5,000 units EVERY 12 HOURS SUBQ 04/09/20 09:00 05/24/20 08:59 Magnesium Hydroxide (Mom) 30 ml HSPRN PRN ORAL Constipation 04/09/20 05:30 05/09/20 05:29 Oxycodone/ Acetaminophen (Percocet 10/325) 1 tab Q4H PRN ORAL SEVERE PAIN 04/11/20 18:15 04/18/20 18:14 04/12/20 06:28 Assessment/Plan Assessment/Plan IMPRESSION: 1. COPD, stable. off oxygen 2. Chronic pain. 3. Lower extremity edema. DISCUSSION: ok to dc per pulmonary Continue diuretics. Continue home medications. Continue pain medications and breathing treatments. stable off oxygen impression, plan, and exam edited and reviewed in detail care discussed with Miguelito Redmond MD Apr 12, 2020 10:12
[2020-04-12] MEDS ORDERED: PERCOCET 10-321 EACH ORAL (10:40)
[2020-04-12] MEDS ORDERED: FUROSEMIDE40 MG ORAL (10:40)
[2020-04-12] MEDS ORDERED: BENADRYL25 MG ORAL (10:41)
--- NOTE | 2020-04-12 10:50 | General Progress Note ---
Subjective Allergies: Coded Allergies: CARROT (Verified Allergy, Mild, 09/25/19) IBUPROFEN (Verified Allergy, Unknown, 05/17/17) PENICILLINS (Verified Allergy, Unknown, 05/17/17) TRAMADOL (Verified Allergy, Unknown, Hives, 05/17/17) TRIMETHOBENZAMIDE (Verified Allergy, Unknown, 05/17/17) Subjective C/O pain Objective Last 24 Hour Vital Signs Date Time Temp Pulse Resp B/P (MAP) Pulse Ox O2 Delivery O2 Flow Rate FiO2 04/12/20 08:00 97.1 68 18 144/86 (105) 97 04/12/20 06:58 97.9 04/12/20 04:00 97.9 68 18 129/71 (90) 96 04/12/20 02:33 97.9 04/12/20 00:00 97.8 77 20 135/70 (91) 96 04/11/20 21:00 Room Air 04/11/20 20:00 97.9 75 20 137/72 (93) 95 04/11/20 16:00 98.1 70 18 118/64 (82) 93 04/11/20 12:00 77 04/11/20 12:00 98.1 70 18 135/64 (87) 96 Intake and Output 04/11/20 04/12/20 19:00 07:00 Intake Total 1330 ml 600 ml Output Total 1400 ml 700 ml Balance -70 ml -100 ml Intake Oral 1330 ml 600 ml Output Urine Total 1400 ml 700 ml # Voids 3 Laboratory Tests 04/12/20 06:40: Sodium Level 144, Potassium Level 4.4, Chloride Level 106, Carbon Dioxide Level 31, Anion Gap 7, Blood Urea Nitrogen 20H, Creatinine 1.0, Estimat Glomerular Filtration Rate > 60, Glucose Level 91, Calcium Level 8.9 Height (Feet): 5 Height (Inches): 5.00 Weight (Pounds): 387 Cardiovascular: normal rate Respiratory/Chest: lungs clear Edema: 3+ Generalized Assessment/Plan Problem List: (1) CHF exacerbation ICD Codes: I50.9 - Heart failure, unspecified SNOMED: 55105096 (2) Bilateral leg edema ICD Codes: R60.0 - Localized edema SNOMED: 451136730 (3) Osteoarthritis of knees, bilateral ICD Codes: M17.0 - Bilateral primary osteoarthritis of knee SNOMED: 240017971, 979910158 (4) Morbid obesity with BMI of 60.0-69.9, adult ICD Codes: E66.01 - Morbid (severe) obesity due to excess calories; Z68.44 - Body mass index (BMI) 60.0-69.9, adult SNOMED: 233108035, 337491227 (5) Hypertension ICD Codes: I10 - Essential (primary) hypertension SNOMED: 74608735 (6) Mild diastolic dysfunction ICD Codes: I51.9 - Heart disease, unspecified SNOMED: 5700795 Assessment/Plan: cont lasix pain meds po Discussed with ALTA ELY in AM Chino Douglas MD Apr 12, 2020 10:50
[2020-04-12] MEDS ORDERED: Morphine Sulfate 4mg/ml Inj (IV USE ONLY) IVP SCH (11:00)
[2020-04-12 12:00] VITALS: BP 115/83
[2020-04-12] MEDS: Promethazine/Codeine 5ml UD ORAL PRN ×2 (13:29→20:13)
[2020-04-12 15:56] VITALS: BP 120/61
[2020-04-12 20:00] VITALS: BP 132/70
[2020-04-13] VITALS: BP 130/69
[2020-04-13 04:00] VITALS: BP 132/71
[2020-04-13] MEDS: Promethazine/Codeine 5ml UD ORAL PRN (05:57)
[2020-04-13 08:00] VITALS: BP 134/83
[2020-04-13] MEDS: Heparin 5000 units/ml inj SUBQ SCH (09:00)
[2020-04-13] MEDS: Aspirin Baby 81mg ORAL SCH (09:18)
[2020-04-13] MEDS: Furosemide 40mg tab ORAL SCH (09:23)
--- NOTE | 2020-04-15 12:57 | Discharge Summary ---
Discharge Summary Discharge Summary _ DATE OF ADMISSION: 04/09/2020 DATE OF DISCHARGE: 04/13/2020 DISCHARGED BY: Dr. Chino Douglas REASON FOR ADMISSION: 54 years old morbidly obese female with past medical history of CHF, COPD, hypertension, Madrigal's esophagitis, chronic pain syndrome, uterine fibroids, wa s referred to emergency room by urgent care for evaluation of bilateral lower extremity edema. Patient reported that the last time it happened, she was admitted to the hospital for IV diuretic. Patient reported progressively worsening shortness of breath. She reported dry cough. No fever or chills. Upon evaluation vital signs were stable. Laboratory work-up revealed no leukocytosis, hemoglobin 10, hematocrit 33.5. Stable electrolytes and renal parameters . Troponin negative, EKG revealed sinus rhythm , no acute ischemic changes. Urine toxicology screen was positive for cocaine and marijuana. Urinalysis revealed no evidence of urinary tract infection. Chest x-ray demonstrated left basilar opacity , perhaps airspace disease and effusion. In emergency department patient received IV Lasix , analgesic and admitted for further management. CONSULTANTS: pulmonary Dr. Marcos HOSPITAL COURSE: Patient admitted to telemetry floor. Patient started on diuresis with IV Lasix. Volumes , renal parameters a were closely monitored. Echocardiogram demonstrated preserved ejection fraction of 60% with mild left ventricular hypertrophy. No evidence of wall motion abnormality. Right ventricular systolic pressure of 27. Supplemental oxygen provided and titrated to keep pulse oximetry above 92%. Antitussive provided as needed. DVT and GI prophylaxis provided. Pain management was addressed as needed. 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 Fall precaution maintained. Patient clinically improved and was ready for discharge. FINAL DIAGNOSES: CHF exacerbation Bilateral leg edema Osteoarthritis bilateral knee Morbid obesity COPD Chronic pain syndrome Cocaine abuse DISCHARGE MEDICATIONS: See Medication Reconciliation list. DISCHARGE INSTRUCTIONS: Patient was discharged home. Follow-up with a primary care provider. Patient was counseled on abstinence from illicit street drugs. I have been assigned to dictate discharge summary for this account. I was not involved in the patient's management. Maria Elena Mayes NP Apr 15, 2020 12:57
== END 2020-04-13 12:00 | disposition home or self-care (01) | DRG 194 ==
LOC: EMR 04-09 00:30 → 2E 04-09 03:43 → EDBEDREQ 04-09 04:32 → OBSVTOIN 04-09 05:18 → 4E 04-11 17:50
DX: I11.0 Hypertensive heart disease with heart failure (principal); I50.33 Acute on chronic diastolic (congestive) heart failure; Z68.44 Body mass index [BMI] 60.0-69.9, adult; J44.9 Chronic obstructive pulmonary disease, unspecified; E66.01 Morbid (severe) obesity due to excess calories; M17.0 Bilateral primary osteoarthritis of knee; G89.4 Chronic pain syndrome; Z88.6 Allergy status to analgesic agent; Z88.0 Allergy status to penicillin; Z88.8 Allergy status to other drugs, medicaments and biological substances; F14.10 Cocaine abuse, uncomplicated
CPT/HCPCS: 36415; 71045; 80048; 80053; 80307; 81003; 83690; 83880; 84484; 85025; 85610; 85730; 93005; 93306; 96374; 96375; 96376; 99285; J2405; U0002

== ENCOUNTER 2020-05-28 23:51 | Emergency (ER) | payer OTHER ==
[~2020-05-28] VITALS: Ht 165.1 cm; Wt 172.4 kg
[~2020-05-28 23:51] MED LIST changes: +AMLODIPINE BESY10 MG ORAL; +PROTONIX20 MG ORAL
[2020-05-29 00:05] VITALS: BP 140/72
--- NOTE | 2020-05-29 00:05 | NUR ---
ED Nurse Note: Patient presents to ED with complaint of increased bilat leg edema and back pain. Patient states she lives in her car and it has become harder for her to move around. She is mostly mobile via wheelchair. She is aaox4, breathing is normal and unlabored. She also notes she has not been able to see her pain management doctor, but has an appointment next week.
--- NOTE | 2020-05-29 00:10 | Emergency Room Report ---
History of Present Illness General Chief Complaint: Edema Source: Patient Present Illness HPI This is a 54-year-old female who is homeless. She has a history of high blood pressure diabetes and asthma. She also has a BMI of 63. She presents with chief complaint of back pain and lower extremity edema. She says she lives in her car and her legs are swollen and she cannot move around. Denies any fever chills but denies any nausea vomiting. Pain to her lower back is 9 out of 10. She said her Lasix not helping. Sitting for long period time made it worse. 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 She claimed that she will get an appointment next week. 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 COVID-19 Screening: Negative COVID-19 COVID-19 Testing Source: unk Patient History Past Medical History: see triage record, old chart reviewed, DM, HTN, asthma Past Surgical History: other Pertinent Family History: none Social History: Reports: drug use; Denies: smoking Last Menstrual Period: n/a Now: No Immunizations: other Reviewed Nursing Documentation: PMH: Agreed; PSxH: Agreed Nursing Documentation-PMH Past Medical History: No History, Except For Hx Cardiac Problems: Yes Hx Hypertension: Yes Hx Pacemaker: No Hx Asthma: Yes Hx COPD: No Hx Diabetes: Yes Hx Cancer: No Hx Gastrointestinal Problems: No Hx Dialysis: No Hx Neurological Problems: No Hx Cerebrovascular Accident: No Hx Seizures: No Review of Systems Eye: Denies: eye pain, blurred vision ENT: Denies: ear pain, nose congestion, throat swelling Respiratory: Denies: cough, shortness of breath Cardiovascular: Denies: chest pain, palpitations Gastrointestinal: Denies: abdominal pain, diarrhea, nausea, vomiting Musculoskeletal: Reports: back pain, joint pain, muscle pain Skin: Denies: rash Neurological: Denies: headache, numbness Endocrine: Denies: increased thirst, increased urine Hematologic/Lymphatic: Denies: easy bruising All Other Systems: negative except mentioned in HPI Physical Exam Vital Signs Date Time Temp Pulse Resp B/P (MAP) Pulse Ox O2 Delivery O2 Flow Rate FiO2 05/28/20 23:57 98.4 85 19 140/72 (94) 95 Room Air Vitals normal except for mild hypertension Sp02 EP Interpretation: reviewed, normal General Appearance: well appearing, no apparent distress, alert, obese Head: normocephalic, atraumatic Eyes: bilateral eye PERRL, bilateral eye EOMI ENT: hearing grossly normal, normal pharynx Neck: full range of motion, supple, no meningismus Respiratory: chest non-tender, lungs clear, normal breath sounds Cardiovascular #1: regular rate, rhythm, no murmur Gastrointestinal: normal bowel sounds, non tender, no mass, no organomegaly, no bruit, non-distended Musculoskeletal: back normal, normal range of motion, other - Lower extremities showed chronic lymphedema. Not pitting. Psychiatric: mood/affect normal Medical Decision Making Diagnostic Impression: Primary Impression: UTI (urinary tract infection) Qualified Codes: N30.00 - Acute cystitis without hematuria Additional Impressions: Bilateral leg edema Chronic pain Qualified Codes: G89.4 - Chronic pain syndrome Osteoarthritis of knees, bilateral Qualified Codes: M17.0 - Bilateral primary osteoarthritis of knee Morbid obesity with BMI of 60.0-69.9, adult ER Course Presents with lower extremity edema. Is not pitting in nature. I suspect this is a chronic issue with her. BNP is negative for CHF. No evidence of ACS, PE, dissection. Chest x-ray is unremarkable. Urinalysis with possible UTI. Antibiotics given here. She diuresed well with Lasix. On the [facility] system, he has multiple prescription for Percocet from different providers. She claimed that she has a new pain specialist and will be seeing that doctor next week. She also said that she was a referral for bariatric surgery and the surgeon told her that she cannot be on Percocet. She been out of her Percocet for last 2 weeks. Patient is homeless and said that she cannot deal with her pain. Also said that her Lasix not working. She is taking 40 mg twice daily. Haja the case with Dr. Valentin who accepted patient for transfer to [facility]. EKG Diagnostic Results Troponin ordered: Yes Rhythm Strip Diag. Results EP Interpretation: yes Rate: 88 Rhythm: NSR, no PVC's, no ectopy Chest X-Ray Diagnostic Results Chest X-Ray Diagnostic Results : Chest X-Ray Ordered: Yes # of Views/Limited/Complete: 1 View Indication: Shortness of Breath EP Interpretation: Yes Interpretation: no consolidation, no effusion, no pneumothorax, no acute cardiopulmonary disease Impression: No acute disease Electronically Signed by: Gary Dorado MD Last Vital Signs Date Time Temp Pulse Resp B/P (MAP) Pulse Ox O2 Delivery O2 Flow Rate FiO2 05/28/20 23:57 98.4 85 19 140/72 (94) 95 Room Air Status: improved Disposition: SHORT-TERM HOSP Condition: Stable Referrals: NON PHYSICIAN (PCP) Gary Dorado MD May 29, 2020 00:10
[2020-05-29 00:21] LABS: BASOPHILS % (AUTO) 1.6 % (0.0-2.0); EOSINOPHILS % (AUTO) 2.1 % (0.0-3.0); HEMATOCRIT 34.7 % (37.0-47.0); HEMOGLOBIN 10.5 G/DL (12.0-16.0); LYMPHOCYTES % (AUTO) 30.4 % (20.0-45.0); MEAN CORPUSCULAR VOLUME 93 FL (80-99); MONOCYTES % (AUTO) 10.8 % (1.0-10.0); NEUTROPHILS % (AUTO) 55.1 % (45.0-75.0); PLATELET COUNT 270 K/UL (150-450); RED BLOOD COUNT 3.75 M/UL (4.20-5.40); RED CELL DISTRIBUTION WIDTH 16.6 % (11.6-14.8); WHITE BLOOD COUNT 6.2 K/UL (4.8-10.8)
[2020-05-29 00:29] LABS: ANION GAP 8 mmol/L (5-15); BLOOD UREA NITROGEN 9 mg/dL (7-18); CALCIUM 8.5 MG/DL (8.5-10.1); CARBON DIOXIDE 27 MMOL/L (21-32); CHLORIDE 106 MMOL/L (98-107); CREATININE 1.1 MG/DL (0.55-1.30); POTASSIUM 3.3 MMOL/L (3.5-5.1); SODIUM 141 MMOL/L (136-145)
[2020-05-29 00:33] LABS: APPEARANCE,URINE SLIGHTLY CLOUDY; BILIRUBIN, URINE NEGATIVE (NEGATIVE); COLOR,URINE PALE YELLOW; GLUCOSE, URINE (UA) NEGATIVE (NEGATIVE); KETONES,URINE NEGATIVE (NEGATIVE); LEUKOCYTE ESTERASE ,URINE NEGATIVE (NEGATIVE); NITRITE,URINE POSITIVE (NEGATIVE); PH,URINE 6.5 (4.5-8.0); PROTEIN,URINE 1+ (NEGATIVE); UROBILINOGEN,URINE NORMAL MG/DL (0.0-1.0)
[2020-05-29] MEDS ORDERED: HYDROcodone/Acetamin 5/325 tab ORAL ONE (00:45)
[2020-05-29] MEDS ORDERED: cefTRIAXone 1 GM in NS 55 ML IVPB ONE (01:00)
[2020-05-29] MEDS ORDERED: HYDROmorphone 1mg/ml Carpuject IVP ONE (01:45)
[2020-05-29 02:15] VITALS: BP 137/80
--- NOTE | 2020-05-29 02:15 | NUR ---
ED Nurse Note: Patient is resting in bed at this time. She is in no acute distress. Reports decreased pain after receiving pain medication. She has urinated approximately 800cc urine since receiving lasix. Patient is aware of hospital admission/transfer and agrees with treatment plan. Vitals are stable.
[2020-05-29 04:30] VITALS: BP 141/85
--- NOTE | 2020-05-29 04:30 | NUR ---
ED Nurse Note: Patient is resting in bed, safety measures remain in place. She is in no acute distress. Breathing is normal and unlabored. She has not requested more pain medication at this time.
--- NOTE | 2020-05-29 05:45 | NUR ---
ED Nurse Note: Report given to ALTA Jj.
[2020-05-29 06:00] VITALS: BP 151/100
--- NOTE | 2020-05-29 06:00 | NUR ---
ED Nurse Note: Patient is stable for transfer to [facility] at this time. She is aaox4, breathing is normal and unlabored and vitals are stable at time of ER departure. She has IV that is intact. Patient took all belongings with her. She is being transported via gurney by [facility] BLS unit [id number]. Report given to EMS crew.
--- NOTE | 2020-05-29 17:24 | Diagnostic Imaging Report ---
Indication: Chest pain Technique: One view of the chest Comparison: 04/09/2020 Findings: The heart is enlarged. There is bilateral interstitial congestion noted. This may be increased from the prior study. Impression: Bilateral interstitial congestion, increased from prior exam of 04/09/2020 Cardiomegaly
== END 2020-05-29 06:00 | disposition short-term general hospital (02) ==
LOC: EMR 05-29
DX: R60.0 Localized edema (principal); N30.00 Acute cystitis without hematuria; G89.4 Chronic pain syndrome; M17.0 Bilateral primary osteoarthritis of knee; E66.01 Morbid (severe) obesity due to excess calories; Z68.44 Body mass index [BMI] 60.0-69.9, adult; Z59.0 Homelessness; Z88.6 Allergy status to analgesic agent; Z88.0 Allergy status to penicillin; E11.9 Type 2 diabetes mellitus without complications; I10 Essential (primary) hypertension; M54.5 Low back pain; I51.7 Cardiomegaly
CPT/HCPCS: 36415; 71045; 80048; 80307; 81001; 83880; 84484; 85025; 87086; 96365; 96375; J0696; J1170; J1940; U0002; Z7502; 99284

== ENCOUNTER 2020-06-16 17:56 | Emergency (ER) | payer OTHER ==
[~2020-06-16] VITALS: Ht 165.1 cm; Wt 170.1 kg
[2020-06-16] MEDS ORDERED: Dicyclomine HCl 10mg/5ml oral soln ORAL ONE (18:30)
[2020-06-16] MEDS ORDERED: Lidocaine 2% Visc 15ml soln ORAL ONE (18:30)
[2020-06-16] MEDS ORDERED: Mylanta II UD 30ml ORAL ONE (18:30)
[2020-06-16] MEDS ORDERED: Morphine Sulfate 2mg/ml Inj(IV/IM USE ONLY) IVP ONE (18:30)
[2020-06-16] MEDS ORDERED: Omnipaque-300 100ml vial INJ PRN (18:45)
--- NOTE | 2020-06-16 18:45 | Emergency Room Report ---
History of Present Illness General Chief Complaint: Abdominal Pain Source: Patient Present Illness HPI Disclaimer: Please note that this report is being documented using [employer] technology. This can lead to erroneous entry secondary to incorrect interpretation by the dictating instrument. HPI: 54-year-old female with a history of morbid obesity, CHF, COPD, hypertension, chronic lower extremity edema, Madrigal's esophagus, chronic pain, uterine fibroids presents for evaluation of abdominal pain and vomiting. Symptoms are present 1 week. She reports epigastric and left upper quadrant abdominal pain and persistent nonbloody nonbilious emesis. Unable to keep food or liquids down. Nothing makes it better, nothing makes it worse. She is taking Pepcid, Maalox, without relief. Denies diarrhea. Denies dysuria hematuria. Reports multiple abdominal surgeries including appendectomy and cholecystectomy. Reports mild shortness of breath. Denies chest pain. Reports fatigue. Difficulty ambulating. States she is unable to see her doctor as he is out sick. PMH: Morbid obesity, COPD, CHF, hypertension, Madrigal's esophagus, uterine fibroids PSH: Appendectomy, cholecystectomy Allergies: Ibuprofen, penicillin, tramadol among others Social Hx: Denies drug or alcohol use Allergies: Coded Allergies: CARROT (Verified Allergy, Mild, 09/25/19) IBUPROFEN (Verified Allergy, Unknown, 05/17/17) PENICILLINS (Verified Allergy, Unknown, 05/17/17) TRAMADOL (Verified Allergy, Unknown, Hives, 05/17/17) TRIMETHOBENZAMIDE (Verified Allergy, Unknown, 05/17/17) COVID-19 Screening Contact w/high risk pt: No Recent Travel to affected area: No Experienced COVID-19 symptoms?: No COVID-19 Testing performed SHIPPING SUPPORT: Yes COVID-19 Screening: Negative COVID-19 COVID-19 Testing Source: nasal Nursing Documentation-PMH Past Medical History: No History, Except For Hx Cardiac Problems: Yes Hx Hypertension: Yes Hx Pacemaker: No Hx Asthma: Yes Hx COPD: No Hx Diabetes: Yes Hx Cancer: No Hx Gastrointestinal Problems: No Hx Dialysis: No Hx Neurological Problems: No Hx Cerebrovascular Accident: No Hx Seizures: No Review of Systems All Other Systems: negative except mentioned in HPI Physical Exam Vital Signs Date Time Temp Pulse Resp B/P (MAP) Pulse Ox O2 Delivery O2 Flow Rate FiO2 06/16/20 18:11 98.1 98 18 137/89 (105) 98 Room Air General: Awake and alert, morbidly obese female, actively vomiting at bedside HEENT: NC/AT. EOMI. Cardiovascular: Borderline tachycardia. S1 and S2 normal. No murmur appreciated Resp: Normal work of breathing. No cough, wheezing or crackles appreciated Abdomen: Abdomen is obese, soft, nondistended. Tenderness palpation in the epig astrium and left upper quadrant. No tenderness in the lower quadrants. No guarding. Unable to palpate for masses Skin: Intact. No abrasions, laceration or rash over the exposed skin MSK: Normal tone and bulk. Moving all extremities. No obvious deformity. Significant nonpitting edema of the lower extremities bilaterally. Neuro: Awake and alert. Mentating appropriately. Medical Decision Making Diagnostic Impression: Primary Impression: Abdominal pain Additional Impressions: Bilateral leg edema Esophagitis ER Course Is a 54-year-old female presenting for evaluation of 1 week of vomiting abdominal pain. Differential includes is not limited to gastritis, gastroenteritis, pancreatitis, bowel obstruction, inflammatory bowel disease, UTI, pyelonephritis among others. EKG is nonischemic and labs have returned within normal limits. CT scan was obtained showing signs of esophagitis or otherwise chronic changes. Patient has a known history of Madrigal's esophagus and esophagitis. She is taking omeprazole. Her symptoms are controlled after receiving IV fluids, antacids and pain medication. No further emesis in the ED. No sign of urinary tract infection. Believe patient is safe for outpatient follow-up at this point. IV Lasix prior to discharge which I provided. She has an appointment with a bariatric surgeon next month which I encouraged her to keep and to follow-up with her PMD as soon as possible. She understands agrees with the treatment plan will be discharged home. Laboratory Tests Test 06/16/20 19:30 06/16/20 20:16 White Blood Count 5.5 K/UL (4.8-10.8) Red Blood Count 3.90 M/UL (4.20-5.40) L Hemoglobin 10.6 G/DL (12.0-16.0) L Hematocrit 34.5 % (37.0-47.0) L Mean Corpuscular Volume 88 FL (80-99) Mean Corpuscular Hemoglobin 27.2 PG (27.0-31.0) Mean Corpuscular Hemoglobin Concent 30.8 G/DL (32.0-36.0) L Red Cell Distribution Width 18.0 % (11.6-14.8) H Platelet Count 272 K/UL (150-450) Mean Platelet Volume 7.0 FL (6.5-10.1) Neutrophils (%) (Auto) 62.0 % (45.0-75.0) Lymphocytes (%) (Auto) 23.9 % (20.0-45.0) Monocytes (%) (Auto) 8.8 % (1.0-10.0) Eosinophils (%) (Auto) 3.4 % (0.0-3.0) H Basophils (%) (Auto) 1.9 % (0.0-2.0) Sodium Level 141 MMOL/L (136-145) Potassium Level 4.0 MMOL/L (3.5-5.1) Chloride Level 105 MMOL/L (98-107) Carbon Dioxide Level 32 MMOL/L (21-32) Blood Urea Nitrogen 13 mg/dL (7-18) Creatinine 1.1 MG/DL (0.55-1.30) Estimated Glomerular Filtration Rate > 60 mL/min (>60) Glucose Level 114 MG/DL (74-106) H Calcium Level 8.5 MG/DL (8.5-10.1) Total Bilirubin 0.3 MG/DL (0.2-1.0) Aspartate Amino Transferase (AST) 20 U/L (15-37) Alanine Aminotransferase (ALT) 17 U/L (12-78) Alkaline Phosphatase 93 U/L (46-116) Troponin I 0.000 ng/mL (0.000-0.056) Pro-B-Type Natriuretic Peptide 21 pg/mL (0-125) Total Protein 7.4 G/DL (6.4-8.2) Albumin 3.3 G/DL (3.4-5.0) L Globulin 4.1 g/dL Albumin/Globulin Ratio 0.8 (1.0-2.7) L Lipase 164 U/L (73-393) Urine Color Yellow Urine Appearance Clear Urine pH 6.5 (4.5-8.0) Urine Specific [place] 1.015 (1.005-1.035) Urine Protein 1+ (NEGATIVE) H Urine Glucose (UA) Negative (NEGATIVE) Urine Ketones Negative (NEGATIVE) Urine Blood Negative (NEGATIVE) Urine Nitrite Negative (NEGATIVE) Urine Bilirubin Negative (NEGATIVE) Urine Urobilinogen 1 MG/DL (0.0-1.0) H Urine Leukocyte Esterase Negative (NEGATIVE) Urine RBC 0 /HPF (0 - 2) Urine WBC 0-2 /HPF (0 - 2) Urine Squamous Epithelial Cells Many /LPF (NONE/OCC) H Urine Bacteria Few /HPF (NONE) Urine HCG, Qualitative Negative (NEGATIVE) EKG Diagnostic Results Troponin ordered: Yes When was troponin ordered?: Jun 16, 2020 EKG Time: 18:45 Rate: normal Rhythm: NSR ST Segments: no acute changes Other Impression Sinus rhythm, normal axis, normal intervals, no ST segment changes. Rhythm Strip Diag. Results Rhythm Strip Time: 18:45 EP Interpretation: yes Rate: 80s Rhythm: NSR, no PVC's, no ectopy Chest X-Ray Diagnostic Results Chest X-Ray Diagnostic Results : Chest X-Ray Ordered: Yes # of Views/Limited/Complete: 1 View Indication: Chest Pain EP Interpretation: Yes Interpretation: no consolidation, no effusion, no pneumothorax, no acute cardiopulmonary disease, other - Cardiomegaly Impression: No acute disease Electronically Signed by: Electronically signed by Dr. Kota Aldridge MD CT/MRI/US Diagnostic Results CT/MRI/US Diagnostic Results : Impression IMPRESSION: 1. Cardiomegaly. 2. ASCVD. 3. Hiatal hernia probable distal esophagitis. 4. Fatty liver. 5. Status post cholecystectomy. 6. No renal calculus or hydronephrosis. 7. No bowel obstruction. 8. Limited evaluation due to motion artifact 9. The patient appears to be status post appendectomy. 10. Fibroid uterus. Dictated By: Geoffrey Carmichael M.D. Electronically Signed By:Geoffrey Carmichael M.D. Signed Date/Time06/16/204 CC: Kota Aldridge MD Last Vital Signs Date Time Temp Pulse Resp B/P (MAP) Pulse Ox O2 Delivery O2 Flow Rate FiO2 06/16/20 18:11 98.1 98 18 137/89 (105) 98 Room Air Disposition: HOME, SELF-CARE Condition: Stable Scripts Ondansetron Odt* (ZOFRAN ODT*) 4 Mg Tab.rapdis 4 MG BC EVERY 6 HOURS PRN for Nausea & Vomiting, #10 TAB 0 Refills Prov: Kota Aldridge MD 06/16/20 Kota Aldridge MD Jun 16, 2020 18:45
[2020-06-16 19:00] VITALS: BP 136/85
[2020-06-16 20:15] LABS: BASOPHILS % (AUTO) 1.9 % (0.0-2.0); EOSINOPHILS % (AUTO) 3.4 % (0.0-3.0); HEMATOCRIT 34.5 % (37.0-47.0); HEMOGLOBIN 10.6 G/DL (12.0-16.0); LYMPHOCYTES % (AUTO) 23.9 % (20.0-45.0); MEAN CORPUSCULAR VOLUME 88 FL (80-99); MONOCYTES % (AUTO) 8.8 % (1.0-10.0); PLATELET COUNT 272 K/UL (150-450); WHITE BLOOD COUNT 5.5 K/UL (4.8-10.8)
[2020-06-16 20:20] LABS: ALANINE AMINOTRANSFERASE 17 U/L (12-78); ALBUMIN 3.3 G/DL (3.4-5.0); ALBUMIN/GLOBULIN RATIO 0.8 (1.0-2.7); ALKALINE PHOSPHATASE 93 U/L (46-116); ASPARTATE AMINO TRANSFERASE 20 U/L (15-37); BILIRUBIN,TOTAL 0.3 MG/DL (0.2-1.0); BLOOD UREA NITROGEN 13 mg/dL (7-18); CALCIUM 8.5 MG/DL (8.5-10.1); CARBON DIOXIDE 32 MMOL/L (21-32); CHLORIDE 105 MMOL/L (98-107); CREATININE 1.1 MG/DL (0.55-1.30); SODIUM 141 MMOL/L (136-145)
[2020-06-16 21:02] LABS: APPEARANCE,URINE CLEAR; BILIRUBIN, URINE NEGATIVE (NEGATIVE); COLOR,URINE YELLOW; GLUCOSE, URINE (UA) NEGATIVE (NEGATIVE); KETONES,URINE NEGATIVE (NEGATIVE); LEUKOCYTE ESTERASE ,URINE NEGATIVE (NEGATIVE); NITRITE,URINE NEGATIVE (NEGATIVE); PH,URINE 6.5 (4.5-8.0); PROTEIN,URINE 1+ (NEGATIVE); UROBILINOGEN,URINE 1 MG/DL (0.0-1.0)
--- NOTE | 2020-06-16 21:08 | Diagnostic Imaging Report ---
EXAM: CT Abdomen and Pelvis With Intravenous Contrast CLINICAL HISTORY: ABD PAIN TECHNIQUE: Axial computed tomography images of the abdomen and pelvis with intravenous contrast. CTDI is 18.4 mGy and DLP is 961.9 mGy-cm. One or more of the following dose reduction techniques were used: automated exposure control, adjustment of the mA and/or kV according to patient size, use of iterative reconstruction technique. COMPARISON: No previous studies. FINDINGS: Lung bases: Very minimal subsegmental atelectasis posteriorly at the lung bases. Pleural space: No pleural effusions. Heart: Mild cardiomegaly is noted. Mediastinum: Small to moderate hiatal hernia and probable distal esophagitis. ABDOMEN: Liver: Diffuse fatty infiltration of the liver is noted. Gallbladder and bile ducts: Status post cholecystectomy. No ductal dilation. Pancreas: See below. Spleen: Spleen enhance uniformly. Adrenals: The adrenal glands, the head, body, tail of the pancreas are unremarkable. Kidneys and ureters: Both kidneys are shown to excrete contrast bilaterally without renal calculus or hydronephrosis. Stomach and bowel: Presumed ingested material in the stomach. Moderate quantity of stool throughout the colon. No evidence of bowel obstruction. No mucosal thickening. PELVIS: Appendix: Patient appears to be status post appendectomy. Bladder: Bladder is underdistended. Reproductive: Bulbous uterus suggestive of possible fibroids. ABDOMEN and PELVIS: Intraperitoneal space: Unremarkable. No free air. No significant fluid collection. Bones/joints: Are mild to moderate degenerative disc disease of the spinal: Is noted. Moderate to severe osteoarthritic changes about the sacroiliac joints are noted. Sacrum and coccyx are unremarkable. No acute fracture. No dislocation. Soft tissues: Ischiorectal fat is clean. Vasculature: Flow is demonstrated within the celiac, SMA, the renal arteries, and PIPE. No abdominal aortic aneurysm. Lymph nodes: No retroperitoneal lymphadenopathy. No pelvic or inguinal lymphadenopathy. Other findings: ASCVD. Multilevel vacuum discs are noted. IMPRESSION: 1. Cardiomegaly. 2. ASCVD. 3. Hiatal hernia probable distal esophagitis. 4. Fatty liver. 5. Status post cholecystectomy. 6. No renal calculus or hydronephrosis. 7. No bowel obstruction. 8. Limited evaluation due to motion artifact 9. The patient appears to be status post appendectomy. 10. Fibroid uterus.
[2020-06-16] MEDS ORDERED: Morphine Sulfate 4mg/ml Inj (IV USE ONLY) IVP ONE (21:30)
[2020-06-16] MEDS ORDERED: ONDANSETRON ODT4 MG BC (21:57)
[2020-06-16] MEDS ORDERED: LORazepam 1mg tab ORAL ONE (22:00)
[2020-06-16 23:00] VITALS: BP 140/85
--- NOTE | 2020-06-17 18:56 | Diagnostic Imaging Report ---
Indication: Shortness of breath Technique: One view of the chest Comparison: 05/29/2020 Findings: Heart is enlarged. The lungs and pleural spaces are clear. There is no significant interim change Impression: Cardiomegaly. No acute process
--- NOTE | 2020-06-19 13:00 | Cardiology Report ---
APPROVED REPORT EKG Measurement Heart [id number] <Conclusion> Normal sinus rhythm Normal ECG
== END 2020-06-16 23:00 | disposition home or self-care (01) ==
LOC: EMR 18:44
DX: R10.9 Unspecified abdominal pain (principal); R60.0 Localized edema; K20.90 Esophagitis, unspecified without bleeding; I10 Essential (primary) hypertension; E11.9 Type 2 diabetes mellitus without complications; I25.10 Atherosclerotic heart disease of native coronary artery without angina pectoris; K76.0 Fatty (change of) liver, not elsewhere classified; K44.9 Diaphragmatic hernia without obstruction or gangrene; Z90.49 Acquired absence of other specified parts of digestive tract; D25.9 Leiomyoma of uterus, unspecified; Z88.6 Allergy status to analgesic agent; Z88.0 Allergy status to penicillin; Z91.018 Allergy to other foods
CPT/HCPCS: 36415; 71045; 74177; 80053; 81003; 81025; 83690; 83880; 84484; 85025; 93005; 96361; 96374; 96375; 96376; J1940; J2270; J2405; J7030; Q9965; S0028; Z7502; 99284